=== PATIENT | female | born 1945 | race Caucasian/White ===

== ENCOUNTER 2016-11-30 20:14 | Inpatient (IN) | payer OTHER ==
--- NOTE | 2016-11-30 20:44 | CPEKG ---
Heart Rate: 68 RR Interval: 882 P-R Interval: 148 QRSD Interval: 94 QT Interval: 444 QTC Interval: 473 P Kelly[place]: 42 QRS Kelly[place]: 9 T Wave Kelly[place]: 41 EKG Severity - NORMAL ECG - EKG Impression: SINUS RHYTHM Electronically Signed By: Zaid Lopez 30-Nov-2016 21:44:06
[2016-11-30 21:08] LABS: % IMMATURE GRANULYOCYTES 0.4 % (0.0-1.1); ABSOLUTE IMMATURE GRANULOCYTES 0.04 10^3/uL (0.00-0.10); ADD DIFF? NO; ADD MORPH? NO; ADD SCAN? NO; ATYPICAL LYMPHOCYTE FLAG 0 (0-99); FRAGMENT RBC FLAG 0 (0-99); HEMATOCRIT 43.6 % (38.0-47.0); HEMOGLOBIN 15.3 g/dL (12.6-16.3); LEFT SHIFT FLG 0 (0-99); LIPEMIA HEMOLYSIS FLAG 90 (0-99); MEAN CELL HEMOGLOBIN 32.1 pg (27.9-34.1); MEAN CELL HEMOGLOBIN CONCENTR. 35.1 g/dL (32.4-36.7); MEAN CELL VOLUME 91.4 fL (81.5-99.8); MEAN PLATELET VOLUME 10.5 fL (8.7-11.7); PLATELET CLUMPS FLAG 0 (0-99); PLATELET COUNT 248 10^3/uL (150-400); RED BLOOD CELL COUNT 4.77 10^6/uL (4.18-5.33); RED CELL DISTRIBUTION WIDTH 11.7 % (11.5-15.2)
[2016-11-30 21:16] LABS: ANION GAP 12 mEq/L (8-16); CALCIUM 10.2 mg/dL (8.5-10.4); CARBON DIOXIDE 27 mEq/l (22-31); CHLORIDE 93 mEq/L (97-110); CREATININE 0.8 mg/dL (0.6-1.0); GLOMERULAR FILTRATION RATE > 60; GLUCOSE 195 mg/dL (70-100); POTASSIUM 3.8 mEq/L (3.5-5.2); SODIUM 132 mEq/L (134-144)
--- NOTE | 2016-11-30 21:19 | EDPHY ---
H & P Time Seen by Provider: 11/30/16 21:16 HPI/ROS: Chief complaint. Cough, vomiting HPI. Patient is 71-year-old female here with her . Recent [address] trip to [place] returning yesterday. The whole family was sick. Patient has been coughing to the point of throwing up and urinary incontinence. Continued vomiting today. This afternoon generalized weakness and sweaty. No fever. Sleepy this evening. No diarrhea. Patient says she has some mid abdominal pain from vomiting. ROS Constitutional. Weakness Eyes. no problems with vision ENT. no sore throat, no nasal drainage Cardiovascular. no chest pain Respiratory. Cough Abdominal. Vomiting . no problems urinating MS. no calf pain/swelling, no neck/back pain, no joint pain Skin. no rash Lymph. no swollen glands Neuro. Confusion Past Medical/Surgical History: Hypertension and dyslipidemia Social History: , nonsmoker, no alcohol Smoking Status: Never smoked Physical Exam: General Appearance: Alert well-developed female moderate distress vital signs significant for O2 saturation 90% Eyes: Pupils equal and round no pallor or injection. ENT, Mouth: Mucous membranes are moist. Respiratory: There are no retractions, lungs are clear to auscultation. Cardiovascular: Regular rate and rhythm. Gastrointestinal: Abdomen is soft and nontender, no masses, bowel sounds normal. Neurological: Awake and alert, sensory and motor exams grossly normal. Skin: Warm and dry, no rashes. Musculoskeletal: Neck is supple nontender. Extremities symmetrical, full range of motion. Psychiatric: Patient is oriented X 1, there is no agitation. Constitutional: Initial Vital Signs Temperature (C) 36.6 C 11/30/16 20:15 Heart Rate 73 11/30/16 20:15 Respiratory Rate 18 11/30/16 20:15 Blood Pressure 155/90 H 11/30/16 20:15 O2 Sat (%) 90 L 11/30/16 20:15 O2 Delivery Mode Room Air Allergies/Adverse Reactions: Penicillins Allergy (Verified 11/30/16 20:23) Medical Decision Making - Diagnostics Imaging: Chest x-ray interpreted by me is suggestive for pneumonia Procedures: IV normal saline. Sepsis workup ED Course/Re-evaluation: Re-evaluation patient is stable. The and I discussed treatment plan including recommendation for admission. He expresses understanding and agreement Patient is given IV Levaquin. I have consulted and discussed the case with Dr. Saunders, hospitalist, who agrees to the admission Differential Diagnosis: I have considered pneumonia, urinary tract infection, sepsis. The patient has altered mental status. I will order head CT as well - Data Points Laboratory Results: Laboratory Results 11/30/16 20:32 11/30/16 20:32 11/30/16 11/30/16 11/30/16 20:32 20:32 20:32 WBC RBC Hgb Hct MCV MCH MCHC RDW Plt Count MPV Neut % (Auto) Lymph % (Auto) [place] % (Auto) Eos % (Auto) Baso % (Auto) Nucleat RBC Rel Count Absolute Neuts (auto) Absolute Lymphs (auto) Absolute Monos (auto) Absolute Eos (auto) Absolute Basos (auto) Absolute Nucleated RBC Immature Gran % Immature Gran # PT 13.4 SEC SEC (12.0-15.0) INR 1.03 (0.83-1.16) APTT 26.8 SEC SEC (23.0-38.0) Sodium 132 mEq/L L mEq/L (134-144) Potassium 3.8 mEq/L mEq/L (3.5-5.2) Chloride 93 mEq/L L mEq/L (97-110) Carbon Dioxide 27 mEq/l mEq/l (22-31) Anion Gap 12 mEq/L mEq/L (8-16) BUN 22 mg/dL mg/dL (7-23) Creatinine 0.8 mg/dL mg/dL (0.6-1.0) Estimated GFR > 60 Glucose 195 mg/dL H mg/dL (70-100) Calcium 10.2 mg/dL mg/dL (8.5-10.4) Total Bilirubin 1.1 mg/dL mg/dL (0.1-1.4) 11/30/16 20:32 WBC 11.02 10^3/uL H 10^3/uL (3.80-9.50) RBC 4.77 10^6/uL 10^6/uL (4.18-5.33) Hgb 15.3 g/dL g/dL (12.6-16.3) Hct 43.6 % % (38.0-47.0) MCV 91.4 fL fL (81.5-99.8) MCH 32.1 pg pg (27.9-34.1) MCHC 35.1 g/dL g/dL (32.4-36.7) RDW 11.7 % % (11.5-15.2) Plt Count 248 10^3/uL 10^3/uL (150-400) MPV 10.5 fL fL (8.7-11.7) Neut % (Auto) 90.1 % H % (39.3-74.2) Lymph % (Auto) 4.4 % L % (15.0-45.0) [place] % (Auto) 4.7 % % (4.5-13.0) Eos % (Auto) 0.1 % L % (0.6-7.6) Baso % (Auto) 0.3 % % (0.3-1.7) Nucleat RBC Rel Count 0.0 % % (0.0-0.2) Absolute Neuts (auto) 9.94 10^3/uL H 10^3/uL (1.70-6.50) Absolute Lymphs (auto) 0.48 10^3/uL L 10^3/uL (1.00-3.00) Absolute Monos (auto) 0.52 10^3/uL 10^3/uL (0.30-0.80) Absolute Eos (auto) 0.01 10^3/uL L 10^3/uL (0.03-0.40) Absolute Basos (auto) 0.03 10^3/uL 10^3/uL (0.02-0.10) Absolute Nucleated RBC 0.00 10^3/uL 10^3/uL (0-0.01) Immature Gran % 0.4 % % (0.0-1.1) Immature Gran # 0.04 10^3/uL 10^3/uL (0.00-0.10) PT INR APTT Sodium Potassium Chloride Carbon Dioxide Anion Gap BUN Creatinine Estimated GFR Glucose Calcium Total Bilirubin Medications Given: Discontinued Medications Ondansetron HCl (Zofran) 4 mg IVP EDNOW ONE Stop: 11/30/16 21:47 Last Admin: 11/30/16 21:58 Dose: 4 mg Departure - Departure Disposition: [facility] Clinical Impression: Pneumonia Qualifiers: Pneumonia type: due to unspecified organism Laterality: right Lung location: middle lobe of lung Qualified Code(s): J18.1 - Lobar pneumonia, unspecified organism Altered mental status Qualifiers: Altered mental status type: disorientation Qualified Code(s): R41.0 - Disorientation, unspecified Condition: Fair Referrals: JENNIFER BECERRA [Primary Care Provider] - As per Instructions
[2016-11-30 21:32] LABS: INR 1.03 (0.83-1.16); PROTIME(PATIENT) 13.4 SEC (12.0-15.0)
[2016-11-30 21:33] LABS: APTT 26.8 SEC (23.0-38.0)
[2016-11-30 21:34] LABS: BILIRUBIN,TOTAL 1.1 mg/dL (0.1-1.4)
[2016-11-30] MEDS ORDERED: ONDANSETRON 4 MG/2 ML VIAL ONE (21:46)
[2016-11-30] MEDS ORDERED: ONDANSETRON 4 MG/2 ML VIAL IVP ONE (21:46)
[2016-11-30] MEDS ORDERED: IOPAMIDOL (ISOVUE 370) 100 ML BTL IV ONE (23:05)
--- NOTE | 2016-11-30 23:48 | SOAPPROG ---
Downtime Inpatient MD Late Entry SOAP Note: Audrey appears to have a ruptured left MCA aneurysm that will need to be secured surgically. Full CTA report is pending. We will discuss this with her in the morning and would suggest keppra sz prophylaxis and admission to sdu or icu. She does have a degree of hydrocephalus but we would prefer not to intervene until the time of her surgery for this provided she remains neurologically stable. We suggest keeping SBP <120 until aneursym is clipped. If indeed this proves to be a MCA aneurysm on the recons, then surgical clipping is advised over coiling. Dr Ge will assume care late tmrw afternoon. -Nadir Cortes MD
[2016-12-01] MEDS ORDERED: niCARdipine/NACL/200 ML BAG IV ONE (00:37)
[2016-12-01] MEDS: niCARdipine/NACL 200 ML IV SCH ×6 (00:50→18:43)
[2016-12-01] MEDS: NS W/ 20 KCl/L 1,000 ML IV SCH ×2 (00:50→13:14)
[2016-12-01] MEDS ORDERED: METOCLOPRAMIDE 10 MG/2 ML VIAL IVP PRN (01:27)
[2016-12-01] MEDS ORDERED: ACETAMINOPHEN 325 MG TAB PO PRN (01:27)
[2016-12-01] MEDS ORDERED: ONDANSETRON DISINTEGRATING 4 MG TAB PO PRN (01:27)
[2016-12-01] MEDS: ONDANSETRON 4 MG/2 ML VIAL IVP PRN ×2 (01:49→10:16)
--- NOTE | 2016-12-01 02:13 | GHP ---
[f rep st] HISTORY AND PHYSICAL DATE OF ADMISSION: 11/30/2016 HISTORY OF PRESENT ILLNESS: The patient is a pleasant 71-year-old female with a history of hyperten rafael, who has had a cough for a number of days. She was recently on a road trip, they drove to [place] and back with her family. She was coughing throughout the day. The cough became worse today. Her went out to run some errands and then came back, and he found his much sicker, wenora k and confused. He thought perhaps she had a bit of slurred speech. She was not complaining of hea dache at that time, she just felt confused. Like he asked where her clothes were, and she said in t he oven. Ultimately decided to take her in to the hospital. There was some discussion that the pat jayjay had pneumonia on the basis of a chest x-ray. Subsequent head CT showed a subarachnoid hemorrha ge, this is likely aneurysmal in nature. When I see the patient, she is able to follow some command s. She is complaining of headache which is a new complaint on the basis of this presentation. She is confused and saying some things that are less clear. She had no prior knowledge of aneurysm. PAST MEDICAL HISTORY: Hypercholesterolemia. REVIEW OF SYSTEMS: Complete 10-point review of systems was conducted and negative except as noted i n the HPI. ALLERGIES: Penicillins. HOME MEDICATIONS: She takes 3 antihypertensives although her is not certain what they are. She also takes a cholesterol medicine. SOCIAL HISTORY: No tobacco. One or two glasses of alcohol a day. She lives with her family. FAMILY HISTORY: Parents . PHYSICAL EXAM: VITAL SIGNS: Temp 36.6, blood pressure 155/90, pulse 73, breathing 18 times a minut e, 98% on room air. GENERAL: No acute distress. Wet cough. Alert. HEENT: Sclerae anicteric. O ropharynx clear. Mucous membranes are moist. NECK: Supple, without lymphadenopathy or JVD. LUNGS : Show rhonchorous breath sounds bilaterally. HEART: S1 and S2. Not tachycardic. ABDOMEN: Soft , nontender, nondistended. LOWER EXTREMITIES: Without edema. Calves are nontender. SKIN: Withou t rash. NEUROLOGIC: Shows the patient with moderate confusion, able to follow some commands but no t all. Her leather sorter strength is intact bilaterally. She is able to raise her arms. She is able to mov e her legs on command. Her cranial nerves 2-12 are intact. I do not appreciate a facial droop nor do I appreciate slurred speech. STUDIES: On labs white count 11, hematocrit 43, platelets are . Coags are normal. Veno us lactate is 1.1. Sodium 132, potassium 3.8, chloride 93, bicarb 27, BUN 22, creatinine 0.8, gluco se 195, bilirubin is 1.1. EKG interpreted by me shows sinus at 68 with normal axis and intervals. No ST or T-wave changes. Chest x-ray interpreted by me is questionable right infiltrate, poor lung volumes. Head CT shows extensive subarachnoid hemorrhage, is more prominent on the left side in the prepontin e cistern and the suprasellar region, blood in the third ventricle. Midline structures are normal p ositions. CTA of the head shows a focal aneurysm involving the left MCA artery at the junction of t he M1 and M2 segments. I discussed the case with Dr. Rob Montano. ASSESSMENT AND PLAN: A 71-year-old female with cough, possible community-acquired pneumonia, and stephens barachnoid hemorrhage. 1. Subarachnoid hemorrhage. Scans have been reviewed by Dr. Cortes who plans for surgery tomorrow. For the time being, will keep her blood pressure goal of less than 120 systolic. I have started a nicardipine drip. She is in the ICU, this can be titrated. 2. Question community-acquired pneumonia. The patient has a cough, mild leukocytosis and medical c omplexity. At this point, will go ahead and treat with levofloxacin for community-acquired pneumoni a. 3. Hypertension. Currently is on a nicardipine drip. 4. Hyponatremia, is mild. We will follow, it is either chronic or related to what is going on in h er head. 5. Prophylaxis. Pharmacologic prophylaxis is contraindicated, will place her on SCDs. 6. Disposition: ICU. 7. Status code full. /[id number]/MODL
[2016-12-01] MEDS: HYDROmorphONE/DILAUDID 1 MG/ML SYR IVP PRN ×2 (02:18→05:07)
[2016-12-01 05:15] LABS: % IMMATURE GRANULYOCYTES 0.3 % (0.0-1.1); ABSOLUTE IMMATURE GRANULOCYTES 0.03 10^3/uL (0.00-0.10); ADD DIFF? NO; ADD MORPH? NO; ADD SCAN? NO; ATYPICAL LYMPHOCYTE FLAG 0 (0-99); FRAGMENT RBC FLAG 0 (0-99); HEMATOCRIT 39.5 % (38.0-47.0); HEMOGLOBIN 13.9 g/dL (12.6-16.3); LEFT SHIFT FLG 0 (0-99); LIPEMIA HEMOLYSIS FLAG 90 (0-99); MEAN CELL HEMOGLOBIN 32.2 pg (27.9-34.1); MEAN CELL HEMOGLOBIN CONCENTR. 35.2 g/dL (32.4-36.7); MEAN CELL VOLUME 91.4 fL (81.5-99.8); MEAN PLATELET VOLUME 10.3 fL (8.7-11.7); PLATELET CLUMPS FLAG 0 (0-99); PLATELET COUNT 222 10^3/uL (150-400); RED BLOOD CELL COUNT 4.32 10^6/uL (4.18-5.33); RED CELL DISTRIBUTION WIDTH 11.7 % (11.5-15.2)
[2016-12-01 05:28] LABS: ANION GAP 13 mEq/L (8-16); CALCIUM 9.2 mg/dL (8.5-10.4); CARBON DIOXIDE 22 mEq/l (22-31); CHLORIDE 98 mEq/L (97-110); CREATININE 0.7 mg/dL (0.6-1.0); GLOMERULAR FILTRATION RATE > 60; GLUCOSE 145 mg/dL (70-100); POTASSIUM 3.8 mEq/L (3.5-5.2); SODIUM 133 mEq/L (134-144)
[2016-12-01 05:39] LABS: INR 1.06 (0.83-1.16); PROTIME(PATIENT) 13.7 SEC (12.0-15.0)
[2016-12-01 05:40] LABS: APTT 25.4 SEC (23.0-38.0)
[2016-12-01 05:40] LABS: COLOR YELLOW; LEUKOCYTE ESTERASE,URINE NEGATIVE (NEGATIVE); NITRITE,URINE NEGATIVE (NEGATIVE)
[2016-12-01 05:47] LABS: MUCUS TRACE /lpf (NONE-1+); RBC,URINE 15-25 /hpf (0-3)
--- NOTE | 2016-12-01 10:43 | HOSPPROG ---
Hospitalist Progress Note Assessment/Plan: error. Please see progress note from the same date. Objective: Vital Signs Temp Pulse Resp BP Pulse Ox 37.0 C 72 13 110/65 92 12/01/16 08:00 12/01/16 10:00 12/01/16 10:00 12/01/16 10:00 12/01/16 10:00 Laboratory Results 12/01/16 04:45 12/01/16 04:45 11/30/16 12/01/16 12/02/16 05:59 05:59 05:59 Intake Total 2035 Output Total 600 Balance 1435 PT 13.7 SEC (12.0-15.0) 12/01/16 04:45 INR 1.06 (0.83-1.16) 12/01/16 04:45 ICD10 Worksheet Patient Problems: Problems Problem Status Onset Pneumonia Acute Altered mental status Acute
--- NOTE | 2016-12-01 11:10 | HOSPPROG ---
Hospitalist Progress Note Assessment/Plan: # SAH d/t ruptured L MCA aneurysm - plan surgical clipping today by Dr Ge - SBP<120 on cardene gtt # possible pna - cont levaquin for now # HLD # hyponatremia ## 35 minutes critical care time with life threatening intracranial hemorrhage needing surgery Subjective: ongoing emesis Objective: Vital Signs Temp Pulse Resp BP Pulse Ox 37.0 C 72 13 110/65 92 12/01/16 08:00 12/01/16 10:00 12/01/16 10:00 12/01/16 10:00 12/01/16 10:00 Laboratory Results 12/01/16 04:45 12/01/16 04:45 11/30/16 12/01/16 12/02/16 05:59 05:59 05:59 Intake Total 2035 Output Total 600 Balance 1435 PT 13.7 SEC (12.0-15.0) 12/01/16 04:45 INR 1.06 (0.83-1.16) 12/01/16 04:45 - Physical Exam Constitutional: no apparent distress, appears nourished Cardiovascular: regular rate and rhythym, no murmur, rub, or gallop Respiratory: no respiratory distress, no rales or rhonchi, clear to auscultation Gastrointestinal: normoactive bowel sounds, soft, non-tender abdomen, no palpable masses Neurologic: other (oriented, conversant, moving all extr) ICD10 Worksheet Patient Problems: Problems Problem Status Onset Pneumonia Acute Altered mental status Acute
[2016-12-01] MEDS: levETIRAcetam 750 MG in NS 100 ML IV SCH ×2 (11:33→23:07)
[2016-12-01] MEDS: FAMOTIDINE 20 MG/NACL 50 ML IV SCH ×2 (11:49→23:07)
--- NOTE | 2016-12-01 12:18 | GCON ---
[f rep st] CONSULTATION HOSPITAL COURSE, HISTORY, AND MAJOR MEDICAL FINDINGS: The patient is a 71-year- old female who approximately 1 week ago was out visiting her family in [place] and developed a strong cough and bronchitis-type symptoms. She does have a history of these symptoms occurring frequently for her and her family was sick. She was coughing so much over the last several days that she was vomiting each time she was coughing. The patient returned home with her over the weekend and was continuing to have upper respiratory infection symptoms. They live with their son here locally, and last night she was not feeling well and asked her to cook helper meat. Her went to the store to get groceries and upon his return found that she was lying on the floor and stated that she did not want to get up. At that point, he brought her to [facility] emergency room for further evaluation. Upon examining the patient in the emergency room, she was found to have pneumonia. While in the emergency room, she was not complaining of a headache but she was having some continued confusion. Based on this, they ordered a head CT, which demonstrated a subarachnoid hemorrhage that appeared aneurysmal in nature. She was admitted to the ICU last night for further management. Her states that at no point did his detail a severe headache. However , she was having nausea and vomiting over the last week. He also does not report any fevers or chills. REVIEW OF SYSTEMS: Negative other than what is stated in the HPI. Please see for pertinent negatives and pertinent positives. PAST MEDICAL HISTORY: Significant for hypercholesteremia as well as hypertension.The patient does have a history of agitation and combativeness with being restrained or in claustrophobic environments per her as well. PAST SURGICAL HISTORY: Significant for left reverse shoulder replacement as well as a left hip replacement. ALLERGIES: Naproxen and penicillin. MEDICATIONS: atenolol, hydrochlorothiazide, and lisinopril, chlorthalidone and lipitor. SOCIAL HISTORY: The patient has never smoked. She drinks socially. She lives locally with her and her son here in [place]. FAMILY HISTORY: There is a family history of her father having an abdominal aortic aneurysm. Denies any family history of cerebral aneurysms. PHYSICAL EXAM: VITAL SIGNS: BP is 110/65. Heart rate is 72. She is 92% on room air. Temp is 37.9. GENERAL: The patient is in no acute distress. She is alert. She is not oriented to place or time. She does have clear speech, though her responses are not appropriate for the questions that are being asked. The patient does obey commands, and she is equal in her bilateral upper and bilateral lower extremities and full strength in her deltoids, triceps, biceps, wrist flexors and extensors, interossei, intrinsic roll forming supervisor, iliopsoas, hamstrings, quadriceps, plantar flexion, dorsiflexion, EHL. Cranial nerves 2- 12 are grossly intact. EOMI. PERRLA. IMAGING: Patient underwent a head CT which demonstrated a diffuse subarachnoid hemorrhage that is worrisome for a ruptured aneurysm. The patient further underwent a CTA of the head, which demonstrated a left middle cerebral artery aneurysm at the junction of M1 and M2. ASSESSMENT AND PLAN: The patient is a 71-year-old female who presented to [facility] emergency room yesterday with some confusion as well as upper respiratory symptoms and was found to have pneumonia as well as a ruptured left middle cerebral artery aneurysm. The patient this morning is clinically stable. At present, she is awake and following simple commands there is not an indication to have an EVD placed at this time . Discussed thoroughly with the that if she has a decline she may require EVD placement. The patient was seen by Dr. Cortes this morning and will be seen later today by Dr. Ge, our vascular cranial specialist. The plan is to take to the OR for a left-sided craniotomy for clipping of the left middle cerebral artery aneurysm , later today. The patient will be maintained n.p.o. at this time. Would recommend systolic blood pressure goal of less than 140. Continue Levaquin and other treatment for pneumonia per Critical Care and Internal Medicine. If the patient has any change in neurologic or motor exam, please notify Neurosurgery. /[id number]/MODL MTDD
--- NOTE | 2016-12-01 16:39 | GCON ---
[f rep st] CONSULTATION PULMONARY CRITICAL CARE CONSULTATION REASON FOR CONSULTATION: Intensive care unit evaluation and management of a subarachnoid hemorrhage . HISTORY: The patient is a 71-year-old who was found with abnormal mental status by her mohit cooper, confused, weak, with slurred speech. He brought her to the hospital. CT scan of the head sh owed a significant subarachnoid hemorrhage. CT angiogram showed an aneurysm of the left middle cere bral artery. She was seen by Neurosurgery. She is to be taken to the operating room for aneurysmal clipping later today. She is on seizure prophylaxis, and nicardipine to keep systolic blood pressu re less than 120. She does have a history of systemic hypertension. She was recently traveling by car to [place] and back. She had an upper respiratory infection during that trip, with significant coughing. The lat ter may have elevated her blood pressure further. She was admitted to the intensive care unit. She is somnolent, but arousable, responsive to simple questions at times. PAST MEDICAL HISTORY: Systemic hypertension, hyperlipidemia. MEDICATIONS: At home, lisinopril, hydrochlorothiazide, chlorthalidone, atenolol, and Lipitor. DRUG ALLERGIES: Penicillin, Naprosyn. SOCIAL HISTORY: The patient is , with a supportive family who is at her bedside. Tobacco wa s negative. Significant alcohol is negative. FAMILY HISTORY: Noncontributory/unobtainable at this time. REVIEW OF SYSTEMS: Unobtainable. There is no history of underlying heart or lung disease. PHYSICAL EXAMINATION: GENERAL: Reveals a woman, who is somewhat obtunded, but arouses, opens her e yes, responds to simple questions and commands. VITAL SIGNS: Blood pressure is 125/55, heart rate 70, with sinus rhythm on the monitor, respiratory rate is 18. On 2 L, saturations are 94%. HEENT A ND NECK: Unremarkable for lymphadenopathy or thyromegaly. There is no jugular venous distention. Pupils appear equal. CHEST: Reveal somewhat coarse breath sounds at the bases. No rales. No cons olidation. No jennifer rhonchi. HEART: Regular in rate and rhythm, without significant murmur or gal lop. ABDOMEN: Soft, mildly distended. Bowel sounds are present. EXTREMITIES: Unremarkable for e michelle, cords or tenderness. NEUROLOGIC: Remarkable for decreased mental status. She does move all e xtremities with good and equal strength. Cranial nerves appear intact. ASSESSMENT: 1. Subarachnoid hemorrhage, secondary to a ruptured left middle cerebral artery aneurysm. She will be taken to the OR for left-sided clipping later today. She will be kept on seizure prophylaxis wi collins. Blood pressure will be controlled, with the goal under a systolic of 120 for now. After clipping, blood pressure can be driven up to prevent vasospasm. 2. Recent bronchitis, with significant cough. X-ray is difficult to interpret, but there is no def inite evidence of pneumonia. However, with her nausea and vomiting, she could have aspirated. She is on Levaquin. I will leave her on this for now and follow her x-ray. If there is evidence of a d eveloping aspiration pneumonia, antibiotics can be changed. 3. Gastrointestinal prophylaxis: Famotidine. 4. Deep vein thrombosis prophylaxis: Sequential compression devices. Anticoagulants contraindicat ed. RECOMMENDATIONS: She will be kept in the intensive care unit, taken to the operating room. Further plans and recommendations will be made postoperatively. I would not be surprised if she comes back on the ventilator, and requires ventilatory support for several days postoperatively as she is stab ilized. Further plans and recommendations will be made based on her progress over the next 12-24 hours. /[id number]/MODL
[2016-12-01] MEDS ORDERED: CLINDAMYCIN 600 MG/DEXTROSE 50 ML IV ONE (18:24)
[2016-12-01] MEDS ORDERED: SUGAMMADEX SODIUM 200 MG/2 ML VIAL IVP ONE (18:57)
[2016-12-01] MEDS ORDERED: THROMBIN (BOVINE) 20,000 UNIT VIAL TP ONE (18:57)
[2016-12-01] MEDS ORDERED: ROCURONIUM 50 MG/5 ML VIAL ONE ×2 (18:57→21:54)
[2016-12-01] MEDS ORDERED: DEXAMETHASONE 4 MG/ML VIAL ONE (18:57)
[2016-12-01] MEDS ORDERED: ONDANSETRON 4 MG/2 ML VIAL ONE (18:57)
[2016-12-01] MEDS ORDERED: fentaNYL 250 MCG/5 ML INJ ONE (18:57)
[2016-12-01] MEDS ORDERED: PROPOFOL 200 MG/20 ML VIAL ONE (18:57)
[2016-12-01] MEDS ORDERED: LIDOCAINE 2% 100 MG/5 ML SYR ONE (18:57)
[2016-12-01] MEDS ORDERED: SURGIFLO MATRIX KIT WITH THROMBIN TP ONE (18:57)
[2016-12-01] MEDS ORDERED: BACITRACIN 50,000 UNITS/10 ML SYR IRR ONE (18:58)
[2016-12-01] MEDS ORDERED: BUPIVACAINE/EPI 0.25% 30 ML SDV ONE (18:59)
[2016-12-01] MEDS ORDERED: ESMOLOL HCL 100 MG/10 ML VIAL IV ONE ×2 (19:01→22:29)
[2016-12-01] MEDS ORDERED: PHENYLEPHRINE HCL 100 MCG/ML SYR ONE (19:01)
[2016-12-01] MEDS ORDERED: MIDAZOLAM 2 MG/2 ML VIAL ONE (19:02)
--- NOTE | 2016-12-01 19:30 | POSTOPPROG ---
Post Op Note Date of Operation: 12/02/16 Surgeon: Katelyn Fuentes Hand Knitter: YOKASTA Fuentes PAC Anesthesia: GET(General Endotracheal) Pre-op Diagnosis: left MCA aneursym Post-op Diagnosis: left MCA aneursym Indication: rupture left MCA aneursym Procedure: lefted sided craniotomy for left MCA clipping Inf/Abcess present in the surg proc area at time of surgery?: No EBL: 150 Drains: Channing REYES Addendum - Addendum .: S: Resting comfortably, difficulty with with O: PERRLA, Face symmetrical, MAEx4, following simple commands (squeezes hands) bilaterally A/P 71 y/o female s/p left sided craniotomy for MCA aneurysm clipping and ventricular fenestration -Post op Head CT tomorrow morning -SBP goal 120-160, nicardipine available. Hold on restarting home Lisinopril and HCTZ at this time -Nimodipine 60mg q4 x 21 days -Continue Keppra -PT/OT -Will need schedule for post op angiogram in approximately 1 week -Q1 hour neuro checks -Notify NS with any change in neuro/motor exam
[2016-12-01] MEDS ORDERED: MANNITOL 20% 100 GM/500 ML BAG IV ONE (19:39)
[2016-12-01] MEDS ORDERED: INDOCYANINE GREEN 25 MG VIAL ONE (19:49)
[2016-12-01] MEDS: niMODipine 30 MG CAP PO SCH (23:07)
[2016-12-02] MEDS: HYDROmorphONE/DILAUDID 1 MG/ML SYR IVP PRN (01:04)
[2016-12-02] MEDS: CLINDAMYCIN 600 MG/DEXTROSE 50 ML IV SCH ×3 (01:04→18:03)
[2016-12-02] MEDS: niMODipine 30 MG CAP PO SCH ×9 (04:00→22:35)
[2016-12-02 04:53] LABS: % IMMATURE GRANULYOCYTES 0.6 % (0.0-1.1); ABSOLUTE IMMATURE GRANULOCYTES 0.06 10^3/uL (0.00-0.10); ADD DIFF? NO; ADD MORPH? NO; ADD SCAN? NO; ATYPICAL LYMPHOCYTE FLAG 10 (0-99); FRAGMENT RBC FLAG 0 (0-99); HEMATOCRIT 31.3 % (38.0-47.0); LEFT SHIFT FLG 20 (0-99); LIPEMIA HEMOLYSIS FLAG 90 (0-99); MEAN CELL HEMOGLOBIN 31.5 pg (27.9-34.1); MEAN CELL HEMOGLOBIN CONCENTR. 35.1 g/dL (32.4-36.7); MEAN CELL VOLUME 89.7 fL (81.5-99.8); MEAN PLATELET VOLUME 9.9 fL (8.7-11.7); PLATELET CLUMPS FLAG 0 (0-99); PLATELET COUNT 202 10^3/uL (150-400); RED BLOOD CELL COUNT 3.49 10^6/uL (4.18-5.33); RED CELL DISTRIBUTION WIDTH 11.9 % (11.5-15.2)
[2016-12-02 05:23] LABS: ANION GAP 9 mEq/L (8-16); CALCIUM 8.5 mg/dL (8.5-10.4); CARBON DIOXIDE 22 mEq/l (22-31); CHLORIDE 104 mEq/L (97-110); CREATININE 0.9 mg/dL (0.6-1.0); GLOMERULAR FILTRATION RATE > 60; GLUCOSE 155 mg/dL (70-100); POTASSIUM 3.7 mEq/L (3.5-5.2); SODIUM 135 mEq/L (134-144)
--- NOTE | 2016-12-02 07:57 | GOP ---
[f rep st] OPERATIVE REPORT DATE OF OPERATION: 12/01/2016 SURGEON: Basilio Ge MD DIRECTOR OF ENTERPRISE ARCHITECTURE: Katelyn Fuentes, YESIKA. ANESTHESIA: General endotracheal. PREOPERATIVE DIAGNOSIS: Subarachnoid hemorrhage. POSTOPERATIVE DIAGNOSIS: Subarachnoid hemorrhage. PROCEDURE PERFORMED: 1. Left frontotemporal craniotomy. 2. Microsurgical clipping of left MCA aneurysm (ruptured, complex, with temporary clipping of the M 1). 3. Use of the operative microscope. 4. Microsurgical ventricular fenestration of the lamina terminalis. 5. Indocyanine green angiography with using the operative microscope. FINDINGS: A subarachnoid hemorrhage. SPECIMENS: There were none. ESTIMATED BLOOD LOSS: Approximately 150 cc. INDICATIONS: The patient is a 71-year-old woman who presented to the emergency department yesterday with altered mental status. She was found to have pneumonia and was originally worked up for this, but given her altered mental status, a CT of the head was performed, showing diffuse, Thomas, grade 3, subarachnoid hemorrhage. Her clinical grade was Nolasco and Burleson, grade 3. A CT angiogram reveale d a wide-necked, MCA bifurcation aneurysm which had ruptured. She was brought to the operating room , semi-electively today, a day after her bleed, for clipping. DESCRIPTION OF PROCEDURE: After informed consent was obtained from the patient, the patient was bro ught to the operating room, and was placed in a supine position on the operating table. A formal ti me-out was performed, identifying the patient by name, medical record number, and date of . Pr eoperative antibiotics were given, the endotracheal tube was placed, and general endotracheal anesth esia was smoothly induced. The patient was given preoperative mannitol and Decadron, and the head w as placed in the Farnsworth pins. The head was then turned slightly toward the right side with the ma lar eminence at the highest point. At this point, a curvilinear incision, standard for a pterional craniotomy was marked, and a small area of hair was clipped. 20 cc of 0.25% Marcaine with epinephri ne was infiltrated into the skin for hemostasis. The head was then prepped and draped in the normal sterile fashion. Skin incision was made using a 10 blade, and the subcutaneous tissues were dissec roel using monopolar electrocautery. Care was taken to preserve the superficial temporal artery in c ase it was necessary for a bypass during the procedure. The temporalis muscle and fascia were opene d in line with the incision, and a single myocutaneous flap was retracted anteriorly. Once the keyh ole was exposed, 3 bur holes were placed in standard pterional fashion, and a standard pterional aircraft engine cylinder mechanic niotomy was turned using the craniotome. The brain and dura were quite full, and the sphenoid wing was then drilled down and parallel with the skull base. All bleeding was again controlled with bipo lar electrocautery and Gelfoam. At this point, the dura was opened in a curvilinear fashion at the base of the sphenoid wing. The operative microscope was then brought on the field, and the remainde r of the procedure was performed under high-power magnification. The brain was quite full and the s ylvian fissure was very closed due to the fullness of the brain. Therefore, we took a subfrontal tr ajectory, identified the optical carotid cistern, which was opened. A lot of thick blood clot was s uctioned from the optical carotid cistern, and the left optic nerve was identified. This was then f ollowed back toward the optic chiasm. The contralateral optic nerve was identified, and blood was s uctioned from the chiasmatic cistern. As we were able to course back, the lamina terminalis was santino ntified, and an 11 blade was used to puncture the lamina terminalis. A good egress of CSF was obtai delia, and the brain then relaxed completely. At this point, we turned our attention toward the carot id artery. The carotid was dissected down towards the carotid bifurcation. We then went to the trenton vian fissure and the arachnoid over the sylvian fissure was opened distally. We went from deep to s uperficial on the sylvian fissure, dissecting the arachnoid all the way down toward the carotid bifu rcation. We then dove deeper into the sylvian fissure, identifying a larger branch, which was thoug ht to be the temporal M2. This was followed more proximally to where we could see a portion of the aneurysm dome. Next, the frontal M2 was identified deeper in the fissure, and this was again follow ed proximally to the MCA bifurcation. We then began to dissect more proximally to identify the M1 s egment. Once the M1 and both M2s were identified and no further branches were seen in that region, we began to dissect around the aneurysm neck. In order to get a clip across the neck, because of it s bulbous nature, it was necessary to dissect around the area where the apex of the aneurysm and the rupture point were located. As I dissected around this area, we did have a rupture of the aneurysm dome with brisk bleeding in the field. This was controlled with suction and a piece of cotton, and eventually a steamboat pilot clip was placed across the aneurysm neck, which slowed the bleeding. I then yolanda ricardo a temporary clip on the M1 segment and further dissected around the aneurysm dome which fully re leased the aneurysm from the surrounding tissues. We then chose a curved Mizuho-Sugita titanium ane urysm clip which was placed across the neck of the aneurysm. Care was taken not to compromise the o rigin of the temporal M2. Next, the temporary clip was removed after less than 5 minutes of tempora ry occlusion time on the MCA, and the area was inspected. Doppler ultrasound was used to confirm pa tency of both M2s and the M1, and an indocyanine angiogram was then performed using the operative mi croscope, which showed patency of both M2s and again the M1. I inspected the area further to be sade e there were no dog ears of the aneurysm left over, and I then coagulated the dome of the aneurysm, distal to the clip, with bipolar electrocautery. At this point, the wound was copiously irrigated u sing gentamicin irrigation. I went back to the lamina terminalis to drain a little bit more CSF, an d the membrane of Liliequist was also opened to drain CSF from the basilar cisterns. Next, a piece of Surgicel was placed over the inferior frontal lobe. Again, the wound was copiously irrigated usi ng irrigation. The dura was closed in a watertight fashion using a running 4-0 Nurolon. Gelfoam wa s placed over the dura, and the craniotomy flap was plated back in place using Synthes titanium plat es and screws. A submuscular drain was then placed, and the temporalis muscle and fascia were close d using interrupted 2-0 Vicryl. The wound was again copiously irrigated using bacitracin irrigation . The galea was closed using interrupted 2-0 Vicryl, and the skin was closed using marce. The dr ain was connected to a sterile drainage system. The patient was awakened in the operating room, whe re she was extubated and was transferred back to the ICU in stable condition. There were otherwise no complications to the case. FLUIDS: Per Anesthesia record. URINE OUTPUT: Per Anesthesia record. DRAINS: A subgaleal ANGELA. /[id number]/MODL
--- NOTE | 2016-12-02 08:11 | SOAPPROG ---
SOAP Progress Note Assessment/Plan: Assessment: POD #1 sp left craniotomy for clipping of ruptured aneurysm (MCA) Plan: PICC line today Start 3% NACL at 30ml/hr Change Nimotop from 60mg Q4 to 30mg Q2 Goal BP is 120-180 systolic Start Hi flow O2 via non rebreather x 24 hrs. 2 hr. on / 2 hr[address] off [address] Dr[address] Ge 12/02/16 08:07 12/02/16 08:13 Subjective: Eyes closed, opens to tactile stimulation and says "Yes." Objective: Vital Signs Temp Pulse Resp BP Pulse Ox 36.4 C 51 L 17 104/51 L 97 12/01/16 22:00 12/02/16 07:00 12/02/16 07:00 12/02/16 07:00 12/02/16 07:00 Laboratory Results 12/02/16 04:30 12/02/16 04:30 12/01/16 12/02/16 12/03/16 05:59 05:59 05:59 Intake Total 2035 2154 Output Total 600 1285 Balance 1435 869 PT 13.7 SEC (12.0-15.0) 12/01/16 04:45 INR 1.06 (0.83-1.16) 12/01/16 04:45 Neuro: Left pupil 4mm fixed right pupil 2mm sluggish Opens eyes to tactile stimulation and says "yes" and nods her head moves left side briskly and will squeeze my hand and wiggles her toes on left to command. moves right arm/leg minimally but does squeeze weakly with right hand ANGELA: 160ml CTH 12/02: Improved ventricles and SAH, no new infarct. Pneumocephalus ICD10 Worksheet Patient Problems: Problems Problem Status Onset Altered mental status Acute Pneumonia Acute
[2016-12-02] MEDS ORDERED: ALTEPLASE 2 MG VIAL IVP PRN (08:15)
[2016-12-02] MEDS: levETIRAcetam 750 MG in NS 100 ML IV SCH ×2 (08:40→20:39)
[2016-12-02] MEDS: FAMOTIDINE 20 MG/NACL 50 ML IV SCH ×2 (08:41→20:17)
[2016-12-02] MEDS ORDERED: ATENOLOL 100 MG TAB PO SCH (09:00)
[2016-12-02] MEDS: ATORVASTATIN CALCIUM 10 MG TAB PO SCH (09:56)
[2016-12-02] MEDS: NS W/ 20 KCl/L 1,000 ML IV SCH (12:14)
[2016-12-02] MEDS: SODIUM Cl 3% 500 ML IV SCH (14:38)
--- NOTE | 2016-12-02 14:52 | PDINTPN ---
Fire Control Technician G Progress Note Assessment/Plan: Assessment: Subarachnoid hemorrhage secondary to cerebral aneurysm. Status post clipping. Altered mental status: Secondary to the above. History of hypertension. Blood pressure is borderline low at this time. May need pressor sores if systolic remains less than 120. DVT prophylaxis: SCDs. GI prophylaxis: Pantoprazole. NPO for now regarding swallow. NG tube be placed. Recent bronchitis: On Levaquin. Plan: Continue care in the intensive care unit. Follow blood pressure closely. Follow laboratory, chest x-ray. Mental status checks q.2 hours. Continue Keppra for seizure prophylaxis. Continue nimodipine for vasospasm. To start 3% saline. Arnoldo-Synephrine if blood pressure remains low. Subjective: Mental status waxing and waning post aneurysm clipping last night. She appears to deny a headache. Says "okay" but will not follow commands. Objective: Vital Signs Temp Pulse Resp BP Pulse Ox 36.4 C 48 L 17 120/57 L 100 12/02/16 09:00 12/02/16 13:00 12/02/16 13:00 12/02/16 13:00 12/02/16 13:00 Laboratory Results 12/02/16 04:30 12/02/16 04:30 12/01/16 12/02/16 12/03/16 05:59 05:59 05:59 Intake Total 2035 2154 Output Total 600 1285 Balance 1435 869 PT 13.7 SEC (12.0-15.0) 12/01/16 04:45 INR 1.06 (0.83-1.16) 12/01/16 04:45 CXR: No significant infiltrates. No evidence of aspiration pneumonia Physical Exam - Physical Exam General Appearance: no apparent distress, No alert EENT: anisocoria, other (Nasal cannula 4 L, or a non-rebreather mask. NG tube placed.), No PERRL/EOMI Neck: normal inspection Respiratory: decreased breath sounds (Will not take deep breaths on command), rales (A few possibly at bases), No respiratory distress Cardiac/Chest: bradycardia (Normal rate at times.) Abdomen: non-tender, soft (Overweight), No normal bowel sounds (Present, decreased) Pelvic Exam: other (Silvestre catheter in place, good) Skin: normal color, warm/dry Extremities: pedal edema (Trace) Neuro/Psych: no motor/sensory deficits (Moves all extremities, question slightly weaker on the left than the right), cognition abnormalities ICD10 Worksheet Patient Problems: Problems Problem Status Onset Pneumonia Acute Altered mental status Acute
--- NOTE | 2016-12-02 16:32 | HOSPPROG ---
Hospitalist Progress Note Assessment/Plan: * Ruptured MCA aneurysm s/p craniotomy with clipping -3% saline -nimodipine -Goal SBP 120-180 -NRB q2 hours -empiric Keppra -post-op angio 1 week * HTN -holding home atenolol due to bradycardia -holding lisinopril and HCTZ -IV nicardipine * Encephalopathy - waxing and waning mental status * Dysphagia - NPO/Dobbhoff * Pneumonia - Levaquin Subjective: lethargic, nonverbal Objective: Vital Signs Temp Pulse Resp BP Pulse Ox 36.4 C 51 L 16 119/54 L 100 12/02/16 09:00 12/02/16 16:00 12/02/16 16:00 12/02/16 16:00 12/02/16 16:00 Laboratory Results 12/02/16 04:30 12/02/16 04:30 12/01/16 12/02/16 12/03/16 05:59 05:59 05:59 Intake Total 2035 2154 Output Total 600 1285 Balance 1435 869 PT 13.7 SEC (12.0-15.0) 12/01/16 04:45 INR 1.06 (0.83-1.16) 12/01/16 04:45 - Physical Exam Constitutional: no apparent distress, appears nourished, not in pain Cardiovascular: regular rate and rhythym, no murmur, rub, or gallop Respiratory: no respiratory distress, no rales or rhonchi, clear to auscultation Gastrointestinal: normoactive bowel sounds, soft, non-tender abdomen, no palpable masses Skin: no rashes or abrasions, no fluctuance, no induration Neurologic: weakness, No AAOx3 Psychiatric: encephalopathic, flat affect, No interacting appropriately, No agitated ICD10 Worksheet Patient Problems: Problems Problem Status Onset Altered mental status Acute Pneumonia Acute
[2016-12-02] MEDS ORDERED: NS W/ 20 KCl/L 1,000 ML IV SCH (18:00)
[2016-12-03] MEDS: niMODipine 30 MG CAP PO SCH ×7 (00:06→12:21)
[2016-12-03] MEDS: SODIUM Cl 3% 500 ML IV SCH ×2 (04:12→15:02)
[2016-12-03 05:47] LABS: % IMMATURE GRANULYOCYTES 0.5 % (0.0-1.1); ABSOLUTE IMMATURE GRANULOCYTES 0.06 10^3/uL (0.00-0.10); ADD DIFF? NO; ADD MORPH? NO; ADD SCAN? NO; ATYPICAL LYMPHOCYTE FLAG 10 (0-99); FRAGMENT RBC FLAG 0 (0-99); HEMATOCRIT 29.7 % (38.0-47.0); HEMOGLOBIN 10.2 g/dL (12.6-16.3); LEFT SHIFT FLG 10 (0-99); LIPEMIA HEMOLYSIS FLAG 90 (0-99); MEAN CELL HEMOGLOBIN 31.4 pg (27.9-34.1); MEAN CELL HEMOGLOBIN CONCENTR. 34.3 g/dL (32.4-36.7); MEAN CELL VOLUME 91.4 fL (81.5-99.8); PLATELET CLUMPS FLAG 0 (0-99); PLATELET COUNT 197 10^3/uL (150-400); RED BLOOD CELL COUNT 3.25 10^6/uL (4.18-5.33); RED CELL DISTRIBUTION WIDTH 12.1 % (11.5-15.2)
[2016-12-03 05:56] LABS: INR 1.22 (0.83-1.16); PROTIME(PATIENT) 15.4 SEC (12.0-15.0)
[2016-12-03 05:57] LABS: APTT 29.4 SEC (23.0-38.0)
[2016-12-03 06:07] LABS: ALANINE AMINOTRANSFERASE 29 IU/L (9-52); ALBUMIN 2.8 g/dL (3.5-5.0); ALKALINE PHOSPHATASE 50 IU/L (38-126); ANION GAP 7 mEq/L (8-16); ASPARTATE AMINOTRANSFERASE 17 IU/L (14-46); BILIRUBIN,TOTAL 0.4 mg/dL (0.1-1.4); CALCIUM 8.5 mg/dL (8.5-10.4); CARBON DIOXIDE 26 mEq/l (22-31); CHLORIDE 107 mEq/L (97-110); CREATININE 0.7 mg/dL (0.6-1.0); GLOMERULAR FILTRATION RATE > 60; GLUCOSE 131 mg/dL (70-100); POTASSIUM 3.6 mEq/L (3.5-5.2); SODIUM 140 mEq/L (134-144); TOTAL PROTEIN 5.4 g/dL (6.3-8.2)
--- NOTE | 2016-12-03 07:48 | NEUSURGPN ---
Assessment/Plan: A/P 71 y/o female s/p left sided craniotomy for MCA aneurysm clipping and ventricular fenestration POD2 -Head CT with slight increase in ventriculomegaly. Will continue to montior -Subgaleal ANGELA removed today -SBP goal 120-160, nicardipine available. Hold on restarting home Lisinopril and HCTZ at this time -Nimodipine 60mg q4 x 21 days -Continue Keppra -PT/OT -Will need schedule for post op angiogram in approximately 1 week -Q1 hour neuro checks -Notify NS with any change in neuro/motor exam Subjective: Unable to fully obtain do to dysphagia Objective: NAD Alert, open eyes to voice. Left pupil sluggishly reactive a 4mm, right briskly reactive 2mm. Disconjugate gaze. MAEx4 follows commands, slower to respond on the right and overall strength slightly diminished compared to brady left. Incision c/d/i Catheter Insertion Date: 12/01/16 - Physician Discussed Patient with Dr.: [facility] Physical Exam - Vitals, I&O, Labs I and O 12/02/16 12/03/16 12/04/16 05:59 05:59 05:59 Intake Total 2154 3302 Output Total 1285 2705 Balance 869 597 Intake: IV Intake (ml) 886 1296 IV Infused (ml) 1268 1558 NS W/ 20 KCl/L 1,000 ml @ 667 977 100 mls/hr IV CONT FAYE Rx#:[id number] SODIUM Cl 3% 500 ml @ 45 581 mls/hr IV CONT FAYE Rx#: [id number] niCARdipine/NACL 200 ml @ 601 Titrate IV CONT FAYE Rx#: [id number] Tube Feeding (ml) 298 Tube Flush (ml) 150 Output: Urine (ml) 1125 2695 Catheter 1125 2695 Wound Drainage (ml) 160 10 #1 Left Posterior Head 160 10 Channing Goodman Vital Signs Temp Pulse Resp BP Pulse Ox 36.5 C 68 20 130/65 H 96 12/02/16 20:00 12/03/16 06:00 12/03/16 06:00 12/03/16 06:00 12/03/16 06:00 Laboratory Results 12/03/16 05:35 12/03/16 05:35 ICD10 Worksheet Patient Problems: Problems Problem Status Onset Altered mental status Acute Pneumonia Acute
[2016-12-03] MEDS: FAMOTIDINE 20 MG/NACL 50 ML IV SCH (07:59)
[2016-12-03] MEDS: ATORVASTATIN CALCIUM 10 MG TAB PO SCH (07:59)
[2016-12-03] MEDS: levETIRAcetam 750 MG in NS 100 ML IV SCH ×2 (08:37→20:20)
[2016-12-03] MEDS ORDERED: ACETAMINOPHEN 650 MG/20.3 ML UDCUP TUBE PRN (11:02)
[2016-12-03] MEDS ORDERED: ONDANSETRON DISINTEGRATING 4 MG TAB TUBE PRN (11:06)
[2016-12-03] MEDS: niMODipine 30 MG CAP TUBE SCH ×3 (12:10→16:05)
--- NOTE | 2016-12-03 17:14 | HOSPPROG ---
Hospitalist Progress Note Assessment/Plan: * Ruptured MCA aneurysm s/p craniotomy with clipping -3% saline -nimodipine -Goal SBP 120-160 -empiric Keppra -post-op angio 1 week * HTN -holding home atenolol due to bradycardia -holding lisinopril and HCTZ * Encephalopathy - anticipate slow recovery * Dysphagia - NPO/Dobbhoff * Pneumonia - Levaquin Subjective: no change in mental status, says yes to everything Objective: Vital Signs Temp Pulse Resp BP Pulse Ox 36.7 C 78 20 147/88 H 95 12/03/16 16:00 12/03/16 16:00 12/03/16 16:00 12/03/16 16:00 12/03/16 16:00 Laboratory Results 12/03/16 05:35 12/03/16 13:15 12/02/16 12/03/16 12/04/16 05:59 05:59 05:59 Intake Total 2154 3302 Output Total 1285 2705 1500 Balance 869 597 -1500 PT 15.4 SEC (12.0-15.0) H 12/03/16 05:35 INR 1.22 (0.83-1.16) H 12/03/16 05:[address] - bleeding stable d/w DR. Willie Peterson - ICU rounds regarding plan of day - Physical Exam Constitutional: no apparent distress, appears nourished, not in pain Cardiovascular: regular rate and rhythym, no murmur, rub, or gallop Respiratory: no respiratory distress, no rales or rhonchi, clear to auscultation Gastrointestinal: normoactive bowel sounds, soft, non-tender abdomen, no palpable masses Skin: no rashes or abrasions, no fluctuance, no induration Neurologic: weakness, No AAOx3 Psychiatric: encephalopathic, flat affect, agitated, poor insight, poor judgement, poor memory, No interacting appropriately ICD10 Worksheet Patient Problems: Problems Problem Status Onset Altered mental status Acute Pneumonia Acute
[2016-12-03] MEDS: niMODipine 33.333 MG/ML UDL TUBE SCH ×4 (18:07→23:58)
--- NOTE | 2016-12-03 18:17 | PDINTPN ---
Shoe Repair Cobbler Progress Note Assessment/Plan: Assessment: Subarachnoid hemorrhage secondary to cerebral aneurysm. Status post clipping. No evidence of significant pain or headache. CT scan stable Altered mental status: Secondary to the above. Confused, not following commands, perseverating regarding her simple responses: Says okay to most questions or commands. History of hypertension. Blood pressure improved. Not requiring pressors. On 3% saline. DVT prophylaxis: SCDs. GI prophylaxis: Pantoprazole. Nutrition: His feeding tube in. Will be scheduled with a bridal. Tube feedings to start. Recent bronchitis: On Levaquin. Cough appears to be improved. Plan: Continue care in the intensive care unit. Follow blood pressure, allow this to run slightly I. Follow laboratory, chest x-ray. Neuro checks q.4 hours.. Continue Keppra for seizure prophylaxis. Continue nimodipine for vasospasm. Continue 3% saline. Arnoldo-Synephrine if blood pressure were to drop follow laboratory, chest x-ray intermittently. Follow-up CT scans of the head per neuro surgery. Subjective: Arousable, looks to voice, says okay to most questions. Not necessarily following commands. Objective: Vital Signs Temp Pulse Resp BP Pulse Ox 36.7 C 78 20 147/88 H 95 12/03/16 16:00 12/03/16 16:00 12/03/16 16:00 12/03/16 16:00 12/03/16 16:00 Laboratory Results 12/03/16 05:35 12/02/16 12/03/16 12/04/16 05:59 05:59 05:59 Intake Total 2154 3302 Output Total 1285 2705 1500 Balance 869 597 -1500 PT 15.4 SEC (12.0-15.0) H 12/03/16 05:35 INR 1.22 (0.83-1.16) H 12/03/16 05:35 Laboratory Tests 12/03/16 12/03/16 05:35 05:35 PT 15.4 H INR 1.22 H APTT 29.4 Calcium 8.5 Total Bilirubin 0.4 D AST 17 ALT 29 Albumin 2.8 L CXR: No significant infiltrates, hypoventilatory changes. Lines and tubes in good position. Feeding tube placed and is in the stomach. Physical Exam - Physical Exam General Appearance: no apparent distress, other (Postop changes/dressing/drain) , No alert EENT: other (5 facial droop), No PERRL/EOMI Neck: normal inspection Respiratory: lungs clear, decreased breath sounds, No rales, No rhonchi Cardiac/Chest: regular rate, rhythm Abdomen: normal bowel sounds, non-tender, soft Pelvic Exam: other (Silvestre catheter in place, good urine output) Skin: normal color, warm/dry Extremities: pedal edema (Trace) Neuro/Psych: cognition abnormalities (Confused, limited verbal responses, will follow commands reproducibly), No no motor/sensory deficits (Moves all extremities, right side possibly a little less than the left. Pulling at tubes. ) ICD10 Worksheet Patient Problems: Problems Problem Status Onset Pneumonia Acute Altered mental status Acute
[2016-12-03] MEDS ORDERED: NS W/ 20 KCl/L 1,000 ML IV SCH (20:00)
[2016-12-03] MEDS: FAMOTIDINE 20 MG TAB TUBE SCH (20:20)
[2016-12-04] MEDS: SODIUM Cl 3% 500 ML IV SCH ×4 (00:39→20:01)
[2016-12-04] MEDS: niMODipine 33.333 MG/ML UDL TUBE SCH ×11 (02:05→22:03)
[2016-12-04 04:45] LABS: ANION GAP 10 mEq/L (8-16); CALCIUM 8.5 mg/dL (8.5-10.4); CARBON DIOXIDE 31 mEq/l (22-31); CHLORIDE 106 mEq/L (97-110); CREATININE 0.7 mg/dL (0.6-1.0); GLOMERULAR FILTRATION RATE > 60; GLUCOSE 155 mg/dL (70-100); POTASSIUM 3.4 mEq/L (3.5-5.2); SODIUM 147 mEq/L (134-144)
[2016-12-04 04:50] LABS: % IMMATURE GRANULYOCYTES 0.5 % (0.0-1.1); ABSOLUTE IMMATURE GRANULOCYTES 0.05 10^3/uL (0.00-0.10); ADD DIFF? NO; ADD MORPH? NO; ADD SCAN? NO; ATYPICAL LYMPHOCYTE FLAG 30 (0-99); FRAGMENT RBC FLAG 0 (0-99); HEMATOCRIT 28.3 % (38.0-47.0); HEMOGLOBIN 9.6 g/dL (12.6-16.3); LEFT SHIFT FLG 10 (0-99); LIPEMIA HEMOLYSIS FLAG 90 (0-99); MEAN CELL HEMOGLOBIN 31.9 pg (27.9-34.1); MEAN CELL HEMOGLOBIN CONCENTR. 33.9 g/dL (32.4-36.7); MEAN PLATELET VOLUME 10.2 fL (8.7-11.7); PLATELET CLUMPS FLAG 0 (0-99); PLATELET COUNT 209 10^3/uL (150-400); RED BLOOD CELL COUNT 3.01 10^6/uL (4.18-5.33); RED CELL DISTRIBUTION WIDTH 12.2 % (11.5-15.2)
[2016-12-04] MEDS ORDERED: PROTOCOL MAGNESIUM 1 DOSE IV PRN (07:23)
[2016-12-04] MEDS ORDERED: PROTOCOL POTASSIUM 1 DOSE MISC PRN (07:23)
[2016-12-04] MEDS ORDERED: MAGNESIUM SULF 2 GM/WATER 50 ML IV ONE (07:50)
[2016-12-04] MEDS: POTASSIUM Cl (KCl) 50 ML IV SCH ×3 (08:31→09:45)
[2016-12-04] MEDS: FAMOTIDINE 20 MG TAB TUBE SCH ×2 (08:32→19:58)
[2016-12-04] MEDS: ATORVASTATIN CALCIUM 10 MG TAB TUBE SCH (08:32)
[2016-12-04] MEDS: levETIRAcetam 750 MG in NS 100 ML IV SCH ×2 (10:04→21:05)
--- NOTE | 2016-12-04 12:20 | NEUSURGPN ---
Assessment/Plan: A/P 71 y/o female s/p left sided craniotomy for MCA aneurysm clipping and ventricular fenestration POD3 -Post head CT with slight increase in ventriculomegaly. Will continue to monitor clinically -SBP goal 120-160, nicardipine available. Hold on restarting home Lisinopril and HCTZ at this time -Nimodipine 60mg q4 x 21 days -Continue Keppra -PT/OT -Will need schedule for post op angiogram in approximately 1 week -Q1 hour neuro checks -Notify NS with any change in neuro/motor exam Subjective: unable to obtain Objective: Awake, alert, opens eyes to voice. MAEx4, follows simple commands. disconjugate gaze on the left Catheter Insertion Date: 12/01/16 - Physician Discussed Patient with : [facility] Physical Exam - Vitals, I&O, Labs I and O 12/03/16 12/04/16 12/05/16 05:59 05:59 05:59 Intake Total 3302 3466 250 Output Total 2705 5000 1880 Balance 597 -1534 -1630 Intake: Oral (ml) 0 IV Intake (ml) 1296 1810 IV Infused (ml) 1558 585 NS W/ 20 KCl/L 1,000 ml @ 977 100 mls/hr IV CONT FAYE Rx#:[id number] SODIUM Cl 3% 500 ml @ 45 581 585 mls/hr IV CONT FAYE Rx#: [id number] Tube Feeding (ml) 298 871 Tube Flush (ml) 150 200 250 Output: Urine (ml) 2695 5000 1880 Catheter 2695 5000 1880 Wound Drainage (ml) 10 #1 Left Posterior Head 10 Channing Goodman Other: Number of Stools Catheter 0 Vital Signs Temp Pulse Resp BP Pulse Ox 37.3 C 106 H 22 H 144/79 H 100 12/04/16 12:00 12/04/16 12:00 12/04/16 12:00 12/04/16 12:00 12/04/16 12:00 Laboratory Results 12/04/16 04:00 12/04/16 04:00 ICD10 Worksheet Patient Problems: Problems Problem Status Onset Altered mental status Acute Pneumonia Acute
[2016-12-04 12:47] LABS: POTASSIUM 3.7 mEq/L (3.5-5.2); SODIUM 146 mEq/L (134-144)
[2016-12-04] MEDS ORDERED: POTASSIUM Cl (KCl) 50 ML IV ONE ×2 (13:17→19:01)
[2016-12-04] MEDS ORDERED: LIDOCAINE 2% JELLY 5 ML TUBE ONE (14:32)
--- NOTE | 2016-12-04 15:28 | HOSPPROG ---
Hospitalist Progress Note Assessment/Plan: * Ruptured MCA aneurysm s/p craniotomy with clipping -3% saline -nimodipine -Goal SBP 120-160 -empiric Keppra -post-op angio 1 week * HTN -holding home atenolol due to bradycardia -holding lisinopril and HCTZ * Encephalopathy - anticipate slow recovery * Dysphagia - NPO/Dobbhoff * Pneumonia - Levaquin Subjective: no events Objective: Vital Signs Temp Pulse Resp BP Pulse Ox 37.3 C 91 22 H 160/82 H 100 12/04/16 12:00 12/04/16 15:00 12/04/16 15:00 12/04/16 15:00 12/04/16 15:00 Laboratory Results 12/04/16 04:00 12/04/16 12:12 12/03/16 12/04/16 12/05/16 05:59 05:59 05:59 Intake Total 3302 3466 250 Output Total 2705 5000 2430 Balance 597 -1534 -2180 PT 15.4 SEC (12.0-15.0) H 12/03/16 05:35 INR 1.22 (0.83-1.16) H 12/03/16 05:35 AXR: feeding tube in gastric fundus d/w DR. Willie Peterson ICU rounds - slow progress - Physical Exam Constitutional: no apparent distress, appears nourished, not in pain Cardiovascular: regular rate and rhythym, no murmur, rub, or gallop Respiratory: no respiratory distress, no rales or rhonchi, clear to auscultation Gastrointestinal: normoactive bowel sounds, soft, non-tender abdomen, no palpable masses Neurologic: weakness, No AAOx3 Psychiatric: encephalopathic, poor insight, poor judgement, poor memory, other ( answers only yes to everything) ICD10 Worksheet Patient Problems: Problems Problem Status Onset Altered mental status Acute Pneumonia Acute
--- NOTE | 2016-12-04 16:52 | PDINTPN ---
Asphalt Tile Floor Layer Progress Note Assessment/Plan: Assessment: Subarachnoid hemorrhage secondary to cerebral aneurysm. Status post clipping. No evidence of significant pain or headache. CT scan stable. Clinically stable over the last 48 hours. Altered mental status: Secondary to the above. Confused, not following commands, says okay to most questions or commands. History of hypertension. Blood pressure improved. Not requiring pressors. On 3% saline. DVT prophylaxis: SCDs. GI prophylaxis: Pantoprazole. Nutrition: His feeding tube in. Tolerating tube feedings. I placed a bridal myself today using 2% viscous lidocaine in both nostrils. Recent bronchitis: On Levaquin. Cough appears to be improved. Plan: Continue care in the intensive care unit. Follow blood pressure, allow this to run slightly high. Follow laboratory, chest x-ray. Continue to follow neuro status closely. Continue Keppra for seizure prophylaxis. Continue nimodipine for vasospasm. Continue 3% saline. Arnoldo-Synephrine if blood pressure were to drop. Follow laboratory, chest x-ray intermittently. Follow- up CT scans of the head per neuro surgery. Subjective: About the same. Mental status waxes and wanes. Will not follow commands. Says "okay" to questions and commands. Unable to state her 1st name. Objective: Vital Signs Temp Pulse Resp BP Pulse Ox 37.4 C 97 24 H 152/79 H 95 12/04/16 16:00 12/04/16 16:00 12/04/16 16:00 12/04/16 16:00 12/04/16 16:00 Laboratory Results 12/04/16 04:00 12/04/16 12:12 12/03/16 12/04/16 12/05/16 05:59 05:59 05:59 Intake Total 3302 3466 315 Output Total 2705 5000 2580 Balance 597 -1534 -2265 PT 15.4 SEC (12.0-15.0) H 12/03/16 05:35 INR 1.22 (0.83-1.16) H 12/03/16 05:35 Laboratory Tests 12/04/16 04:00 Magnesium 1.4 L Laboratory Tests 12/04/16 04:00 Chloride 106 Carbon Dioxide 31 Anion Gap 10 BUN 12 Creatinine 0.7 Glucose 155 H Calcium 8.5 Physical Exam - Physical Exam General Appearance: obtunded, obese, No alert, No no apparent distress EENT: anisocoria (Gaze is somewhat dysconjugate), No PERRL/EOMI Neck: normal inspection (No JVD) Respiratory: lungs clear, decreased breath sounds (At the bases.), No rales, No rhonchi Cardiac/Chest: regular rate, rhythm Abdomen: non-tender, soft (Obese), other, No normal bowel sounds (Present, decreased) Pelvic Exam: other (Silvestre catheter in place, output) Skin: normal color, warm/dry Extremities: pedal edema Neuro/Psych: no motor/sensory deficits (Moves all extremities, perhaps slightly less so on the right side), cognition abnormalities (Persists, unchanged), No oriented x 3 ICD10 Worksheet Patient Problems: Problems Problem Status Onset Pneumonia Acute Altered mental status Acute
[2016-12-04 18:56] LABS: POTASSIUM 3.7 mEq/L (3.5-5.2); SODIUM 143 mEq/L (134-144)
[2016-12-05] MEDS: niMODipine 33.333 MG/ML UDL TUBE SCH ×12 (00:01→22:09)
[2016-12-05 00:59] LABS: SODIUM 150 mEq/L (134-144)
[2016-12-05 04:49] LABS: % IMMATURE GRANULYOCYTES 0.7 % (0.0-1.1); ABSOLUTE IMMATURE GRANULOCYTES 0.09 10^3/uL (0.00-0.10); ADD DIFF? NO; ADD MORPH? NO; ADD SCAN? NO; ATYPICAL LYMPHOCYTE FLAG 30 (0-99); FRAGMENT RBC FLAG 0 (0-99); HEMATOCRIT 32.4 % (38.0-47.0); HEMOGLOBIN 10.8 g/dL (12.6-16.3); LEFT SHIFT FLG 10 (0-99); LIPEMIA HEMOLYSIS FLAG 80 (0-99); MEAN CELL HEMOGLOBIN 30.7 pg (27.9-34.1); MEAN CELL HEMOGLOBIN CONCENTR. 33.3 g/dL (32.4-36.7); MEAN PLATELET VOLUME 9.8 fL (8.7-11.7); PLATELET CLUMPS FLAG 20 (0-99); PLATELET COUNT 271 10^3/uL (150-400); RED BLOOD CELL COUNT 3.52 10^6/uL (4.18-5.33); RED CELL DISTRIBUTION WIDTH 12.3 % (11.5-15.2)
[2016-12-05] MEDS: SODIUM Cl 3% 500 ML IV SCH ×2 (04:56→15:51)
[2016-12-05 05:16] LABS: ANION GAP 12 mEq/L (8-16); CALCIUM 9.3 mg/dL (8.5-10.4); CARBON DIOXIDE 28 mEq/l (22-31); CHLORIDE 111 mEq/L (97-110); CREATININE 0.7 mg/dL (0.6-1.0); GLOMERULAR FILTRATION RATE > 60; GLUCOSE 142 mg/dL (70-100); MAGNESIUM 1.7 mg/dL (1.6-2.3); POTASSIUM 4.1 mEq/L (3.5-5.2); SODIUM 151 mEq/L (134-144)
[2016-12-05] MEDS ORDERED: NS 500 ML IV ONE (06:51)
--- NOTE | 2016-12-05 06:59 | NEUSURGPN ---
Assessment/Plan: A/P 71 y/o female s/p left sided craniotomy for MCA aneurysm clipping and ventricular fenestration POD4 -CT head done at 2:45 AM is overall stable, d/w radiologist -Change in MS - more somnolent since about 2 AM. D/w Dr Higginbotham and Dr. Ge this am, will get CTA to r/o vasospasm. If negative can then check EEG to r/o seizure activity. -500 NS fluid bolus ordered. -SBP goal 120-160, nicardipine available. Hold on restarting home Lisinopril and HCTZ at this time -Nimodipine 60mg q4 x 21 days -Continue Keppra -Continue to monitor Na level, goal for 145-150. -PT/OT -Will need schedule for post op angiogram in approximately 1 week -Q1 hour neuro checks -Notify NS with any change in neuro/motor exam Subjective: Unable to obtain. D/w and RN she is more somnolent after an episode of coughing overnight. Objective: NAD VSS Sleeping in bed Wiggling left foot on her own Withdraws from pain in all extremities Pupils equal, round, reactive. Not tracking Urinary Catheter in Place: Yes Urinary Catheter Indication: Surgical Requirement Catheter Insertion Date: 12/01/16 - Physician Discussed Patient with : [facility] Physical Exam - Vitals, I&O, Labs I and O 12/04/16 12/05/16 12/06/16 05:59 05:59 05:59 Intake Total 3466 4211 Output Total 5000 5630 Balance -1534 -1419 Intake: Oral (ml) 0 0 IV Intake (ml) 1810 IV Infused (ml) 585 2686 NS W/ 20 KCl/L 1,000 ml @ 1320 35 mls/hr IV CONT FAYE Rx #:[id number] SODIUM Cl 3% 500 ml @ 45 585 mls/hr IV CONT FAYE Rx#: [id number] SODIUM Cl 3% 500 ml @ 55 1366 mls/hr IV CONT FAYE Rx#: [id number] Tube Feeding (ml) 871 845 Tube Flush (ml) 200 680 Output: Urine (ml) 5000 5630 Catheter 5000 3430 Incontinence 2200 Other: Number of Stools Catheter 0 Incontinence 1 Vital Signs Temp Pulse Resp BP Pulse Ox 37.2 C 100 30 H 154/85 H 97 12/05/16 06:00 12/05/16 06:00 12/05/16 06:00 12/05/16 06:00 12/05/16 06:00 Laboratory Results 12/05/16 04:30 12/05/16 04:30 ICD10 Worksheet Patient Problems: Problems Problem Status Onset Altered mental status Acute Pneumonia Acute
[2016-12-05 07:05] LABS: CALCULATED OXYGEN SATURATION 94 % (92-95)
[2016-12-05] MEDS ORDERED: MAGNESIUM SULF 1 GM/DEXTROSE 100 ML IV ONE (08:34)
[2016-12-05] MEDS ORDERED: IOPAMIDOL (ISOVUE 370) 100 ML BTL IV ONE (08:41)
[2016-12-05] MEDS: ATORVASTATIN CALCIUM 10 MG TAB TUBE SCH (09:43)
[2016-12-05] MEDS: FAMOTIDINE 20 MG TAB TUBE SCH ×2 (09:43→22:09)
[2016-12-05] MEDS: levETIRAcetam 750 MG in NS 100 ML IV SCH ×2 (09:48→22:10)
[2016-12-05] MEDS: PHENYLEPHRINE HCL 50 MG in D5W 250 ML IV SCH ×2 (10:52→22:09)
--- NOTE | 2016-12-05 10:54 | PDINTPN ---
Clock Repairer Progress Note Assessment/Plan: Assessment: Subarachnoid hemorrhage secondary to cerebral aneurysm. Status post clipping 12/01. CT scan stable. Decreased mental status today with evidence of vaso spasm. Altered mental status: Secondary to the above. Worse today secondary to vaso spasm. History of hypertension. Blood pressure improved, but with vaso spasm and declining mental status pressors will be started today, aiming for a systolic blood pressure of 180 or greater. On 3% saline: Sodium 151. DVT prophylaxis: SCDs. GI prophylaxis: Famotidine. Nutrition: NG tube in place with bridal. Tolerating tube feedings. Recent bronchitis: On Levaquin. No evidence of pneumonia. Respiratory status stable. Remains on 2 L. Does have some upper airway sonorous respiration consistent with mild obstruction secondary to decreased mental status, and some mucus in this area. For suctioning p.r.n.. Plan: Continue care in the intensive care unit. Will drive blood pressure is up today with loni synephrine, aiming for a systolic of 180. Continue Keppra for seizure prophylaxis. Continue nimodipine for vasospasm. Continue 3% saline , follow sodiums. Follow respiratory status slowly. Currently unable to protect her airway. No indications for intubation and mechanical ventilation at this time but may need this if she worsens. Follow laboratory, chest x-ray, neuro status. Subjective: Less responsive today. Nonverbal. Objective: Vital Signs Temp Pulse Resp BP Pulse Ox 37.5 C 89 28 H 157/83 H 98 12/05/16 10:00 12/05/16 10:00 12/05/16 10:00 12/05/16 10:00 12/05/16 10:00 Laboratory Results 12/05/16 04:30 12/05/16 04:30 12/04/16 12/05/16 12/06/16 05:59 05:59 05:59 Intake Total 3466 4211 Output Total 9091 0428 1500 Balance -1534 -1419 -1500 PT 15.4 SEC (12.0-15.0) H 12/03/16 05:35 INR 1.22 (0.83-1.16) H 12/03/16 05:35 Laboratory Tests 12/05/16 12/05/16 04:30 06:52 pCO2 42 H pO2 67 ABG pH 7.47 H Calcium 9.3 Magnesium 1.7 CXR: Clear CT of the head: No change to slightly improved. CTA of the brain: Spasm is seen related to left middle cerebral artery segment. Physical Exam - Physical Exam General Appearance: obtunded, obese EENT: anisocoria, other (Nasal cannula at 2 L, NG tube in place with bridal), No PERRL/EOMI Neck: normal inspection (Short neck), other (Some sonorous respiratory noises over the trachea with some secretions there as well) Respiratory: lungs clear, decreased breath sounds, No rales, No rhonchi, No wheezing Cardiac/Chest: regular rate, rhythm (To tachycardic in the low 100s.) Abdomen: non-tender, soft (Obese), other (Tolerating tube feeding), No normal bowel sounds (Decreased, present) Pelvic Exam: other (Silvestre catheter in place, relatively large urine output. Output greater than input last 3 days) Skin: normal color, warm/dry Extremities: pedal edema (Trace) Neuro/Psych: no motor/sensory deficits (Moves all extremities to stimulation but hard to assess), cognition abnormalities (Decreased mental status today, nonverbal, nonresponsive to questions/commands) ICD10 Worksheet Patient Problems: Problems Problem Status Onset Pneumonia Acute Altered mental status Acute
[2016-12-05 13:20] LABS: POTASSIUM 3.5 mEq/L (3.5-5.2); SODIUM 151 mEq/L (134-144)
[2016-12-05] MEDS: POTASSIUM Cl (KCl) 50 ML IV SCH ×3 (14:00→15:51)
--- NOTE | 2016-12-05 15:29 | HOSPPROG ---
Hospitalist Progress Note Assessment/Plan: * Ruptured MCA aneurysm s/p craniotomy with clipping -vasospasm - keep SBP > 160 - 180 -IV Neosynephrine -3% saline -nimodipine -empiric Keppra -EEG rule out seizure -post-op angio 1 week * HTN -hold meds * Encephalopathy - anticipate slow recovery * Dysphagia - NPO/Dobbhoff * Pneumonia vs bronchitis - Levaquin -secretion management Subjective: worse mental status last night Objective: Vital Signs Temp Pulse Resp BP Pulse Ox 37.2 C 97 24 H 154/72 H 98 12/05/16 12:00 12/05/16 15:00 12/05/16 15:00 12/05/16 15:00 12/05/16 15:00 Laboratory Results 12/05/16 04:30 12/05/16 12:50 12/04/16 12/05/16 12/06/16 05:59 05:59 05:59 Intake Total 3466 4211 Output Total 5399 5699 2165 Balance -1534 -5959 -7245 PT 15.4 SEC (12.0-15.0) H 12/03/16 05:35 INR 1.22 (0.83-1.16) H 12/03/16 05:35 d/w Dr. Peterson ICU rounds - spasm last night CTA head - + vasospasm - Physical Exam Constitutional: no apparent distress, appears nourished, not in pain Cardiovascular: regular rate and rhythym, no murmur, rub, or gallop Respiratory: no respiratory distress, rhonchi, No expiratory wheeze, No inspiratory crackles Gastrointestinal: normoactive bowel sounds, soft, non-tender abdomen, no palpable masses Skin: no rashes or abrasions, no fluctuance, no induration Neurologic: No AAOx3 Psychiatric: encephalopathic, flat affect, poor insight, poor judgement, poor memory, No interacting appropriately, No agitated ICD10 Worksheet Patient Problems: Problems Problem Status Onset Altered mental status Acute Pneumonia Acute
[2016-12-05 18:48] LABS: POTASSIUM 4.3 mEq/L (3.5-5.2); SODIUM 151 mEq/L (134-144)
[2016-12-06] MEDS: niMODipine 33.333 MG/ML UDL TUBE SCH ×12 (00:18→21:59)
[2016-12-06 00:44] LABS: POTASSIUM 4.1 mEq/L (3.5-5.2); SODIUM 158 mEq/L (134-144)
[2016-12-06 04:08] LABS: % IMMATURE GRANULYOCYTES 0.9 % (0.0-1.1); ABSOLUTE IMMATURE GRANULOCYTES 0.14 10^3/uL (0.00-0.10); ADD DIFF? NO; ADD MORPH? NO; ADD SCAN? NO; ATYPICAL LYMPHOCYTE FLAG 20 (0-99); FRAGMENT RBC FLAG 0 (0-99); HEMATOCRIT 33.6 % (38.0-47.0); HEMOGLOBIN 11.2 g/dL (12.6-16.3); LEFT SHIFT FLG 10 (0-99); LIPEMIA HEMOLYSIS FLAG 80 (0-99); MEAN CELL HEMOGLOBIN 31.2 pg (27.9-34.1); MEAN CELL HEMOGLOBIN CONCENTR. 33.3 g/dL (32.4-36.7); MEAN CELL VOLUME 93.6 fL (81.5-99.8); MEAN PLATELET VOLUME 9.4 fL (8.7-11.7); PLATELET CLUMPS FLAG 0 (0-99); PLATELET COUNT 327 10^3/uL (150-400); RED BLOOD CELL COUNT 3.59 10^6/uL (4.18-5.33); RED CELL DISTRIBUTION WIDTH 12.5 % (11.5-15.2)
[2016-12-06 04:38] LABS: ANION GAP 13 mEq/L (8-16); CALCIUM 9.7 mg/dL (8.5-10.4); CARBON DIOXIDE 29 mEq/l (22-31); CHLORIDE 114 mEq/L (97-110); CREATININE 0.8 mg/dL (0.6-1.0); GLOMERULAR FILTRATION RATE > 60; GLUCOSE 184 mg/dL (70-100); MAGNESIUM 1.9 mg/dL (1.6-2.3); POTASSIUM 3.8 mEq/L (3.5-5.2); SODIUM 156 mEq/L (134-144)
--- NOTE | 2016-12-06 08:10 | NEUSURGPN ---
Assessment/Plan: A/P 71 y/o female s/p left sided craniotomy for MCA aneurysm clipping and ventricular fenestration POD5 -Mental status improved today. Pt answering yes/no for me and followed all commands. -CT head done yesterday overall stable, d/w radiologist -CTA done yesterday, reviewed by Dr Ge and looks ok. -SBP goal 160-180, leveophed available. Hold on restarting home Lisinopril and HCTZ at this time -Nimodipine 60mg q4 x 21 days -Continue Keppra -Continue to monitor Na level, goal for 145-150. On 3% lowered to 35cc/hr -PT/OT -Will need schedule for post op angiogram approximately 1 week after aneurysm clipping -Q2 hour neuro checks -Notify NS with any change in neuro/motor exam -D/w Dr Ge and Dr Higginbotham - updated and expressed understanding Subjective: Pt resting in bed, when asked says "yes" to having a headache. Objective: Sleeping but awakens easily Answering yes/no PERRL Making eye contact MAEx4 Wiggles toes and squeezes hands to command Following all commands Urinary Catheter in Place: Yes Urinary Catheter Indication: Surgical Requirement Catheter Insertion Date: 12/01/16 - Physician Discussed Patient with : [facility] Physical Exam - Vitals, I&O, Labs I and O 12/05/16 12/06/16 12/07/16 05:59 05:59 05:59 Intake Total 4211 5006 Output Total 5630 5275 Balance -1419 -269 Intake: Oral (ml) 0 0 IV Intake (ml) 1200 IV Infused (ml) 2686 2492 NS W/ 20 KCl/L 1,000 ml @ 1320 1237 35 mls/hr IV CONT FAYE Rx #:[id number] Ns 500 ml @ 1500 mls/hr 500 IV ONCE ONE Rx#: [id number] Phenylephrine HCl 50 mg 128 In D5w 250 ml @ Titrate IV CONT FAYE Rx#: [id number] SODIUM Cl 3% 500 ml @ 40 1366 627 mls/hr IV CONT FAYE Rx#: [id number] Tube Feeding (ml) 845 989 Tube Flush (ml) 680 325 Output: Urine (ml) 5630 5275 Catheter 3430 5275 Incontinence 2200 Other: Number of Stools Incontinence 1 1 Vital Signs Temp Pulse Resp BP Pulse Ox 37.2 C 73 22 H 171/73 H 97 12/06/16 01:00 12/06/16 06:00 12/06/16 06:00 12/06/16 06:00 12/06/16 06:00 Laboratory Results 12/06/16 04:00 12/06/16 04:00 ICD10 Worksheet Patient Problems: Problems Problem Status Onset Altered mental status Acute Pneumonia Acute
[2016-12-06] MEDS: PHENYLEPHRINE HCL 50 MG in D5W 250 ML IV SCH ×2 (08:46→17:13)
[2016-12-06] MEDS ORDERED: POTASSIUM Cl (KCl) 50 ML IV ONE (08:54)
[2016-12-06] MEDS: FAMOTIDINE 20 MG TAB TUBE SCH ×2 (09:22→21:58)
[2016-12-06] MEDS: ATORVASTATIN CALCIUM 10 MG TAB TUBE SCH (09:22)
[2016-12-06] MEDS: levETIRAcetam 750 MG in NS 100 ML IV SCH ×2 (10:06→21:58)
--- NOTE | 2016-12-06 11:22 | PDINTPN ---
Printing Sales Representative Progress Note Assessment/Plan: Assessment: Subarachnoid hemorrhage secondary to cerebral aneurysm. Status post clipping 12/01. CT scan stable. Markedly improved mental status today with aggressive treatment for vaso spasm.. Altered mental status: Secondary to the above. Improved, see comments above. History of hypertension. On vasopressin for vaso spasm, aiming for a systolic blood pressure of 160 or greater. On 3% saline: Sodium 156. DVT prophylaxis: SCDs. GI prophylaxis: Famotidine. Nutrition: NG tube in place with bridal. Tolerating tube feedings. Recent bronchitis: On Levaquin, will stop after tomorrow's dose: 7 days total.. No evidence of pneumonia. Respiratory status stable. Remains on O2 at 2 - 3 L. Chest x-ray clear. Plan: Continue care in the intensive care unit. Continue loni synephrine, aiming for a systolic of 160 - 180. Continue Keppra for seizure prophylaxis. Continue nimodipine for vasospasm. Continue 3% saline but decrease it as sodium climbing above 150, follow sodiums. Follow respiratory status. Continue tube feedings. Follow laboratory, chest x-ray intermittently, neuro status. 35 minutes of critical care time spent directly with the patient. Discussed with the patient's , nursing, respiratory, the ICU multi disciplinary team. Subjective: Doing much better today. Mental status back to where it was or better. Tries to talk, may be able to answer simple questions. Follows commands. Objective: Vital Signs Temp Pulse Resp BP Pulse Ox 37.4 C 92 25 H 160/67 H 95 12/06/16 09:00 12/06/16 09:00 12/06/16 09:00 12/06/16 09:00 12/06/16 09:00 Laboratory Results 12/06/16 04:00 12/06/16 04:00 12/05/16 12/06/16 12/07/16 05:59 05:59 05:59 Intake Total 4210 5009 Output Total 5686 5273 Balance -1419 -269 PT 15.4 SEC (12.0-15.0) H 12/03/16 05:35 INR 1.22 (0.83-1.16) H 12/03/16 05:35 CXR: Clear, with hypoventilatory changes Physical Exam - Physical Exam General Appearance: no apparent distress, obese, other (Restraint mits in place. Working with PT. Sitting on the side of the bed.) EENT: No PERRL/EOMI, No anisocoria Neck: normal inspection (Short neck, no obvious JVD) Respiratory: lungs clear, decreased breath sounds, No rhonchi Cardiac/Chest: regular rate, rhythm Abdomen: normal bowel sounds, non-tender, soft (Overweight), other (Tolerating tube feeds) Skin: normal color, warm/dry Extremities: pedal edema (Trace +) Neuro/Psych: no motor/sensory deficits (Moves all extremities), cognition abnormalities (Improving) ICD10 Worksheet Patient Problems: Problems Problem Status Onset Pneumonia Acute Altered mental status Acute
[2016-12-06 12:19] LABS: POTASSIUM 3.5 mEq/L (3.5-5.2)
[2016-12-06] MEDS: POTASSIUM Cl (KCl) 50 ML IV SCH ×3 (13:18→15:03)
--- NOTE | 2016-12-06 15:12 | HOSPPROG ---
Hospitalist Progress Note Assessment/Plan: * Ruptured MCA aneurysm s/p craniotomy with clipping -vasospasm - keep SBP > 160 - 180 -IV Neosynephrine -3% saline -nimodipine -empiric Keppra -post-op angio 1 week * HTN -hold meds * Encephalopathy - anticipate slow recovery * Dysphagia - NPO/Dobbhoff * Pneumonia vs bronchitis - Levaquin -secretion management Subjective: Waking up a little Objective: Vital Signs Temp Pulse Resp BP Pulse Ox 37.3 C 92 27 H 148/90 H 98 12/06/16 12:00 12/06/16 13:00 12/06/16 13:00 12/06/16 13:00 12/06/16 13:00 Laboratory Results 12/06/16 04:00 12/06/16 11:59 12/05/16 12/06/16 12/07/16 05:59 05:59 05:59 Intake Total 4211 5006 Output Total 5630 5275 1250 Balance -1419 -269 -1250 PT 15.4 SEC (12.0-15.0) H 12/03/16 05:35 INR 1.22 (0.83-1.16) H 12/03/16 05:35 d/w Dr. Willie Peterson ICU rounds - Na a little high, but overall better CXR - improving atelectasis - Physical Exam Constitutional: no apparent distress, appears nourished, not in pain Cardiovascular: regular rate and rhythym, no murmur, rub, or gallop Respiratory: no respiratory distress, no rales or rhonchi, clear to auscultation Gastrointestinal: normoactive bowel sounds, soft, non-tender abdomen, no palpable masses Neurologic: weakness, No AAOx3 Psychiatric: encephalopathic, poor insight, poor judgement, poor memory, No interacting appropriately, No thought process linear, No agitated ICD10 Worksheet Patient Problems: Problems Problem Status Onset Altered mental status Acute Pneumonia Acute
[2016-12-06] MEDS: SODIUM Cl 3% 500 ML IV SCH (17:13)
[2016-12-06 18:56] LABS: POTASSIUM 4.4 mEq/L (3.5-5.2); SODIUM 155 mEq/L (134-144)
[2016-12-06] MEDS: NS 1,000 ML IV SCH (21:10)
[2016-12-07 00:02] LABS: POTASSIUM 4.1 mEq/L (3.5-5.2); SODIUM 151 mEq/L (134-144)
[2016-12-07] MEDS: niMODipine 33.333 MG/ML UDL TUBE SCH ×12 (00:30→22:18)
[2016-12-07] MEDS: PHENYLEPHRINE HCL 50 MG in D5W 250 ML IV SCH ×2 (04:25→21:08)
[2016-12-07 05:42] LABS: % IMMATURE GRANULYOCYTES 0.8 % (0.0-1.1); ABSOLUTE IMMATURE GRANULOCYTES 0.13 10^3/uL (0.00-0.10); ADD DIFF? NO; ADD MORPH? NO; ADD SCAN? NO; ATYPICAL LYMPHOCYTE FLAG 20 (0-99); FRAGMENT RBC FLAG 0 (0-99); HEMOGLOBIN 11.1 g/dL (12.6-16.3); LEFT SHIFT FLG 10 (0-99); LIPEMIA HEMOLYSIS FLAG 80 (0-99); MEAN CELL HEMOGLOBIN 30.7 pg (27.9-34.1); MEAN CELL HEMOGLOBIN CONCENTR. 32.6 g/dL (32.4-36.7); MEAN CELL VOLUME 94.2 fL (81.5-99.8); MEAN PLATELET VOLUME 9.3 fL (8.7-11.7); PLATELET CLUMPS FLAG 10 (0-99); PLATELET COUNT 321 10^3/uL (150-400); RED BLOOD CELL COUNT 3.61 10^6/uL (4.18-5.33); RED CELL DISTRIBUTION WIDTH 12.6 % (11.5-15.2)
[2016-12-07 06:01] LABS: ANION GAP 10 mEq/L (8-16); CALCIUM 9.7 mg/dL (8.5-10.4); CARBON DIOXIDE 32 mEq/l (22-31); CHLORIDE 107 mEq/L (97-110); CREATININE 0.8 mg/dL (0.6-1.0); GLOMERULAR FILTRATION RATE > 60; GLUCOSE 192 mg/dL (70-100); MAGNESIUM 1.8 mg/dL (1.6-2.3); POTASSIUM 3.8 mEq/L (3.5-5.2); SODIUM 149 mEq/L (134-144)
--- NOTE | 2016-12-07 06:57 | NEUSURGPN ---
Date of Surgery: 12/01/16 Post Op Day: 6 Assessment/Plan: Assessment: 71 y/o female s/p left sided craniotomy for MCA aneurysm clipping and ventricular fenestration POD6 Plan: -Mental status improved yesterday with Pt answering yes/no and followed all commands-sleepy today but opens eyes to verbal and will follow commands with lifting arms and wiggles toes -CT head done over weekend overall stable, d/w radiologist at time -CTA done over weekend, reviewed by Dr Ge and looks ok. -SBP goal 160-180, leveophed available. Hold on restarting home Lisinopril and HCTZ at this time -Nimodipine 60mg q2 at thist time and will need a 21 day course -Continue Keppra -Continue to monitor Na level, goal for 145-150. 149 this am -PT/OT-cpm -Will need schedule for post op angiogram tomorrow with Dr Ge -Q2 hour neuro checks -Notify NS with any change in neuro/motor exam -D/w Dr Ge - updated and expressed understanding -call with any questions or concerns Subjective: Awake to verbal. Follows commands. No new events overnight per RN. at bedside. Objective: Sleeping but awakens easily PERRLA-OS 1 mm bigger than OD but reactive bilaterally Making eye contact MAEx4 Wiggles toes and squeezes hands to command/lifts arms Following all commands Neuro Check Frequency: per routine Urinary Catheter in Place: No Catheter Insertion Date: 12/01/16 - Physician Discussed Patient with Dr.: Ge Neurosurgery Physical Exam - Vitals, I&O, Labs I and O 12/06/16 12/07/16 12/08/16 05:59 05:59 05:59 Intake Total 5006 5921 Output Total 5275 3250 Balance -269 0061 Intake: Oral (ml) 0 IV Intake (ml) 1200 IV Infused (ml) 2492 4678 NS W/ 20 KCl/L 1,000 ml @ 1237 1167 35 mls/hr IV CONT FAYE Rx #:[id number] Ns 500 ml @ 1500 mls/hr 500 IV ONCE ONE Rx#: [id number] Phenylephrine HCl 50 mg 128 3043 In D5w 250 ml @ Titrate IV CONT FAYE Rx#: [id number] SODIUM Cl 3% 500 ml @ 40 627 468 mls/hr IV CONT FAYE Rx#: [id number] Tube Feeding (ml) 989 968 Tube Flush (ml) 325 275 Output: Urine (ml) 5275 3250 Catheter 5275 3250 Other: Number of Stools Incontinence 1 Vital Signs Temp Pulse Resp BP Pulse Ox 36.8 C 89 26 H 162/86 H 96 12/07/16 01:32 12/07/16 05:54 12/07/16 05:54 12/07/16 05:54 12/07/16 05:54 Laboratory Results 12/07/16 05:30 12/07/16 05:30 ICD10 Worksheet Patient Problems: Problems Problem Status Onset Altered mental status Acute Pneumonia Acute
--- NOTE | 2016-12-07 08:22 | HOSPPROG ---
Hospitalist Progress Note Assessment/Plan: #Subarachnoid hemorrhage due to aneurysm clipping #Vasospasms: # # Subjective: no acute events Objective: Vital Signs Temp Pulse Resp BP Pulse Ox 36.8 C 89 26 H 162/86 H 96 12/07/16 01:32 12/07/16 05:54 12/07/16 05:54 12/07/16 05:54 12/07/16 05:54 Laboratory Results 12/07/16 05:30 12/07/16 05:30 12/06/16 12/07/16 12/08/16 05:59 05:59 05:59 Intake Total 5006 5921 Output Total 5275 3250 Balance -269 2671 PT 15.4 SEC (12.0-15.0) H 12/03/16 05:35 INR 1.22 (0.83-1.16) H 12/03/16 05:35 - Physical Exam Constitutional: no apparent distress Eyes: other (left pupil larger than right, both reactive) Ears, Nose, Mouth, Throat: moist mucous membranes Cardiovascular: regular rate and rhythym Respiratory: no respiratory distress Gastrointestinal: normoactive bowel sounds Genitourinary: no bladder fullness Skin: warm Neurologic: other (opens eyes to voice but quickly closes them) Psychiatric: other (not answering my questions) ICD10 Worksheet Patient Problems: Problems Problem Status Onset Altered mental status Acute Pneumonia Acute
--- NOTE | 2016-12-07 08:40 | PDINTPN ---
Vice Chancellor Progress Note Assessment/Plan: Assessment/Plan: * Subarachnoid hemorrhage secondary to cerebral aneurysm. Status post clipping 12/01. CT scan stable. -Markedly improved mental status today with aggressive treatment for vaso spasm.. * Altered mental status: Secondary to the above. Continues to improve * History of hypertension. On vasopressin for vaso spasm, aiming for a systolic blood pressure of 160 or greater. * Na-On 3% saline: Sodium 149 * DVT prophylaxis: SCDs. * GI prophylaxis: Famotidine. * Nutrition: NG tube in place with bridal. Tolerating tube feedings. * Recent bronchitis: On Levaquin, will stop after tomorrow's dose: 7 days total.. No evidence of pneumonia. Respiratory status stable. Remains on O2 at 2 - 3 L. Chest x-ray clear. Overall impoved. Subjective: Resting comfortably. Objective: Vital Signs Temp Pulse Resp BP Pulse Ox 36.8 C 89 26 H 162/86 H 96 12/07/16 01:32 12/07/16 05:54 12/07/16 05:54 12/07/16 05:54 12/07/16 05:54 Laboratory Results 12/07/16 05:30 12/07/16 05:30 12/06/16 12/07/16 12/08/16 05:59 05:59 05:59 Intake Total 5006 5921 Output Total 5275 3250 Balance -269 2671 PT 15.4 SEC (12.0-15.0) H 12/03/16 05:35 INR 1.22 (0.83-1.16) H 12/03/16 05:35 Physical Exam - Physical Exam General Appearance: WD/WN, alert, other EENT: PERRL/EOMI Neck: non-tender, full range of motion, supple, normal inspection Respiratory: chest non-tender, lungs clear, normal breath sounds Cardiac/Chest: normal peripheral pulses, regular rate, rhythm Peripheral Pulses: 2+: carotid (R), carotid (L), femoral (R), femoral (L), dorsalis-pedis (R), dorsalis-pedis (L) Abdomen: normal bowel sounds, non-tender, soft Pelvic Exam: deferred Rectal: deferred Skin: normal color, warm/dry Lymphatic: no adenopathy ICD10 Worksheet Patient Problems: Problems Problem Status Onset Altered mental status Acute Pneumonia Acute
[2016-12-07] MEDS: ATORVASTATIN CALCIUM 10 MG TAB TUBE SCH (09:53)
[2016-12-07] MEDS: FAMOTIDINE 20 MG TAB TUBE SCH ×2 (09:53→23:14)
[2016-12-07] MEDS: levETIRAcetam 750 MG in NS 100 ML IV SCH (09:56)
[2016-12-07] MEDS ORDERED: POTASSIUM Cl (KCl) 50 ML IV ONE (15:39)
[2016-12-07] MEDS ORDERED: MAGNESIUM SULF 1 GM/DEXTROSE 100 ML IV ONE (15:40)
[2016-12-07] MEDS: SODIUM Cl 3% 500 ML IV SCH (22:19)
[2016-12-07] MEDS ORDERED: SODIUM Cl 3% 500 ML IV SCH (22:30)
[2016-12-07] MEDS: levETIRAcetam 500 MG/5 ML UDCUP TUBE SCH (23:14)
[2016-12-08] MEDS: niMODipine 33.333 MG/ML UDL TUBE SCH ×12 (00:55→22:19)
[2016-12-08] MEDS: PHENYLEPHRINE HCL 50 MG in D5W 250 ML IV SCH (02:05)
[2016-12-08] MEDS: NS 1,000 ML IV SCH (02:08)
[2016-12-08 04:15] LABS: HEMATOCRIT 33.6 % (38.0-47.0); HEMOGLOBIN 10.8 g/dL (12.6-16.3); MEAN CELL HEMOGLOBIN 30.7 pg (27.9-34.1); MEAN CELL HEMOGLOBIN CONCENTR. 32.1 g/dL (32.4-36.7); MEAN CELL VOLUME 95.5 fL (81.5-99.8); RED BLOOD CELL COUNT 3.52 10^6/uL (4.18-5.33); RED CELL DISTRIBUTION WIDTH 12.1 % (11.5-15.2)
[2016-12-08 04:33] LABS: ANION GAP 11 mEq/L (8-16); CALCIUM 9.4 mg/dL (8.5-10.4); CARBON DIOXIDE 29 mEq/l (22-31); CHLORIDE 102 mEq/L (97-110); CREATININE 0.7 mg/dL (0.6-1.0); GLOMERULAR FILTRATION RATE > 60; GLUCOSE 160 mg/dL (70-100); MAGNESIUM 1.8 mg/dL (1.6-2.3); SODIUM 142 mEq/L (134-144)
--- NOTE | 2016-12-08 07:36 | NEUSURGPN ---
Assessment/Plan: Assessment: 71 y/o female s/p left sided craniotomy for MCA aneurysm clipping and ventricular fenestration POD7 Angiogram later today with Dr. Ge Plan: -Mental status stable -CT head done over weekend overall stable, -CTA done over weekend, reviewed by Dr Ge and looks ok. -SBP goal 160-180, leveophed available. Hold on restarting home Lisinopril and HCTZ at this time -Nimodipine 60mg q2 at this time and will need a 21 day course -Continue Keppra -Continue to monitor Na level, goal for 145-150. 3% restarted yesterday -PT/OT-cpm -Q2 hour neuro checks -Rising WBC, afebrile this morning. Off abx for PNA treatment. Defer to medicine for further work up. -Notify NS with any change in neuro/motor exam Subjective: Patient resting comfortably. Unable to obtain full ROS, due to aphasia Objective: Sleeping but awakens easily PERRLA-OS 1 mm bigger than OD but reactive bilaterally MAEx4 Squeezes hands to command Incision c/d/i Catheter Insertion Date: 12/01/16 - Physician Patient Seen by : [facility] Physical Exam - Vitals, I&O, Labs I and O 12/07/16 12/08/16 12/09/16 05:59 05:59 05:59 Intake Total 5921 2729 Output Total 3250 1850 Balance 2671 879 Intake: IV Intake (ml) 992 IV Infused (ml) 4678 795 NS W/ 20 KCl/L 1,000 ml @ 1167 35 mls/hr IV CONT FAYE Rx #:[id number] Ns 1,000 ml @ 35 mls/hr 328 IV CONT FAYE Rx#: [id number] Phenylephrine HCl 50 mg 3043 300 In D5w 250 ml @ Titrate IV CONT FAYE Rx#: [id number] SODIUM Cl 3% 500 ml @ 40 468 167 mls/hr IV CONT FAYE Rx#: [id number] Tube Feeding (ml) 968 712 Tube Flush (ml) 275 230 Output: Urine (ml) 3250 1850 Catheter 3250 1850 Other: Output Comment Catheter FLATUS Vital Signs Temp Pulse Resp BP Pulse Ox 37.7 C 78 26 H 174/81 H 96 12/08/16 03:57 12/08/16 06:00 12/07/16 22:00 12/08/16 06:00 12/08/16 06:00 Laboratory Results 12/08/16 03:50 12/08/16 03:50 ICD10 Worksheet Patient Problems: Problems Problem Status Onset Altered mental status Acute Pneumonia Acute
--- NOTE | 2016-12-08 09:24 | PDINTPN ---
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 Status post clipping 12/01. CT scan stable. -Markedly improved mental status today with aggressive treatment for vaso spasm.. * Altered mental status: Secondary to the above. Continues to improve * History of hypertension. On vasopressin for vaso spasm, aiming for a systolic blood pressure of 160 or greater. * Sodium-142. Back on 3% saline * Elevated WBC/low-grade fever-unclear source -continue current antibiotic coverage -will hsu culture * DVT prophylaxis: SCDs. * GI prophylaxis: Famotidine. * Nutrition: NG tube in place with bridal. Tolerating tube feedings. * Recent bronchitis: On Levaquin, will stop after tomorrow's dose: 7 days total.. No evidence of pneumonia. Respiratory status stable. Remains on O2 at 2 - 3 L. Chest x-ray clear. Overall unchanged from yesterday Subjective: Somnolent. Objective: Vital Signs Temp Pulse Resp BP Pulse Ox 37.7 C 78 26 H 174/81 H 96 12/08/16 03:57 12/08/16 06:00 12/07/16 22:00 12/08/16 06:00 12/08/16 06:00 Laboratory Results 12/08/16 03:50 12/08/16 03:50 12/07/16 12/08/16 12/09/16 05:59 05:59 05:59 Intake Total 5921 2729 Output Total 3250 1850 Balance 2671 879 PT 15.4 SEC (12.0-15.0) H 12/03/16 05:35 INR 1.22 (0.83-1.16) H 12/03/16 05:35 Physical Exam - Physical Exam General Appearance: other (Somnolent), No alert EENT: PERRL/EOMI, normal ENT inspection Neck: non-tender, full range of motion, supple, normal inspection Cardiac/Chest: normal peripheral pulses, regular rate, rhythm Peripheral Pulses: 2+: carotid (R), carotid (L), femoral (R), femoral (L), dorsalis-pedis (R), dorsalis-pedis (L) Abdomen: normal bowel sounds, non-tender, soft Pelvic Exam: deferred Rectal: deferred Skin: normal color, warm/dry Extremities: normal range of motion, non-tender, normal inspection, normal capillary refill Neuro/Psych: No alert ICD10 Worksheet Patient Problems: Problems Problem Status Onset Altered mental status Acute Pneumonia Acute
[2016-12-08] MEDS: levETIRAcetam 500 MG/5 ML UDCUP TUBE SCH ×2 (09:47→21:20)
[2016-12-08] MEDS: ATORVASTATIN CALCIUM 10 MG TAB TUBE SCH (09:47)
[2016-12-08] MEDS: FAMOTIDINE 20 MG TAB TUBE SCH ×2 (09:47→21:22)
[2016-12-08] MEDS ORDERED: MAGNESIUM SULF 1 GM/DEXTROSE 100 ML IV ONE (09:59)
--- NOTE | 2016-12-08 11:09 | HOSPPROG ---
Hospitalist Progress Note Assessment/Plan: #Subarachnoid hemorrhage 2/ cerebral aneursym s/p clipping 12/01 t -goal SBP 140-160. Arnoldo as needed -Nimodipine -restarted 3% saline since Na 142 #HTN: h/o vasospasm. On vasopression #Leukocytosis: elevated to 18. Low-grade fever. CXR negative. Repeat UA -1 anaerobic bottle 12/03 positive for Actinomyces. Will repeat blood cx; if positive then will treat as true pathogen #Acute encephalopathy: due to #1 #Deconditioning: PT/OT #Recurrent bronchitis: complete 7-day course LQ tomorrow #Dysphagia: speech eval once more alert #Nutrition: family requesting [employer] formulated Subjective: mild fever overnight Objective: Vital Signs Temp Pulse Resp BP Pulse Ox 37.7 C 78 26 H 174/81 H 96 12/08/16 03:57 12/08/16 06:00 12/07/16 22:00 12/08/16 06:00 12/08/16 06:00 Laboratory Results 12/08/16 03:50 12/08/16 03:50 12/07/16 12/08/16 12/09/16 05:59 05:59 05:59 Intake Total 5921 2729 Output Total 3250 1850 Balance 2671 879 PT 15.4 SEC (12.0-15.0) H 12/03/16 05:35 INR 1.22 (0.83-1.16) H 12/03/16 05:35 - Physical Exam Constitutional: no apparent distress Eyes: PERRL Ears, Nose, Mouth, Throat: other Cardiovascular: regular rate and rhythym Respiratory: no respiratory distress Gastrointestinal: normoactive bowel sounds Genitourinary: no bladder fullness Skin: warm Neurologic: other (withdrawals to pain. Not tracking or following my commands) ICD10 Worksheet Patient Problems: Problems Problem Status Onset Altered mental status Acute Pneumonia Acute
[2016-12-08 13:56] LABS: POTASSIUM 3.7 mEq/L (3.5-5.2); SODIUM 142 mEq/L (134-144)
[2016-12-08] MEDS ORDERED: fentaNYL 100 MCG/2 ML INJ ONE (14:14)
[2016-12-08] MEDS ORDERED: MIDAZOLAM 2 MG/2 ML VIAL ONE (14:42)
[2016-12-08] MEDS ORDERED: IOPAMIDOL (ISOVUE-300) 100 ML BTL IV ONE ×2 (14:49→15:11)
--- NOTE | 2016-12-08 15:29 | POSTOPPROG ---
Post Op Note Date of Operation: 12/08/16 Surgeon: Basilio eG Client Program Manager: none Anesthesiologist: none Anesthesia: IV Sedation Pre-op Diagnosis: s/p SAH with aneurysm clipping Post-op Diagnosis: same Indication: s/p SAH Procedure: diagnostic cerebral angiogram Findings: complete clipping of aneurysm, mild left MCA vasospasm Inf/Abcess present in the surg proc area at time of surgery?: No EBL: Minimal Complications: none Specimen(s): none
[2016-12-08] MEDS: HYDROmorphONE/DILAUDID 1 MG/ML SYR IVP PRN (15:51)
[2016-12-08] MEDS ORDERED: POTASSIUM Cl (KCl) 50 ML IV ONE (16:22)
[2016-12-08 20:54] LABS: POTASSIUM 4.4 mEq/L (3.5-5.2)
[2016-12-09] MEDS: niMODipine 33.333 MG/ML UDL TUBE SCH ×12 (00:10→22:11)
[2016-12-09] MEDS: PHENYLEPHRINE HCL 50 MG in D5W 250 ML IV SCH ×3 (01:13→20:22)
[2016-12-09 02:35] LABS: HEMOGLOBIN 10.1 g/dL (12.6-16.3); MEAN CELL HEMOGLOBIN 30.9 pg (27.9-34.1); MEAN CELL HEMOGLOBIN CONCENTR. 32.6 g/dL (32.4-36.7); MEAN CELL VOLUME 94.8 fL (81.5-99.8); RED BLOOD CELL COUNT 3.27 10^6/uL (4.18-5.33); RED CELL DISTRIBUTION WIDTH 11.9 % (11.5-15.2)
[2016-12-09 02:38] LABS: ANION GAP 9 mEq/L (8-16); CALCIUM 8.7 mg/dL (8.5-10.4); CARBON DIOXIDE 27 mEq/l (22-31); CHLORIDE 104 mEq/L (97-110); CREATININE 0.7 mg/dL (0.6-1.0); GLOMERULAR FILTRATION RATE > 60; GLUCOSE 123 mg/dL (70-100); POTASSIUM 4.3 mEq/L (3.5-5.2); SODIUM 140 mEq/L (134-144)
[2016-12-09] MEDS: NS W/ 20 KCl/L 1,000 ML IV SCH ×2 (03:09→13:31)
[2016-12-09] MEDS: SODIUM Cl 3% 500 ML IV SCH ×2 (07:29→20:22)
[2016-12-09] MEDS: FAMOTIDINE 20 MG TAB TUBE SCH ×2 (08:37→20:22)
[2016-12-09] MEDS: ATORVASTATIN CALCIUM 10 MG TAB TUBE SCH (08:37)
[2016-12-09] MEDS: levETIRAcetam 500 MG/5 ML UDCUP TUBE SCH ×2 (08:37→20:21)
--- NOTE | 2016-12-09 08:49 | HOSPPROG ---
Hospitalist Progress Note Assessment/Plan: #Subarachnoid hemorrhage 2/ cerebral aneursym s/p clipping 12/01 -goal SBP 140-160. Arnoldo as needed -Nimodipine -3% saline increased. q6hr Na checks #HTN: h/o vasospasm. None seen on angiogram 12/08 #Leukocytosis: down to 15 today. CXR and UA negative -1 anaerobic bottle 12/03 positive for Actinomyces. Repeat culture pending #Acute encephalopathy: due to #1 #Deconditioning: PT/OT #Recurrent bronchitis: complete 7-day course LQ today #Dysphagia: speech eval once more alert #Nutrition: family requesting [employer] formulation for feeds #DVT ppx: SCDs #Disp: warrants inpt admission given SAH, requiring IVFs, frequent neuro checks Subjective: not following commands Objective: Vital Signs Temp Pulse Resp BP Pulse Ox 37.7 C 90 27 H 154/75 H 94 12/08/16 19:00 12/09/16 06:00 12/09/16 06:00 12/09/16 06:00 12/09/16 06:00 Microbiology 12/08/16 09:25 - Final Sputum, Induced/Suctioned Laboratory Results 12/09/16 02:11 12/08/16 12/09/16 12/10/16 05:59 05:59 05:59 Intake Total 2729 4907 Output Total 1850 3975 Balance 879 932 PT 15.4 SEC (12.0-15.0) H 12/03/16 05:35 INR 1.22 (0.83-1.16) H 12/03/16 05:35 ICD10 Worksheet Patient Problems: Problems Problem Status Onset Altered mental status Acute Pneumonia Acute
--- NOTE | 2016-12-09 09:13 | SOAPPROG ---
SOAP Progress Note Assessment/Plan: Assessment: 71 yo F sp clipping of left MCA aneurysm on 12/01/16 for SAH from rupture aneurysm Plan: neuro: patient with encephalopathy and confusion. Head ct from 12/08 shows stable SAH with mild ventriculomegaly. encephalopathy may be multifactorial with respiratoy failure/secretions contributing. If confusion does not improve with medical managment of pneumonia and work up of bacteremia, then we can consider EEG/neurology consult and LP versus ventriculostomy placement, will follow for now urine output has been high this morning but will follow for now, pt is likely normalizing IVF volume from previous 48 hours on keppra/nimodipine Na at 142, on 3% for now, goal > 145 SBP goal between 160-180 mmhg Leukocytosis: improving, down to 15k today, levaquin course ending soon PT/OT/ST please call with neuro changes pt seen by Dr Ge 12/09/16 09:08 Subjective: chart reviewed, discussed with and MERA Rodgers in room. Objective: Vital Signs Temp Pulse Resp BP Pulse Ox 37.7 C 90 27 H 154/75 H 94 12/08/16 19:00 12/09/16 06:00 12/09/16 06:00 12/09/16 06:00 12/09/16 06:00 Microbiology 12/08/16 09:25 - Final Sputum, Induced/Suctioned Laboratory Results 12/09/16 02:11 12/09/16 08:00 12/08/16 12/09/16 12/10/16 05:59 05:59 05:59 Intake Total 2729 4907 Output Total 1850 3975 Balance 879 932 PT 15.4 SEC (12.0-15.0) H 12/03/16 05:35 INR 1.22 (0.83-1.16) H 12/03/16 05:35 somnolent opens eyes to voice EDUARDO x 4 but does not follow commands C/D/I ICD10 Worksheet Patient Problems: Problems Problem Status Onset Altered mental status Acute Pneumonia Acute
--- NOTE | 2016-12-09 09:16 | PDINTPN ---
Marine Erector Progress Note Assessment/Plan: Assessment/Plan: * Subarachnoid hemorrhage secondary to cerebral aneurysm. Status post clipping 12/01. CT scan stable. -Markedly improved mental status today with aggressive treatment for vaso spasm.. * Altered mental status: Secondary to the above. Continues to improve slowly * Respiratory-continues to have problems with mucus clearance requiring NT suctioning. -will start more aggressive pulmonary toilet in particular will change the bed setting to vibrate and will add Mucomyst nebs. * History of hypertension. On vasopressin for vaso spasm, aiming for a systolic blood pressure of 140 or greater. * Sodium-142. Back on 3% saline * Elevated WBC/low-grade fever-unclear source -continue current antibiotic coverage -will hsu culture * DVT prophylaxis: SCDs. * GI prophylaxis: Famotidine. * Nutrition: NG tube in place with bridal. Tolerating tube feedings. * Recent bronchitis: On Levaquin, will stop after tomorrow's dose: 7 days total.. No evidence of pneumonia. Respiratory status stable. Overall unchanged from yesterday Subjective: Patient remains markedly somnolent and poorly responsive. She is having difficulty clearing secretions. Objective: Vital Signs Temp Pulse Resp BP Pulse Ox 37.7 C 90 27 H 154/75 H 94 12/08/16 19:00 12/09/16 06:00 12/09/16 06:00 12/09/16 06:00 12/09/16 06:00 Microbiology 12/08/16 09:25 - Final Sputum, Induced/Suctioned Laboratory Results 12/09/16 02:11 12/09/16 08:00 12/08/16 12/09/16 12/10/16 05:59 05:59 05:59 Intake Total 2729 4907 Output Total 1850 3975 Balance 879 932 PT 15.4 SEC (12.0-15.0) H 12/03/16 05:35 INR 1.22 (0.83-1.16) H 12/03/16 05:35 Physical Exam - Physical Exam General Appearance: other (Somnolent), No alert EENT: PERRL/EOMI, normal ENT inspection Neck: non-tender, full range of motion, supple, normal inspection Respiratory: rhonchi (Few mostly upper airway), No respiratory distress, No wheezing Cardiac/Chest: normal peripheral pulses, regular rate, rhythm Peripheral Pulses: 2+: carotid (R), carotid (L), femoral (R), femoral (L), dorsalis-pedis (R), dorsalis-pedis (L) Abdomen: normal bowel sounds, non-tender, soft Pelvic Exam: deferred Rectal: deferred Skin: normal color, warm/dry Extremities: normal range of motion, non-tender, normal inspection, normal capillary refill Neuro/Psych: no motor/sensory deficits, alert, normal mood/affect, oriented x 3 ICD10 Worksheet Patient Problems: Problems Problem Status Onset Altered mental status Acute Pneumonia Acute
[2016-12-09] MEDS ORDERED: ALBUMIN 5% 250 ML BOTTLE IV ONE (13:09)
[2016-12-09 13:16] LABS: POTASSIUM 4.1 mEq/L (3.5-5.2)
[2016-12-09] MEDS ORDERED: ALBUMIN 5% 500 ML BOTTLE IV ONE ×2 (13:23→14:01)
[2016-12-09] MEDS ORDERED: ALBUMIN 5% 250 ML IV ONE (13:30)
[2016-12-09] MEDS ORDERED: NS 500 ML IV ONE (13:30)
[2016-12-09] MEDS: ACETYLCYSTEINE 10% 30 ML VIAL IH SCH ×3 (13:58→22:39)
[2016-12-09] MEDS ORDERED: ALBUMIN 5% 500 ML IV ONE (14:30)
[2016-12-09] MEDS: ALBUTEROL 3 ML DEYVIAL IH PRN ×2 (16:07→22:39)
[2016-12-09 18:23] LABS: POTASSIUM 3.7 mEq/L (3.5-5.2)
[2016-12-09] MEDS ORDERED: POTASSIUM Cl (KCl) 50 ML IV ONE (19:03)
[2016-12-10] MEDS: niMODipine 33.333 MG/ML UDL TUBE SCH ×9 (00:02→15:52)
[2016-12-10 03:13] LABS: HEMATOCRIT 26.3 % (38.0-47.0); HEMOGLOBIN 8.7 g/dL (12.6-16.3); MEAN CELL HEMOGLOBIN 31.4 pg (27.9-34.1); MEAN CELL HEMOGLOBIN CONCENTR. 33.1 g/dL (32.4-36.7); MEAN CELL VOLUME 94.9 fL (81.5-99.8); RED BLOOD CELL COUNT 2.77 10^6/uL (4.18-5.33); RED CELL DISTRIBUTION WIDTH 11.9 % (11.5-15.2)
[2016-12-10 03:44] LABS: ANION GAP 6 mEq/L (8-16); CALCIUM 8.8 mg/dL (8.5-10.4); CARBON DIOXIDE 27 mEq/l (22-31); CHLORIDE 107 mEq/L (97-110); CREATININE 0.8 mg/dL (0.6-1.0); GLOMERULAR FILTRATION RATE > 60; GLUCOSE 134 mg/dL (70-100); MAGNESIUM 1.9 mg/dL (1.6-2.3); POTASSIUM 4.2 mEq/L (3.5-5.2); SODIUM 140 mEq/L (134-144)
[2016-12-10] MEDS: ACETYLCYSTEINE 10% 30 ML VIAL IH SCH ×2 (05:30→12:07)
[2016-12-10] MEDS: ALBUTEROL 3 ML DEYVIAL IH PRN ×2 (05:30→12:07)
[2016-12-10] MEDS: SODIUM Cl 3% 500 ML IV SCH (08:10)
[2016-12-10] MEDS: ATORVASTATIN CALCIUM 10 MG TAB TUBE SCH (09:03)
[2016-12-10] MEDS: levETIRAcetam 500 MG/5 ML UDCUP TUBE SCH (09:03)
[2016-12-10] MEDS: FAMOTIDINE 20 MG TAB TUBE SCH (09:03)
--- NOTE | 2016-12-10 09:29 | PDINTPN ---
Orthodontist Small Business Owner Progress Note Assessment/Plan: Assessment/Plan: * Subarachnoid hemorrhage secondary to cerebral aneurysm. Status post clipping 12/01. CT scan stable. -Markedly improved mental status today with aggressive treatment for vaso spasm.. * Altered mental status: Secondary to the above. Continues to improve slowly * Seizures-recommendation made by neurology to have patient transferred to [place] for continuous EEG monitoring * Respiratory-continues to have problems with mucus clearance requiring NT suctioning. -will start more aggressive pulmonary toilet in particular will change the bed setting to vibrate and will add Mucomyst nebs. * History of hypertension. On vasopressin for vaso spasm, aiming for a systolic blood pressure of 140 or greater. * Sodium-142. Back on 3% saline * Elevated WBC/low-grade fever-unclear source -continue current antibiotic coverage -will hsu culture * DVT prophylaxis: SCDs. * GI prophylaxis: Famotidine. * Nutrition: NG tube in place with bridal. Tolerating tube feedings. * Recent bronchitis: Resolved Subjective: Poorly responsive Objective: Vital Signs Temp Pulse Resp BP Pulse Ox 37.4 C 83 22 H 155/90 H 100 12/10/16 07:00 12/10/16 08:00 12/10/16 08:00 12/10/16 08:00 12/10/16 08:00 Microbiology 12/08/16 09:25 - Final Sputum, Induced/Suctioned Laboratory Results 12/10/16 03:00 12/10/16 08:00 12/09/16 12/10/16 12/11/16 05:59 05:59 05:59 Intake Total 4907 5386 Output Total 3975 4125 450 Balance 932 1261 -450 PT 15.4 SEC (12.0-15.0) H 12/03/16 05:35 INR 1.22 (0.83-1.16) H 12/03/16 05:35 Physical Exam - Physical Exam General Appearance: no apparent distress, No alert EENT: PERRL/EOMI, normal ENT inspection Neck: non-tender, full range of motion, supple, normal inspection Respiratory: chest non-tender, normal breath sounds, rhonchi (Few) Cardiac/Chest: normal peripheral pulses, regular rate, rhythm Peripheral Pulses: 2+: carotid (R), carotid (L), femoral (R), femoral (L), dorsalis-pedis (R), dorsalis-pedis (L) Abdomen: normal bowel sounds, non-tender, soft Pelvic Exam: deferred Rectal: deferred Skin: normal color, warm/dry Extremities: normal range of motion, non-tender, normal inspection, normal capillary refill Neuro/Psych: No alert, No oriented x 3 ICD10 Worksheet Patient Problems: Problems Problem Status Onset Altered mental status Acute Pneumonia Acute
[2016-12-10] MEDS ORDERED: levETIRAcetam 250 MG in NS 100 ML IV ONE (09:50)
--- NOTE | 2016-12-10 09:53 | PDCONSULT ---
Supervisor [employer] Note: HOSPITAL NEUROLOGY CONSULT REQUESTING: Deangelo Be PA-C - neurosurgery REASON: AMS HPI: This is a 71-year-old woman with a history of hypertension hyperlipidemia whom I am asked to see in consultation for altered mental status with the possibility of seizures. A consultation was requested by phone yesterday afternoon. Patient was admitted to our facility on November 30 with altered mental status and increasing cough (prior suspected bronchitis). CT of the head without contrast revealed subarachnoid blood products that were diffusely present in the hemispheres, though, more so in the left hemisphere with intraventricular blood products in the 3rd ventricle and occipital trigones of the lateral ventricles. The ventricles were mildly dilated, but stable in repeat exams. CT angiography revealed a left MCA aneurysm at the M1/M2 junction. She subsequently had craniotomy with aneurysm clipping. Her hospitalization has been complicated by pulmonary edema which has resolved, fluctuating leukocytosis , intermittent fevers and reduced level of consciousness. Extensive infectious workup has been negative to date including repeat blood cultures at multiple sites. She has had depressed level of consciousness has been fluctuating and this has been complicated by the presence of intermittent generalized convulsions over the past 2 days. The patient's and son are at the bedside and her son shows me a video of the patient having rhythmic twitching movements of the face. They also describe generalized convulsive movements of the extremities. During my visit I was able to witness a 30 second generalized convulsion with rightward head/eye deviation. She has been on seizure prophylaxis with levetiracetam 750 mg twice daily. For her depressed level of consciousness, there was concern for possible vasospasm in the patient underwent a conventional four-vessel digital subtraction angiogram on December 08 which just shows some trace vaso spasm around the surgical bed, but nothing hemodynamically significant. She has been maintained on nimodipine therapy for her duration of stay. Patient is mute and unable to provide any history. ROS: Unobtainable from patient ALLERGIES AND MEDS: As recorded in the EMR - reviewed and reconciled PFSH: As per the intake H&P by Dr. Saunders from 11/30/16 EXAM: VS reviewed in EMR. TM 24h 38.3 GCS E4, V1, M4L/1R MS: she has her eyes opened. She does not respond to any verbal questioning or stimulation. With tactile stimulation she does turn her head towards the examiner. She is mute. She does not nod yes or no to any questions. I am otherwise unable to assess her higher cortical function. CN: The right pupil is 2.5 mm, left pupil is 3 mm. Both pupils are reactive. The left eye is depressed and abducted with limited elevation and abduction motility. She blinks to threat with both eyes. She will grimace to noxious stimulation of the face. Her face appears symmetric. MOTOR: She has lower tone in all the extremities. She will spontaneously move the left side extremities, but does not move the right side. SENSORY: She withdraws briskly to noxious stimulation in the left-sided extremities but does not respond to noxious stimulation on the right side extremities REFLEX: the plantars are extensor. Her deep tendon reflexes are 2/4. COORD/GAIT: unable to assess DATA REVIEW: Labs, imaging and physiologic data reviewed in EMR CT head wo was personally reviewed as per the HPI - stable repeat exams IMPRESSION AND RECOMMENDATIONS: // ANEURYSMAL SAH s/p RMCA ANEURYSM CLIPPING - WHITE 4, HH 4 // SEIZURES // ENCEPHALOPATHY // LEFT THIRD NERVE PALSY // RIGHT HEMIPARESIS AND HEMISENSORY LOSS // MUTISM // LEUKOCYTOSIS // INTERMITTENT FEVERS // PULMONARY EDEMA - RESOLVED Patient with poor grade aneurysmal subarachnoid hemorrhage now with encephalopathy and generalized convulsions. I suspect her convulsions are the effect of cortical irritation from her subarachnoid blood products. Same with right-sided deficits, but can't rule out DCI - no evidence of large infarct on most recent CT, which is somewhat reassuring. I think her encephalopathy is multifactorial at this point. Her 3rd nerve palsy is likely another irritative deficit from blood products in the subarachnoid space. Stable/mild ventricular dilatation on serial CTs. Given the poor grade subarachnoid with her seizures, I think it would be goetz for her to be transferred to a neurocritical care unit/high-volume subarachnoid center for continuous video EEG monitoring and aggressive medical management of her seizures. She is still within the vasospasm window and given her poor grade SAH, I do think daily TCD monitoring would be warranted for vasospasm surveillance. We will have her transferred here to [facility] or [facility] for neurocritical care support. In the meantime, I have increased her levetiracetam to a 1000 mg twice daily. Lorazepam can be administered for any seizures lasting more than 5 minutes in duration. Continue with blood pressure optimization with a systolic blood pressure less than 160, mean arterial pressure between 70 and 110. Continue nimodipine. Continue with hypertonic saline with permissive hypernatremia at a goal of 145- 155. Maintain strict euvolemia. Strict normothermia - treat fevers aggressively. Avoid hypoglycemia. HOB elevated with airway/swallow precautions. Likely needs MRI brain wo to evaluate for any acute/subacute ischemia with depressed LOC - at risk for DCI with and without vasospasm. Likely needs TTE and cardiac enzyme screening given CXR with evidence of pulmonary edema (resolved) - but at risk for stress-induced cardiomyopathy/ ischemia. May need noninvasive ICP screen (ie optic nerve sheath U/S) vs. invasive monitoring - defer to neurocritical care experts Cont coag monitoring. Cont with PEG tube feeds. Metabolic/infectious surveillance and optimization per primary teams. Delirium precautions. Avoidance of ICP spikes by treating pain with short acting analgesics, cough suppression, stool softeners PRN for constipation/straining, etc... SCDs, PPI - currently not on DVT chemoprophylaxis. Pressure ulcer surveillance and prevention measures. Patient is critically ill with aneurysmal SAH, encephalopathy, seizures - high risk for clinical deterioration. 90 mins spent in direct patient care activities on the floor.
--- NOTE | 2016-12-10 11:18 | NEUSURGPN ---
Assessment/Plan: Assessment: 71 yo F sp clipping of left MCA aneurysm on 12/01/16 for SAH from rupture aneurysm Plan: neuro: Patient with some increase in possible seizure activity. Neurology consulted this am. By report patient had episodes of shaking arms and legs, as well as eye twitching. This got somewhat better during the day yesterday but had episodes last night and 3 this morning. Neurology proposing transfer to [place] for continuous EEG monitoring. In general patient seems more alert today and still nonverbal but following commands, nods head yes/no and noted to sit up on her own yesterday for a period of time. Dr. Ge in process of calling [facility] to find accepting doctor. Head ct from 12/08 shows stable SAH with mild ventriculomegaly. encephalopathy may be multifactorial with respiratoy failure/secretions contributing. urine output has been high still but will follow for now, pt is likely normalizing IVF volume from previous 48 hours on keppra/nimodipine Na at 144, on 3% at 50/hr for now, goal > 145 SBP goal between 160-180 mmhg Leukocytosis: improving, down to 12.7k today, levaquin course ending soon PT/OT/ST please call with neuro changes pt seen by Dr Ge as well this morning and had discussion with neurology and family Subjective: Patient shakes head yes/no. FOllowing commands. Per report of sat up on edge of bed yesterday for awhile. Has had 3 seizure like episodes this morning.Chart reviewed. Spoke with MERA Rodgers and . Objective: somnolent opens eyes to voice- left pupil larger than right, both reactive- will track somewhat ARRIETA x 4 - gripping left hand to command C/D/I Catheter Insertion Date: 12/01/16 - Physician Discussed Patient with Dr.: Ge Patient Seen by Dr.: eG Neurosurgery Physical Exam - Vitals, I&O, Labs I and O 12/09/16 12/10/16 12/11/16 05:59 05:59 05:59 Intake Total 4907 5386 Output Total 3975 4125 450 Balance 932 1261 -450 Weight 68.7 kg Intake: IV Intake (ml) 2554 IV Infused (ml) 1878 4441 Albumin 5% 250 ml @ As 250 Directed IV ONCE ONE Rx#: [id number] NS W/ 20 KCl/L 1,000 ml @ 1184 1771 As Directed IV CONT FAYE Rx#:[id number] Ns 500 ml @ As Directed 1000 IV ONCE ONE Rx#: [id number] Phenylephrine HCl 50 mg 300 497 In D5w 250 ml @ Titrate IV CONT FAYE Rx#: [id number] SODIUM Cl 3% 500 ml @ 50 394 923 mls/hr IV CONT FAYE Rx#: [id number] Tube Feeding (ml) 75 650 Tube Flush (ml) 400 295 Output: Urine (ml) 3975 4125 450 Catheter 3975 4125 450 Other: Number of Stools Catheter 1 Microbiology 12/08/16 12:30 Urine Culture - Final Urine,Catheterized 12/08/16 09:25 - Final Sputum, Induced/Suctioned Vital Signs Temp Pulse Resp BP Pulse Ox 37.4 C 83 22 H 155/90 H 100 12/10/16 07:00 12/10/16 08:00 12/10/16 08:00 12/10/16 08:00 12/10/16 08:00 Laboratory Results 12/10/16 03:00 12/10/16 08:00 ICD10 Worksheet Patient Problems: Problems Problem Status Onset Altered mental status Acute Pneumonia Acute
--- NOTE | 2016-12-10 11:43 | HOSPPROG ---
Hospitalist Progress Note Assessment/Plan: #Subarachnoid hemorrhage 2/ cerebral aneursym s/p clipping 12/01 -stable SAH on repeat CT 12/08 -goal SBP 140-160. Arnoldo as needed -Nimodipine -3% saline increased. q6hr Na checks #Concern for seizure activity: Neurology consulted and will be transferred to [facility] for cont EEG monitoring #HTN: h/o vasospasm. None seen on angiogram 12/08 #Leukocytosis: trending down to 12 CXR and UA negative -1 anaerobic bottle 12/03 positive for Actinomyces. Repeat culture negative #Acute encephalopathy: due to #1 #Deconditioning: PT/OT #Recurrent bronchitis: complete 7-day course LQ today #Dysphagia: speech eval once more alert #Nutrition: family requesting [employer] formulation for feeds #DVT ppx: SCDs #Disp: transfer to [facility] today Subjective: "shaking episodes" of arms and legs last night Objective: Vital Signs Temp Pulse Resp BP Pulse Ox 37.4 C 83 22 H 155/90 H 100 12/10/16 07:00 12/10/16 08:00 12/10/16 08:00 12/10/16 08:00 12/10/16 08:00 Microbiology 12/08/16 12:30 Urine Culture - Final Urine,Catheterized 12/08/16 09:25 - Final Sputum, Induced/Suctioned Laboratory Results 12/10/16 03:00 12/10/16 08:00 12/09/16 12/10/16 12/11/16 05:59 05:59 05:59 Intake Total 4907 5386 Output Total 3975 4125 450 Balance 932 1261 -450 PT 15.4 SEC (12.0-15.0) H 12/03/16 05:35 INR 1.22 (0.83-1.16) H 12/03/16 05:35 - Physical Exam Constitutional: no apparent distress Eyes: PERRL Ears, Nose, Mouth, Throat: other (head incision, stapled, C/D/I) Cardiovascular: regular rate and rhythym Respiratory: no respiratory distress Gastrointestinal: normoactive bowel sounds Skin: warm Neurologic: other Psychiatric: other (opens eyes to voice ) ICD10 Worksheet Patient Problems: Problems Problem Status Onset Altered mental status Acute Pneumonia Acute
[2016-12-10 14:20] VITALS: BP 131/74; PULSE 93; RESP 25; O2SAT 95
[2016-12-10 14:44] VITALS: TEMP 100.1
[2016-12-10] MEDS ORDERED: levETIRAcetam 1,000 MG in NS 100 ML IV SCH (21:00)
== END 2016-12-10 16:12 | disposition short-term general hospital (02) | DRG 20 ==
LOC: F2N 23:58
PROVIDERS: ADMIT Internal Medicine; ATTEND Neurological Surgery
PROC: 03VG0CZ Restriction of Intracranial Artery with Extraluminal Device, Open Approach (ICD-10-PCS; principal; 2016-12-01 16:45)
PROC: 00960ZZ Drainage of Cerebral Ventricle, Open Approach (ICD-10-PCS; principal; 2016-12-01 16:45)
PROC: B31R1ZZ Fluoroscopy of Intracranial Arteries using Low Osmolar Contrast (ICD-10-PCS; principal; 2016-12-01 16:45)
PROC: 02HV33Z Insertion of Infusion Device into Superior Vena Cava, Percutaneous Approach (ICD-10-PCS; 2016-12-02)
PROC: 3E0G76Z Introduction of Nutritional Substance into Upper GI, Via Natural or Artificial Opening (ICD-10-PCS; 2016-12-02)
PROC: 3E043XZ Introduction of Vasopressor into Central Vein, Percutaneous Approach (ICD-10-PCS; 2016-12-05)
PROC: B31R1ZZ Fluoroscopy of Intracranial Arteries using Low Osmolar Contrast (ICD-10-PCS; 2016-12-08)
DX: I60.12 Nontraumatic subarachnoid hemorrhage from left middle cerebral artery (principal); G91.4 Hydrocephalus in diseases classified elsewhere; I67.848 Other cerebrovascular vasospasm and vasoconstriction; G93.49 Other encephalopathy; R56.9 Unspecified convulsions; G81.91 Hemiplegia, unspecified affecting right dominant side; R47.01 Aphasia; H49.02 Third [oculomotor] nerve palsy, left eye; J81.0 Acute pulmonary edema; J20.9 Acute bronchitis, unspecified; E87.1 Hypo-osmolality and hyponatremia; I10 Essential (primary) hypertension; E78.00 Pure hypercholesterolemia, unspecified
CPT/HCPCS: 92507-GN; 92523-GN; 92610-GN; 96374; 97112-GO; 97116-GP; 97163-GP; 97167-GO; 97530-GO; 97530-GP; C1713; C1751; C1769; C1894; G8978-GP-CK; G8979-GP-CI; G8987-GO-CN; G8988-GO-CL; G8989-GO-CM; G8996-GN-CJ; G8997-GN-CH; G8997-GN-CJ; G8998-GN-CJ; G9162-GN-CM; G9163-GN-CJ; J1100; J1170; J1644; J1953; J1956; J2001; J2250; J2370; J2405; J2704; J2765; J2997; J3010; J3475; P9041; Q9967

== ENCOUNTER 2017-01-12 15:14 | Inpatient (IN) | payer OTHER ==
[2017-01-12] MEDS ORDERED: LOPERAMIDE HCL 2 MG CAP PO PRN (16:36)
[2017-01-12] MEDS ORDERED: TOBRAMYCIN 0.3% 5 ML OPHT.BTL LEFTEYE PRN (16:36)
--- NOTE | 2017-01-12 17:33 | GHP ---
[f rep st] HISTORY AND PHYSICAL POST ADMISSION PHYSICIAN EVALUATION AND REHABILITATION TREATMENT PLAN. DATE OF ADMISSION: 01/12/2017 DATE OF EVALUATION: 01/12/2017. TIME OF EVALUATION: 15:45. REFERRING FACILITY: [facility]. REFERRING PHYSICIAN: Dr. Lamar IMPAIRMENT GROUP: 2.1. DATE OF ONSET: 11/30/2016. CONSULTING PHYSICIANS: There were none. 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 DATE OF SURGERY: 12/01/2016. HISTORY OF PRESENT ILLNESS: The patient came to the emergency department at [facility] on 11/30/2016 with slurred speech and confusion. Evaluation included a head CT which showed a subarachnoid hemorrhage. The source was an aneurysmal bleed of the left middle cerebral artery. She underwent clipping of the artery on 12/01/2016. CT of the head showed subarachnoid blood products diffusely present in hemispheres and more so on the left, and intraventricular blood products in the 3rd ventricle and occipital trigones of the lateral ventricles. She had craniotomy with aneurysm clipping. Hospital course was culminated by pulmonary edema, fluctuating leukocytosis, intermittent fevers and reduced level of consciousness. Infectious disease workup was negative. She was noted to have intermittent generalized convulsions on 12/09 and 12/10/2016. She had been treated with seizure prophylaxis with levetiracetam 750 mg twice a day. Her levetiracetam was increased to 1000 mg twice a day and she was transferred to [facility] where she could have continuous video EEG monitoring and aggressive medical management of seizures. I do not have records of her stay at the [facility]; however she was eventually discharged approximately 2 weeks ago to [facility] for rehabilitation. At that time, she was not able to tolerate therapy well enough for admission to inpatient rehabilitation. However over the past 2 weeks, she has improved functionally to the point where she is ready for 3 hours a day of therapy. Her relates that she had weakness yesterday after a more active day the day before, including being home for Mother's Day. There was concern for urinary tract infection and for dehydration. Studies and labs during her recent rehabilitation stay, I do not have a comprehensive list. PRECAUTIONS: She is a fall risk. She has aspiration precautions and seizure precautions. ACTIVE COMORBIDITIES: She has no active tier 1, tier 2, or tier 3 comorbidities. PAST MEDICAL HISTORY: 1. Hypertension. 2. Dyslipidemia. PAST SURGICAL HISTORY: She has had a left reverse shoulder replacement and left hip replacement. PRE-HOSPITAL MEDICATIONS: 1. Atenolol. 2. Hydrochlorothiazide. 3. Lisinopril. 4. Chlorthalidone is listed as well but was probably not simultaneous with hydrochlorothiazide. 5. Atorvastatin. ADMISSION MEDICATIONS: 1. Atenolol 100 mg p.o. daily. 2. Atorvastatin 10 mg p.o. daily. 3. Ferrous sulfate 325 mg p.o. daily. 4. Lisinopril 40 mg p.o. daily. 5. Magnesium hydroxide 30 mL p.o. daily. 6. Senna/docusate 1 tablet p.o. daily. 7. Cholecalciferol 17178 units p.o. q.week, last dose on January 06. 8. Amantadine 100 mg p.o. twice daily. 9. Lacosamide 100 mg p.o. twice daily. 10. Levetiracetam 1000 mg p.o. twice daily. 11. Nitrofurantoin 100 mg p.o. twice daily. 12. Acetaminophen 325 mg 2 tablets q.4 hours p.r.n. 13. Bisacodyl 5 mg p.o. p.r.n. 14. Labetalol 200 mg p.o. p.r.n. hypertension. 15. Loperamide 2 mg p.r.n. diarrhea. 16. Ondansetron 4 mg p.o. q.6 hours p.r.n. ALLERGIES: She has allergies to naproxen and to penicillins. FAMILY HISTORY: There is a history of an abdominal aortic aneurysm. PSYCHOSOCIAL HISTORY: She is . She lives with her . She has 2 adult sons and [id number], who I believe are local. 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 She is a nonsmoker. She uses occasional alcohol. REVIEW OF SYSTEMS: Largely from her . He reports episode of fatigue and weakness yesterday after being more active previously. She has had constipation for 3-4 days. She finds it easier to grasp more distant objects then nearer objects. She has had some nausea without vomiting for several days. She has a cough which is nonproductive. She denies dyspnea. She is not in pain. She has no dysuria or urinary frequency. She snores occasionally but has not had daytime sleepiness or morning headaches prior to the aneurysmal bleed. Otherwise, a 10-point review of systems is negative. PHYSICAL EXAM: VITAL SIGNS: Blood pressure is 144/80, heart rate is 69, respiratory rate is 16, oxygen saturation is 93% on room air. Temperature is 36.9 degrees centigrade. Her weight is 65.3 kg for a body mass index of 28.1. GENERAL: This is an obese female, sitting up in bed. Cooperative and in no acute distress. HEENT: There is left ptosis and there is a lateral deviation to the left eye. Extraocular movements are normal on the right. On the left, there is a lack of accommodation, and possibly a reduction in up gaze. Pupil is larger on the left than on the right. Both pupils are reactive. Mucous membranes are moist. Dentition is in good condition. She has a crowded airway Mallampati class 3. NECK: Supple. HEART: There is a regular rate and rhythm with no murmurs, rubs, or gallops. LUNGS: Clear to auscultation bilaterally. ABDOMEN: Soft, nontender, nondistended with normoactive bowel sounds and no hepatosplenomegaly. EXTREMITIES: There is no cyanosis, clubbing, or edema. NEUROLOGIC: She is alert and oriented to the general situation. She is disoriented to the month, the date and the year. She can register reorientation to the correct date but she does not maintain orientation after several minutes. Other than the left eye lateral deviation and ptosis, cranial nerves 2-12 are grossly intact. She has weakness of the right hand histology technologist, the right hip flexor and the right hamstring, approximately 4/5. Otherwise motor strength is 5/5 overall. Sensation is intact to light touch. Deep tendon reflexes are 2+ bilaterally at the biceps, patellar, and Achilles tendons. [id number] is slow but smooth without past pointing bilaterally. She appears to have a left visual field cut. CURRENT LEVEL OF FUNCTION: Per the preadmission screen. Regarding diet, feeding, and swallowing, she was on regular texture diet with thin liquids. She required supervision and setup. For grooming, she needed assistance. For bathing, she needed assistance. For dressing, she needed assistance. For toileting, she needed assistance. Regarding bed mobility, she needed contact guard to standby assist. For transfers, she required contact guard assistance using a walker. Her balance was poor. Her endurance was poor. She was able to ambulate 200-300 feet with a walker and standby assist. For stairs, she needed minimal assist to contact guard assist. Cognition was noted to be poor, needing cuing and extra time and having decreased insight and safety awareness. IMPRESSION: The patient is a 71-year-old female who suffered a subarachnoid hemorrhage from the left middle cerebral artery on November 30, 2016. She had craniotomy and clipping of the aneurysm on December 01, 2016. There was vasospasm which was treated with nimodipine and hypertonic saline. There was delirium. She had bronchitis which was recurrent and had treatment with levofloxacin. There was leukocytosis with infectious workup that was negative. There was dysphagia and eventually there was seizure activity, for which she was transferred to the [facility] for continuous EEG monitoring. There, a 2nd anticonvulsant was added and she was monitored and eventually released to detention facility as she was unable to tolerate 3 hours a day of therapy that would be required for inpatient rehabilitation. She improved in the detention facility and is now ready for more intensive therapy. Her goal is to complete rehabilitation and then return home with her family. For a safe discharge, her goals are to achieve supervision to standby assist level of function with all mobility, ADLs and cognition. She should be able to feed herself with the least restrictive diet. She will need to have improvement in her vision. She will have to have her pain managed, and there will be medication management and education for the family. It is anticipated that she will need supervision to contact guard assist for community activities and car transfers. She will have therapy with physical therapy, occupational therapy, and speech and language pathology for 60 minutes per discipline each day on 5-7 days per week. Her expected duration of stay is 10-12 days. It is anticipated that upon discharge, she will continue to benefit from home health services including speech and language pathology, occupational therapy, physical therapy and a stroke support group. ASSESSMENT AND PLAN: 1. Debility status post subarachnoid hemorrhage, aneurysmal clipping and seizures. Physical and occupational therapy to optimize her mobility and activities of daily living. 2. Cognitive impairment to be assessed and treated per Speech and Language Pathology. She may still have a component of resolving delirium as well. Continue amantadine, but would consider discontinuation as she appears to have sufficient alertness. 3. 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 Continue levetiracetam and lacosamide. Followup with Neurology or Neurosurgery needs to be determined to establish duration of treatment. 4. Hypertension. Continue atenolol and lisinopril. Given her nonproductive cough, consideration will be given to replacing lisinopril with an angiotensin receptor elissa. Blood pressure will be monitored and medications adjusted as needed. Regarding hypertension, we will check renal function. 5. Vitamin D deficiency on high dose weekly vitamin D supplementation. We will check a vitamin D level and consider changing to daily medication, as there is some evidence that this is a more physiologic and effective means of supplementation. 6. Anemia with iron supplement. Check her blood counts as well as an iron profile to determine whether she continues to need iron supplementation. 7. Constipation. Continue her bowel protocol and add bisacodyl suppository on an as-needed basis as well as an enema. She will be monitored for effectiveness of the bowel regimen. 8. Possible urinary tract infection without specific urinary tract infection symptoms however, she has had functional fluctuation. It is reasonable to check a urinalysis, but will not treat unless a specific pathogen is grown on culture and she does not symptomatically improve regarding her functional status. 9. Deep venous thrombosis prophylaxis. She is at elevated risk however she has been ambulating more than 200 feet. We will consider indications for enoxaparin or subcutaneous heparin. She likely is safe regarding the risk of a subsequent intracerebral hemorrhage; however if she does not need pharmacologic prophylaxis, it will not be ordered. She was not on prophylaxis during her stay at the retirement. She had an ultrasound study for deep venous thrombosis of the right upper extremity as she had swelling and it was negative. There had been a PICC line in the right upper extremity previously. 10. Dyslipidemia. Continue atorvastatin. 11. Nausea. She has received ondansetron for the past 3 days. It could be related to constipation. Ondansetron will remain available, and constipation will be treated. 12. Pain management. She does not appear to be in pain. She has not received acetaminophen at the retirement in recent days. Acetaminophen will remain available. /[id number]/MODL MTDD
[2017-01-12] MEDS: AMANTADINE HCL 100 MG CAP PO SCH (19:23)
[2017-01-12] MEDS: BISACODYL 10 MG SUPP PR PRN (19:23)
[2017-01-12] MEDS: NITROFURANTOIN MACROBID 100 MG CAP PO SCH (21:08)
[2017-01-12] MEDS: levETIRAcetam 500 MG TAB PO SCH (21:08)
[2017-01-12] MEDS: LACOSAMIDE 50 MG TAB PO SCH (21:16)
[2017-01-13 08:13] LABS: % IMMATURE GRANULYOCYTES 0.2 % (0.0-1.1); ABSOLUTE IMMATURE GRANULOCYTES 0.01 10^3/uL (0.00-0.10); ADD DIFF? NO; ADD MORPH? NO; ADD SCAN? NO; ATYPICAL LYMPHOCYTE FLAG 20 (0-99); FRAGMENT RBC FLAG 0 (0-99); HEMATOCRIT 35.5 % (38.0-47.0); LEFT SHIFT FLG 20 (0-99); LIPEMIA HEMOLYSIS FLAG 90 (0-99); MEAN CELL HEMOGLOBIN 32.1 pg (27.9-34.1); MEAN CELL HEMOGLOBIN CONCENTR. 33.8 g/dL (32.4-36.7); MEAN CELL VOLUME 94.9 fL (81.5-99.8); MEAN PLATELET VOLUME 9.8 fL (8.7-11.7); PLATELET CLUMPS FLAG 0 (0-99); PLATELET COUNT 189 10^3/uL (150-400); RED BLOOD CELL COUNT 3.74 10^6/uL (4.18-5.33); RED CELL DISTRIBUTION WIDTH 13.9 % (11.5-15.2)
[2017-01-13 08:25] LABS: COLOR YELLOW; LEUKOCYTE ESTERASE,URINE NEGATIVE (NEGATIVE); NITRITE,URINE NEGATIVE (NEGATIVE)
[2017-01-13 08:46] LABS: ANION GAP 9 mEq/L (8-16); CALCIUM 10.2 mg/dL (8.5-10.4); CARBON DIOXIDE 26 mEq/l (22-31); CHLORIDE 102 mEq/L (97-110); CREATININE 0.9 mg/dL (0.6-1.0); GLOMERULAR FILTRATION RATE > 60; GLUCOSE 96 mg/dL (70-100); POTASSIUM 4.6 mEq/L (3.5-5.2); SODIUM 137 mEq/L (134-144)
[2017-01-13 08:55] LABS: % SATURATION 16 % (20-55); TOTAL IRON BINDING CAPACITY 231 ug/dL (260-490)
[2017-01-13] MEDS: ATENOLOL 50 MG TAB PO SCH (08:59)
[2017-01-13] MEDS: ATORVASTATIN CALCIUM 10 MG TAB PO SCH (08:59)
[2017-01-13] MEDS: CHOLECALCIFEROL VIT D3 2,000 UNITS TAB/CAP PO SCH (08:59)
[2017-01-13] MEDS: AMANTADINE HCL 100 MG CAP PO SCH ×2 (08:59→20:13)
[2017-01-13] MEDS: FERROUS SULFATE 325 MG TAB PO SCH (09:00)
[2017-01-13] MEDS ORDERED: LISINOPRIL 40 MG TAB PO SCH (09:00)
[2017-01-13] MEDS: MAGNESIUM HYDROXIDE 30 ML UDCUP PO PRN (09:00)
[2017-01-13] MEDS: levETIRAcetam 500 MG TAB PO SCH ×2 (09:00→20:13)
[2017-01-13] MEDS: NITROFURANTOIN MACROBID 100 MG CAP PO SCH ×2 (09:00→20:12)
[2017-01-13] MEDS: SENNOSIDES/DOCUSATE SODIUM TAB PO SCH (09:00)
[2017-01-13] MEDS: LACOSAMIDE 50 MG TAB PO SCH ×2 (09:15→20:12)
--- NOTE | 2017-01-13 09:27 | SOAPPROG ---
SOAP Progress Note Assessment/Plan: Assessment: * Debility status post subarachnoid hemorrhage, aneurysmal clipping and seizures. Physical and occupational therapy to optimize her mobility and activities of daily living. * Cognitive impairment to be assessed and treated per Speech and Language Pathology. She may still have a component of resolving delirium as well. Continue amantadine, but would consider discontinuation as she appears to have sufficient alertness. 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 Continue levetiracetam and lacosamide for at least 3 mo (mid-February 2017?). Followup Neurosurgery after discharge. 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 NO eye irritation noted. * Hypertension. Continue atenolol. Given her nonproductive cough, replace lisinopril with losartan. Blood pressure will be monitored and medications adjusted as needed. Renal fn wnl 01/13/17. * Vitamin D deficiency on high dose weekly vitamin D supplementation. Vit D level wnl 01/13/17. Changed to daily cholecalciferol 01/13/17. * Anemia with iron supplement. Improving on labs 01/13/17 but remains iron- deficient. Continue iron supplement 1 month. * Constipation. Continue her bowel protocol and add bisacodyl suppository on an as-needed basis as well as an enema PRN. * Possible urinary tract infection? UA wnl 01/13/17. * Deep venous thrombosis prophylaxis. She is at elevated risk however she has been ambulating more than 200 feet. We will consider indications for enoxaparin or subcutaneous heparin. She likely is safe regarding the risk of a subsequent intracerebral hemorrhage; however if she does not need pharmacologic prophylaxis, it will not be ordered. She was not on prophylaxis during her stay at the [facility]. She had an ultrasound study for deep venous thrombosis of the right upper extremity as she had swelling and it was negative. There had been a PICC line in the right upper extremity previously. * Dyslipidemia. Continue atorvastatin. * Nausea. She received ondansetron for the past 3 days at the SNF. Improved with treatment of constipation? Follow-up Dr. Ge, Neurosurgery, after discharge. 01/13/17 12:07 Subjective: No complaints. Slept well. Not in pain, No f/c, cough/dyspnea. Objective: Vital Signs Temp Pulse Resp BP Pulse Ox 36.7 C 68 16 128/68 H 92 01/13/17 07:12 01/13/17 08:59 01/13/17 07:12 01/13/17 09:00 01/13/17 07:12 Laboratory Results 01/13/17 07:15 01/13/17 07:15 01/12/17 01/13/17 01/14/17 05:59 05:59 05:59 Intake Total 200 400 Output Total 1150 Balance -950 400 Physical Exam - Physical Exam General Appearance: WD/WN, alert, no apparent distress, obese EENT: other (L eye lateral deviation, ptosis +/- proptosis) Respiratory: normal breath sounds, No crackles, No rhonchi, No wheezing Cardiac/Chest: regular rate, rhythm, edema (trace - 1+ B LE) Skin: normal color, warm/dry Neuro/Psych: alert, normal mood/affect ICD10 Worksheet Patient Problems: Problems Problem Status Onset Altered mental status Acute Pneumonia Acute 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
--- NOTE | 2017-01-13 11:47 | PDOREHIP ---
Admission [facility] - Admission - 3 Day Assessment Period Admission Date/Day 1: 01/12/17 Day 2: 01/13/17 Day 3: 01/14/17 - Active Diagnoses Comorbidities and Co-existing Conditions at Admission: . None of the Above - Skin Conditions Unhealed Pressure Ulcer (1 or more/Stage 1 or >)-Admission: 0. No
[2017-01-13] MEDS: BISACODYL 10 MG SUPP PR PRN (20:38)
[2017-01-14] MEDS: NITROFURANTOIN MACROBID 100 MG CAP PO SCH ×2 (08:32→20:29)
[2017-01-14] MEDS: ATORVASTATIN CALCIUM 10 MG TAB PO SCH (08:32)
[2017-01-14] MEDS: LOSARTAN POTASSIUM 50 MG TAB PO SCH (08:33)
[2017-01-14] MEDS: ATENOLOL 50 MG TAB PO SCH (08:33)
[2017-01-14] MEDS: levETIRAcetam 500 MG TAB PO SCH ×2 (08:33→20:28)
[2017-01-14] MEDS: LACOSAMIDE 50 MG TAB PO SCH ×2 (08:33→20:29)
[2017-01-14] MEDS: FERROUS SULFATE 325 MG TAB PO SCH (08:34)
[2017-01-14] MEDS: AMANTADINE HCL 100 MG CAP PO SCH ×2 (08:34→20:30)
[2017-01-14] MEDS: CHOLECALCIFEROL VIT D3 2,000 UNITS TAB/CAP PO SCH (08:34)
[2017-01-14] MEDS: SENNOSIDES/DOCUSATE SODIUM TAB PO SCH ×2 (08:34→20:29)
--- NOTE | 2017-01-14 10:44 | SOAPPROG ---
SOAP Progress Note Assessment/Plan: Assessment: * Debility status post subarachnoid hemorrhage 12/20/16, with craniotomy and aneurysmal clipping 12/01/16, and seizures. Physical and occupational therapy to optimize her mobility and activities of daily living. * Cognitive impairment to be assessed and treated per Speech and Language Pathology. She may still have a component of resolving delirium as well. Continue amantadine, but would consider discontinuation as she appears to have sufficient alertness. 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 Continue levetiracetam and lacosamide for at least 3 mo (mid-February 2017?). Followup Neurosurgery after discharge. 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 No eye irritation noted. * Hypertension. Continue atenolol. Given her nonproductive cough, replaced lisinopril with losartan starting 01/14/17. Blood pressure will be monitored and medications adjusted as needed. Renal fn wnl 01/13/17. * Vitamin D deficiency on high dose weekly vitamin D supplementation. Vit D level wnl 01/13/17. Changed to daily cholecalciferol 01/13/17. * Anemia with iron supplement. Improving on labs 01/13/17 but remains iron- deficient. Continue iron supplement 1 month. * Constipation. Continue her bowel protocol and add bisacodyl suppository on an as-needed basis as well as an enema PRN. * Possible urinary tract infection? UA wnl 01/13/17. * Deep venous thrombosis prophylaxis. She is at elevated risk however she has been ambulating more than 200 feet. We will consider indications for enoxaparin or subcutaneous heparin. She likely is safe regarding the risk of a subsequent intracerebral hemorrhage; however if she does not need pharmacologic prophylaxis, it will not be ordered. She was not on prophylaxis during her stay at the [facility]. She had an ultrasound study for deep venous thrombosis of the right upper extremity as she had swelling and it was negative. There had been a PICC line in the right upper extremity previously. * Dyslipidemia. Continue atorvastatin. * Nausea. She received ondansetron on her last 3 days at the SNF. Follow-up Dr. Ge, Neurosurgery, after discharge. 01/14/17 10:36 Subjective: Continues with constipation now X 5 days. O/W no complaints, no f/c, no pain. thinks her cough is improved. Objective: Vital Signs Temp Pulse Resp BP Pulse Ox 36.4 C 73 18 121/78 H 91 L 01/14/17 09:24 01/14/17 09:24 01/14/17 09:24 01/14/17 09:24 01/14/17 09:24 Laboratory Results 01/13/17 07:15 01/13/17 07:15 01/13/17 01/14/17 01/15/17 05:59 05:59 05:59 Intake Total 200 2672 600 Output Total 1150 1130 Balance -950 1542 600 Physical Exam - Physical Exam General Appearance: WD/WN, alert, no apparent distress, obese Respiratory: normal breath sounds, No crackles, No rhonchi, No wheezing Cardiac/Chest: regular rate, rhythm, No edema Abdomen: normal bowel sounds, non-tender, soft, No distended Skin: normal color, warm/dry Neuro/Psych: alert, normal mood/affect ICD10 Worksheet Patient Problems: Problems Problem Status Onset Altered mental status Acute Pneumonia Acute 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
[2017-01-14] MEDS ORDERED: MAGNESIUM CITRATE 300 ML BOTTLE PO ONE (17:05)
[2017-01-14] MEDS: ONDANSETRON DISINTEGRATING 4 MG TAB PO PRN (17:57)
[2017-01-15 07:53] LABS: ALANINE AMINOTRANSFERASE 47 IU/L (9-52); ALBUMIN 3.5 g/dL (3.5-5.0); ALKALINE PHOSPHATASE 85 IU/L (38-126); ANION GAP 8 mEq/L (8-16); ASPARTATE AMINOTRANSFERASE 30 IU/L (14-46); BILIRUBIN,TOTAL 0.7 mg/dL (0.1-1.4); CALCIUM 9.8 mg/dL (8.5-10.4); CARBON DIOXIDE 27 mEq/l (22-31); CHLORIDE 102 mEq/L (97-110); CREATININE 0.9 mg/dL (0.6-1.0); GLOMERULAR FILTRATION RATE > 60; GLUCOSE 88 mg/dL (70-100); POTASSIUM 4.7 mEq/L (3.5-5.2); SODIUM 137 mEq/L (134-144); TOTAL PROTEIN 5.9 g/dL (6.3-8.2)
[2017-01-15] MEDS: ATORVASTATIN CALCIUM 10 MG TAB PO SCH (08:51)
[2017-01-15] MEDS: ATENOLOL 50 MG TAB PO SCH (08:51)
[2017-01-15] MEDS: AMANTADINE HCL 100 MG CAP PO SCH (08:51)
[2017-01-15] MEDS: FERROUS SULFATE 325 MG TAB PO SCH (08:52)
[2017-01-15] MEDS: levETIRAcetam 500 MG TAB PO SCH ×2 (08:52→20:57)
[2017-01-15] MEDS: LOSARTAN POTASSIUM 50 MG TAB PO SCH (08:52)
[2017-01-15] MEDS: LACOSAMIDE 50 MG TAB PO SCH ×2 (08:52→20:57)
[2017-01-15] MEDS: CHOLECALCIFEROL VIT D3 2,000 UNITS TAB/CAP PO SCH (08:52)
[2017-01-15] MEDS: NITROFURANTOIN MACROBID 100 MG CAP PO SCH ×2 (08:53→20:56)
[2017-01-15] MEDS: SENNOSIDES/DOCUSATE SODIUM TAB PO SCH ×3 (08:53→20:57)
[2017-01-15] MEDS: ACETAMINOPHEN 325 MG TAB PO PRN (08:53)
[2017-01-15 11:33] LABS: % IMMATURE GRANULYOCYTES 0.3 % (0.0-1.1); ABSOLUTE IMMATURE GRANULOCYTES 0.02 10^3/uL (0.00-0.10); ADD DIFF? NO; ADD MORPH? NO; ADD SCAN? NO; ATYPICAL LYMPHOCYTE FLAG 20 (0-99); FRAGMENT RBC FLAG 0 (0-99); HEMATOCRIT 35.5 % (38.0-47.0); HEMOGLOBIN 11.9 g/dL (12.6-16.3); LEFT SHIFT FLG 0 (0-99); LIPEMIA HEMOLYSIS FLAG 80 (0-99); MEAN CELL HEMOGLOBIN 32.1 pg (27.9-34.1); MEAN CELL HEMOGLOBIN CONCENTR. 33.5 g/dL (32.4-36.7); MEAN CELL VOLUME 95.7 fL (81.5-99.8); MEAN PLATELET VOLUME 10.3 fL (8.7-11.7); PLATELET CLUMPS FLAG 0 (0-99); PLATELET COUNT 237 10^3/uL (150-400); RED BLOOD CELL COUNT 3.71 10^6/uL (4.18-5.33); RED CELL DISTRIBUTION WIDTH 13.9 % (11.5-15.2)
--- NOTE | 2017-01-15 13:01 | SOAPPROG ---
SOAP Progress Note Assessment/Plan: Assessment: * Debility status post subarachnoid hemorrhage 11/29/16, with craniotomy and aneurysmal clipping 12/01/16, and seizures. Initial FIM 46 on 01/15/17. Poor initiation and needing much cueing for mobility and ADLs. Tactile and verbal cues to initiate and persist with eating. Veers right with ambulation, up to 120' needing occ CGA for LOB, with FWW. Transfers with CGA but needs more tactile cueing to position to sit from standing. Physical and occupational therapy to optimize her mobility and activities of daily living. * Cognitive impairment. Inattentive and can lose track of swallowing when eating. Moderate to severe deficits to speed of processing, attn, memory, orientation. 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 Continue levetiracetam and lacosamide for at least 3 mo (mid-February 2017?). Followup Neurosurgery after discharge. 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 No eye irritation noted. Taping over safety glasses to treat diplopia. * Hypertension. Continue atenolol. Given her nonproductive cough, replaced lisinopril with losartan starting 01/14/17. Blood pressure will be monitored and medications adjusted as needed. Renal fn wnl 01/13/17. * Vitamin D deficiency on high dose weekly vitamin D supplementation. Vit D level wnl 01/13/17. Changed to daily cholecalciferol 01/13/17. * Anemia with iron supplement. Improving on labs 01/13/17 but remains iron- deficient. Continue iron supplement 1 month. Stable on labs 01/15/17. * Constipation. Responding to bowel protocol and add bisacodyl suppository on an as-needed basis as well as an enema PRN. * Possible urinary tract infection? UA wnl 01/13/17. * Deep venous thrombosis prophylaxis. She is at elevated risk however she has been ambulating more. Greater than 6 weeks since SDH occurred. She was not on prophylaxis [facility]. She had an ultrasound study for deep venous thrombosis of the right upper extremity as she had swelling and it was negative. There had been a PICC line in the right upper extremity previously. Pharmacologic prophylaxis is not indicated. * Dyslipidemia. Continue atorvastatin. * Nausea. She received ondansetron on her last 3 days at the SNF. Attended staffing, 15 min. D/W case mgmt, PT, OT HOIST CYLINDER LOADER, nursing, caster helper. is available at home, and sons and [id number] live next door. Concern re cargiver burn-out of ; he's been encouraged to rest and not be at facility 24 hours/day. Plan for 4 weeks LOS with tentative discharge Follow-up Dr. Ge, Neurosurgery, after discharge. 01/15/17 12:50 Subjective: No complaints. Bowels are moving and no longer nauseous. Slept well, not in pain. Objective: Vital Signs Temp Pulse Resp BP Pulse Ox 36.4 C 89 16 122/78 H 99 01/15/17 07:14 01/15/17 08:51 01/15/17 07:14 01/15/17 08:52 01/15/17 07:14 Laboratory Results 01/15/17 10:32 01/15/17 06:00 01/14/17 01/15/17 01/16/17 05:59 05:59 05:59 Intake Total 2672 1210 700 Output Total 1130 750 700 Balance 1542 460 0 - Time Spent With Patient Time Spent With Patient: Greater than 35 minutes floortime today, including more than 50% of time in coordination of care during staffing meeting, and counseling patient. Physical Exam - Physical Exam General Appearance: WD/WN, alert, no apparent distress, obese Respiratory: normal breath sounds, crackles (few RLL), No rhonchi, No wheezing Cardiac/Chest: regular rate, rhythm, No edema Skin: normal color, warm/dry Neuro/Psych: alert, normal mood/affect, oriented x 3, abnormal typist II-XII (L eye lateral deviation and proptosis), cognition abnormalities (slow responses) ICD10 Worksheet Patient Problems: Problems Problem Status Onset Altered mental status Acute Pneumonia Acute 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
[2017-01-16] MEDS ORDERED: AMANTADINE HCL 100 MG CAP PO SCH (08:14)
[2017-01-16] MEDS: AMANTADINE HCL 100 MG CAP PO SCH ×2 (08:52→12:41)
[2017-01-16] MEDS: ATORVASTATIN CALCIUM 10 MG TAB PO SCH (08:52)
[2017-01-16] MEDS: LOSARTAN POTASSIUM 50 MG TAB PO SCH (08:53)
[2017-01-16] MEDS: ATENOLOL 50 MG TAB PO SCH (08:54)
[2017-01-16] MEDS: LACOSAMIDE 50 MG TAB PO SCH ×2 (08:54→20:46)
[2017-01-16] MEDS: levETIRAcetam 500 MG TAB PO SCH ×2 (08:54→20:46)
[2017-01-16] MEDS: NITROFURANTOIN MACROBID 100 MG CAP PO SCH ×2 (08:55→20:46)
[2017-01-16] MEDS: SENNOSIDES/DOCUSATE SODIUM TAB PO SCH ×2 (08:55→20:46)
[2017-01-16] MEDS: FERROUS SULFATE 325 MG TAB PO SCH (08:55)
[2017-01-16] MEDS: CHOLECALCIFEROL VIT D3 2,000 UNITS TAB/CAP PO SCH (09:03)
--- NOTE | 2017-01-16 11:39 | SOAPPROG ---
SOAP Progress Note Assessment/Plan: Assessment: 71-year-old female with an aneurysmal bleed, status post craniotomy and clipping, seizure, transferred to [facility] for continuous EEG monitoring, then to [facility] for recovery. ultimately transferred to inpatient rehabilitation with increased tolerance. 01/16/2017- restarting home antihypertensive in the setting of increased blood pressures. No signs or symptoms of complications from hypertension. Otherwise plan is unchanged. The patient in all her medical issues are new to me today. * Debility status post subarachnoid hemorrhage 11/29/16, with craniotomy and aneurysmal clipping 12/01/16, and seizures. Initial FIM 46 on 01/15/17. Poor initiation and needing much cueing for mobility and ADLs. Tactile and verbal cues to initiate and persist with eating. Veers right with ambulation, up to 120' needing occ CGA for LOB, with FWW. Transfers with CGA but needs more tactile cueing to position to sit from standing. Physical and occupational therapy to optimize her mobility and activities of daily living. * Cognitive impairment. Inattentive and can lose track of swallowing when eating. Moderate to severe deficits to speed of processing, attn, memory, orientation. 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 Continue levetiracetam and lacosamide for at least 3 mo (mid-February 2017?). Followup Neurosurgery after discharge. 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 No eye irritation noted. Taping over safety glasses to treat diplopia. * Hypertension. Continue atenolol. Given her nonproductive cough, replaced lisinopril with losartan starting 01/14/17. Blood pressure will be monitored and medications adjusted as needed. Renal fn wnl 01/13/17. Restarted home Chlorthalidone at 12.5 mg daily * Vitamin D deficiency on high dose weekly vitamin D supplementation. Vit D level wnl 01/13/17. Changed to daily cholecalciferol 01/13/17. * Anemia with iron supplement. Improving on labs 01/13/17 but remains iron- deficient. Continue iron supplement 1 month. Stable on labs 01/15/17. * Constipation. Responding to bowel protocol and add bisacodyl suppository on an as-needed basis as well as an enema PRN. * Possible urinary tract infection? UA wnl 01/13/17. * Deep venous thrombosis prophylaxis. She is at elevated risk however she has been ambulating more. Greater than 6 weeks since SDH occurred. She was not on prophylaxis during her stay at the assisted. She had an ultrasound study for deep venous thrombosis of the right upper extremity as she had swelling and it was negative. There had been a PICC line in the right upper extremity previously. Pharmacologic prophylaxis is not indicated. * Dyslipidemia. Continue atorvastatin. * Nausea. She received ondansetron on her last 3 days at the SNF. is available at home, and sons and [id number] live next door. Concern re cargiver burn-out of ; he's been encouraged to rest and not be at facility 24 hours/day. Plan for 4 weeks LOS with tentative discharge Follow-up Dr. Ge, Neurosurgery, after discharge 01/16/17 11:35 01/16/17 11:39 Subjective: CC: HTN No acute events overnight. Patient is part is bidding well and therapies, sleeping well, denies any chest pain, shortness of breath, new vision changes, or headache. She has some increased blood pressure, and on review of the chart saw that she was previously on diuretics. Additionally reviewed her labs and her potassium is normal, her renal function is normal. Objective: Vital Signs Temp Pulse Resp BP Pulse Ox 36.8 C 68 16 164/91 H 98 01/16/17 06:03 01/16/17 06:03 01/16/17 06:03 01/16/17 06:03 01/16/17 06:03 Laboratory Results 01/15/17 10:32 01/15/17 06:00 01/15/17 01/16/17 01/17/17 05:59 05:59 05:59 Intake Total 1210 1277 Output Total 750 1350 Balance 460 -73 Physical Exam - Physical Exam General Appearance: alert, no apparent distress EENT: No scleral icterus (R), No scleral icterus (L) Respiratory: lungs clear, normal breath sounds, No respiratory distress, No accessory muscle use Cardiac/Chest: normal peripheral pulses, regular rate, rhythm, No edema Skin: normal color, warm/dry, No cyanosis Extremities: non-tender, No pedal edema, No swelling Neuro/Psych: alert, normal mood/affect ICD10 Worksheet Patient Problems: Problems Problem Status Onset Altered mental status Acute Pneumonia Acute 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
[2017-01-16] MEDS: CHLORTHALIDONE 25 MG TAB PO SCH (12:41)
[2017-01-17] MEDS ORDERED: CHLORTHALIDONE 25 MG TAB PO SCH (09:09)
[2017-01-17] MEDS: SENNOSIDES/DOCUSATE SODIUM TAB PO SCH ×2 (09:14→20:22)
[2017-01-17] MEDS: ATORVASTATIN CALCIUM 10 MG TAB PO SCH (09:14)
[2017-01-17] MEDS: FERROUS SULFATE 325 MG TAB PO SCH (09:14)
[2017-01-17] MEDS: LACOSAMIDE 50 MG TAB PO SCH ×2 (09:14→20:21)
[2017-01-17] MEDS: LOSARTAN POTASSIUM 50 MG TAB PO SCH (09:15)
[2017-01-17] MEDS: NITROFURANTOIN MACROBID 100 MG CAP PO SCH ×2 (09:15→20:22)
[2017-01-17] MEDS: levETIRAcetam 500 MG TAB PO SCH ×2 (09:15→20:22)
[2017-01-17] MEDS: ATENOLOL 50 MG TAB PO SCH (09:15)
[2017-01-17] MEDS: CHOLECALCIFEROL VIT D3 2,000 UNITS TAB/CAP PO SCH (09:15)
[2017-01-17] MEDS: AMANTADINE HCL 100 MG CAP PO SCH ×2 (09:16→13:16)
[2017-01-17] MEDS: CHLORTHALIDONE 25 MG TAB PO SCH (09:17)
[2017-01-17] MEDS ORDERED: CHLORTHALIDONE 25 MG TAB PO ONE (09:54)
--- NOTE | 2017-01-17 12:10 | SOAPPROG ---
SOAP Progress Note Assessment/Plan: Assessment: 71-year-old female with an aneurysmal bleed, status post craniotomy and clipping, seizure, transferred to [facility] for continuous EEG monitoring, then to [facility] for recovery. ultimately transferred to inpatient rehabilitation with increased tolerance. 01/16/2017- Increasing cortisol and own because of persistent hypertension, also checking right lower extremity Doppler for persistent right lower extremity swelling reported by the patient and family for the last week or so. given immobility, it is likely due to venous stasis and immobility of the limb however she is at high risk for DVT as well. Otherwise participate in well, continue the rehabilitation plan below. Checking BMP in AM for K, was previously normal. * Debility status post subarachnoid hemorrhage 11/29/16, with craniotomy and aneurysmal clipping 12/01/16, and seizures. Initial FIM 46 on 01/15/17. Poor initiation and needing much cueing for mobility and ADLs. Tactile and verbal cues to initiate and persist with eating. Veers right with ambulation, up to 120' needing occ CGA for LOB, with FWW. Transfers with CGA but needs more tactile cueing to position to sit from standing. Physical and occupational therapy to optimize her mobility and activities of daily living. * Cognitive impairment. Inattentive and can lose track of swallowing when eating. Moderate to severe deficits to speed of processing, attn, memory, orientation. 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 Continue levetiracetam and lacosamide for at least 3 mo (mid-February 2017?). Followup Neurosurgery after discharge. 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 No eye irritation noted. Taping over safety glasses to treat diplopia. * Hypertension. Continue atenolol. Given her nonproductive cough, replaced lisinopril with losartan starting 01/14/17. Blood pressure will be monitored and medications adjusted as needed. Renal fn wnl 01/13/17. Restarted home Chlorthalidone at 12.5 mg daily on 01/16, increased chlorthalidone to 25 mg po qday on 01/17, gave additional 12.5 today in addition to 12.5 this morning. * Vitamin D deficiency on high dose weekly vitamin D supplementation. Vit D level wnl 01/13/17. Changed to daily cholecalciferol 01/13/17. * Anemia with iron supplement. Improving on labs 01/13/17 but remains iron- deficient. Continue iron supplement 1 month. Stable on labs 01/15/17. * Constipation. Responding to bowel protocol and add bisacodyl suppository on an as-needed basis as well as an enema PRN. * Possible urinary tract infection? UA wnl 01/13/17. * Deep venous thrombosis prophylaxis. She is at elevated risk however she has been ambulating more. Greater than 6 weeks since SDH occurred. She was not on prophylaxis during her stay at the residential. She had an ultrasound study for deep venous thrombosis of the right upper extremity as she had swelling and it was negative. There had been a PICC line in the right upper extremity previously. Pharmacologic prophylaxis is not indicated. * Dyslipidemia. Continue atorvastatin. * Nausea. She received ondansetron on her last 3 days at the SNF. is available at home, and sons and [id number] live next door. Concern re cargiver burn-out of ; he's been encouraged to rest and not be at facility 24 hours/day. Plan for 4 weeks LOS with tentative discharge Follow-up Dr. Ge, Neurosurgery, after discharge 01/16/17 11:35 01/16/17 11:39 01/17/17 12:07 Subjective: CC: HTN, Swelling No acute events overnight. Patients was noted by family to have swelling of the right arm for the past three weeks or so, reportedly had a previously negative Doppler study. Additionally, family notes that she has had swelling in her right lower leg for the past week or two. Her right side is generally weaker and she is using it less. No redness, pain, tenderness. Patient otherwise also denies any chest pain, shortness of breath, headache, new vision changes. 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 Also discussed at length with family that evaluation by a neural artist's model in the future would be appropriate, however there is no urgency to this because she is in a phase of monitoring right now. Objective: Vital Signs Temp Pulse Resp BP Pulse Ox 36.5 C 76 16 160/96 H 92 01/17/17 08:00 01/17/17 08:00 01/17/17 08:00 01/17/17 08:00 01/17/17 08:00 Laboratory Results 01/15/17 10:32 01/15/17 06:00 01/16/17 01/17/17 01/18/17 05:59 05:59 05:59 Intake Total 1277 Output Total 1350 200 Balance -73 -200 Physical Exam - Physical Exam General Appearance: WD/WN, alert, no apparent distress EENT: other (disconjugate gaze), No scleral icterus (R), No scleral icterus (L) Respiratory: normal breath sounds, No respiratory distress, No accessory muscle use Cardiac/Chest: normal peripheral pulses, regular rate, rhythm, edema (right arm and leg) Skin: normal color, warm/dry, other (no erythema or tenderness), No cyanosis Extremities: swelling (right arm and leg) Neuro/Psych: alert, normal mood/affect, abnormal 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
[2017-01-17] MEDS: ENOXAPARIN 60 MG/0.6 ML SYR SC SCH (17:37)
[2017-01-18] MEDS: ENOXAPARIN 60 MG/0.6 ML SYR SC SCH ×2 (06:18→17:35)
[2017-01-18] MEDS: LACOSAMIDE 50 MG TAB PO SCH ×2 (08:57→20:07)
[2017-01-18] MEDS: LOSARTAN POTASSIUM 50 MG TAB PO SCH (08:58)
[2017-01-18] MEDS: NITROFURANTOIN MACROBID 100 MG CAP PO SCH ×2 (08:59→20:06)
[2017-01-18] MEDS: AMANTADINE HCL 100 MG CAP PO SCH ×2 (08:59→15:02)
[2017-01-18 09:00] LABS: ANION GAP 10 mEq/L (8-16); CALCIUM 9.9 mg/dL (8.5-10.4); CARBON DIOXIDE 28 mEq/l (22-31); CHLORIDE 99 mEq/L (97-110); GLOMERULAR FILTRATION RATE 55; GLUCOSE 99 mg/dL (70-100); POTASSIUM 4.2 mEq/L (3.5-5.2); SODIUM 137 mEq/L (134-144)
[2017-01-18] MEDS: CHOLECALCIFEROL VIT D3 2,000 UNITS TAB/CAP PO SCH (09:00)
[2017-01-18] MEDS: levETIRAcetam 500 MG TAB PO SCH ×2 (09:01→20:07)
[2017-01-18] MEDS: ATORVASTATIN CALCIUM 10 MG TAB PO SCH (09:02)
[2017-01-18] MEDS: SENNOSIDES/DOCUSATE SODIUM TAB PO SCH ×2 (09:03→20:06)
[2017-01-18] MEDS: ATENOLOL 50 MG TAB PO SCH (09:03)
[2017-01-18] MEDS: FERROUS SULFATE 325 MG TAB PO SCH (09:05)
[2017-01-18] MEDS ORDERED: CHLORTHALIDONE 25 MG TAB PO ONE (09:10)
[2017-01-18] MEDS ORDERED: CHLORTHALIDONE 25 MG TAB PO SCH (14:32)
--- NOTE | 2017-01-18 14:39 | SOAPPROG ---
SOAP Progress Note Assessment/Plan: Assessment: * Debility status post subarachnoid hemorrhage 11/29/16, with craniotomy and aneurysmal clipping 12/01/16, and seizures. Initial FIM 46 on 01/15/17. Poor initiation and needing much cueing for mobility and ADLs. Tactile and verbal cues to initiate and persist with eating. Veers right with ambulation, up to 120' needing occ CGA for LOB, with FWW. Transfers with CGA but needs more tactile cueing to position to sit from standing. Physical and occupational therapy to optimize her mobility and activities of daily living. * Cognitive impairment. Inattentive and can lose track of swallowing when eating. Moderate to severe deficits to speed of processing, attn, memory, orientation. 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 Continue levetiracetam and lacosamide for at least 3 mo (mid-February 2017?). Followup Neurosurgery after discharge. 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 No eye irritation noted. Taping over safety glasses to treat diplopia. * Hypertension. Continue atenolol. Given her nonproductive cough, replaced lisinopril with losartan starting 01/14/17. Chlorthalidone added will reduce the dose to 12.5 mg starting 01/19/17 and monitor BP. 01/17/17; will reduce dose form 25 mg to 12.5 mg QD starting 5.Renal fn wnl 01/13/17 and 01/16/17. * DVT RLE. Enoxaprin begun. No S/Sx PE. will call insurer to determine in DOAC can be started rather than warfarin. * Vitamin D deficiency on high dose weekly vitamin D supplementation. Vit D level wnl 01/13/17. Changed to daily cholecalciferol 01/13/17. * Anemia with iron supplement. Improving on labs 01/13/17 but remains iron- deficient. Continue iron supplement 1 month. Stable on labs 01/15/17. * Constipation. Responding to bowel protocol and add bisacodyl suppository on an as-needed basis as well as an enema PRN. * Possible urinary tract infection? UA wnl 01/13/17. * Deep venous thrombosis prophylaxis. She is at elevated risk however she has been ambulating more. Greater than 6 weeks since SDH occurred. She was not on prophylaxis during her stay at the [facility]. She had an ultrasound study for deep venous thrombosis of the right upper extremity as she had swelling and it was negative. There had been a PICC line in the right upper extremity previously. Now on enoxaparin for RLE DVT. * Dyslipidemia. Continue atorvastatin. * Nausea. She received ondansetron on her last 3 days at the SNF. Resolved. is available at home, and sons and [id number] live next door. Concern re cargiver burn-out of ; he's been encouraged to rest and not be at facility 24 hours/day. Plan for 4 weeks LOS with tentative discharge Follow-up Dr. Ge, Neurosurgery, after discharge. 01/18/17 14:35 Subjective: No complaints. Slept well. Thinks she took a sleeping pill. Cough is improved , and night cough resolved.. No dyspnea Objective: Vital Signs Temp Pulse Resp BP Pulse Ox 36.8 C 80 16 115/75 92 01/18/17 07:56 01/18/17 07:56 01/18/17 07:56 01/18/17 07:56 01/18/17 07:56 Laboratory Results 01/15/17 10:32 01/18/17 06:20 01/17/17 01/18/17 01/19/17 05:59 05:59 05:59 Intake Total 450 200 Output Total 200 350 200 Balance -200 100 0 Physical Exam - Physical Exam General Appearance: WD/WN, alert, no apparent distress, obese Respiratory: normal breath sounds, No crackles, No rhonchi, No wheezing Cardiac/Chest: regular rate, rhythm, edema (trace RLE) Skin: normal color, warm/dry Neuro/Psych: alert, normal mood/affect ICD10 Worksheet Patient Problems: Problems Problem Status Onset Altered mental status Acute Pneumonia Acute 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
[2017-01-18] MEDS: MAGNESIUM HYDROXIDE 30 ML UDCUP PO PRN (15:43)
[2017-01-19] MEDS: ENOXAPARIN 60 MG/0.6 ML SYR SC SCH ×2 (06:09→18:12)
[2017-01-19] MEDS ORDERED: CHLORTHALIDONE 25 MG TAB PO ONE (08:30)
[2017-01-19] MEDS: AMANTADINE HCL 100 MG CAP PO SCH ×2 (09:30→13:37)
[2017-01-19] MEDS: CHLORTHALIDONE 25 MG TAB PO SCH ×2 (09:34→10:16)
[2017-01-19] MEDS: ATORVASTATIN CALCIUM 10 MG TAB PO SCH (09:35)
[2017-01-19] MEDS: LACOSAMIDE 50 MG TAB PO SCH ×2 (09:36→21:38)
[2017-01-19] MEDS: ATENOLOL 50 MG TAB PO SCH (10:14)
[2017-01-19] MEDS: CHOLECALCIFEROL VIT D3 2,000 UNITS TAB/CAP PO SCH (10:15)
[2017-01-19] MEDS: FERROUS SULFATE 325 MG TAB PO SCH (10:15)
[2017-01-19] MEDS: levETIRAcetam 500 MG TAB PO SCH ×2 (10:15→21:37)
[2017-01-19] MEDS: NITROFURANTOIN MACROBID 100 MG CAP PO SCH ×2 (10:16→21:37)
[2017-01-19] MEDS: LOSARTAN POTASSIUM 50 MG TAB PO SCH (10:16)
[2017-01-19] MEDS: ACETAMINOPHEN 325 MG TAB PO PRN (10:17)
[2017-01-19] MEDS: SENNOSIDES/DOCUSATE SODIUM TAB PO SCH ×2 (11:29→21:37)
--- NOTE | 2017-01-19 11:54 | SOAPPROG ---
SOAP Progress Note Assessment/Plan: Assessment: 71-year-old female with an aneurysmal bleed, status post craniotomy and clipping, seizure, transferred to [facility] for continuous EEG monitoring, then to [facility] for recovery. ultimately transferred to inpatient rehabilitation with increased tolerance. 01/19/2017- No acute events overnight. Patient continues to be mildly hypertensive, initially had planned to increase cortisol down, but on discussion with Dr. Nazario I kept the dose at 12.5 mg daily. She did receive an extra 12.5 mg today. Plan to recheck potassium tomorrow, continue to monitor blood pressure. Additionally, the patient's is checking with insurance on coverage of various anticoagulants, offered help from social work in this regard. No bleeding today on enoxaparin. Remainder of plan is unchanged. Chair Caner consult ordered, lungs with some rales at bases. Recommended ongoing use of the incentives barometer, no x-ray yet. Sounds consistent with the bronchitis which is been her standing diagnosis. * Debility status post subarachnoid hemorrhage 11/29/16, with craniotomy and aneurysmal clipping 12/01/16, and seizures. Initial FIM 46 on 01/15/17. Poor initiation and needing much cueing for mobility and ADLs. Tactile and verbal cues to initiate and persist with eating. Veers right with ambulation, up to 120' needing occ CGA for LOB, with FWW. Transfers with CGA but needs more tactile cueing to position to sit from standing. Physical and occupational therapy to optimize her mobility and activities of daily living. * Cognitive impairment. Inattentive and can lose track of swallowing when eating. Moderate to severe deficits to speed of processing, attn, memory, orientation. 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 Continue levetiracetam and lacosamide for at least 3 mo (mid-February 2017?). Followup Neurosurgery after discharge. 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 No eye irritation noted. Taping over safety glasses to treat diplopia. * Hypertension. Continue atenolol. Given her nonproductive cough, replaced lisinopril with losartan starting 01/14/17. Chlorthalidone added will reduce the dose to 12.5 mg starting 01/19/17 and monitor BP. 01/17/17; reduced dose form 25 mg to 12.5 mg QD starting .Renal fn wnl 01/13/17 and 01/16/17. * DVT RLE. Enoxaprin begun. No S/Sx PE. will call insurer to determine in DOAC can be started rather than warfarin. * Vitamin D deficiency on high dose weekly vitamin D supplementation. Vit D level wnl 01/13/17. Changed to daily cholecalciferol 01/13/17. * Anemia with iron supplement. Improving on labs 01/13/17 but remains iron- deficient. Continue iron supplement 1 month. Stable on labs 01/15/17. * Constipation. Responding to bowel protocol and add bisacodyl suppository on an as-needed basis as well as an enema PRN. * Possible urinary tract infection? UA wnl 01/13/17. * Deep venous thrombosis prophylaxis. She is at elevated risk however she has been ambulating more. Greater than 6 weeks since SDH occurred. She was not on prophylaxis during her stay at the [facility]. She had an ultrasound study for deep venous thrombosis of the right upper extremity as she had swelling and it was negative. There had been a PICC line in the right upper extremity previously. Now on enoxaparin for RLE DVT, Will make a decision about long- term anticoagulant in coming days. * Dyslipidemia. Continue atorvastatin. * Nausea. She received ondansetron on her last 3 days at the SNF. Resolved. * Cough: has had much more severe cough in the past, especially leading up to her aneurysm rupture. Currently she has a mild cough, no associated nausea, lungs with some rails at the basis. Continue incentives barometer and monitor. No need for follow-up x-ray yet. is available at home, and sons and [id number] live next door. Concern re cargiver burn-out of ; he's been encouraged to rest and not be at facility 24 hours/day. Plan for 4 weeks LOS with tentative discharge Follow-up Dr. Ge, Neurosurgery, after discharge. 01/16/17 11:35 01/16/17 11:39 01/17/17 12:07 01/19/17 11:50 01/19/17 11:56 Subjective: CC: DVT, HTN No acute events overnight. Patient denies any signs or symptoms of bleeding. She does endorse an ongoing mild cough, which was much more severe in the past. Compared to prior to the stroke, the cough is much improved. They been using incentive spirometry but infrequently. Additionally, she is had some hypertension, denies any new headache, numbness, tingling, weakness, or new vision changes. Chlorthalidone recently decrease by Dr. Nazario yesterday. Additionally, the patient and family are concerned that she is not eating as much and has not been consult by a dietitian yet. checking with insurance on coverage for anticoagulation. Objective: Vital Signs Temp Pulse Resp BP Pulse Ox 36.4 C 70 16 122/80 H 92 01/19/17 06:42 01/19/17 10:14 01/19/17 06:42 01/19/17 10:16 01/19/17 06:42 Laboratory Results 01/15/17 10:32 01/18/17 06:20 01/18/17 01/19/17 01/20/17 05:59 05:59 05:59 Intake Total 450 450 550 Output Total 350 200 Balance 100 250 550 Physical Exam - Physical Exam General Appearance: WD/WN, alert, no apparent distress EENT: No scleral icterus (R), No scleral icterus (L) Respiratory: normal breath sounds, rales (bilaterally), No respiratory distress , No accessory muscle use, No decreased breath sounds, No rhonchi, No wheezing, No prolonged expiration, No pleural rub Cardiac/Chest: normal peripheral pulses, regular rate, rhythm, No edema Skin: normal color, warm/dry, No cyanosis Extremities: non-tender, swelling (right leg, mild in right arm), No pedal edema Neuro/Psych: alert, normal mood/affect, other (disconjugate gaze) ICD10 Worksheet Patient Problems: Problems Problem Status Onset Altered mental status Acute Pneumonia Acute 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
[2017-01-19] MEDS: ONDANSETRON DISINTEGRATING 4 MG TAB PO PRN ×2 (14:48→19:38)
[2017-01-19] MEDS: MAGNESIUM HYDROXIDE 30 ML UDCUP PO PRN (14:50)
[2017-01-20] MEDS: ENOXAPARIN 60 MG/0.6 ML SYR SC SCH (06:11)
[2017-01-20 08:16] LABS: ANION GAP 10 mEq/L (8-16); CALCIUM 9.7 mg/dL (8.5-10.4); CARBON DIOXIDE 30 mEq/l (22-31); CHLORIDE 95 mEq/L (97-110); CREATININE 1.3 mg/dL (0.6-1.0); GLOMERULAR FILTRATION RATE 40; GLUCOSE 89 mg/dL (70-100); POTASSIUM 3.8 mEq/L (3.5-5.2); SODIUM 135 mEq/L (134-144)
[2017-01-20] MEDS: AMANTADINE HCL 100 MG CAP PO SCH ×2 (09:06→17:51)
[2017-01-20] MEDS: ATENOLOL 50 MG TAB PO SCH (09:06)
[2017-01-20] MEDS: ATORVASTATIN CALCIUM 10 MG TAB PO SCH (09:10)
[2017-01-20] MEDS: CHLORTHALIDONE 25 MG TAB PO SCH (09:11)
[2017-01-20] MEDS: CHOLECALCIFEROL VIT D3 2,000 UNITS TAB/CAP PO SCH (09:12)
[2017-01-20] MEDS: FERROUS SULFATE 325 MG TAB PO SCH (09:12)
[2017-01-20] MEDS: LACOSAMIDE 50 MG TAB PO SCH ×2 (09:13→21:19)
[2017-01-20] MEDS: levETIRAcetam 500 MG TAB PO SCH ×2 (09:14→21:18)
[2017-01-20] MEDS: LOSARTAN POTASSIUM 50 MG TAB PO SCH (09:15)
[2017-01-20] MEDS: NITROFURANTOIN MACROBID 100 MG CAP PO SCH ×2 (09:16→21:18)
[2017-01-20] MEDS: SENNOSIDES/DOCUSATE SODIUM TAB PO SCH ×2 (09:17→21:18)
--- NOTE | 2017-01-20 10:00 | SOAPPROG ---
SOAP Progress Note Assessment/Plan: Assessment: * Debility status post subarachnoid hemorrhage 11/29/16, with craniotomy and aneurysmal clipping 12/01/16, and seizures. Initial FIM 45 on 01/15/17, increase to 49 on 01/20/17.. Poor initiation and needing much cueing for mobility and ADLs. Tactile and verbal cues to initiate and persist with eating; needs 1:1 supervision. Veers right with ambulation, up to 120' needing occ CGA for LOB, with FWW. Transfers with CGA but needs more tactile cueing to position to sit from standing. Physical and occupational therapy to optimize her mobility and activities of daily living. * Cognitive impairment. Inattentive and can lose track of swallowing when eating. Moderate to severe deficits to speed of processing, attn, memory, orientation. 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 * Dysphagia. Poor airway protection, frequent cough after eating or drinking, no jennifer aspiration on VFSS. 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 Continue levetiracetam and lacosamide for at least 3 mo (mid-February 2017?). Followup Neurosurgery after discharge. 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 No eye irritation noted. Taping over safety glasses to treat diplopia. * Hypertension. Continue atenolol. Given her nonproductive cough, replaced lisinopril with losartan starting 01/14/17. Chlorthalidone at 12.5 mg starting and monitor BP. 01/17/17; will reduce dose form 25 mg to 12.5 mg QD starting 5.Renal fn wnl 01/13/17 and 01/16/17. * ARF with creatinine increase to 1.3 after initiation of chlorthalidone. Low PO fluid intake noted. Encourage PO fluids. Check orthostatics. IV fluids today 01/20/17; repeat BMP in AM 01/21/17. * DVT RLE. Enoxaprin begun. No S/Sx PE. will call insurer to determine in DOAC can be started rather than warfarin. * Vitamin D deficiency on high dose weekly vitamin D supplementation. Vit D level wnl 01/13/17. Changed to daily cholecalciferol 01/13/17. * Anemia with iron supplement. Improving on labs 01/13/17 but remains iron- deficient. Continue iron supplement 1 month. Stable on labs 01/15/17. * Constipation. Responding to bowel protocol and add bisacodyl suppository on an as-needed basis as well as an enema PRN. * Possible urinary tract infection? UA wnl 01/13/17. * Deep venous thrombosis prophylaxis. Now on enoxaparin for RLE DVT; transition to rivaroxaban . * Dyslipidemia. Continue atorvastatin. * Nausea. Due to iron supplement? Will d/c. Attended staffing , 15 min. D/W case mgmt, nursing, PT, OT, BLENDING PLANT OPERATOR, traveler changer. is available at home, and sons and [id number] live next door. Will likely continue to need considerable assistance with mobility, ADLs and cognitive issues, Tentative discharge date of 02/09/17 but needs to make more progress; family conference 01/27/17. Follow-up Dr. Ge, Neurosurgery, today 01/20/17. 01/20/17 11:29 Subjective: Emesis again yesterday. She thinks her vision is improving. reports she's still coughing. especially when she lays down, and coughing can trigger gag and emesis. He thinks iron supplement may cause nausea. Objective: Vital Signs Temp Pulse Resp BP Pulse Ox 36.5 C 73 16 112/76 95 01/20/17 06:13 01/20/17 09:06 01/19/17 19:10 01/20/17 09:15 01/20/17 06:13 Laboratory Results 01/15/17 10:32 01/20/17 06:20 01/19/17 01/20/17 01/21/17 05:59 05:59 05:59 Intake Total 450 1425 Output Total 200 600 Balance 250 825 - Time Spent With Patient Time Spent With Patient: Greater than 35 minutes floor time today, including more than 50% of time in coordination of care during staffing meeting, and counseling patient and . 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
[2017-01-20] MEDS ORDERED: NS 1,000 ML IV SCH (11:30)
[2017-01-20] MEDS: RIVAROXABAN 15 MG TAB PO SCH (17:53)
[2017-01-20] MEDS: ONDANSETRON DISINTEGRATING 4 MG TAB PO PRN (20:13)
--- NOTE | 2017-01-20 22:05 | SOAPPROG ---
SOAP Progress Note Assessment/Plan: Assessment: D/W Dr. Ge. Head CT shows hydrocephalus. He can do a shunt procedure on 01/26/17. He suggested a possible lumbar puncture sooner but thinks she 'll need a definitive procedure. Seems inappropriate re using rehabilitation days to wait until 01/26/17. Will d/ w Dr. Ge tomorrow 01/21/17 re LP sooner, and could it be done by Interventional Radiology. Will hold rivaroxaban tonight and tomorrow morning until decision can be made re appropriate plan. Bridging is not appropriate as the same time period would need to pass between last dose of rivaroxaban and last dose of enoxaparin. Heparin infusion cannot be done on Inpatient Rehabilitation. She has IVC filter to protect against subsequent pulmonary embolus. Risk of spinal hemorrhage with LP while anticoagulated is approximately 2%, but consequence is > 50% paraparesis per UpToDate. Will d/w Neurosurgery and patient's in AM 01/21/17. * Debility status post subarachnoid hemorrhage 11/29/16, with craniotomy and aneurysmal clipping 12/01/16, and seizures. Initial FIM 45 on 01/15/17, increase to 49 on 01/20/17.. Poor initiation and needing much cueing for mobility and ADLs. Tactile and verbal cues to initiate and persist with eating; needs 1:1 supervision. Veers right with ambulation, up to 120' needing occ CGA for LOB, with FWW. Transfers with CGA but needs more tactile cueing to position to sit from standing. Physical and occupational therapy to optimize her mobility and activities of daily living. * Cognitive impairment. Inattentive and can lose track of swallowing when eating. Moderate to severe deficits to speed of processing, attn, memory, orientation. 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 * Dysphagia. Poor airway protection, frequent cough after eating or drinking, no jennifer aspiration on VFSS. 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 Continue levetiracetam and lacosamide for at least 3 mo (mid-February 2017?). Followup Neurosurgery after discharge. 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 No eye irritation noted. Taping over safety glasses to treat diplopia. * Hypertension. Continue atenolol. Given her nonproductive cough, replaced lisinopril with losartan starting 01/14/17. Chlorthalidone at 12.5 mg starting and monitor BP. 01/17/17; will reduce dose form 25 mg to 12.5 mg QD starting 5.Renal fn wnl 01/13/17 and 01/16/17. * ARF with creatinine increase to 1.3 after initiation of chlorthalidone. Low PO fluid intake noted. Encourage PO fluids. Check orthostatics. IV fluids today 01/20/17; repeat BMP in AM 01/21/17. * DVT RLE. Enoxaprin begun. No S/Sx PE. will call insurer to determine in DOAC can be started rather than warfarin. * Vitamin D deficiency on high dose weekly vitamin D supplementation. Vit D level wnl 01/13/17. Changed to daily cholecalciferol 01/13/17. * Anemia with iron supplement. Improving on labs 01/13/17 but remains iron- deficient. Continue iron supplement 1 month. Stable on labs 01/15/17. * Constipation. Responding to bowel protocol and add bisacodyl suppository on an as-needed basis as well as an enema PRN. * Possible urinary tract infection? UA wnl 01/13/17. * Deep venous thrombosis prophylaxis. Now on enoxaparin for RLE DVT; transition to rivaroxaban . * Dyslipidemia. Continue atorvastatin. * Nausea. Due to iron supplement? Will d/c. Attended staffing , 15 min. D/W case mgmt, nursing, PT, OT, UPHOLSTERY AUTO TRIMMER, soldering inspector. is available at home, and sons and [id number] live next door. Will likely continue to need considerable assistance with mobility, ADLs and cognitive issues, Tentative discharge date of 02/09/17 but needs to make more progress; family conference 01/27/17. Follow-up Dr. Ge, Neurosurgery, today 01/20/17. 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
[2017-01-21 09:38] LABS: ANION GAP 13 mEq/L (8-16); CALCIUM 10.1 mg/dL (8.5-10.4); CARBON DIOXIDE 28 mEq/l (22-31); CHLORIDE 92 mEq/L (97-110); CREATININE 1.3 mg/dL (0.6-1.0); GLOMERULAR FILTRATION RATE 40; GLUCOSE 83 mg/dL (70-100); POTASSIUM 4.1 mEq/L (3.5-5.2); SODIUM 133 mEq/L (134-144)
[2017-01-21] MEDS: levETIRAcetam 500 MG TAB PO SCH ×2 (10:54→21:10)
[2017-01-21] MEDS: ATENOLOL 50 MG TAB PO SCH (10:55)
[2017-01-21] MEDS: LACOSAMIDE 50 MG TAB PO SCH ×2 (10:55→21:12)
[2017-01-21] MEDS: CHLORTHALIDONE 25 MG TAB PO SCH (10:56)
[2017-01-21] MEDS: SENNOSIDES/DOCUSATE SODIUM TAB PO SCH ×2 (10:56→21:10)
[2017-01-21] MEDS: ATORVASTATIN CALCIUM 10 MG TAB PO SCH (10:56)
[2017-01-21] MEDS: LOSARTAN POTASSIUM 50 MG TAB PO SCH (10:56)
[2017-01-21] MEDS: CHOLECALCIFEROL VIT D3 2,000 UNITS TAB/CAP PO SCH (10:57)
[2017-01-21] MEDS: NITROFURANTOIN MACROBID 100 MG CAP PO SCH ×2 (10:57→21:09)
[2017-01-21] MEDS: AMANTADINE HCL 100 MG CAP PO SCH ×2 (11:01→15:30)
[2017-01-21] MEDS: ONDANSETRON DISINTEGRATING 4 MG TAB PO PRN ×2 (11:09→19:42)
--- NOTE | 2017-01-21 11:51 | SOAPPROG ---
SOAP Progress Note Assessment/Plan: Assessment: * Debility status post subarachnoid hemorrhage 11/29/16, with craniotomy and aneurysmal clipping 12/01/16, and seizures. Initial FIM 45 on 01/15/17, increase to 49 on 01/20/17.. Poor initiation and needing much cueing for mobility and ADLs. Tactile and verbal cues to initiate and persist with eating; needs 1:1 supervision. Veers right with ambulation, up to 120' needing occ CGA for LOB, with FWW. Transfers with CGA but needs more tactile cueing to position to sit from standing. Physical and occupational therapy to optimize her mobility and activities of daily living. * Cognitive impairment. Inattentive and can lose track of swallowing when eating. Moderate to severe deficits to speed of processing, attn, memory, orientation. 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 * Hydrocephalus. Plan for LP tomorrow 01/22/17 per Interventional Radiology. D/ W radiologist: OK for enoxaparin today; hold tomorrow. Risk of spinal hemorrhage with LP while anticoagulated is approximately 2%, but consequence is > 50% paraparesis per UpToDate. Risks and benefits d/w patient's . Expect symptomatic relief for several days after LP. Plan for shunt procedure 01/26/[address] Ge. * Dysphagia. Poor airway protection, frequent cough after eating or drinking, no jennifer aspiration on VFSS. 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 Continue levetiracetam and lacosamide for at least 3 mo (mid-February 2017?). Followup Neurosurgery after discharge. 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 No eye irritation noted. Taping over safety glasses to treat diplopia. * Hypertension. Continue atenolol. Given her nonproductive cough, replaced lisinopril with losartan starting 01/14/17. Chlorthalidone at 12.5 mg starting and monitor BP. 01/17/17; will reduce dose form 25 mg to 12.5 mg QD starting 5.Renal fn wnl 01/13/17 and 01/16/17. * ARF with creatinine increase to 1.3 after initiation of chlorthalidone. Low PO fluid intake noted. Encourage PO fluids. Check orthostatics. IV fluids today 01/20/17; repeat BMP in AM 01/21/17. * DVT RLE. Enoxaprin begun. No S/Sx PE. will call insurer to determine in DOAC can be started rather than warfarin. * Vitamin D deficiency on high dose weekly vitamin D supplementation. Vit D level wnl 01/13/17. Changed to daily cholecalciferol 01/13/17. * Anemia with iron supplement. Improving on labs 01/13/17 but remains iron- deficient. Continue iron supplement 1 month. Stable on labs 01/15/17. * Constipation. Responding to bowel protocol and add bisacodyl suppository on an as-needed basis as well as an enema PRN. * Possible urinary tract infection? UA wnl 01/13/17. * Deep venous thrombosis prophylaxis. Now on enoxaparin for RLE DVT; transition to rivaroxaban . * Dyslipidemia. Continue atorvastatin. * Nausea. Due to iron supplement? Will d/c. is available at home, and sons and [id number] live next door. Will likely continue to need considerable assistance with mobility, ADLs and cognitive issues, Tentative discharge date of 02/09/17 but needs to make more progress; family conference 01/27/17. Follow-up Dr. Ge, Neurosurgery, today 01/20/17. 01/21/17 11:52 Subjective: No complaints. Feeling better now that she can eat; was NPO in preparation for possible LP today for hydrocephalus; procedure now planned for tomorrow. Slept well, not in pain, no dyspnea, f/c. 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
[2017-01-21] MEDS: ENOXAPARIN 60 MG/0.6 ML SYR SC SCH ×2 (12:14→22:37)
[2017-01-21 14:49] LABS: % IMMATURE GRANULYOCYTES 0.4 % (0.0-1.1); ABSOLUTE IMMATURE GRANULOCYTES 0.03 10^3/uL (0.00-0.10); ADD DIFF? NO; ADD MORPH? NO; ADD SCAN? NO; ATYPICAL LYMPHOCYTE FLAG 0 (0-99); FRAGMENT RBC FLAG 0 (0-99); HEMATOCRIT 35.9 % (38.0-47.0); HEMOGLOBIN 12.2 g/dL (12.6-16.3); LEFT SHIFT FLG 10 (0-99); LIPEMIA HEMOLYSIS FLAG 90 (0-99); MEAN CELL HEMOGLOBIN 31.9 pg (27.9-34.1); MEAN CELL VOLUME 93.7 fL (81.5-99.8); MEAN PLATELET VOLUME 10.6 fL (8.7-11.7); PLATELET CLUMPS FLAG 0 (0-99); PLATELET COUNT 321 10^3/uL (150-400); RED BLOOD CELL COUNT 3.83 10^6/uL (4.18-5.33); RED CELL DISTRIBUTION WIDTH 13.1 % (11.5-15.2)
[2017-01-21 15:01] LABS: INR 1.13 (0.83-1.16); PROTIME(PATIENT) 14.4 SEC (12.0-15.0)
[2017-01-21] MEDS: RIVAROXABAN 15 MG TAB PO SCH (18:47)
[2017-01-22] MEDS: RIVAROXABAN 15 MG TAB PO SCH ×3 (09:06→18:47)
[2017-01-22] MEDS ORDERED: LIDOCAINE 1% 300 MG/30 ML SDV ONE (09:44)
[2017-01-22] MEDS: ONDANSETRON DISINTEGRATING 4 MG TAB PO PRN (12:49)
[2017-01-22] MEDS: SENNOSIDES/DOCUSATE SODIUM TAB PO SCH ×2 (13:02→20:24)
[2017-01-22] MEDS: levETIRAcetam 500 MG TAB PO SCH ×2 (13:02→20:26)
[2017-01-22] MEDS: ATENOLOL 50 MG TAB PO SCH (13:03)
[2017-01-22] MEDS: LOSARTAN POTASSIUM 50 MG TAB PO SCH (13:03)
[2017-01-22] MEDS: LACOSAMIDE 50 MG TAB PO SCH ×2 (13:03→20:24)
[2017-01-22] MEDS: CHOLECALCIFEROL VIT D3 2,000 UNITS TAB/CAP PO SCH (13:04)
[2017-01-22] MEDS: CHLORTHALIDONE 25 MG TAB PO SCH (13:04)
[2017-01-22] MEDS: AMANTADINE HCL 100 MG CAP PO SCH ×2 (13:04→13:13)
[2017-01-22] MEDS: ATORVASTATIN CALCIUM 10 MG TAB PO SCH (13:04)
[2017-01-22] MEDS: NITROFURANTOIN MACROBID 100 MG CAP PO SCH ×2 (13:05→20:24)
--- NOTE | 2017-01-22 15:54 | SOAPPROG ---
SOAP Progress Note Assessment/Plan: Assessment: * Debility status post subarachnoid hemorrhage 11/29/16, with craniotomy and aneurysmal clipping 12/01/16, and seizures. Initial FIM 45 on 01/15/17, increase to 49 on 01/20/17.. Poor initiation and needing much cueing for mobility and ADLs. Tactile and verbal cues to initiate and persist with eating; needs 1:1 supervision. Veers right with ambulation, up to 120' needing occ CGA for LOB, with FWW. Transfers with CGA but needs more tactile cueing to position to sit from standing. Physical and occupational therapy to optimize her mobility and activities of daily living. * Cognitive impairment. Inattentive and can lose track of swallowing when eating. Moderate to severe deficits to speed of processing, attn, memory, orientation. Continue RADARMAN. 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 * Hydrocephalus. S/P LP today 01/22/17 with dramatic improvement in proptosis and lateral deviation L eye; no MATHEW, no nausea. FRUIT PITTER reports improved gait improved when transferred to bathroom. Plan for shunt procedure 01/26/[address] Ge. * Dysphagia. Poor airway protection, frequent cough after eating or drinking, no jennifer aspiration on VFSS. 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 Continue levetiracetam and lacosamide for at least 3 mo (mid-February 2017?). Followup Neurosurgery after discharge. 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 Taping over safety glasses to treat diplopia. * Hypertension. Continue atenolol. Given her nonproductive cough, replaced lisinopril with losartan starting 01/14/17. Chlorthalidone at 12.5 mg starting and monitor BP. 01/17/17; will reduce dose form 25 mg to 12.5 mg QD starting 5.Renal fn wnl 01/13/17 and 01/16/17. * ARF with creatinine increase to 1.3 after initiation of chlorthalidone. Low PO fluid intake noted. Encourage PO fluids. Check orthostatics. IV fluids today 01/20/17; repeat BMP in AM 01/21/17. * DVT RLE. Resume enoxaparin. Plan to hold AM of 01/25/17 for shunt procedure . * Vitamin D deficiency on high dose weekly vitamin D supplementation. Vit D level wnl 01/13/17. Changed to daily cholecalciferol 01/13/17. * Anemia with iron supplement. Improving on labs 01/13/17 but remains iron- deficient. Continue iron supplement 1 month. Stable on labs 01/15/17. * Constipation. Responding to bowel protocol and add bisacodyl suppository on an as-needed basis as well as an enema PRN. * Possible urinary tract infection? UA wnl 01/13/17. * Deep venous thrombosis prophylaxis. Now on enoxaparin for RLE DVT; transition to rivaroxaban . * Dyslipidemia. Continue atorvastatin. * Nausea. Due to iron supplement? Will d/c. is available at home, and sons and [id number] live next door. Will likely continue to need considerable assistance with mobility, ADLs and cognitive issues, Tentative discharge date of 02/09/17 but needs to make more progress; family conference 01/27/17. 01/22/17 15:54 Subjective: Feels better after lumbar puncture. 40 cc CSF removed.. No nausea or MATHEW. Vision improved. Objective: Vital Signs Temp Pulse Resp BP Pulse Ox 36.6 C 67 15 116/80 90 L 01/22/17 09:16 01/22/17 09:16 01/22/17 09:16 01/22/17 09:16 01/22/17 09:16 Laboratory Results 01/21/17 02:52 01/21/17 06:00 01/21/17 01/22/17 01/23/17 05:59 05:59 05:59 Intake Total 708 1090 240 Balance 708 1090 240 PT 14.4 SEC (12.0-15.0) 01/21/17 02:52 INR 1.13 (0.83-1.16) 01/21/17 02:52 Physical Exam - Physical Exam General Appearance: WD/WN, alert, no apparent distress, obese EENT: other (No proptosis. 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
[2017-01-22] MEDS: ENOXAPARIN 60 MG/0.6 ML SYR SC SCH (20:24)
--- NOTE | 2017-01-23 07:31 | SOAPPROG ---
SOAP Progress Note Assessment/Plan: Assessment: * Debility status post subarachnoid hemorrhage 11/29/16, with craniotomy and aneurysmal clipping 12/01/16, and seizures. Initial FIM 45 on 01/15/17, increase to 49 on 01/20/17.. Poor initiation and needing much cueing for mobility and ADLs. Tactile and verbal cues to initiate and persist with eating; needs 1:1 supervision. Veers right with ambulation, up to 120' needing occ CGA for LOB, with FWW. Transfers with CGA but needs more tactile cueing to position to sit from standing. Physical and occupational therapy to optimize her mobility and activities of daily living. * Cognitive impairment. Inattentive and can lose track of swallowing when eating. Moderate to severe deficits to speed of processing, attn, memory, orientation. 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 * Hydrocephalus. S/P LP today 01/22/17 with dramatic improvement in cognition, proptosis and lateral deviation L eye; no MATHEW, no nausea. MANAGER MERCHANDISE reports improved gait improved when transferred to bathroom. Surgery plan d/w AMY Styles for Dr. Ge, Neurosurgery. Hold enoxaparin after Wednesday AM dose, for surgery on Wednesday01/26/17. * Dysphagia. Poor airway protection, frequent cough after eating or drinking, no jennifer aspiration on VFSS. 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 Continue levetiracetam and lacosamide for at least 3 mo (mid-February 2017?). Followup Neurosurgery after discharge. 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 Taping over safety glasses to treat diplopia. * Hypertension. Continue atenolol. Given her nonproductive cough, replaced lisinopril with losartan starting 01/14/17. Chlorthalidone at 12.5 mg starting and monitor BP. 01/17/17; will reduce dose form 25 mg to 12.5 mg QD starting 5.Renal fn wnl 01/13/17 and 01/16/17. * ARF with creatinine increase to 1.3 after initiation of chlorthalidone. Low PO fluid intake noted. Encourage PO fluids. Check orthostatics. IV fluids today 01/20/17; repeat BMP in AM 01/21/17. * DVT RLE. Resume enoxaparin. Plan to hold AM of 01/25/17 for shunt procedure . * Vitamin D deficiency on high dose weekly vitamin D supplementation. Vit D level wnl 01/13/17. Changed to daily cholecalciferol 01/13/17. * Anemia with iron supplement. Improving on labs 01/13/17 but remains iron- deficient. Continue iron supplement 1 month. Stable on labs 01/15/17. * Constipation. Responding to bowel protocol and add bisacodyl suppository on an as-needed basis as well as an enema PRN. * Possible urinary tract infection? UA wnl 01/13/17. * Deep venous thrombosis prophylaxis. Now on enoxaparin for RLE DVT; transition to rivaroxaban . * Dyslipidemia. Continue atorvastatin. * Nausea. Due to iron supplement? Will d/c. is available at home, and sons and [id number] live next door. Will likely continue to need considerable assistance with mobility, ADLs and cognitive issues, Tentative discharge date of 02/09/17 but needs to make more progress; family conference 01/27/17. Subjective: No events. notes dramatic improvement s/p therapeutic LP yesterday with gradual return of neuro symtoms, very eager for shunt placement. No pain. Objective: Vital Signs Temp Pulse Resp BP Pulse Ox 36.7 C 73 15 122/86 H 92 01/23/17 06:46 01/23/17 06:46 01/23/17 06:46 01/23/17 06:46 01/23/17 06:46 Laboratory Results 01/21/17 02:52 01/21/17 06:00 01/22/17 01/23/17 01/24/17 05:59 05:59 05:59 Intake Total 1090 240 50 Balance 1090 240 50 PT 14.4 SEC (12.0-15.0) 01/21/17 02:52 INR 1.13 (0.83-1.16) 01/21/17 02:52 - Pending Discharge Pending Discharge Within 24 Hours: No Pending Discharge Within 48 Hours: No Physical Exam - Physical Exam General Appearance: alert, no apparent distress Neck: supple Respiratory: lungs clear, normal breath sounds Cardiac/Chest: regular rate, rhythm Abdomen: non-tender, soft Skin: warm/dry Extremities: No pedal edema Neuro/Psych: alert, normal mood/affect, cognition abnormalities ICD10 Worksheet Patient Problems: Problems Problem Status Onset Altered mental status Acute Pneumonia Acute 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
[2017-01-23] MEDS: ENOXAPARIN 60 MG/0.6 ML SYR SC SCH ×2 (09:04→20:39)
[2017-01-23] MEDS: LOSARTAN POTASSIUM 50 MG TAB PO SCH (09:05)
[2017-01-23] MEDS: LACOSAMIDE 50 MG TAB PO SCH ×2 (09:05→20:39)
[2017-01-23] MEDS: CHLORTHALIDONE 25 MG TAB PO SCH (09:06)
[2017-01-23] MEDS: levETIRAcetam 500 MG TAB PO SCH ×2 (09:06→20:39)
[2017-01-23] MEDS: AMANTADINE HCL 100 MG CAP PO SCH ×2 (09:06→14:08)
[2017-01-23] MEDS: CHOLECALCIFEROL VIT D3 2,000 UNITS TAB/CAP PO SCH (09:06)
[2017-01-23] MEDS: ATENOLOL 50 MG TAB PO SCH (09:06)
[2017-01-23] MEDS: ATORVASTATIN CALCIUM 10 MG TAB PO SCH (09:06)
[2017-01-23] MEDS: NITROFURANTOIN MACROBID 100 MG CAP PO SCH ×2 (09:07→20:38)
[2017-01-23] MEDS: SENNOSIDES/DOCUSATE SODIUM TAB PO SCH ×2 (09:07→20:39)
--- NOTE | 2017-01-24 07:51 | SOAPPROG ---
SOAP Progress Note Assessment/Plan: Assessment: * Debility status post subarachnoid hemorrhage 11/29/16, with craniotomy and aneurysmal clipping 12/01/16, and seizures. Initial FIM 45 on 01/15/17, increase to 49 on 01/20/17.. Poor initiation and needing much cueing for mobility and ADLs. Tactile and verbal cues to initiate and persist with eating; needs 1:1 supervision. Veers right with ambulation, up to 120' needing occ CGA for LOB, with FWW. Transfers with CGA but needs more tactile cueing to position to sit from standing. Physical and occupational therapy to optimize her mobility and activities of daily living. * Cognitive impairment. Inattentive and can lose track of swallowing when eating. Moderate to severe deficits to speed of processing, attn, memory, orientation. 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 * Hydrocephalus. S/P LP today 01/22/17 with dramatic improvement in cognition, proptosis and lateral deviation L eye; no MATHEW, no nausea. ACID PATROLLER reports improved gait improved when transferred to bathroom. Surgery plan d/w AMY Styles for Dr. Ge, Neurosurgery. Hold enoxaparin after Wednesday AM dose, for surgery on Wednesday01/26/17. * Dysphagia. Poor airway protection, frequent cough after eating or drinking, no jennifer aspiration on VFSS. 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 Continue levetiracetam and lacosamide for at least 3 mo (mid-February 2017?). Followup Neurosurgery after discharge. 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 Taping over safety glasses to treat diplopia. * Hypertension. Continue atenolol. Given her nonproductive cough, replaced lisinopril with losartan starting 01/14/17. Chlorthalidone at 12.5 mg starting and monitor BP. 01/17/17; will reduce dose form 25 mg to 12.5 mg QD starting 5.Renal fn wnl 01/13/17 and 01/16/17. * ARF with creatinine increase to 1.3 after initiation of chlorthalidone. Low PO fluid intake noted. Encourage PO fluids. Check orthostatics. IV fluids today 01/20/17; repeat BMP in AM 01/21/17. * DVT RLE. Resume enoxaparin. Plan to hold AM of 01/25/17 for shunt procedure . * Vitamin D deficiency on high dose weekly vitamin D supplementation. Vit D level wnl 01/13/17. Changed to daily cholecalciferol 01/13/17. * Anemia with iron supplement. Improving on labs 01/13/17 but remains iron- deficient. Continue iron supplement 1 month. Stable on labs 01/15/17. * Constipation. Responding to bowel protocol and add bisacodyl suppository on an as-needed basis as well as an enema PRN. * Possible urinary tract infection? UA wnl 01/13/17. * Deep venous thrombosis prophylaxis. Now on enoxaparin for RLE DVT; transition to rivaroxaban . * Dyslipidemia. Continue atorvastatin. * Nausea. Due to iron supplement? Will d/c. is available at home, and sons and [id number] live next door. Will likely continue to need considerable assistance with mobility, ADLs and cognitive issues, Tentative discharge date of 02/09/17 but needs to make more progress; family conference 01/27/17. Subjective: notes significant decline, henry. in cognition since recovery with LP. D/ w NIGEL Bright and Dr. Ge and unable to get into OR before planned wednesday time. Discussed with family. No complaints this a.m., denies MATHEW, diplopia, n/v. Objective: Vital Signs Temp Pulse Resp BP Pulse Ox 36.4 C 68 16 150/99 H 96 01/24/17 07:38 01/24/17 07:38 01/24/17 07:38 01/24/17 07:38 01/24/17 07:38 Laboratory Results 01/21/17 02:52 01/21/17 06:00 01/23/17 01/24/17 01/25/17 05:59 05:59 05:59 Intake Total 240 1216 Balance 240 1216 PT 14.4 SEC (12.0-15.0) 01/21/17 02:52 INR 1.13 (0.83-1.16) 01/21/17 02:52 - Pending Discharge Pending Discharge Within 24 Hours: No Pending Discharge Within 48 Hours: No Physical Exam - Physical Exam General Appearance: alert, no apparent distress EENT: other (Left CN3 palsy/ptosis) Neck: supple Respiratory: lungs clear, normal breath sounds Cardiac/Chest: regular rate, rhythm Abdomen: normal bowel sounds, non-tender Skin: warm/dry Extremities: No pedal edema Neuro/Psych: alert, normal mood/affect, cognition abnormalities, No speech abnormalities ICD10 Worksheet Patient Problems: Problems Problem Status Onset Altered mental status Acute Pneumonia Acute 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
[2017-01-24] MEDS: LOSARTAN POTASSIUM 50 MG TAB PO SCH (08:40)
[2017-01-24] MEDS: SENNOSIDES/DOCUSATE SODIUM TAB PO SCH ×2 (08:40→20:52)
[2017-01-24] MEDS: CHLORTHALIDONE 25 MG TAB PO SCH (08:41)
[2017-01-24] MEDS: ATENOLOL 50 MG TAB PO SCH (08:41)
[2017-01-24] MEDS: levETIRAcetam 500 MG TAB PO SCH ×2 (08:41→20:51)
[2017-01-24] MEDS: LACOSAMIDE 50 MG TAB PO SCH ×2 (08:41→20:51)
[2017-01-24] MEDS: CHOLECALCIFEROL VIT D3 2,000 UNITS TAB/CAP PO SCH (08:41)
[2017-01-24] MEDS: ATORVASTATIN CALCIUM 10 MG TAB PO SCH (08:42)
[2017-01-24] MEDS: NITROFURANTOIN MACROBID 100 MG CAP PO SCH ×2 (08:42→20:51)
[2017-01-24] MEDS: AMANTADINE HCL 100 MG CAP PO SCH ×2 (08:43→15:08)
[2017-01-24] MEDS: ENOXAPARIN 60 MG/0.6 ML SYR SC SCH ×2 (08:44→20:52)
[2017-01-24] MEDS: ONDANSETRON DISINTEGRATING 4 MG TAB PO PRN (17:20)
[2017-01-25] MEDS: LOSARTAN POTASSIUM 50 MG TAB PO SCH (08:39)
[2017-01-25] MEDS: LACOSAMIDE 50 MG TAB PO SCH ×2 (08:40→20:48)
[2017-01-25] MEDS: levETIRAcetam 500 MG TAB PO SCH ×2 (08:41→20:48)
[2017-01-25] MEDS: ATORVASTATIN CALCIUM 10 MG TAB PO SCH (08:45)
[2017-01-25] MEDS: ATENOLOL 50 MG TAB PO SCH (08:45)
[2017-01-25] MEDS: AMANTADINE HCL 100 MG CAP PO SCH ×2 (08:45→15:05)
[2017-01-25] MEDS: SENNOSIDES/DOCUSATE SODIUM TAB PO SCH ×2 (08:46→20:49)
[2017-01-25] MEDS: CHOLECALCIFEROL VIT D3 2,000 UNITS TAB/CAP PO SCH (08:46)
[2017-01-25] MEDS: CHLORTHALIDONE 25 MG TAB PO SCH (08:47)
[2017-01-25] MEDS: NITROFURANTOIN MACROBID 100 MG CAP PO SCH ×2 (08:49→20:48)
[2017-01-25] MEDS: ENOXAPARIN 60 MG/0.6 ML SYR SC SCH (08:50)
--- NOTE | 2017-01-25 15:52 | SOAPPROG ---
SOAP Progress Note Assessment/Plan: Assessment: * Debility status post subarachnoid hemorrhage 11/29/16, with craniotomy and aneurysmal clipping 12/01/16, and seizures. Initial FIM 45 on 01/15/17, increase to 49 on 01/20/17.. Poor initiation and needing much cueing for mobility and ADLs. Tactile and verbal cues to initiate and persist with eating; needs 1:1 supervision. Veers right with ambulation, up to 120' needing occ CGA for LOB, with FWW. Transfers with CGA but needs more tactile cueing to position to sit from standing. Physical and occupational therapy to optimize her mobility and activities of daily living. * Cognitive impairment. Inattentive and can lose track of swallowing when eating. Moderate to severe deficits to speed of processing, attn, memory, orientation. 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 * Hydrocephalus. S/P LP today 01/22/17 with dramatic improvement in cognition, proptosis and lateral deviation L eye; no MATHEW, no nausea. HAND POLISHER reports improved gait improved when transferred to bathroom. Surgery plan d/w AMY Styles for Dr. Ge, Neurosurgery. Holding enoxaparin, NPO after midnight for surgery tomorrow * Dysphagia. Poor airway protection, frequent cough after eating or drinking, no jennifer aspiration on VFSS. 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 Continue levetiracetam and lacosamide for at least 3 mo (mid-February 2017?). Followup Neurosurgery after discharge. 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 Taping over safety glasses to treat diplopia. * Hypertension. Continue atenolol. Given her nonproductive cough, replaced lisinopril with losartan starting 01/14/17. Chlorthalidone at 12.5 mg starting and monitor BP. 01/17/17; will reduce dose form 25 mg to 12.5 mg QD starting 5.Renal fn wnl 01/13/17 and 01/16/17. Increase past 48hrs, possibly related to increase ICP, will give small dose of amlodipine to keep CPP moderate , will need to monitor post shunt * ARF with creatinine increase to 1.3 after initiation of chlorthalidone. Low PO fluid intake noted. Encourage PO fluids. Check orthostatics. IV fluids today 01/20/17; repeat BMP in AM 01/21/17. * DVT RLE. Resume enoxaparin. Plan to hold AM of 01/25/17 for shunt procedure . * Vitamin D deficiency on high dose weekly vitamin D supplementation. Vit D level wnl 01/13/17. Changed to daily cholecalciferol 01/13/17. * Anemia with iron supplement. Improving on labs 01/13/17 but remains iron- deficient. Continue iron supplement 1 month. Stable on labs 01/15/17. * Constipation. Responding to bowel protocol and add bisacodyl suppository on an as-needed basis as well as an enema PRN. * Possible urinary tract infection? UA wnl 01/13/17. * Deep venous thrombosis prophylaxis. Now on enoxaparin for RLE DVT; transition to rivaroxaban . * Dyslipidemia. Continue atorvastatin. * Nausea. Due to iron supplement? Will d/c. is available at home, and sons and [id number] live next door. Will likely continue to need considerable assistance with mobility, ADLs and cognitive issues, Tentative discharge date of 02/09/17 but needs to make more progress; family conference 01/27/17. Subjective: Ongoing cognitive and functional difficulties since LP, now relatively stable but highly fatiguable. No incontince and consistantly responsive. Denies pain/ MATHEW. Objective: Vital Signs Temp Pulse Resp BP Pulse Ox 36.4 C 72 16 140/94 H 94 01/24/17 20:00 01/24/17 20:00 01/24/17 20:00 01/24/17 20:00 01/24/17 20:00 Laboratory Results 01/21/17 02:52 01/21/17 06:00 01/24/17 01/25/17 01/26/17 05:59 05:59 05:59 Intake Total 1216 972 480 Output Total 650 Balance 1216 322 480 PT 14.4 SEC (12.0-15.0) 01/21/17 02:52 INR 1.13 (0.83-1.16) 01/21/17 02:52 - Pending Discharge Pending Discharge Within 24 Hours: No Pending Discharge Within 48 Hours: No Physical Exam - Physical Exam General Appearance: alert, no apparent distress Neck: supple Respiratory: lungs clear, normal breath sounds Cardiac/Chest: regular rate, rhythm Abdomen: non-tender, soft Skin: warm/dry Extremities: No pedal edema Neuro/Psych: alert, normal mood/affect, EOM palsy (left CN 3 palsy, stable from prior), cognition abnormalities, No speech abnormalities ICD10 Worksheet Patient Problems: Problems Problem Status Onset Altered mental status Acute Pneumonia Acute 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
[2017-01-26 06:42] VITALS: RESP 16
--- NOTE | 2017-01-26 10:10 | SOAPPROG ---
SOAP Progress Note Assessment/Plan: Assessment: * Debility status post subarachnoid hemorrhage 11/29/16, with craniotomy and aneurysmal clipping 12/01/16, and seizures. Initial FIM 45 on 01/15/17, increase to 49 on 01/20/17.. Poor initiation and needing much cueing for mobility and ADLs. Tactile and verbal cues to initiate and persist with eating; needs 1:1 supervision. Veers right with ambulation, up to 120' needing occ CGA for LOB, with FWW. Transfers with CGA but needs more tactile cueing to position to sit from standing. Physical and occupational therapy to optimize her mobility and activities of daily living. * Cognitive impairment. Inattentive and can lose track of swallowing when eating. Moderate to severe deficits to speed of processing, attn, memory, orientation. Continue ANNEALER. 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 * Hydrocephalus. S/P LP 01/22/17 with dramatic improvement in proptosis and lateral deviation L eye; no MATHEW, no nausea. COMPUTER NETWORKER reports improved gait improved when transferred to bathroom. Function has declined and she has confusion over several days since LP. Plan for shunt procedure today 01/26/[address] Ge. * Dysphagia. Poor airway protection, frequent cough after eating or drinking, no jennifer aspiration on VFSS. 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 Continue levetiracetam and lacosamide for at least 3 mo (mid-February 2017?). Followup Neurosurgery after discharge. 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 Taping over safety glasses to treat diplopia. * Hypertension. Continue atenolol. Given her nonproductive cough, replaced lisinopril with losartan starting 01/14/17. Chlorthalidone at 12.5 mg starting and monitor BP. 01/17/17; will reduce dose form 25 mg to 12.5 mg QD starting 01/18/15. .Renal fn wnl 01/13/17 and 01/16/17. * ARF with creatinine increase to 1.3 after initiation of chlorthalidone. Low PO fluid intake noted. Encourage PO fluids. Check orthostatics. IV fluids today 01/20/17; repeat BMP in AM 01/21/17 wirh Cr still 1.3 and Na 133. Re eat labs 01/28/17. * DVT RLE. Resume enoxaparin. Plan to hold AM of 01/25/17 for shunt procedure . * Vitamin D deficiency on high dose weekly vitamin D supplementation. Vit D level wnl 01/13/17. Changed to daily cholecalciferol 01/13/17. * Anemia with iron supplement. Improving on labs 01/13/17 but remains iron- deficient. Stable on labs 01/15/17. FeSO4 discontinued due to nausea. * Constipation. Responding to bowel protocol and add bisacodyl suppository on an as-needed basis as well as an enema PRN. * Possible urinary tract infection? UA wnl 01/13/17. * Deep venous thrombosis prophylaxis. Now on enoxaparin for RLE DVT; transition to rivaroxaban 01/20/17; held for LP and shunt procedure; resume after surgery. * Dyslipidemia. Continue atorvastatin. is available at home, and sons and [id number] live next door. Will likely continue to need considerable assistance with mobility, ADLs and cognitive issues, Tentative discharge date of 02/09/17 but needs to make more progress; family conference 01/27/17. 01/26/17 10:02 Subjective: Waiting for surgery today for shunt placement. No complaints. reports she still has a cough. Objective: Vital Signs Temp Pulse Resp BP Pulse Ox 36.8 C 72 16 138/90 H 95 01/26/17 06:40 01/26/17 06:40 01/26/17 06:40 01/26/17 06:40 01/26/17 06:40 Laboratory Results 01/21/17 02:52 01/21/17 06:00 01/25/17 01/26/17 01/27/17 05:59 05:59 05:59 Intake Total 972 780 Output Total 650 400 Balance 322 380 PT 14.4 SEC (12.0-15.0) 01/21/17 02:52 INR 1.13 (0.83-1.16) 01/21/17 02:52 Physical Exam - Physical Exam General Appearance: WD/WN, alert, no apparent distress, obese Respiratory: normal breath sounds, crackles (few inspiratory RLL), No rhonchi, No wheezing Cardiac/Chest: regular rate, rhythm, No diastolic murmur, No systolic murmur Skin: normal color, warm/dry Neuro/Psych: alert, normal mood/affect, cognition abnormalities (confused, thinks she's going home.) ICD10 Worksheet Patient Problems: Problems Problem Status Onset Altered mental status Acute Pneumonia Acute 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
[2017-01-26] MEDS: ATENOLOL 50 MG TAB PO SCH (10:20)
[2017-01-26] MEDS: AMANTADINE HCL 100 MG CAP PO SCH (10:20)
[2017-01-26 10:21] VITALS: BP 139/92; PULSE 70; TEMP 97.7; O2SAT 93
[2017-01-26] MEDS: LACOSAMIDE 50 MG TAB PO SCH (10:21)
[2017-01-26] MEDS: levETIRAcetam 500 MG TAB PO SCH (10:21)
[2017-01-26] MEDS: LOSARTAN POTASSIUM 50 MG TAB PO SCH (10:22)
[2017-01-26] MEDS: ATORVASTATIN CALCIUM 10 MG TAB PO SCH (11:20)
[2017-01-26] MEDS: NITROFURANTOIN MACROBID 100 MG CAP PO SCH (11:21)
[2017-01-26] MEDS: CHLORTHALIDONE 25 MG TAB PO SCH (11:21)
[2017-01-26] MEDS: CHOLECALCIFEROL VIT D3 2,000 UNITS TAB/CAP PO SCH (11:21)
[2017-01-26] MEDS: SENNOSIDES/DOCUSATE SODIUM TAB PO SCH (11:21)
--- NOTE | 2017-01-26 16:02 | GDS ---
[f rep st] DISCHARGE SUMMARY DISCHARGE DIAGNOSES: Debility, status post intracranial aneurysm and craniotomy for clipping. DISCHARGE DIAGNOSES: Debility, status post intracranial aneurysm and craniotomy for clipping Other discharge diagnoses: Hydrocephalus. CONSULTATIONS: She was seen during her stay by neurosurgeon, Dr. Ge. PROCEDURES: She had a lumbar puncture done by Interventional Radiology. COMPLICATIONS: Declining function due to hydrocephalus HISTORY AND HOSPITAL COURSE: The patient was admitted from [facility] where she had spent approximately 2 weeks after a complicated hospital course. She had suffered an cerebral aneurysmal bleed on 11/30/2016. She was hospitalized at [facility]. She had emergent craniotomy and clipping of the artery on 12/01/2016. She had some improvement in her condition. Her hospital stay was complicated by pulmonary edema, fluctuating leukocytosis, intermittent fevers and finally reduced level of consciousness. An Infectious Disease workup was negative for etiology. She was noted to have convulsions. Her prophylactic levetiracetam at 750 mg twice daily was increased in dose to 1000 mg twice daily, but ultimately she was transferred to the [facility] for continuous video EEG monitoring and aggressive medical management of seizures. She was begun on lacosamide 100 mg p.o. twice a day. Her level of function was not sufficient for 3 hours per day of therapy at inpatient rehabilitation facility, so she was transferred to the [facility] nursing facility where over the course of 2 weeks she had improvement sufficient to come to inpatient rehabilitation. She had very little progress in inpatient rehabilitation. Her initial functional independence measure was 45 on 01/15/2017, and it increased to 49 at on 01/20/2017. This is consistent with needing assistance with all activities of daily living. She had poor initiation and needed cuing for mobility as well as ADLs. She needed tactile and verbal cues to initiate and persist with eating and needed one-to-one supervision. Finally, she was noted to have a wide -based magnetic gait, and this was brought to the attention of Neurosurgery on 01/20/2017, the day that she was to follow up with Dr. Ge. Dr. Ge assessed her and ordered a head CT which confirmed hydrocephalus. On 01/22/2017 , she had a large volume lumbar puncture per Interventional Radiology, and she had dramatic improvement in her gait and cognition. Additionally, left eye proptosis improved. She had resolution of nausea. At this point, it became clear that while [facility], she then had progressive impairment in function due to the development of hydrocephalus. Plans are made for a definitive shunting procedure, and she was discharged to [facility] on 01/26/2017 to undergo shunting. PHYSICAL EXAM: GENERAL: On the day of discharge, this is a well-nourished, well-developed, obese woman sitting in a chair in her room cooperative and in no acute distress. She expresses confusion about plans for the day, thinking that she was going home and reporting that they had their own shunt at home. HEART: There is a regular rate and rhythm with no murmurs, rubs, or gallops. LUNGS: Clear to auscultation bilaterally but for a few crackles on the right lower lobe. ABDOMEN: Soft, nontender, nondistended with normoactive bowel sounds. EXTREMITIES: There is no cyanosis, clubbing, or edema. LABORATORY STUDIES: During her stay, she had improvement in her anemia with a hemoglobin of 12.2 and hematocrit of 35.9 on 01/21/2017. Serum chemistry showed hyponatremia on 01/21/2017 with a slightly low sodium at 133. Her creatinine had increased to 1.3. Her estimated GFR was 40. Urinalysis was done on 01/13/2017 and was completely normal. MEDICATIONS ON DISCHARGE: 1. Atorvastatin 10 mg p.o. daily. 2. Senna 1 p.o. daily. 3. Atenolol 100 mg p.o. daily. 4. Amantadine 100 mg p.o. twice daily. 5. Levetiracetam 1000 mg p.o. twice daily. 6. Nitrofurantoin 100 mg p.o. twice daily. 7. Lacosamide 100 mg p.o. twice daily. 8. Loperamide 2 mg p.o. p.r.n. 9. Acetaminophen. 10. Ondansetron 4 mg p.o. q.6 hours p.r.n. 11. Milk of magnesia 30 mg p.o. daily p.r.n. 12. Lisinopril 40 mg p.o. daily. 13. Hydrochlorothiazide 25 mg p.o. daily. 14. Cholecalciferol 2000 units p.o. daily. ISSUES TO BE ADDRESSED AT THE FOLLOWUP: Hydrocephalus pending definitive shunt procedure. It is expected that she will return to the inpatient rehabilitation unit after her procedure for continued rehabilitation toward a discharge home. /[id number]/MODL MTDD
--- NOTE | 2017-01-29 09:05 | PDOREHIP ---
Admission [facility] - Admission - 3 Day Assessment Period Admission Date/Day 1: 01/12/17 Day 2: 01/13/17 Day 3: 01/14/17 Discharge [facility] - Discharge - 3 Day Assessment Period 2 Days Prior to Anticipated Discharge Date: 02/07/17 1 Day Prior to Anticipated Discharge Date: 02/08/17 Anticipated Discharge Date: 02/09/17 - Discharge Skin Conditions Unhealed Pressure Ulcer (1 or more/Stage 1 or >)-Discharge: 0. No
[2017-02-11] MEDS ORDERED: RIVAROXABAN 20 MG TAB PO SCH (18:00)
[2017-02-18] MEDS ORDERED: RIVAROXABAN 20 MG TAB PO SCH (18:00)
== END 2017-01-26 11:30 | disposition still patient (30) | DRG 29 ==
LOC: BREH 15:21
PROVIDERS: ADMIT Internal Medicine; ATTEND Internal Medicine
PROC: F08Z2FZ Grooming/Personal Hygiene Treatment using Assistive, Adaptive, Supportive or Protective Equipment (ICD-10-PCS; principal; 2017-01-12)
PROC: F07Z9FZ Gait Training/Functional Ambulation Treatment using Assistive, Adaptive, Supportive or Protective Equipment (ICD-10-PCS; principal; 2017-01-12)
PROC: F07Z5FZ Bed Mobility Treatment using Assistive, Adaptive, Supportive or Protective Equipment (ICD-10-PCS; principal; 2017-01-12)
PROC: F0636ZZ Communicative/Cognitive Integration Skills Treatment of Neurological System - Whole Body (ICD-10-PCS; principal; 2017-01-12)
PROC: F07Z8FZ Transfer Training Treatment using Assistive, Adaptive, Supportive or Protective Equipment (ICD-10-PCS; principal; 2017-01-12)
PROC: F08Z1FZ Dressing Techniques Treatment using Assistive, Adaptive, Supportive or Protective Equipment (ICD-10-PCS; principal; 2017-01-12)
PROC: F08Z0FZ Bathing/Showering Techniques Treatment using Assistive, Adaptive, Supportive or Protective Equipment (ICD-10-PCS; principal; 2017-01-12)
PROC: 009Y3ZZ Drainage of Lumbar Spinal Cord, Percutaneous Approach (ICD-10-PCS; 2017-01-22)
DX: I69.015 Cognitive social or emotional deficit following nontraumatic subarachnoid hemorrhage (principal); I69.028 Other speech and language deficits following nontraumatic subarachnoid hemorrhage; I69.098 Other sequelae following nontraumatic subarachnoid hemorrhage; R56.9 Unspecified convulsions; I10 Essential (primary) hypertension; E55.9 Vitamin D deficiency, unspecified; D50.9 Iron deficiency anemia, unspecified; K59.00 Constipation, unspecified; E78.5 Hyperlipidemia, unspecified; N39.0 Urinary tract infection, site not specified; R11.0 Nausea; Z96.642 Presence of left artificial hip joint; Z96.612 Presence of left artificial shoulder joint; G91.0 Communicating hydrocephalus; H49.02 Third [oculomotor] nerve palsy, left eye; I82.431 Acute embolism and thrombosis of right popliteal vein
CPT/HCPCS: 92507-GN; 92522-GN; 92526-GN; 92610-GN; 92611-GN; 97110-GO; 97110-GP; 97112-GO; 97112-GP; 97116-GP; 97162-GP; 97166-GO; 97530-GO; 97530-GP; 97532-GO; 97535-GO; C1894; J1650

== ENCOUNTER 2017-01-26 09:32 | Inpatient (IN) | payer OTHER ==
[2017-01-26] MEDS ORDERED: VANCOMYCIN HCL/NORMAL SALINE 250 ML IV ONE (14:00)
[2017-01-26 14:30] LABS: INR 1.11 (0.83-1.16); PROTIME(PATIENT) 14.2 SEC (12.0-15.0)
[2017-01-26] MEDS ORDERED: BUPIVACAINE/EPI 0.25% 30 ML SDV ONE ×2 (15:54→19:13)
[2017-01-26] MEDS ORDERED: THROMBIN (BOVINE) 5,000 UNIT VIAL TP ONE ×2 (15:54→19:13)
[2017-01-26] MEDS ORDERED: BACITRACIN 50,000 UNITS/10 ML SYR IRR ONE ×2 (15:54→19:14)
--- NOTE | 2017-01-26 17:18 | GHP ---
[f rep st] PREOP HISTORY AND PHYSICAL DATE OF ADMISSION: 01/26/2017 HISTORY OF PRESENT ILLNESS: The patient a 71-year-old female, who presented to the [facility] ED on November 30, 2016 with altered mental status and was found to have a Thomas grade 3 subarachnoid hemorrhage. Her clinical grade was Nolasco Burleson grade 3. CT angiogram revealed wide necked MCA bifurcation aneurysm. She was then taken to the operating room a day later for a left frontal temporal craniotomy for clipping of the left MCA aneurysm on 2016. The patient has since been discharged and was discharged and progressing well at [facility], but over the last week there were concerns over declining progress in terms of the patient's balance. Per the patient's , she was making great progress and walking well with a walker but in the last few days. She started to decline and her balance was getting worse as well as she became more fatigued. There was concern for hydrocephalus. She was sent for a CT scan last week which did show hydrocephalus. She then underwent a high-volume lumbar puncture last Wednesday which the patient did remarkably well from almost immediately. It was then decided that due to her CT findings as well as her improvement after the lumbar puncture that a placement of a ventriculoperitoneal shunt was the right decision. She presents today electively as a direct admit to undergo placement of a ventriculoperitoneal shunt. All risks, benefits, and alternatives were discussed with her who is the NDPOA, as well as the patient, and she agreed to proceed with the surgery. PAST MEDICAL HISTORY: History of MCA aneurysm and history of clipping of the aneurysm in November 2016. SOCIAL HISTORY: Patient is . Her at the bedside. She denies any tobacco use. PAST SURGICAL HISTORY: History of surgical clipping of the MCA aneurysm on 12/2016. ALLERGIES: Allergic to bee venom, protein, naproxen and penicillins. HOME MEDICATIONS: Include acetaminophen, labetalol, bisacodyl, lisinopril, hydrochlorothiazide, ferrous sulfate, atorvastatin, atenolol, amantadine, vitamin B2, Imodium, lacosamide, magnesium hydroxide, Keppra, senna, Zofran and nitrofurantoin. PHYSICAL EXAMINATION: VITAL SIGNS: Blood pressure 154/82, heart rate 66, respiratory rate 16, O2 saturation 95% on room air. Temperature is 36.8 degrees Celsius. GENERAL: Patient is a well-developed, well-nourished female in no acute distress. HEENT: Head is normocephalic, atraumatic except for a left frontal temporal craniotomy incision that is healing well without any signs of redness, erythema or swelling. Left eye does not track appropriately with the right eye at all times. Otherwise, extraocular muscles are intact. Pupils equal and react to light and accommodation. NEUROLOGIC: Cranial nerves 2-12 are grossly intact. She is moving all extremities x4 to command. Bilateral upper extremities and lower extremities are grossly weak, however, they are all equal and there is no focal weakness. This includes deltoids, biceps, triceps, wrist extensors and flexors, interossei and rehab/pre vocational counselor, and dorsiflexion, plantar flexion, EHL, quadriceps hamstrings are all around 4/5. Gait is assisted with a walker and for longer walks patient uses a wheelchair. EXTREMITIES: No cyanosis or edema noted. LABORATORY DATA: PT 14.2, INR 1.11. DIAGNOSTIC IMAGIN. A head CT was performed without contrast with stealth protocol today for surgical planning and shows moderate hydrocephalus that was worse since November 2016 and there was trace residual blood versus calcification deep in the left temporal craniotomy. 2. There is complete resolution of intraventricular and subarachnoid hemorrhage. ASSESSMENT AND PLAN: This is a 71-year-old female, who is approximately almost 2 months status post clipping of a left MCA aneurysm on 12/02/2016. She was found over the last week to have a declining gait and mental status problems. Therefore, a head CT was performed that did show hydrocephalus. A high-volume LP showed a drastic improvement in these symptoms and she is here today electively to undergo placement of a ventriculoperitoneal shunt for treatment of the hydrocephalus. She will be taken to the OR, approximately around 6:00 p.m. this evening. She is currently n.p.o. All the necessary labs have been ordered. Consents will be signed at the bedside. She has been seen by Dr. Ge as well. Any questions or concerns please do not hesitate to contact the Neurosurgical team. Due to the placement of ventriculoperitoneal shunt, she will be held overnight with hopeful discharge tomorrow if her symptoms are improved and she can go back to her rehab facility at [facility]. /[id number]/MODL JASON
[2017-01-26] MEDS ORDERED: VANCOMYCIN 1 GM/NS 250 ML BAG IV ONE (17:48)
[2017-01-26] MEDS ORDERED: HYDROCODONE/APAP 10/325 TAB PO PRN (18:43)
[2017-01-26] MEDS ORDERED: MAGNESIUM HYDROXIDE 30 ML UDCUP PO PRN (18:43)
[2017-01-26] MEDS ORDERED: POLYETHYLENE GLYCOL 3350 17 GM PKT PO PRN (18:43)
[2017-01-26] MEDS ORDERED: BISACODYL 10 MG SUPP PR PRN (18:43)
[2017-01-26] MEDS ORDERED: LACTULOSE 20 GM/30 ML UDCUP PO PRN (18:43)
[2017-01-26] MEDS ORDERED: ONDANSETRON DISINTEGRATING 4 MG TAB PO PRN (18:43)
[2017-01-26] MEDS ORDERED: NS W/ 20 KCl/L 1,000 ML IV SCH (18:45)
[2017-01-26] MEDS ORDERED: LOPERAMIDE HCL 2 MG CAP PO PRN (18:50)
[2017-01-26] MEDS ORDERED: LABETALOL HCL 200 MG TAB PO PRN (18:50)
[2017-01-26] MEDS ORDERED: VANCOMYCIN 1.5 GM in D5W 250 ML IV SCH (19:00)
--- NOTE | 2017-01-26 19:01 | POSTOPPROG ---
Post Op Note Date of Operation: 01/26/17 Surgeon: Basilio Ge Director Of Medical Staff Services: Stephani Melton PA-C Anesthesia: GET(General Endotracheal) Pre-op Diagnosis: Hydrocephalus Post-op Diagnosis: same Procedure: Right sided INSURANCE VERIFY REP Shunt placement for hydrocephalus Inf/Abcess present in the surg proc area at time of surgery?: No Depth: Organ Space SOAP Progress Note Assessment/Plan: Assessment: Plan: S: patient in PACU. Stable O: VSS, NAD Following commands No droop CN II-XII grossly intact Left eye does not track perfectly with right as in pre-op ARRIETA X4 Incisions X 3- c/d/i A: Right sided INSURANCE VERIFY REP Shunt placement for hydrocephalus P: -Admit to med/surg -Advance diet as tolerated -Shunt series Xray and CT scan in am -PT/OT/SENIOR RADIATION THERAPIST -Patient came from [place], hopefully will go back -DVT: Patient came in on Eliquis due to DVT in leg- ok for Lovenox POD #2, back on Eliquis POD #5 -Patient seen by Dr. Ge in PACU 01/26/17 18:58 Objective: Vital Signs Temp Pulse Resp BP Pulse Ox 36.8 C 66 16 154/82 H 95 01/26/17 15:51 01/26/17 15:51 01/26/17 15:51 01/26/17 15:51 01/26/17 15:51 PT 14.2 SEC (12.0-15.0) 01/26/17 14:08 INR 1.11 (0.83-1.16) 01/26/17 14:08
[2017-01-26] MEDS ORDERED: ROCURONIUM 50 MG/5 ML VIAL ONE (19:13)
[2017-01-26] MEDS ORDERED: PROPOFOL 200 MG/20 ML VIAL ONE (19:13)
[2017-01-26] MEDS ORDERED: fentaNYL 100 MCG/2 ML INJ ONE (19:13)
[2017-01-26] MEDS ORDERED: LIDOCAINE 2% 5 ML SDV ONE (19:13)
[2017-01-26] MEDS ORDERED: DEXAMETHASONE 4 MG/ML VIAL ONE (19:46)
[2017-01-26] MEDS ORDERED: ONDANSETRON 4 MG/2 ML VIAL ONE ×3 (19:46→21:29)
[2017-01-26] MEDS ORDERED: VANCOMYCIN 750 MG in D5W 150 ML IV SCH (20:00)
[2017-01-26] MEDS ORDERED: SUGAMMADEX SODIUM 200 MG/2 ML VIAL IVP ONE (20:33)
[2017-01-26] MEDS: ONDANSETRON 4 MG/2 ML VIAL IVP PRN (22:41)
[2017-01-27] MEDS: levETIRAcetam 500 MG TAB PO SCH ×3 (01:09→21:15)
[2017-01-27] MEDS: LACOSAMIDE 50 MG TAB PO SCH ×3 (01:10→21:15)
[2017-01-27] MEDS: AMANTADINE HCL 100 MG CAP PO SCH ×3 (01:11→21:15)
[2017-01-27] MEDS: NITROFURANTOIN MACROBID 100 MG CAP PO SCH ×3 (01:11→21:15)
[2017-01-27] MEDS: SENNOSIDES/DOCUSATE SODIUM TAB PO SCH ×3 (01:13→21:15)
[2017-01-27] MEDS: ACETAMINOPHEN 325 MG TAB PO PRN ×2 (04:06→13:36)
[2017-01-27 06:00] LABS: BASE EXCESS -3.4 mEq/L (-2.5-2.5); BICARBONATE 20 mEq/L (22-26); MEASURED OXYGEN SATURATION 97 % (92-95); PCO2 34 mmHg (34-38); PO2 88 mmHg (65-75); TCO2 22 mEq/L (23-27)
[2017-01-27 06:04] LABS: O2 CONCENTRATION LITERS 2.5 LITERS
[2017-01-27 06:20] LABS: ANION GAP 10 mEq/L (8-16); CALCIUM 9.6 mg/dL (8.5-10.4); CARBON DIOXIDE 22 mEq/l (22-31); CHLORIDE 101 mEq/L (97-110); CREATININE 1.2 mg/dL (0.6-1.0); GLOMERULAR FILTRATION RATE 44; GLUCOSE 106 mg/dL (70-100); POTASSIUM 4.3 mEq/L (3.5-5.2); SODIUM 133 mEq/L (134-144)
[2017-01-27] MEDS ORDERED: VANCOMYCIN 750 MG in D5W 150 ML IV SCH (06:30)
--- NOTE | 2017-01-27 06:34 | GOP ---
[f rep st] OPERATIVE REPORT DATE OF OPERATION: 01/26/2017 SURGEON: Basilio Ge MD ANESTHESIA: General endotracheal. PREOPERATIVE DIAGNOSIS: Post hemorrhagic hydrocephalus. POSTOPERATIVE DIAGNOSIS: Post hemorrhagic hydrocephalus. PROCEDURE PERFORMED: 1. Placement of right frontal ventriculoperitoneal shunt system (Codman Certas valve with siphon guard, performance setting 4). 2. Use of Stealth stereotactic neuro navigation for catheter placement. FINDINGS: Successful shunt placement. SPECIMENS: None. ESTIMATED BLOOD LOSS: Less than 50 cc. INDICATIONS: The patient is a 71-year-old woman who was admitted about 2 months ago with a ruptured left MCA aneurysm which was treated with surgical clipping by myself. She recovered reasonably well at the time of surgery and was transferred down to [place] for the latter part of her care because of possible seizures. At the time of surgery, we had opened the lamina terminalis , and she never required ventriculostomy. She has now been transferred to a rehab center up here closer to home, and her rehab had slowed due to her inability to participate and walk; therefore, a CT was obtained, which showed large ventricles. She was on Eliquis for anticoagulation, so we waited 5 days. In the interim, she had a large volume LP after which time she had a rapid improvement in her condition. She presents today for elective shunting. DESCRIPTION OF PROCEDURE: After informed consent was obtained from the patient' s family, the patient was brought to the operating room, was placed in a supine position on the operating table. A formal time-out was performed, identifying the patient by name, medical record number, and date of . Preoperative antibiotics were given. The endotracheal tube was placed, and general endotracheal anesthesia was smoothly induced. The head was placed in the Farnsworth pins and turned slightly toward the left side, and a Stealth stereotactic unit was registered to the scalp and checked for accuracy using known surface landmarks. This was then used to plan the incision in the region of the Allan's point in the right frontal region. At this point, the incision was marked a small patch of hair posterior to the right ear was also clipped to allow for an intervening incision, and a small longitudinal incision was marked over the abdomen. The head and abdomen were then prepped and draped in the normal sterile fashion. 5 cc of 0.25% Marcaine with epinephrine was infiltrated in the skin at both incisions for hemostasis. The skin incision on the abdomen was then made using a 10 blade, and the subcutaneous tissues were dissected using monopolar electrocautery. The anterior rectus sheath was opened sharply, and the rectus muscle was split in line with its fibers. The posterior rectus sheath and peritoneum were then opened, and we were able to visualize the omentum and the bowel. At this point, the scalp incision was made using a 10 blade, and the galea was opened sharply. The periosteum was left intact, and a self-retaining retractor was placed. A pocket was created for the valve in the subgaleal space, and uterine forceps were used to pass from the cranial incision to the intervening incision in the postauricular area. A stab incision was then made there, and a silk tie was passed from 1 incision to the other. Using the high speed drill, a bur hole was created over the entry point, and dura was coagulated using bipolar electrocautery. It was then opened sharply. At this point, the Codman Certas valve with a performance setting of 4 and a siphon guard device attached was then passed using the shunt Passer from the cranial incision via the intervening incision down to the abdominal incision in the subcutaneous space. The valve was then seated into its pocket. The Stealth unit with the PCI needle was then used to place the ventricular catheter via the pre-planned trajectory into the right frontal horn of the lateral ventricle. Brisk CSF flow was obtained. The catheter was then connected to the valve. The flow from the distal catheter was rather sluggish, so I did disconnect the catheter again from the valve and re-prime the valve system. The catheter again had brisk CSF flow and was reconnected this time with excellent flow from the distal catheter. The proximal catheter was then connected to the valve using a silk tie, and the valve was again seated into its pocket. A piece of Gelfoam was placed in the bur hole. At this point, the distal catheter was placed into the peritoneum, and a single 3-0 Vicryl stitch was placed around the catheter into the peritoneum to hold in place. The anterior rectus sheath was closed using interrupted 3-0 Vicryl, and the deep dermis closed using interrupted 3-0 Vicryl. The skin over the abdomen was closed using Dermabond. On the head, the wound was copiously irrigated using bacitracin irrigation. The galea was closed using interrupted 3-0 Vicryl. The skin was closed using running 4-0 Monocryl. The intervening incision was also closed with a Monocryl. The drapes were then removed. The patient was awakened in the operating room. She was extubated and transferred to the PACU in stable condition. There were no intraoperative complications. I was scrubbed and present for the entire procedure. FLUIDS AND URINE OUTPUT: Per the anesthesia record. DRAINS: None. /[id number]/MODL MTDD
--- NOTE | 2017-01-27 07:30 | NEUSURGPN ---
Date of Surgery: 01/26/17 Post Op Day: 1 Assessment/Plan: Assessment: 71 yo female that is s/p placement of right sided COMMERCIAL HOUSEKEEPER Shunt placement for hydrocephalus Plan: -Admit to med/surg -Pt and updated -Advance diet as tolerated after ST eval as pt has hx of "pooling" on prior swallowing studies -shunt series Xray and CT scan pending this am -PT/OT/VESSEL SCRAPPER -Patient came from [place], hopefully will go back if passes evals from therapies/imaging looks good -DVT: Patient came in on Eliquis due to DVT in leg- ok for Lovenox POD #2, back on Eliquis POD #5 -d/w Dr Ge -warning signs given -call with any questions or concerns Subjective: Awake and alert. NAD. Pt with some incisional pain but feels good otherwise. No cp/sob/gu complaints. Objective: VSS, NAD Following commands No droop CN II-XII grossly intact Left eye does not track perfectly with right as noted on prior exams ARRIETA X4 Incisions X 3- c/d/i Neuro Check Frequency: per routine Urinary Catheter in Place: No - Physician Discussed Patient with : Luma Neurosurgery Physical Exam - Vitals, I&O, Labs I and O 01/26/17 01/27/17 01/28/17 05:59 05:59 05:59 Intake Total 1900 Output Total 360 Balance 1540 Weight 60.7 kg Intake: Oral (ml) 0 IV Intake (ml) 1000 IV Infused (ml) 900 NS W/ 20 KCl/L 1,000 ml @ 750 100 mls/hr IV CONT FAYE Rx#:[id number] Vancomycin 750 mg In D5w 150 150 ml @ 150 mls/hr IV Q12H FAYE Rx#:[id number] Output: Urine (ml) 350 Bedside Commode 350 Estimated Blood Loss (ml) 10 Other: Number of Voids Bedside Commode 1 Number of Stools Bedside Commode 1 Vital Signs Temp Pulse Resp BP Pulse Ox 36.5 C 64 16 147/82 H 97 01/27/17 04:28 01/27/17 04:28 01/27/17 04:28 01/27/17 04:28 01/27/17 04:28 Laboratory Results 01/27/17 05:38 ICD10 Worksheet Patient Problems: Problems Problem Status Onset Altered mental status Acute Pneumonia Acute 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
[2017-01-27] MEDS: FERROUS SULFATE 325 MG TAB PO SCH (08:54)
[2017-01-27] MEDS: ATENOLOL 100 MG TAB PO SCH (08:55)
[2017-01-27] MEDS: HYDROCHLOROTHIAZIDE 25 MG TAB PO SCH (08:55)
[2017-01-27] MEDS: LISINOPRIL 40 MG TAB PO SCH (08:55)
[2017-01-27] MEDS: ATORVASTATIN CALCIUM 10 MG TAB PO SCH (08:55)
[2017-01-27] MEDS: ONDANSETRON 4 MG/2 ML VIAL IVP PRN (17:55)
[2017-01-28 00:23] VITALS: TEMP 98.1
[2017-01-28] MEDS: ACETAMINOPHEN 325 MG TAB PO PRN ×2 (04:27→12:04)
[2017-01-28 07:26] VITALS: BP 134/70; PULSE 65; RESP 16; O2SAT 98
--- NOTE | 2017-01-28 08:50 | NEUSURGPN ---
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 Ge as well -warning signs given -call with any questions or concerns Subjective: Patietn is doing well. Denies headaches. Has some pain from abdomen incision and neck soreness. Objective: VSS, NAD Following commands No droop CN II-XII grossly intact Left eye does not track perfectly with right as noted on prior exams ARRIETA X4 Incisions X 3- c/d/i 01/26/17 18:58 - Physician Discussed Patient with Dr.: Ge Patient Seen by Dr.: Ge Neurosurgery Physical Exam - Vitals, I&O, Labs I and O 01/27/17 01/28/17 01/29/17 05:59 05:59 05:59 Intake Total 1900 1250 Output Total 360 Balance 1540 1250 Weight 60.7 kg Intake: Oral (ml) 0 850 IV Intake (ml) 1000 IV Infused (ml) 900 400 NS W/ 20 KCl/L 1,000 ml @ 750 400 100 mls/hr IV CONT FAYE Rx#:[id number] Vancomycin 750 mg In D5w 150 150 ml @ 150 mls/hr IV Q12H FAYE Rx#:[id number] Output: Urine (ml) 350 Bedside Commode 350 Estimated Blood Loss (ml) 10 Other: Intake Quantity Yes Sufficient Number of Voids Bedside Commode 1 Toilet 1 Number of Stools Bedside Commode 1 Vital Signs Temp Pulse Resp BP Pulse Ox 36.7 C 65 16 134/70 H 98 01/28/17 07:24 01/28/17 07:24 01/28/17 07:24 01/28/17 07:24 01/28/17 07:24 Laboratory Results 01/27/17 05:38 ICD10 Worksheet Patient Problems: Problems Problem Status Onset Altered mental status Acute Pneumonia Acute 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
--- NOTE | 2017-01-28 08:59 | PDIAF ---
- Diagnosis Code Status: Full Code - Medication Management Discharge Medications: Medications to Continue on Transfer Acetaminophen [Tylenol 325mg (*)] 650 mg PO Q4 PRN 01/12/17 [Last Taken 01/01/17 ] Amantadine HCl [Amantadine] 100 mg PO BID 01/12/17 [Last Taken 01/12/17 08:00] Atenolol [Tenormin 100 mg (*)] 100 mg PO DAILY 01/12/17 [Last Taken 01/12/17 08: 00] Atorvastatin Calcium [Lipitor 10 mg (*)] 10 mg PO DAILY 01/12/17 [Last Taken 08:00] Lacosamide [Vimpat] 100 mg PO BID 01/12/17 [Last Taken 01/12/17 08:00] Loperamide HCl [Imodium 2 mg (*)] 2 mg PO PRN PRN 01/12/17 [Last Taken Unknown] Magnesium Hydroxide [Milk of Magnesia] 30 ml PO DAILY PRN 01/12/17 [Last Taken 01/12/17 08:02] Nitrofurantoin Macrobid [Macrobid] 100 mg PO BID 01/12/17 [Last Taken 01/12/17 08:00] Ondansetron Odt [Zofran Odt 4 mg (*)] 4 mg PO Q6H PRN 01/12/17 [Last Taken 01/12 08:53] Sennosides/Docusate Sodium [Senna-S Tablet] 1 each PO DAILY 01/12/17 [Last Taken 01/12/17 08:00] levETIRAcetam [Keppra 500 mg (*)] 1,000 mg PO BID 01/12/17 [Last Taken 01/12/17 08:00] Bisacodyl [Bisacodyl (*)] 5 mg PO PRN PRN 01/26/17 [Last Taken Unknown] Ergocalciferol [Vitamin D2 (*)] 50,000 unit PO WE 01/26/17 [Last Taken Unknown] Ferrous Sulfate [Ferrous Sulf 325 MG (*)] 325 mg PO DAILY 01/26/17 [Last Taken Unknown] Hydrochlorothiazide [HCTZ (*)] 50 mg PO DAILY 01/26/17 [Last Taken Unknown] Labetalol HCl [Trandate 200 mg (*)] 200 mg PO DAILY PRN 01/26/17 [Last Taken Unknown] Lisinopril [Zestril 40 mg (*)] 40 mg PO DAILY 01/26/17 [Last Taken Unknown] Enoxaparin [Lovenox 40 MG (*)] 40 mg SC DAILY #0 syr 01/28/17 [Last Taken Unknown] Discharge Medications: Refer to the Discharge Home Medication list for PRN reason. - Orders Services needed: Registered Nurse, Physical Therapy, Occupational Therapy, Speech Language Pathologist Diet Recommendation: no restrictions on diet Diet Texture: Dysphagia 3 - Advanced - Moist, Bite-Size, Thin Liquids, Meds Whole w/Liquids Wound Care Instructions: Sutures are dissolvable on two head incisions. Dermabond on abdominal incision. May shower as of 01/28 Activity/Weight Bearing Restrictions: No activitiy restrictions, as tolerated - Follow Up Care Current Providers and Referrals: JENNIFER BECERRA [Primary Care Provider] - Basilio Ge MD [Medical Doctor] - follow up in 2 weeks (Please call for appointment with Dr. Ge in 2 weeks)
[2017-01-28] MEDS: HYDROCHLOROTHIAZIDE 25 MG TAB PO SCH (09:09)
[2017-01-28] MEDS: FERROUS SULFATE 325 MG TAB PO SCH (09:09)
[2017-01-28] MEDS: levETIRAcetam 500 MG TAB PO SCH (09:09)
[2017-01-28] MEDS: NITROFURANTOIN MACROBID 100 MG CAP PO SCH (09:09)
[2017-01-28] MEDS: ENOXAPARIN 40 MG/0.4 ML SYR SC SCH ×2 (09:10→11:37)
[2017-01-28] MEDS: AMANTADINE HCL 100 MG CAP PO SCH (09:10)
[2017-01-28] MEDS: LISINOPRIL 40 MG TAB PO SCH (09:10)
[2017-01-28] MEDS: LACOSAMIDE 50 MG TAB PO SCH (09:10)
[2017-01-28] MEDS: ATENOLOL 100 MG TAB PO SCH (09:10)
[2017-01-28] MEDS: ATORVASTATIN CALCIUM 10 MG TAB PO SCH (09:10)
[2017-01-28] MEDS: SENNOSIDES/DOCUSATE SODIUM TAB PO SCH (11:37)
== END 2017-01-28 12:10 | DRG 33 ==
LOC: F3N 11:50 → PREOBSVTOIN 11:53
PROVIDERS: ADMIT Neurological Surgery; ATTEND Neurological Surgery
PROC: 00163J6 Bypass Cerebral Ventricle to Peritoneal Cavity with Synthetic Substitute, Percutaneous Approach (ICD-10-PCS; principal; 2017-01-26)
DX: G91.8 Other hydrocephalus (principal); E78.5 Hyperlipidemia, unspecified; I10 Essential (primary) hypertension
CPT/HCPCS: 92507-GN; 92523-GN; 92526-GN; 92610-GN; 97162-GP; 97166-GO; 97535-GO; G8978-GP-CJ; G8979-GP-CI; G8987-GO-CL; G8988-GO-CJ; G8988-GO-CL; G8989-GO-CL; G8996-GN-CJ; G8997-GN-CJ; G8998-GN-CJ; G9168-GN-CK; G9169-GN-CJ; J1100; J1650; J2405; J2704; J3010; J3370

== ENCOUNTER 2017-01-28 12:56 | Inpatient (IN) | payer OTHER ==
[2017-01-28] MEDS: ACETAMINOPHEN 325 MG TAB PO PRN ×2 (14:38→20:57)
--- NOTE | 2017-01-28 15:44 | GHP ---
[f rep st] HISTORY AND PHYSICAL POST ADMISSION PHYSICIAN EVALUATION AND REHABILITATION TREATMENT PLAN DATE OF ADMISSION: 01/28/2017 DATE OF EVALUATION: 01/28/2017 TIME OF EVALUATION: 1420. REFERRING FACILITY: [facility]. IMPAIRMENT GROUP: 2.1. DATE OF ONSET: 11/30/2016. REFERRING PHYSICIAN: Dr. Ge. CONSULTING PHYSICIANS: None. REHABILITATION DIAGNOSES: 1. Debility status post subarachnoid hemorrhage due to aneurysm of left middle cerebral artery with a history of craniotomy and clipping. 2. Hydrocephalus, status post shunting. ETIOLOGIC DIAGNOSIS: Nontraumatic brain dysfunction. DATE OF SURGERY: Craniotomy and aneurysmal clipping on 12/01/2016. Shunt placement on 01/27/2017. HISTORY OF PRESENT ILLNESS: Briefly, the patient had an aneurysmal bleed, had craniotomy for clipping, subsequently had seizures, was transferred to the [facility] for continuous EEG monitoring and medical management of seizures. She was then discharged to a shelter for several weeks and then to inpatient rehabilitation. She had little progress in inpatient rehabilitation and was diagnosed with hydrocephalus. She underwent shunt placement yesterday at [facility] per Dr. Ge and returns to continue rehabilitation. STUDIES AND LABS IN THE HOSPITAL: She had a head CT on 01/27/17 which showed placement of the shunt from the right frontal approach. No hemorrhage, mass or infarction. Moderate microvascular ischemic disease and moderate atrophy. A head CT on 01/26/2017 showed moderate hydrocephalus which was noted to be worse since November 2016. PRECAUTIONS: She is a fall risk. She has seizure precautions. ACTIVE COMORBIDITIES: She has the tier 3 comorbidity of morbid obesity, otherwise, she has no tier 1, tier 2, or tier 3 comorbidities. PAST MEDICAL HISTORY: 1. Hypertension. 2. Dyslipidemia. PAST SURGICAL HISTORY: She has had a left reverse shoulder replacement and a left hip replacement. ALLERGIES: Listed to naproxen, penicillin, and bee venom protein. PRE-HOSPITAL MEDICATIONS: Atenolol, hydrochlorothiazide, lisinopril, chlorthalidone also listed and atorvastatin. ADMISSION MEDICATIONS: 1. Acetaminophen 650 mg p.o. q.4 hours p.r.n. 2. Amantadine 100 mg p.o. b.i.d. 3. Atenolol 100 mg p.o. daily. 4. Atorvastatin 10 mg p.o. daily. 5. Cholecalciferol 50,000 units p.o. weekly. 6. Enoxaparin 40 mg subcutaneous daily. 7. Hydrochlorothiazide 50 mg p.o. daily. 8. Lacosamide 100 mg p.o. b.i.d. 9. Levetiracetam 1000 mg p.o. b.i.d. 10. Lisinopril 40 mg p.o. daily. 11. Magnesium hydroxide 30 mL p.o. daily. 12. Nitrofurantoin 100 mg p.o. b.i.d. 13. Ondansetron 4 mg p.o. q.6 hours p.r.n. 14. Senna/docusate 1 tab p.o. daily. FAMILY HISTORY: There is a history of an abdominal aortic aneurysm. PSYCHOSOCIAL HISTORY: She is . She lives with her . She has 2 adult sons and [id number] who are local. 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 She is a nonsmoker and uses occasional alcohol. REVIEW OF SYSTEMS: She has a mild headache. She has not had a bowel movement today but bowel movement is recorded in the chart from yesterday. She denies dyspnea and she is not coughing at present but she has had a cough. She denies fevers or chills. She denies nausea or vomiting or abdominal pain. She reports that she has been walking better and would like to get up and walk this afternoon, and other than that, a 10-point review of systems is negative. PHYSICAL EXAM: VITAL SIGNS: Blood pressure this morning at [facility] was 134/70, heart rate was 65, respiratory rate was 16, oxygen saturation was 98 % on 2 L. Temperature was 36.7 degrees centigrade. GENERAL: This is an obese woman, sitting up in bed. present in the room. Cooperative and in no acute distress. HEENT. Extraocular movements are intact but for a lateral deviation of the left eye. Mucous membranes are moist. Dentition is in good condition. NECK: Supple. HEART: There is a regular rate and rhythm with no murmurs, rubs, or gallops. LUNGS: Clear to auscultation bilaterally with few crackles bilaterally at the bases. ABDOMEN: Soft, mildly tender at her incision site from the shunt procedure. Nondistended with normoactive bowel sounds. Extremities there is no cyanosis, clubbing, or edema. NEUROLOGIC: She is alert and oriented x3. Cranial nerves 2-12 are grossly intact. There is no focal weakness and sensation is intact to light touch. ASSESSMENT AND PLAN: 1. Hydrocephalus status post shunting. She appears more alert and better oriented than before the procedure and it is anticipated that she will have gait improvement. 2. Debility, status post aneurysmal rupture, craniotomy and clipping with impaired mobility, activities of daily living and cognition. She will be treated per PT, OT and CLERK MANAGER. 3. Seizure disorder, stable on lacosamide and levetiracetam. 4. Hypertension. She had been switched to losartan on her prior inpatient rehabilitation stay due to cough. Cough, however, did not resolve with change to losartan so she will be resumed on lisinopril 40 mg daily. Additionally, atenolol 100 mg daily will be continued and chlorthalidone 12.5 mg daily. She will have serial monitoring and medication adjustment as indicated. 5. Hyponatremia, mild, with a sodium of 133. Will repeat a BMP in the morning. 6. Alertness appears to be much improved. Consider discontinuation of amantadine. Await further assessments by therapy staff. 7. Dyslipidemia. Continue atorvastatin. 8. Vitamin D deficiency. Continue vitamin D replacement. 9. Recurrent urinary tract infections. Continue nitrofurantoin 100 mg b.i.d. as a preventive. 10. Dysphagia. She is on a dysphagia 3 diet with thin liquids. Dysphagia might contribute to her cough. She will have assessment and treatment per Speech and Language Pathology. 11. Left cranial nerve 3 palsy. Proptosis has resolved. She still describes some left diplopia. Will await further assessment per Occupational Therapy regarding whether she would benefit from safety glasses with taping. 12. Acute renal failure with creatinine increased from 1 to 1.3 during her prior stay following initiation of chlorthalidone. Repeat BMP in the morning. 13. Right lower extremity deep venous thrombosis. Continue enoxaparin as she is immediately post surgery. She can resume rivaroxaban on postoperative day 5 , which will be January 31, 2017. 14. Anemia. Iron sulfate was discontinued during her prior inpatient rehabilitation stay due to nausea. Now that she no longer has hydrocephalus, iron sulfate will be reintroduced. If she tolerates it, it will be continued for 2 weeks. 15. Constipation. Continue bowel protocol. /[id number]/MODL MTDD
[2017-01-28] MEDS: levETIRAcetam 500 MG TAB PO SCH (20:57)
[2017-01-28] MEDS: AMANTADINE HCL 100 MG CAP PO SCH (20:57)
[2017-01-28] MEDS: LACOSAMIDE 50 MG TAB PO SCH (20:57)
[2017-01-28] MEDS: NITROFURANTOIN MACROBID 100 MG CAP PO SCH (20:57)
[2017-01-28] MEDS ORDERED: NON-FORMULARY NEW DRUG (Amantadine Hcl [Amantadine] 100 MG) PO SCH (21:00)
[2017-01-28] MEDS ORDERED: NON-FORMULARY NEW DRUG (Lacosamide [Vimpat] 100 MG) PO SCH (21:00)
[2017-01-29] MEDS: AMANTADINE HCL 100 MG CAP PO SCH ×2 (08:51→20:21)
[2017-01-29] MEDS: ATENOLOL 50 MG TAB PO SCH (08:52)
[2017-01-29] MEDS: ATORVASTATIN CALCIUM 10 MG TAB PO SCH (08:53)
[2017-01-29] MEDS: CHLORTHALIDONE 25 MG TAB PO SCH (08:54)
[2017-01-29] MEDS: ENOXAPARIN 40 MG/0.4 ML SYR SC SCH (08:55)
[2017-01-29] MEDS: CHOLECALCIFEROL VIT D3 2,000 UNITS TAB/CAP PO SCH (08:55)
[2017-01-29] MEDS: HYDROCHLOROTHIAZIDE 25 MG TAB PO SCH (08:56)
[2017-01-29] MEDS: LISINOPRIL 40 MG TAB PO SCH (08:56)
[2017-01-29] MEDS: levETIRAcetam 500 MG TAB PO SCH ×2 (08:57→20:21)
[2017-01-29] MEDS: NITROFURANTOIN MACROBID 100 MG CAP PO SCH ×2 (08:57→20:21)
[2017-01-29] MEDS: SENNOSIDES/DOCUSATE SODIUM TAB PO SCH (08:58)
[2017-01-29] MEDS ORDERED: ATENOLOL 100 MG TAB PO SCH (09:00)
[2017-01-29] MEDS ORDERED: HYDROCHLOROTHIAZIDE 50 MG TAB PO SCH (09:00)
[2017-01-29] MEDS: LACOSAMIDE 50 MG TAB PO SCH ×2 (09:02→20:21)
--- NOTE | 2017-01-29 09:04 | PDOREHIP ---
Admission [facility] - Admission - 3 Day Assessment Period Admission Date/Day 1: 01/28/17 Day 2: 01/29/17 Day 3: 01/30/17 - Active Diagnoses Comorbidities and Co-existing Conditions at Admission: [id number]. None of the Above - Skin Conditions Unhealed Pressure Ulcer (1 or more/Stage 1 or >)-Admission: 0. No
--- NOTE | 2017-01-29 09:10 | SOAPPROG ---
SOAP Progress Note Assessment/Plan: Assessment: 71 yo F with aneurysmal SDH on 11/30/16, R frontal craniotomy and clipping on , seizures and transfer to [facility] for EEG monitoring and anticonvulsant treatment, SNF stay, Dx of hydrocephalus while at Inpatient Rehabilitation, and shunting procedure 01/27/17: * Debility, status post aneurysmal rupture, craniotomy and clipping, hydrocephalus and shunt placement, with impaired mobility, activities of daily living and cognition.FIM gain 49 to 62 as of 01/29/17. T'fers CGA - min A with cues. Walks 80 - 90' FWW,veers to R and needs assistance to not collide with objects. Dressing UB min A, LB needs assist to initiate using accounting intern; hiked pants SBA. Diplopia affects G&H, worse close than distant. Continue PT, and OT. * Dysphagia. She was on dysphagia 3 diet with thin liquids at [place]. Dysphagia might contribute to her cough. Await current diet orders per ARCHIVES TECHNICIAN. * Left cranial nerve 3 palsy. Proptosis has resolved. She still describes some left diplopia. Will await further assessment per Occupational Therapy regarding whether she would benefit from safety glasses with taping. * Hypertension. She had been switched to losartan on her prior inpatient rehabilitation stay due to cough. Cough, however, did not resolve with change to losartan so she will be resumed on lisinopril 40 mg daily. Additionally, atenolol 100 mg daily will be continued and chlorthalidone 12.5 mg daily. She will have serial monitoring and medication adjustment as indicated. * Acute renal failure with creatinine increased from 1 to 1.3 during her prior stay following initiation of chlorthalidone. Resolved 01/29/17. * Hyponatremia, mild, with a sodium of 133. Will repeat a BMP in the morning. Resolved 01/29/17. * Right lower extremity deep venous thrombosis. Continue enoxaparin as she is immediately post surgery. She can resume rivaroxaban on postoperative day 5, which will be January 31, 2017. * Alertness appears to be much improved. Consider discontinuation of amantadine. Await further assessments by therapy staff. * Anemia. Iron sulfate was discontinued during her prior inpatient rehabilitation stay due to nausea. Now that she no longer has hydrocephalus, iron sulfate will be reintroduced. If she tolerates it, it will be continued for 2 weeks. * Constipation. Continue bowel protocol. Chronic/stable conditions: * Seizure disorder, stable on lacosamide and levetiracetam. * Dyslipidemia. Continue atorvastatin. * Vitamin D deficiency. Continue vitamin D replacement. * Recurrent urinary tract infections. Continue nitrofurantoin 100 mg b.i.d. as a preventive. Attended staffing, 15 min. D/W case mgmt, nursing, stock grader, pharmacist, PT, OT, ARCHIVES TECHNICIAN. Plans to return home with . Continue goal discharge date of . 01/29/17 15:10 Subjective: No complaints. Not in pain. Slept well. No cough this morning, no f/c. Objective: Vital Signs Temp Pulse Resp BP Pulse Ox 37.0 C 74 16 133/91 H 91 L 01/29/17 07:09 01/29/17 08:52 01/29/17 07:09 01/29/17 08:56 01/29/17 07:09 01/28/17 01/29/17 01/30/17 05:59 05:59 05:59 Intake Total 490 Balance 490 - Time Spent With Patient Time Spent With Patient: Greater than 35 minutes floor time today, including more than 50% of time in coordination of care during staffng meeting, and counseling patient and . Physical Exam - Physical Exam General Appearance: WD/WN, alert, no apparent distress, obese Respiratory: normal breath sounds, No crackles, No rhonchi, No wheezing Cardiac/Chest: regular rate, rhythm, No edema Skin: normal color, warm/dry Neuro/Psych: no motor/sensory deficits, alert, normal mood/affect, other ( Observed with OT. Arises with CGA from wheelchair and able to hike pants with minimal assist.) ICD10 Worksheet Patient Problems: Problems Problem Status Onset Altered mental status Acute Pneumonia Acute 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
[2017-01-29 09:47] LABS: ANION GAP 8 mEq/L (8-16); CALCIUM 10.4 mg/dL (8.5-10.4); CARBON DIOXIDE 28 mEq/l (22-31); CHLORIDE 98 mEq/L (97-110); CREATININE 0.9 mg/dL (0.6-1.0); GLOMERULAR FILTRATION RATE > 60; GLUCOSE 96 mg/dL (70-100); POTASSIUM 4.8 mEq/L (3.5-5.2); SODIUM 134 mEq/L (134-144)
[2017-01-29] MEDS: ACETAMINOPHEN 325 MG TAB PO PRN (20:21)
[2017-01-30] MEDS: levETIRAcetam 500 MG TAB PO SCH ×2 (09:08→20:12)
[2017-01-30] MEDS: AMANTADINE HCL 100 MG CAP PO SCH ×2 (09:08→20:12)
[2017-01-30] MEDS: NITROFURANTOIN MACROBID 100 MG CAP PO SCH ×2 (09:08→20:11)
[2017-01-30] MEDS: CHOLECALCIFEROL VIT D3 2,000 UNITS TAB/CAP PO SCH (09:08)
[2017-01-30] MEDS: LACOSAMIDE 50 MG TAB PO SCH ×2 (09:09→20:12)
[2017-01-30] MEDS: SENNOSIDES/DOCUSATE SODIUM TAB PO SCH (09:09)
[2017-01-30] MEDS: ATORVASTATIN CALCIUM 10 MG TAB PO SCH (09:09)
[2017-01-30] MEDS: ENOXAPARIN 40 MG/0.4 ML SYR SC SCH (09:10)
[2017-01-30] MEDS: MAGNESIUM HYDROXIDE 30 ML UDCUP PO PRN (09:11)
[2017-01-30] MEDS: CHLORTHALIDONE 25 MG TAB PO SCH (09:26)
[2017-01-30] MEDS: HYDROCHLOROTHIAZIDE 25 MG TAB PO SCH (09:26)
[2017-01-30] MEDS: LISINOPRIL 40 MG TAB PO SCH (09:27)
[2017-01-30] MEDS: ATENOLOL 50 MG TAB PO SCH (09:33)
--- NOTE | 2017-01-30 09:55 | SOAPPROG ---
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 T'fers CGA - min A with cues. Walks 80 - 90' FWW,veers to R and needs assistance to not collide with objects. Dressing UB min A, LB needs assist to initiate using installations inspector; hiked pants SBA. Diplopia affects G&H, worse close than distant. Continue PT, and OT. * Dysphagia. She was on dysphagia 3 diet with thin liquids at [place]. Dysphagia might contribute to her cough. Await current diet orders per SALES & SERVICE ASSOCIATE. * Left cranial nerve 3 palsy. Proptosis has resolved. She still describes some left diplopia. Will await further assessment per Occupational Therapy regarding whether she would benefit from safety glasses with taping. CONSIDER NEUROOPHTH CONSULT * Hypertension. BP THIS AM 113/76 SO WILL HOLD ATENOLOL. She had been switched to losartan on her prior inpatient rehabilitation stay due to cough. Cough, however, did not resolve with change to losartan so she will be resumed on lisinopril 40 mg daily. Additionally, atenolol 100 mg daily will be continued and chlorthalidone 12.5 mg daily. She will have serial monitoring and medication adjustment as indicated. * Acute renal failure with creatinine increased from 1 to 1.3 during her prior stay following initiation of chlorthalidone. Resolved 01/29/17. * Hyponatremia, mild, with a sodium of 133. Will repeat a BMP in the morning. Resolved 01/29/17. * Right lower extremity deep venous thrombosis. Continue enoxaparin as she is immediately post surgery. She can resume rivaroxaban on postoperative day 5, which will be January 31, 2017. RIGHT CALF NON ERYTEMATOUS,NON TENDER * Alertness appears to be much improved. Consider discontinuation of amantadine. Await further assessments by therapy staff. * Anemia. Iron sulfate was discontinued during her prior inpatient rehabilitation stay due to nausea. Now that she no longer has hydrocephalus, iron sulfate will be reintroduced. If she tolerates it, it will be continued for 2 weeks. * Constipation. Continue bowel protocol. Chronic/stable conditions: * Seizure disorder, stable on lacosamide and levetiracetam. * Dyslipidemia. Continue atorvastatin. * Vitamin D deficiency. Continue vitamin D replacement. * Recurrent urinary tract infections. Continue nitrofurantoin 100 mg b.i.d. as a preventive. Plan: 01/30/17 09:56 Subjective: NO C/O per patient or patient's Objective: Vital Signs Temp Pulse Resp BP Pulse Ox 36.7 C 76 17 113/76 97 01/30/17 07:04 01/30/17 09:33 01/30/17 07:04 01/30/17 09:33 01/30/17 07:04 Laboratory Results 01/29/17 07:55 01/29/17 01/30/17 01/31/17 05:59 05:59 05:59 Intake Total 490 568 200 Balance 490 568 200 Physical Exam - Physical Exam General Appearance: WD/WN, alert Neck: supple Respiratory: lungs clear, normal breath sounds Cardiac/Chest: edema (trace pre-tibial edema), No JVD Abdomen: normal bowel sounds, non-tender Skin: warm/dry Extremities: No calf tenderness, No Maurice's sign Neuro/Psych: alert, cognition abnormalities (mild short term memory recall impairment) ICD10 Worksheet Patient Problems: Problems Problem Status Onset Altered mental status Acute Pneumonia Acute 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
[2017-01-30] MEDS: ACETAMINOPHEN 325 MG TAB PO PRN (20:11)
[2017-01-31] MEDS: LISINOPRIL 40 MG TAB PO SCH (09:05)
[2017-01-31] MEDS: LACOSAMIDE 50 MG TAB PO SCH ×2 (09:05→20:06)
[2017-01-31] MEDS: CHLORTHALIDONE 25 MG TAB PO SCH (09:06)
[2017-01-31] MEDS: ATENOLOL 50 MG TAB PO SCH (09:06)
[2017-01-31] MEDS: SENNOSIDES/DOCUSATE SODIUM TAB PO SCH (09:06)
[2017-01-31] MEDS: NITROFURANTOIN MACROBID 100 MG CAP PO SCH ×2 (09:06→20:05)
[2017-01-31] MEDS: ENOXAPARIN 40 MG/0.4 ML SYR SC SCH (09:06)
[2017-01-31] MEDS: AMANTADINE HCL 100 MG CAP PO SCH ×2 (09:06→20:06)
[2017-01-31] MEDS: HYDROCHLOROTHIAZIDE 25 MG TAB PO SCH (09:06)
[2017-01-31] MEDS: ATORVASTATIN CALCIUM 10 MG TAB PO SCH (09:06)
[2017-01-31] MEDS: CHOLECALCIFEROL VIT D3 2,000 UNITS TAB/CAP PO SCH (09:06)
[2017-01-31] MEDS: levETIRAcetam 500 MG TAB PO SCH ×2 (09:06→20:06)
--- NOTE | 2017-01-31 10:11 | SOAPPROG ---
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 T'fers CGA - min A with cues. Walks 80 - 90' FWW,veers to R and needs assistance to not collide with objects. Dressing UB min A, LB needs assist to initiate using upholsterer assembly line; hiked pants SBA. Diplopia affects G&H, worse close than distant. Continue PT, and OT. * Left cranial nerve 3 palsy. Proptosis has resolved. She still describes some left diplopia. Will await further assessment per Occupational Therapy regarding whether she would benefit from safety glasses with taping. CONSIDER NEUROOPHTH CONSULT * Dysphagia. ST REPORTS PATIENT IS ON REGULAR DIET * Hypertension. BP THIS AM 144/85. PER NURSING, SHE RECEIVED ALL BP MEDS THIS AM. RECHECK BP AND IF STILL ELEVATED THEN MAY GIVE ADDITIONAL 50 MG ATENOLOL.. She had been switched to losartan on her prior inpatient rehabilitation stay due to cough. Cough, however, did not resolve with change to losartan so she will be resumed on lisinopril 40 mg daily. Additionally, atenolol 100 mg daily will be continued and chlorthalidone 12.5 mg daily. She will have serial monitoring and medication adjustment as indicated. * Acute renal failure with creatinine increased from 1 to 1.3 during her prior stay following initiation of chlorthalidone. Resolved 01/29/17. * Hyponatremia, mild, with a sodium of 133. Will repeat a BMP in the morning. Resolved 01/29/17. * Right lower extremity deep venous thrombosis. Continue enoxaparin as she is immediately post surgery. She can resume rivaroxaban on postoperative day 5, which will be January 31, 2017. RIGHT CALF NON ERYTEMATOUS,NON TENDER * Alertness appears to be much improved. Consider discontinuation of amantadine. Await further assessments by therapy staff. * Anemia. Iron sulfate was discontinued during her prior inpatient rehabilitation stay due to nausea. Now that she no longer has hydrocephalus, iron sulfate will be reintroduced. If she tolerates it, it will be continued for 2 weeks. * Constipation. Continue bowel protocol. Chronic/stable conditions: * Seizure disorder, stable on lacosamide and levetiracetam. * Dyslipidemia. Continue atorvastatin. * Vitamin D deficiency. Continue vitamin D replacement. * Recurrent urinary tract infections. Continue nitrofurantoin 100 mg b.i.d. as a preventive. Plan: 01/30/17 09:56 01/31/17 09:56 Subjective: NO C/O OTHER THAN DIPLOPIA AT CLOSE RANGE Objective: Vital Signs Temp Pulse Resp BP Pulse Ox 37.0 C 72 12 144/85 H 94 01/30/17 18:31 01/30/17 18:31 01/30/17 18:31 01/30/17 18:31 01/30/17 18:31 Laboratory Results 01/29/17 07:55 01/30/17 01/31/17 02/01/17 05:59 05:59 05:59 Intake Total 568 1126 Balance 568 1126 Physical Exam - Physical Exam General Appearance: WD/WN, alert, no apparent distress EENT: other (LEFT PTOSIS) Respiratory: decreased breath sounds Cardiac/Chest: No edema, No JVD Abdomen: non-tender, soft Skin: warm/dry, No cyanosis Neuro/Psych: oriented x 3, depressed affect ICD10 Worksheet Patient Problems: Problems Problem Status Onset Altered mental status Acute Pneumonia Acute 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
[2017-01-31] MEDS: RIVAROXABAN 15 MG TAB PO SCH (17:14)
--- NOTE | 2017-02-01 12:55 | SOAPPROG ---
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 T'fers CGA - min A with cues. Walks 80 - 90' FWW,veers to R and needs assistance to not collide with objects. Dressing UB min A, LB needs assist to initiate using services coordinator; hiked pants SBA. Diplopia affects G&H, worse close than distant. Continue PT, and OT. * Dysphagia. Advanced to regular diet. Still has B buccal pocketing and eats slowly. Continue DAY PORTER. * Cough. CXR today with lingular atelectasis vs infiltrate vs scarring. O/W not c/w pneumonia clinically; VFSS implicates reflux. * GI. Has constipation, which may contributes to reflux. Will add polyethylene glycol. Denies GERD symptoms. No indication for antacid. Reduce pill burden: will d/c amantadine. * Cognition. Continue DAY PORTER. Watch for decline in alertness with d/c of amantadine. * Left cranial nerve 3 palsy. Proptosis has resolved. She still describes some left diplopia. Will await further assessment per Occupational Therapy regarding whether she would benefit from safety glasses with taping. * Hypertension. She had been switched to losartan on her prior inpatient rehabilitation stay due to cough. Cough, however, did not resolve with change to losartan so she will be resumed on lisinopril 40 mg daily. Additionally, atenolol 100 mg daily will be continued and chlorthalidone 12.5 mg daily. She will have serial monitoring and medication adjustment as indicated. * Acute renal failure with creatinine increased from 1 to 1.3 during her prior stay following initiation of chlorthalidone. Resolved 01/29/17. * Hyponatremia, mild, with a sodium of 133. Will repeat a BMP in the morning. Resolved 01/29/17. * Right lower extremity deep venous thrombosis. Continue enoxaparin as she is immediately post surgery. She can resume rivaroxaban on postoperative day 5, which will be January 31, 2017. * Alertness appears to be much improved. Consider discontinuation of amantadine. Await further assessments by therapy staff. * Anemia. Iron sulfate was discontinued during her prior inpatient rehabilitation stay due to nausea. Now that she no longer has hydrocephalus, iron sulfate will be reintroduced. If she tolerates it, it will be continued for 2 weeks. Chronic/stable conditions: * Seizure disorder, stable on lacosamide and levetiracetam. * Dyslipidemia. Continue atorvastatin. * Vitamin D deficiency. Continue vitamin D replacement. * Recurrent urinary tract infections. Continue nitrofurantoin 100 mg b.i.d. as a preventive. Plans to return home with . Continue goal discharge date of 02/09/17. 02/01/17 13:12 Subjective: Had episode of coughing followed by emesis this AM. DAY PORTER reports esophageal reflux seen on VFSS. She denies GERD symptoms. 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
[2017-02-01] MEDS: ACETAMINOPHEN 325 MG TAB PO PRN ×2 (13:02→18:16)
[2017-02-01] MEDS: ATORVASTATIN CALCIUM 10 MG TAB PO SCH (14:07)
[2017-02-01] MEDS: ATENOLOL 50 MG TAB PO SCH (14:07)
[2017-02-01] MEDS: CHOLECALCIFEROL VIT D3 2,000 UNITS TAB/CAP PO SCH (14:08)
[2017-02-01] MEDS: LACOSAMIDE 50 MG TAB PO SCH ×2 (14:08→21:15)
[2017-02-01] MEDS: CHLORTHALIDONE 25 MG TAB PO SCH (14:08)
[2017-02-01] MEDS: RIVAROXABAN 15 MG TAB PO SCH ×2 (14:09→18:12)
[2017-02-01] MEDS: NITROFURANTOIN MACROBID 100 MG CAP PO SCH ×2 (14:09→21:15)
[2017-02-01] MEDS: levETIRAcetam 500 MG TAB PO SCH ×2 (14:09→21:15)
[2017-02-01] MEDS: LISINOPRIL 40 MG TAB PO SCH (14:09)
[2017-02-01] MEDS: HYDROCHLOROTHIAZIDE 25 MG TAB PO SCH (14:10)
[2017-02-01] MEDS: AMANTADINE HCL 100 MG CAP PO SCH (14:10)
[2017-02-01] MEDS: SENNOSIDES/DOCUSATE SODIUM TAB PO SCH (14:10)
[2017-02-01] MEDS: ONDANSETRON DISINTEGRATING 4 MG TAB PO PRN (21:54)
[2017-02-02] MEDS: SENNOSIDES/DOCUSATE SODIUM TAB PO SCH (06:01)
[2017-02-02] MEDS: MAGNESIUM HYDROXIDE 30 ML UDCUP PO PRN (06:01)
[2017-02-02] MEDS ORDERED: BISACODYL 10 MG SUPP PR PRN (09:04)
[2017-02-02] MEDS: levETIRAcetam 500 MG TAB PO SCH ×2 (09:08→20:29)
[2017-02-02] MEDS: RIVAROXABAN 15 MG TAB PO SCH ×2 (09:09→18:01)
[2017-02-02] MEDS: ATORVASTATIN CALCIUM 10 MG TAB PO SCH (09:09)
[2017-02-02] MEDS: NITROFURANTOIN MACROBID 100 MG CAP PO SCH ×2 (09:09→20:30)
[2017-02-02] MEDS: LISINOPRIL 40 MG TAB PO SCH (09:10)
[2017-02-02] MEDS: ATENOLOL 50 MG TAB PO SCH (09:12)
[2017-02-02] MEDS: LACOSAMIDE 50 MG TAB PO SCH ×2 (09:13→20:29)
[2017-02-02] MEDS: CHLORTHALIDONE 25 MG TAB PO SCH (09:13)
[2017-02-02] MEDS: CHOLECALCIFEROL VIT D3 2,000 UNITS TAB/CAP PO SCH (09:13)
[2017-02-02] MEDS: ACETAMINOPHEN 325 MG TAB PO PRN ×2 (09:17→18:01)
--- NOTE | 2017-02-02 10:47 | SOAPPROG ---
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 T'fers CGA - min A with cues. Walks 80 - 90' FWW, veers to R and needs assistance to not collide with objects. Dressing UB min A, LB needs assist to initiate using configuration management manager; hiked pants SBA. Diplopia affects G&H, worse close than distant. Continue PT, and OT. * Dysphagia. Advanced to regular diet. Still has B buccal pocketing and eats slowly. Continue PSYCHOLOGICAL STRESS EVALUATOR. * Cough. CXR today with lingular atelectasis vs infiltrate vs scarring. O/W not c/w pneumonia clinically; VFSS implicates reflux. * GI. Has constipation, which may contributes to reflux. Will add polyethylene glycol. Denies GERD symptoms. No indication for antacid. Reduce pill burden: will d/c amantadine. Add bisacodyl suppository 02/02/17. * Cognition. Continue PSYCHOLOGICAL STRESS EVALUATOR. Watch for decline in alertness with d/c of amantadine. * Left cranial nerve 3 palsy. Proptosis has resolved. She still describes some left diplopia, improving. * Hypertension. She had been switched to losartan on her prior inpatient rehabilitation stay due to cough. Cough, however, did not resolve with change to losartan so she will be resumed on lisinopril 40 mg daily. Additionally, atenolol 100 mg daily will be continued and chlorthalidone 12.5 mg daily. She will have serial monitoring and medication adjustment as indicated. * Right lower extremity deep venous thrombosis. Continue enoxaparin as she is immediately post surgery. She can resume rivaroxaban on postoperative day 5, which will be January 31, 2017. * Alertness appears to be much improved. No decline with discontinuation of amantadine. * Anemia. Iron sulfate was discontinued during her prior inpatient rehabilitation stay due to nausea. Now that she no longer has hydrocephalus, iron sulfate will be reintroduced. If she tolerates it, it will be continued for 2 weeks. Chronic/stable conditions: * Acute renal failure with creatinine increased from 1 to 1.3 during her prior stay following initiation of chlorthalidone. Resolved 01/29/17. * Hyponatremia, mild, with a sodium of 133. Will repeat a BMP in the morning. Resolved 01/29/17. * Seizure disorder, stable on lacosamide and levetiracetam. * Dyslipidemia. Continue atorvastatin. * Vitamin D deficiency. Continue vitamin D replacement. * Recurrent urinary tract infections. Continue nitrofurantoin 100 mg b.i.d. as a preventive. Plans to return home with . Continue goal discharge date of 02/09/17. 02/01/17 13:12 02/02/17 10:42 Subjective: No complaints. Slept well. No pain, No cough today. Has constipation X 3 days. Double vision is improving. Objective: Vital Signs Temp Pulse Resp BP Pulse Ox 36.3 C 65 16 110/76 91 L 02/02/17 06:06 02/02/17 09:12 02/02/17 06:06 02/02/17 09:13 02/02/17 06:06 Laboratory Results 01/29/17 07:55 02/01/17 02/02/17 02/03/17 05:59 05:59 05:59 Intake Total 1100 970 420 Balance 1100 970 420 Physical Exam - Physical Exam General Appearance: WD/WN, alert, no apparent distress, obese Respiratory: normal breath sounds, crackles (RLL), No rhonchi, No wheezing Cardiac/Chest: regular rate, rhythm, No diastolic murmur, No systolic murmur Skin: normal color, warm/dry Neuro/Psych: no motor/sensory deficits, alert, normal mood/affect, other ( Disoriented to date, off by 1 day) ICD10 Worksheet Patient Problems: Problems Problem Status Onset Altered mental status Acute Pneumonia Acute 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
[2017-02-03] MEDS: ACETAMINOPHEN 325 MG TAB PO PRN ×3 (01:04→20:04)
[2017-02-03] MEDS: RIVAROXABAN 15 MG TAB PO SCH ×2 (08:26→18:20)
[2017-02-03] MEDS: ATENOLOL 50 MG TAB PO SCH (08:27)
[2017-02-03] MEDS: CHLORTHALIDONE 25 MG TAB PO SCH (08:27)
[2017-02-03] MEDS: ATORVASTATIN CALCIUM 10 MG TAB PO SCH (08:27)
[2017-02-03] MEDS: CHOLECALCIFEROL VIT D3 2,000 UNITS TAB/CAP PO SCH (08:29)
[2017-02-03] MEDS: LACOSAMIDE 50 MG TAB PO SCH ×2 (08:29→20:04)
[2017-02-03] MEDS: levETIRAcetam 500 MG TAB PO SCH ×2 (08:30→20:04)
[2017-02-03] MEDS: LISINOPRIL 40 MG TAB PO SCH (08:31)
[2017-02-03] MEDS: NITROFURANTOIN MACROBID 100 MG CAP PO SCH ×2 (08:32→20:04)
[2017-02-03] MEDS: SENNOSIDES/DOCUSATE SODIUM TAB PO SCH (08:33)
--- NOTE | 2017-02-03 15:37 | SOAPPROG ---
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 T'fers CGA - min A with cues. Walks 150' FWW, veers to R and needs assistance to not collide with objects. Dressing UB min A, LB needs assist to initiate using chief medical officer; hiked pants SBA. Diplopia affects G&H, worse close than distant. Continue PT, and OT. * Dysphagia. Advanced to regular diet. Still has B buccal pocketing and eats slowly. Continue SUPERVISOR CIGAR MAKING HAND. * Cough. CXR 01/31/17 with lingular atelectasis vs infiltrate vs scarring. O/W not c/w pneumonia clinically; VFSS implicates reflux. * Abd/flank pain. Check UA, CBC. * GI. Has constipation, which may contributes to reflux. Add polyethylene glycol 02/04/17. Denies GERD symptoms. No indication for antacid. Reduce pill burden: will d/c amantadine. Add bisacodyl suppository 02/02/17. * Cognition. Continue SUPERVISOR CIGAR MAKING HAND. Watch for decline in alertness with d/c of amantadine. * Left cranial nerve 3 palsy. Proptosis has resolved. She still describes some left diplopia, improving. * Hypertension. She had been switched to losartan on her prior inpatient rehabilitation stay due to cough. Cough, however, did not resolve with change to losartan so she will be resumed on lisinopril 40 mg daily. Elevated AM blood pressures so will change from atenolol 100 mg daily to metoprolol 50 mgBID. Continue chlorthalidone 12.5 mg daily. She will have serial monitoring and medication adjustment as indicated. * Right lower extremity deep venous thrombosis. Continue rivaroxaban 3 - 6 mo. Change dose to 20 mg QD on 02/21/17. * Alertness appears to be much improved. No decline with discontinuation of amantadine. * Anemia. Iron sulfate was discontinued during her prior inpatient rehabilitation stay due to nausea. Now that she no longer has hydrocephalus, iron sulfate will be reintroduced. If she tolerates it, it will be continued for 2 weeks. Chronic/stable conditions: * Acute renal failure with creatinine increased from 1 to 1.3 during her prior stay following initiation of chlorthalidone. Resolved 01/29/17. * Hyponatremia, mild, with a sodium of 133. Will repeat a BMP in the morning. Resolved 01/29/17. * Seizure disorder, stable on lacosamide and levetiracetam. * Dyslipidemia. Continue atorvastatin. * Vitamin D deficiency. Continue vitamin D replacement. * Recurrent urinary tract infections. Continue nitrofurantoin 100 mg b.i.d. as a preventive. Attended staffing, 15 min. D/W case mgmt, truck driver salesperson, pharmacist, nurse, PT, OT , SUPERVISOR CIGAR MAKING HAND. Plans to return home with . Discharge date of 02/05/17. Attended family meeting, 45 minutes. Patient, and son present. 02/03/17 15:38 Subjective: Nurse reports L flank pain. Patient reports LLQ pain, mostly when supine. No dysuria/frequency, no N/V/C/D, no F/C. Objective: Vital Signs Temp Pulse Resp BP Pulse Ox 36.8 C 66 15 112/81 H 93 02/03/17 06:25 02/03/17 08:27 02/03/17 06:25 02/03/17 08:31 02/03/17 06:25 Laboratory Results 01/29/17 07:55 02/02/17 02/03/17 02/04/17 05:59 05:59 05:59 Intake Total 970 1360 554 Balance 970 1360 554 - Time Spent With Patient Time Spent With Patient: Greater than 35 minutes floor time today, including more than 50% of time in coordination of care during staffing meeting, and counseling during family meeting. Physical Exam - Physical Exam General Appearance: WD/WN, alert, no apparent distress Respiratory: normal breath sounds, No crackles, No rhonchi, No wheezing Cardiac/Chest: regular rate, rhythm, edema (trace B LE) Abdomen: normal bowel sounds, non-tender, soft, No distended Skin: normal color, warm/dry Neuro/Psych: alert, normal mood/affect ICD10 Worksheet Patient Problems: Problems Problem Status Onset Altered mental status Acute Pneumonia Acute 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
[2017-02-03] MEDS: METOPROLOL TARTRATE 50 MG TAB PO SCH (20:04)
[2017-02-04] MEDS: ONDANSETRON DISINTEGRATING 4 MG TAB PO PRN ×4 (00:49→20:17)
[2017-02-04 02:47] LABS: COLOR YELLOW; LEUKOCYTE ESTERASE,URINE 2+ (NEGATIVE); NITRITE,URINE NEGATIVE (NEGATIVE)
[2017-02-04 02:51] LABS: BACTERIA TRACE /hpf (NONE SEEN); MUCUS TRACE /lpf (NONE-1+); WBC,URINE 15-25 /hpf (0-3)
[2017-02-04 07:47] LABS: % IMMATURE GRANULYOCYTES 0.5 % (0.0-1.1); ABSOLUTE IMMATURE GRANULOCYTES 0.04 10^3/uL (0.00-0.10); ADD DIFF? NO; ADD MORPH? NO; ADD SCAN? NO; ATYPICAL LYMPHOCYTE FLAG 0 (0-99); FRAGMENT RBC FLAG 0 (0-99); HEMOGLOBIN 11.8 g/dL (12.6-16.3); LEFT SHIFT FLG 0 (0-99); LIPEMIA HEMOLYSIS FLAG 90 (0-99); MEAN CELL HEMOGLOBIN 31.6 pg (27.9-34.1); MEAN CELL HEMOGLOBIN CONCENTR. 34.7 g/dL (32.4-36.7); MEAN CELL VOLUME 90.9 fL (81.5-99.8); MEAN PLATELET VOLUME 9.8 fL (8.7-11.7); PLATELET CLUMPS FLAG 0 (0-99); PLATELET COUNT 355 10^3/uL (150-400); RED BLOOD CELL COUNT 3.74 10^6/uL (4.18-5.33); RED CELL DISTRIBUTION WIDTH 12.5 % (11.5-15.2)
[2017-02-04 08:03] LABS: ANION GAP 13 mEq/L (8-16); CALCIUM 10.2 mg/dL (8.5-10.4); CARBON DIOXIDE 22 mEq/l (22-31); CHLORIDE 97 mEq/L (97-110); CREATININE 1.1 mg/dL (0.6-1.0); GLOMERULAR FILTRATION RATE 49; GLUCOSE 102 mg/dL (70-100); POTASSIUM 4.3 mEq/L (3.5-5.2); SODIUM 132 mEq/L (134-144)
[2017-02-04 08:20] VITALS: RESP 16
[2017-02-04] MEDS: POLYETHYLENE GLYCOL 3350 17 GM PKT PO SCH (08:33)
[2017-02-04] MEDS: ATORVASTATIN CALCIUM 10 MG TAB PO SCH (08:36)
[2017-02-04] MEDS: RIVAROXABAN 15 MG TAB PO SCH ×2 (08:36→18:20)
[2017-02-04] MEDS: CHOLECALCIFEROL VIT D3 2,000 UNITS TAB/CAP PO SCH (08:37)
[2017-02-04] MEDS: CHLORTHALIDONE 25 MG TAB PO SCH (08:37)
[2017-02-04] MEDS: levETIRAcetam 500 MG TAB PO SCH ×2 (08:38→20:17)
[2017-02-04] MEDS: LACOSAMIDE 50 MG TAB PO SCH ×2 (08:38→20:17)
[2017-02-04] MEDS: LISINOPRIL 40 MG TAB PO SCH (08:39)
[2017-02-04] MEDS: METOPROLOL TARTRATE 50 MG TAB PO SCH ×2 (08:39→20:17)
[2017-02-04] MEDS: SENNOSIDES/DOCUSATE SODIUM TAB PO SCH (08:40)
[2017-02-04] MEDS: NITROFURANTOIN MACROBID 100 MG CAP PO SCH (08:40)
--- NOTE | 2017-02-04 11:13 | SOAPPROG ---
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 She is chronically on suppressive therapy with nitrofurantoin, changing to Cipro 500 mg PO BID for three days. She had a normal QT and QTC on . Stopping chlorthalidone because of low blood pressure and mild hyponatremia. Nausea is intermittent, not currently associated with iron, likely related to urinary tract infection at this point. This is the first time evaluating this patient in all medical issues are new to me. * Debility, status post aneurysmal rupture, craniotomy and clipping, hydrocephalus and shunt placement, with impaired mobility, activities of daily living and cognition.FIM gain 49 to 62 as of 01/29/17, to 6 as of 02/03/17. T'fers CGA - min A with cues. Walks 150' FWW, veers to R and needs assistance to not collide with objects. Dressing UB min A, LB needs assist to initiate using map plotter; hiked pants SBA. Diplopia affects G&H, worse close than distant. Continue PT, and OT. * Dysphagia. Advanced to regular diet. Still has B buccal pocketing and eats slowly. Continue RIPENING ROOM HAND. * Cough. CXR 01/31/17 with lingular atelectasis vs infiltrate vs scarring. O/W not c/w pneumonia clinically; VFSS implicates reflux. * Abd/flank pain. Check UA, CBC. * GI. Has constipation, which may contributes to reflux. Add polyethylene glycol 02/04/17. Denies GERD symptoms. No indication for antacid. Reduce pill burden: will d/c amantadine. Add bisacodyl suppository 02/02/17. * Cognition. Continue RIPENING ROOM HAND. Watch for decline in alertness with d/c of amantadine. * Left cranial nerve 3 palsy. Proptosis has resolved. She still describes some left diplopia, improving. * Hypertension. She had been switched to losartan on her prior inpatient rehabilitation stay due to cough. Cough, however, did not resolve with change to losartan so she will be resumed on lisinopril 40 mg daily. Elevated AM blood pressures so will change from atenolol 100 mg daily to metoprolol 50 mgBID. Stop chlorthalidone. * Right lower extremity deep venous thrombosis. Continue rivaroxaban 3 - 6 mo. Change dose to 20 mg QD on 02/21/17. * Alertness appears to be much improved. No decline with discontinuation of amantadine. * Anemia. Currently not giving iron sulfate because of nausea. * Acute urinary tract infection. Has signs and symptoms consistent with UTI including urinary frequency, noting some nausea. Treating with ciprofloxacin 500 mg PO BID for three days, to resume her suppressive nitrofurantoin after the course is completed. Cultures pending. Chronic/stable conditions: * Acute renal failure with creatinine increased from 1 to 1.3 during her prior stay following initiation of chlorthalidone. Resolved 01/29/17. * Hyponatremia, mild, with a sodium of 133. Will repeat a BMP in the morning. Resolved 01/29/17. * Seizure disorder, stable on lacosamide and levetiracetam. * Dyslipidemia. Continue atorvastatin. * Vitamin D deficiency. Continue vitamin D replacement. * Recurrent urinary tract infections. Holding nitrofurantoin 100 mg b.i.d. in setting of acute UTI. Plans to return home with . Discharge date of 02/05/17. Attended family meeting, 45 minutes. Patient, and son present. 02/04/17 11:09 02/04/17 11:14 Subjective: CC: Nausea and urinary tract infection no acute events overnight. Patient continues to have intermittent nausea, relieved by ondansetron. She also has a positive UA, on chronic suppressive antibiotics. Allergic to penicillin. Culture pending. She notes that she may have slightly decreased energy after the amantadine was stopped, otherwise doing well, but is bidding well and therapies, sleeping well. No new numbness, tingling, or weakness. Notes ongoing left-sided occasional pain, no other new symptoms. Objective: Vital Signs Temp Pulse Resp BP Pulse Ox 36.7 C 65 16 97/62 L 92 02/04/17 08:00 02/04/17 08:39 02/04/17 08:00 02/04/17 08:39 02/04/17 08:00 Laboratory Results 02/04/17 06:45 02/04/17 06:45 02/03/17 02/04/17 02/05/17 05:59 05:59 05:59 Intake Total 1360 754 300 Output Total 850 Balance 1360 -96 300 Physical Exam - Physical Exam General Appearance: WD/WN, alert, no apparent distress Respiratory: lungs clear, normal breath sounds, No respiratory distress, No accessory muscle use Cardiac/Chest: normal peripheral pulses, regular rate, rhythm, No edema Abdomen: normal bowel sounds, non-tender, soft, No pulsatile mass, No distended , No guarding, No rebound, No mass Back: Normal inspection, No CVA tenderness Skin: normal color, warm/dry, No cyanosis Extremities: non-tender, No pedal edema, No swelling Neuro/Psych: alert, normal mood/affect ICD10 Worksheet Patient Problems: Problems Problem Status Onset Altered mental status Acute Pneumonia Acute 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
[2017-02-04] MEDS: CIPROFLOXACIN 500 MG TAB PO SCH ×2 (11:53→20:17)
[2017-02-05] MEDS: RIVAROXABAN 15 MG TAB PO SCH ×2 (09:04→18:36)
[2017-02-05] MEDS: POLYETHYLENE GLYCOL 3350 17 GM PKT PO SCH (09:04)
[2017-02-05] MEDS: METOPROLOL TARTRATE 50 MG TAB PO SCH ×2 (09:05→20:49)
[2017-02-05] MEDS: ATORVASTATIN CALCIUM 10 MG TAB PO SCH (09:05)
[2017-02-05] MEDS: LACOSAMIDE 50 MG TAB PO SCH ×2 (09:05→20:48)
[2017-02-05] MEDS: CHOLECALCIFEROL VIT D3 2,000 UNITS TAB/CAP PO SCH (09:06)
[2017-02-05] MEDS: LISINOPRIL 40 MG TAB PO SCH (09:06)
[2017-02-05] MEDS: levETIRAcetam 500 MG TAB PO SCH ×2 (09:08→20:49)
[2017-02-05] MEDS: CIPROFLOXACIN 500 MG TAB PO SCH ×2 (09:08→20:49)
[2017-02-05] MEDS: SENNOSIDES/DOCUSATE SODIUM TAB PO SCH (09:09)
--- NOTE | 2017-02-05 13:31 | SOAPPROG ---
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 FIM gain 49 to 62 as of 01/29/17, to 66 as of 02/03/17. T' fers CGA - min A with cues. Walks 150' FWW, veers to R and needs assistance to not collide with objects. Dressing UB min A, LB needs assist to initiate using graduate studies dean; hiked pants SBA. Diplopia affects G&H, worse close than distant. Continue PT, and OT. * Dysphagia. Advanced to regular diet. Still has B buccal pocketing and eats slowly. Continue SOCK KNITTER. * Cough. CXR 01/31/17 with lingular atelectasis vs infiltrate vs scarring. O/W not c/w pneumonia clinically; VFSS implicates reflux. * Abd/flank pain. UA c/w UTI. No leukocytosis on CBC. GNR 2 types low counts on Cx. Will continue Abx 3 days total as she's doing better with treatment.. * GI. Has constipation, which may contributes to reflux. Add polyethylene glycol 02/04/17. Denies GERD symptoms. No indication for antacid. Reduce pill burden: will d/c amantadine. Add bisacodyl suppository 02/02/17. * Anemia, stable. Follow-up with PCP 1 - 2 weeks. * Cognition. Continue SOCK KNITTER. Watch for decline in alertness with d/c of amantadine. * Left cranial nerve 3 palsy. Proptosis has resolved. She still describes some left diplopia, improving. * Hypertension. She had been switched to losartan on her prior inpatient rehabilitation stay due to cough. Cough, however, did not resolve with change to losartan so she will be resumed on lisinopril 40 mg daily. Elevated AM blood pressures so will change from atenolol 100 mg daily to metoprolol 50 mg BID. Chlorthalidone D/C'd due to hyponatremia. Adequate control. * Right lower extremity deep venous thrombosis. Continue rivaroxaban 3 - 6 mo. Change dose to 20 mg QD on 02/21/17. * Alertness appears to be much improved. No decline with discontinuation of amantadine. * Anemia. Iron sulfate was discontinued during her prior inpatient rehabilitation stay due to nausea. Chronic/stable conditions: * Acute renal failure with creatinine increased from 1 to 1.3 during her prior stay following initiation of chlorthalidone. Resolved 01/29/17. * Hyponatremia, mild, with a sodium of 133. * Seizure disorder, stable on lacosamide and levetiracetam. * Dyslipidemia. Continue atorvastatin. * Vitamin D deficiency. Continue vitamin D replacement. * Recurrent urinary tract infections. Continue nitrofurantoin 100 mg b.i.d. as a preventive. Plans to return home with . Discharge date of 02/06/17. Attended family meeting, 45 minutes. Patient, and son present. 02/05/17 13:24 Subjective: Feeling better today. No nausea/abd pain. Slept well. No f/c, no dysuira. Objective: Vital Signs Temp Pulse Resp BP Pulse Ox 37 C 72 16 103/68 91 L 02/05/17 06:25 02/05/17 09:05 02/05/17 06:25 02/05/17 09:06 02/05/17 06:25 Laboratory Results 02/04/17 06:45 02/04/17 06:45 02/04/17 02/05/17 02/06/17 05:59 05:59 05:59 Intake Total 754 420 330 Output Total 850 250 Balance -96 420 80 Physical Exam - Physical Exam General Appearance: WD/WN, alert, no apparent distress, obese Respiratory: normal breath sounds, crackles (few bibasilar expiratory) Cardiac/Chest: regular rate, rhythm, edema (trace B LE) Skin: normal color, warm/dry Neuro/Psych: alert, normal mood/affect ICD10 Worksheet Patient Problems: Problems Problem Status Onset Altered mental status Acute Pneumonia Acute 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
[2017-02-05] MEDS: ONDANSETRON DISINTEGRATING 4 MG TAB PO PRN (15:52)
[2017-02-05 20:45] VITALS: O2SAT 92
[2017-02-06] MEDS: ATORVASTATIN CALCIUM 10 MG TAB PO SCH (08:20)
[2017-02-06] MEDS: CHOLECALCIFEROL VIT D3 2,000 UNITS TAB/CAP PO SCH (08:20)
[2017-02-06] MEDS: levETIRAcetam 500 MG TAB PO SCH (08:21)
[2017-02-06] MEDS: LISINOPRIL 40 MG TAB PO SCH (08:21)
[2017-02-06] MEDS: LACOSAMIDE 50 MG TAB PO SCH (08:21)
[2017-02-06] MEDS: METOPROLOL TARTRATE 50 MG TAB PO SCH (08:24)
[2017-02-06] MEDS: POLYETHYLENE GLYCOL 3350 17 GM PKT PO SCH (08:26)
[2017-02-06] MEDS: RIVAROXABAN 15 MG TAB PO SCH (08:26)
[2017-02-06] MEDS: SENNOSIDES/DOCUSATE SODIUM TAB PO SCH (08:27)
[2017-02-06 08:29] VITALS: BP 114/76; PULSE 88
[2017-02-06] MEDS: CIPROFLOXACIN 500 MG TAB PO SCH (10:05)
[2017-02-06 10:10] VITALS: TEMP 97.7
--- NOTE | 2017-02-06 11:58 | SOAPPROG ---
SOAP Progress Note Assessment/Plan: Assessment: 71 yo F s/p SDH on 11/30/16, R frontal craniotomy and clipping on 12/01/16, complicated by seizures, hydrocephalus (s/p shunting 01/27/17): * Debility, status post aneurysmal rupture, craniotomy and clipping, hydrocephalus and shunt placement, with impaired mobility, activities of daily living and cognition. FIM gain 49 to 62 as of 01/29/17, to 66 as of 02/03/17. T' fers CGA - min A with cues. Walks 150' FWW, veers to R and needs assistance to not collide with objects. Dressing UB min A, LB needs assist to initiate using immunochemist; hiked pants SBA. Continue PT, and OT with home care. * Diplopia affects G&H, worse close than distant. * Dysphagia. Advanced to regular diet. Still has B buccal pocketing and eats slowly. Continue FOAMING MACHINE OPERATOR. * Cough. CXR 01/31/17 with lingular atelectasis vs infiltrate vs scarring. O/W not c/w pneumonia clinically; VFSS implicates reflux. * UA c/w UTI. No leukocytosis on CBC. GNR 2 types low counts on Cx. Continue Abx 3 days total as she's doing better with treatment.. * GI. constipation, cont polyethylene glycol 02/04/17. Denies GERD symptoms. No indication for antacid. * Anemia, stable. Follow-up with PCP next week. stool for occult blood pending. * Cognition. Continue FOAMING MACHINE OPERATOR. Watch for decline in alertness with d/c of amantadine. * Left cranial nerve 3 palsy. Proptosis has resolved. She still describes some left diplopia, improving. * Hypertension. She had been switched to losartan on her prior inpatient rehabilitation stay due to cough. Cough, however, did not resolve with change to losartan so she will be resumed on lisinopril 40 mg daily. Elevated AM blood pressures so will change from atenolol 100 mg daily to metoprolol 50 mg BID. Chlorthalidone D/C'd due to hyponatremia. Adequate control with BP this am 114/69. No lightheadedness. * Right lower extremity deep venous thrombosis. Continue rivaroxaban 3 - 6 mo. Change dose to 20 mg QD on 02/21/17. * Anemia. Iron sulfate was discontinued during her prior inpatient rehabilitation stay due to nausea, dark stools. Chronic/stable conditions: * Acute renal failure with creatinine increased from 1 to 1.3 during her prior stay following initiation of chlorthalidone. Resolved 01/29/17. * Hyponatremia, mild, with a sodium of 133. * Seizure disorder, stable on lacosamide and levetiracetam. * Dyslipidemia. Continue atorvastatin. * Vitamin D deficiency. Continue vitamin D replacement. * Recurrent urinary tract infections. Continue nitrofurantoin 100 mg b.i.d. as a preventive. Plans to return home with . Discharge today 02/06/17. 02/06/17 11:49 Subjective: No new problems or c/o's No F/C/CP/SOB/N/V/D/C No dysuria/F/U reviewed sx/sx to monitor at home will f/u with PCP on 02/09 Objective: Vital Signs Temp Pulse Resp BP Pulse Ox 36.5 C 88 16 114/76 92 02/06/17 08:00 02/06/17 08:24 02/06/17 08:00 02/06/17 08:24 02/05/17 20:00 Laboratory Results 02/04/17 06:45 02/04/17 06:45 02/05/17 02/06/17 02/07/17 05:59 05:59 05:59 Intake Total 420 880 240 Output Total 450 Balance 420 430 240 Physical Exam - Physical Exam General Appearance: alert, no apparent distress Neck: supple Respiratory: lungs clear Cardiac/Chest: regular rate, rhythm Skin: normal color, warm/dry Extremities: No pedal edema Neuro/Psych: alert, normal mood/affect, abnormal gait, motor weakness, cognition abnormalities, other (No acute changes) ICD10 Worksheet Patient Problems: Problems Problem Status Onset Altered mental status Acute Pneumonia Acute 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
--- NOTE | 2017-02-10 16:10 | GDS ---
[f rep st] DISCHARGE SUMMARY ADMITTING DIAGNOSES: Debility following subarachnoid aneurysmal bleed, subsequent seizures, subsequ ent hydrocephalus and shunt placement. DISCHARGE DIAGNOSES: Hypertension, anemia. CONSULTATIONS: There were none. PROCEDURES: There were none. COMPLICATIONS: There were none. HISTORY AND HOSPITAL COURSE: The patient returned to inpatient rehabilitation after a hospitalizati on for hydrocephalus which was a likely consequence of a subarachnoid hemorrhage due to aneurysmal b leed and a craniotomy. Those happened on 11/30/2016. She was transferred from [facility] for her management of seizures with continuous EEG monitoring, tim niy discharged to a [facility] facility for several weeks and then to [facility] as she had sufficient recovery of function while at the [facility] to tolerate 3 hours of therapy a day (please see H and P notes and discharge summary from her prior inpatient rehabilitation stay for further details). In short, she had poor progress, and her gait was noted to be consistent with hydrocephalus. A head CT was ordered per her neurosurgeon and showed hydrocephalus. She had hospitalization and shunt placement on 01/27/2017, and then she retur delia to inpatient rehabilitation on 01/28/2017. She had improvement in her condition during her stay. Her functional independence measure was initi ally 49, consistent with a low level of long term care. She had a gain to 62 as of 01/29/2017 an d 66 as of 02/03/2017. She was able to transfer with a contact guard assist to minimal assist with cues. She walked 150 feet with a front-wheeled walker. She was noted to have a veer to the right a nd needed some assistance to not collide with objects. For dressing, she needed assistance to initi ate, otherwise was done with standby assist. She continued to have diplopia which affected her groo vishal and hygiene. It was worse with close focus then with distant focus. There is a history of dysphagia. She was advanced to a regular diet. She continues to have bilater al buccal pocketing and to eat slowly. She had a cough. Chest x-ray on 02/10/2017 showed lingular atelectasis versus infiltrate versus scarring. Her presen tation was not otherwise consistent with pneumonia. A video fluoroscopic swallow study had been don e which implicated reflux as a possible etiology of the cough. She had abdominal and flank pain on the right side. Urinalysis was consistent with urinary tract in fection. She was treated with 3 days of ciprofloxacin. Urine culture grew low colony counts of 2 t ypes of gram-negative rods. Her abdominal and flank pain did not recur. She had stable anemia. She had previously been treated with iron sulfate, but she had nausea, and i t was not continued, and she was referred to her primary care provider for further follow up on the anemia. There was cognitive impairment. She had been treated previously with amantadine. The amantadine wa s discontinued, and there was no decline in her alertness noted. She had hypertension. She had been treated with chlorthalidone which caused hyponatremia, so it was discontinued. Blood pressure ultimately was adequately controlled with lisinopril 40 mg daily and metoprolol 50 mg twice daily. There is a history of right lower extremity deep venous thrombosis for which she was treated with ri varoxaban, and this was continued through her stay. There was no evidence of any seizure activity. She was continued on lacosamide and levetiracetam. Her functional status was sufficiently improved for she and her to be willing for her to ret urn home with her which is what they desire. So, she was discharged on 02/06/2017. LABS AND STUDIES: During her stay, she had anemia on 02/04/2017, hemoglobin was 11.8 and hematocrit was 34. Serum chemistry on 02/04/2017, showed mild hyponatremia at 132. This was before the disco ntinuation of chlorthalidone. She also had mild dehydration with a BUN of 25 and a creatinine of 1. 1. Stool occult blood was ordered, but it was not processed. CONDITION UPON DISCHARGE: Good. ACTIVITY: Ad shawnee but supervision for mobility and activities of daily living. DIET: Regular. DATE OF NEXT APPOINTMENT: She is to follow up with Dr. Luis Eduardo Jones, her primary care provider, on 02/09/2017, with neurosurgeon, Dr. Basilio Ge on 03/04/2017, and with Dr. Ulices Arnold, I belie ve with Neuro-Ophthalmology, on 03/04/2017. MEDICATIONS AT DISCHARGE: 1. Cholecalciferol 2000 units p.o. daily. 2. Metoprolol 50 mg p.o. twice daily. 3. Polyethylene glycol 17 g p.o. daily. 4. Rivaroxaban 15 mg p.o. twice daily for 14 more days, followed by rivaroxaban 20 mg daily. 5. Senna/docusate 1 p.o. daily. 6. Acetaminophen 650 mg p.o. q.4 hours p.r.n. 7. Magnesium hydroxide 30 mL p.o. daily p.r.n. 8. Atorvastatin 10 mg p.o. daily. 9. Lacosamide 100 mg p.o. twice daily. 10. Levetiracetam 1000 mg p.o. twice daily. 11. Lisinopril 40 mg p.o. daily. 12. Nitrofurantoin 100 mg p.o. twice daily for urinary tract infection prophylaxis. ISSUES TO BE ADDRESSED AT FOLLOWUP: 1. Functional status. She is to continue physical and occupational and speech therapy and can foll ow up with her primary care provider regarding her progress. 2. Status post neurosurgical interventions x2 with craniotomy and evacuation of blood and clipping of aneurysmal bleed and subsequently ventriculoperitoneal shunt placement. She will follow up with neurosurgeon, Dr. Ge. 3. Anemia. She can follow up with her primary care provider. 4. Pulmonary embolus. She should continue rivaroxaban for 3-6 months and can discuss with her [facility] care provider, timing of discontinuation. 5. Seizure disorder. It is likely she will need to continue anticonvulsants for 1-2 years. She ca n follow up with primary care or Neurology regarding further seizure management. 6. Blood pressure. She should follow up with her primary care provider. /[id number]/MODL
[2017-02-20] MEDS ORDERED: RIVAROXABAN 20 MG TAB PO SCH (18:00)
== END 2017-02-06 12:06 | disposition home health service (06) | DRG 949 ==
LOC: BREH 12:56
PROVIDERS: ADMIT Internal Medicine; ATTEND Internal Medicine
DX: Z48.811 Encounter for surgical aftercare following surgery on the nervous system (principal); I82.4Z1 Acute embolism and thrombosis of unspecified deep veins of right distal lower extremity; N39.0 Urinary tract infection, site not specified; E87.1 Hypo-osmolality and hyponatremia; N17.9 Acute kidney failure, unspecified; R56.9 Unspecified convulsions; I10 Essential (primary) hypertension; E55.9 Vitamin D deficiency, unspecified; D50.9 Iron deficiency anemia, unspecified; K59.00 Constipation, unspecified; E78.5 Hyperlipidemia, unspecified; R13.10 Dysphagia, unspecified; H53.2 Diplopia
CPT/HCPCS: 92507-GN; 92522-GN; 92526-GN; 92610-GN; 97110-GO; 97110-GP; 97112-GO; 97112-GP; 97116-GP; 97164-GP; 97168-GO; 97530-GO; 97530-GP; 97532-GO; 97535-GO; 99366-GO; J1650

== ENCOUNTER 2017-02-07 00:42 | Inpatient (IN) | payer OTHER ==
--- NOTE | 2017-02-07 01:05 | CPEKG ---
Heart Rate: 99 RR Interval: 606 P-R Interval: 156 QRSD Interval: 88 QT Interval: 328 QTC Interval: 421 P [place]: 27 QRS [place]: 18 T Wave [place]: 217 EKG Severity - ABNORMAL ECG - EKG Impression: SINUS RHYTHM EKG Impression: ABNORMAL T, CONSIDER ISCHEMIA, DIFFUSE LEADS Electronically Signed By: Kai Pearson 07-Feb-2017 05:57:08
--- NOTE | 2017-02-07 01:08 | EDPHY ---
H & P Time Seen by Provider: 02/07/17 00:52 HPI/ROS: Chief Complaint: Altered mental status HPI: 71-year-old woman with a recent history of an left MCA aneurysm status post bleed on December 01 of this year. Course complicated by the development of hydrocephalus and a DVT. Patient had STEWARD/STEWARDESS TOURIST CLASS shunt placed 12 days ago. She has been in rehab facility since and was discharged home yesterday. This morning patient's woke up to find her acting confused. She was awake but would not answer questions. He called 911. She is currently being treated for urinary tract infection with Macrobid however so for urine cultures have not grown out any significant colonies. She has been taking her Xarelto had her other medications daily. No nausea or vomiting. No focal weakness. states she did is seemed to be acting similar to prior to her STEWARD/STEWARDESS TOURIST CLASS shunt placement however she is significantly worse at this time. Patient arrived emergency department as a stroke alert. ROS: 10 point Review of Systems is negative except as noted in the HPI. PMH: Left MCA aneurysm with bleed status post clipping Social History: No smoking, no alcohol, no recreational drug use Family History: non-contributory Physical Exam: Gen: Awake, Alert, answering yes and no and stating her name but not answering other questions HEENT: Nose: no rhinorrhea Eyes: PERRLA, EOMI Mouth: Moist mucosa Neck: Supple, no JVD Chest: nontender, lungs clear to auscultation Heart: S1, S2 normal, no murmur Abd: Soft, non-tender, no guarding Back: no CVA tenderness, no midline tenderness Ext: no edema, non-tender Skin: no rash Neuro: See NIH scale - Medical/Surgical History Hx Asthma: No Hx Chronic Respiratory Disease: No Hx Diabetes: No Hx Cardiac Disease: No Hx Renal Disease: No Hx Cirrhosis: No Hx Alcoholism: No Hx HIV/AIDS: No Hx Splenectomy or Spleen Trauma: No Other PMH: L SHOULDER, R HIP SURGERY, 12/31/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, 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, HTN, ARTHRITIS - Social History Smoking Status: Never smoked Constitutional: Initial Vital Signs Temperature (C) 38.1 C 02/07/17 01:00 Heart Rate 99 02/07/17 01:00 Respiratory Rate 18 02/07/17 01:00 Blood Pressure 136/91 H 02/07/17 01:00 O2 Sat (%) 94 02/07/17 01:00 O2 Delivery Mode Nasal Cannula O2 (L/minute) 4 Allergies/Adverse Reactions: bee venom protein (honey bee) Allergy (Verified 02/07/17 00:57) naproxen [From Aleve] Allergy (Verified 02/07/17 00:57) Hives Penicillins Allergy (Verified 02/07/17 00:57) swelling Home Medications: Medication Instructions Recorded Acetaminophen [Tylenol 325mg (*)] 650 mg PO Q4 PRN 01/12/17 Magnesium Hydroxide [Milk of 30 ml PO DAILY PRN 01/12/17 Magnesia] Sennosides/Docusate Sodium 1 each PO DAILY 01/12/17 [Senna-S Tablet] Atorvastatin Calcium [Lipitor 10 10 mg PO DAILY #30 tab 02/05/17 mg (*)] Cholecalciferol Vit D3 [Vitamin D3 2,000 units PO DAILY #0 each 02/05/17 2000 units tab (OTC)] Lacosamide [Vimpat] 100 mg PO BID #60 tablet 02/05/17 Lisinopril [Zestril 40 mg (*)] 40 mg PO DAILY #30 tab 02/05/17 Metoprolol Tartrate [Lopressor 50 50 mg PO BID #60 tab 02/05/17 mg (*)] Nitrofurantoin Macrobid [Macrobid] 100 mg PO BID #60 cap 02/05/17 Polyethylene Glycol 3350 [Miralax 17 gm PO DAILY #0 pkt 02/05/17 17 gm (*)] Rivaroxaban [Xarelto 15mg (*)] 15 mg PO BIDMEAL #29 tab 02/05/17 Rivaroxaban [Xarelto] 20 mg PO DAILY AT 6PM #30 tab 02/05/17 levETIRAcetam [Keppra 500 mg (*)] 1,000 mg PO BID #120 tab 02/05/17 Medical Decision Making - Diagnostics Imaging Results: CT brain: Left MCA clip is noted. There is no acute bleed. There is a shunt in the 3rd ventricle with appropriate looking placement. The ventricles are prominent but there are no larger than prior to the showed placement scan. There is no bleed. There is no shift. Interpreted by Dr. Grant Imaging: Discussed imaging studies w/ calliope player Radiologist ED Course/Re-evaluation: 71-year-old presenting with acute onset of confusion and difficulty speaking. Patient was initially activated as a stroke alert. I have discussed with Dr. Fabricio Young, [facility]. He agrees that given the patient's recent complex neurosurgical process, recent shunt placement 12 days ago and Xarelto she would not be an appropriate candidate for thrombolytics at this time. Will stand down a stroke alert at this time. CT scan is noted. Patient is also noted to be febrile. I have reviewed the patient's urine cultures in these have been contaminated with no significant colonies going out. Chest x-ray shows no acute focal infiltrate. Will discuss with Neurosurgery. Case discussed with Dr. Higginbotham, neurosurgery. She she suggest symptoms could unlikely be from seizure or from an infected shunt. Cannot do a LP at this time given the patient's on INR. I have discussed with Dr. Boyle, hospitalist. She will admit to her service for further care - Data Points Laboratory Results: Laboratory Results 02/07/17 00:45 02/07/17 00:45 02/07/17 02/07/17 02/07/17 02:10 00:45 00:45 WBC RBC Hgb POC Hgb Hct POC Hct MCV MCH MCHC RDW Plt Count MPV Neut % (Auto) Lymph % (Auto) Maury % (Auto) Eos % (Auto) Baso % (Auto) Nucleat RBC Rel Count Absolute Neuts (auto) Absolute Lymphs (auto) Absolute Monos (auto) Absolute Eos (auto) Absolute Basos (auto) Absolute Nucleated RBC Immature Gran % Seg Neutrophils % Band Neutrophils % Lymphocytes % Monocytes % Eosinophils % Immature Gran # Absolute Seg Neuts Absolute Band Neuts Absolute Lymphocytes Absolute Monocytes Absolute Eosinophils Toxic Granulation Toxic Vacuolation Platelet Estimate PT 42.4 SEC H SEC (12.0-15.0) INR 4.34 H (0.83-1.16) POC Sodium Sodium 132 mEq/L L mEq/L (134-144) POC Potassium Potassium 4.4 mEq/L mEq/L (3.5-5.2) POC Chloride Chloride 97 mEq/L mEq/L (97-110) Carbon Dioxide 24 mEq/l mEq/l (22-31) Anion Gap 11 mEq/L mEq/L (8-16) POC BUN BUN 34 mg/dL H mg/dL (7-23) Creatinine 1.8 mg/dL H D mg/dL (0.6-1.0) POC Creatinine Estimated GFR 28 Glucose 102 mg/dL H mg/dL (70-100) POC Glucose Calcium 10.3 mg/dL mg/dL (8.5-10.4) Urine Color YELLOW Urine Appearance HAZY Urine pH 5.0 (5.0-7.5) Ur Specific [place] 1.012 (1.002-1.030) Urine Protein NEGATIVE (NEGATIVE) Urine Ketones NEGATIVE (NEGATIVE) Urine Blood 1+ H (NEGATIVE) Urine Nitrate NEGATIVE (NEGATIVE) Urine Bilirubin NEGATIVE (NEGATIVE) Urine Urobilinogen NEGATIVE EU EU (0.2-1.0) Ur Leukocyte Esterase NEGATIVE (NEGATIVE) Urine RBC 1-3 /hpf /hpf (0-3) Urine WBC 1-3 /hpf /hpf (0-3) Ur Epithelial Cells TRACE /lpf /lpf (NONE-1+) Hyaline Casts 1-5 /lpf /lpf (0-1) Urine Mucus TRACE /lpf /lpf (NONE-1+) Urine Glucose NEGATIVE (NEGATIVE) 02/07/17 02/07/17 00:45 00:41 WBC 4.82 10^3/uL 10^3/uL (3.80-9.50) RBC 3.84 10^6/uL L 10^6/uL (4.18-5.33) Hgb 11.9 g/dL L g/dL (12.6-16.3) POC Hgb 12.2 gm/dL L gm/dL (12.6-16.3) Hct 35.3 % L % (38.0-47.0) POC Hct 36 % L % (38-47) MCV 91.9 fL fL (81.5-99.8) MCH 31.0 pg pg (27.9-34.1) MCHC 33.7 g/dL g/dL (32.4-36.7) RDW 12.8 % % (11.5-15.2) Plt Count 269 10^3/uL D 10^3/uL (150-400) MPV 9.6 fL fL (8.7-11.7) Neut % (Auto) Not Reported Lymph % (Auto) Not Reported Maury % (Auto) Not Reported Eos % (Auto) Not Reported Baso % (Auto) Not Reported Nucleat RBC Rel Count 0.0 % % (0.0-0.2) Absolute Neuts (auto) Not Reported Absolute Lymphs (auto) Not Reported Absolute Monos (auto) Not Reported Absolute Eos (auto) Not Reported Absolute Basos (auto) Not Reported Absolute Nucleated RBC 0.00 10^3/uL 10^3/uL (0-0.01) Immature Gran % Not Reported Seg Neutrophils % 45 % % Band Neutrophils % 40 % % Lymphocytes % 13 % % Monocytes % 1 % % Eosinophils % 1 % % Immature Gran # Not Reported Absolute Seg Neuts 2.17 10^/uL 10^/uL (1.70-6.50) Absolute Band Neuts 1.93 10^3/uL H 10^3/uL (0.00-0.70) Absolute Lymphocytes 0.63 10^3/uL L 10^3/uL (1.00-3.00) Absolute Monocytes 0.05 10^3/uL L 10^3/uL (0.30-0.80) Absolute Eosinophils 0.05 10^3/uL 10^3/uL (0.03-0.40) Toxic Granulation PRESENT H Toxic Vacuolation PRESENT H Platelet Estimate ADEQUATE (ADEQ) PT INR POC Sodium 134 mEq/L mEq/L (134-144) Sodium POC Potassium 4.1 mEq/L mEq/L (3.3-5.0) Potassium POC Chloride 95 mEq/L L mEq/L (97-110) Chloride Carbon Dioxide Anion Gap POC BUN 33 mg/dL H mg/dL (7-23) BUN Creatinine POC Creatinine 1.8 mg/dL H mg/dL (0.6-1.0) Estimated GFR Glucose POC Glucose 107 mg/dL H mg/dL (70-100) Calcium Urine Color Urine Appearance Urine pH Ur Specific [place] Urine Protein Urine Ketones Urine Blood Urine Nitrate Urine Bilirubin Urine Urobilinogen Ur Leukocyte Esterase Urine RBC Urine WBC Ur Epithelial Cells Hyaline Casts Urine Mucus Urine Glucose Point of Care Test Results: 02/07/17 00:41 POC Sodium 134 POC Potassium 4.1 POC Chloride 95 L POC BUN 33 H POC Creatinine 1.8 H POC Glucose 107 H Departure - Departure Disposition: [facility] Inpatient Acute Clinical Impression: Altered mental status Condition: Fair Referrals: Patient,NotPresent [Unknown] - As per Instructions NIH Stroke Scale Date of Exam: 02/07/17 Time of Exam: 00:50 Level of Consciousness: Alert LOC Questions: Answers One LOC Commands: Performs Both Correctly Best Gaze: Normal Visual: No Visual Loss Facial Palsy: Normal Motor Arm-Left: No Drift Motor Arm-Right: No Drift Motor Leg-Left: No Drift Motor Leg-Right: No Drift Limb Ataxis: Absent Sensory: Normal Best Language: Severe Aphasia Dysarthria: Normal Extinction and Inattention (Neglect): No Abnormality NIH Scale Score: 3
[2017-02-07 01:10] LABS: ADD MORPH? NO; ADD SCAN? YES; ATYPICAL LYMPHOCYTE FLAG 0 (0-99); FRAGMENT RBC FLAG 0 (0-99); HEMATOCRIT 35.3 % (38.0-47.0); HEMOGLOBIN 11.9 g/dL (12.6-16.3); LIPEMIA HEMOLYSIS FLAG 80 (0-99); MEAN CELL HEMOGLOBIN CONCENTR. 33.7 g/dL (32.4-36.7); MEAN CELL VOLUME 91.9 fL (81.5-99.8); MEAN PLATELET VOLUME 9.6 fL (8.7-11.7); PLATELET CLUMPS FLAG 0 (0-99); PLATELET COUNT 269 10^3/uL (150-400); RED BLOOD CELL COUNT 3.84 10^6/uL (4.18-5.33); RED CELL DISTRIBUTION WIDTH 12.8 % (11.5-15.2)
[2017-02-07 01:13] LABS: LEFT SHIFT FLG 130 (0-99)
[2017-02-07 01:23] LABS: ANION GAP 11 mEq/L (8-16); CALCIUM 10.3 mg/dL (8.5-10.4); CARBON DIOXIDE 24 mEq/l (22-31); CHLORIDE 97 mEq/L (97-110); CREATININE 1.8 mg/dL (0.6-1.0); GLOMERULAR FILTRATION RATE 28; GLUCOSE 102 mg/dL (70-100); POTASSIUM 4.4 mEq/L (3.5-5.2); SODIUM 132 mEq/L (134-144)
[2017-02-07 01:25] LABS: INR 4.34 (0.83-1.16); PROTIME(PATIENT) 42.4 SEC (12.0-15.0)
[2017-02-07 01:53] LABS: ADD DIFF? YES; SCAN POSITIVE
[2017-02-07 02:18] LABS: PLATELET ESTIMATE ADEQUATE (ADEQ); TOXIC GRANULATION PRESENT; TOXIC VACUOLIZATION PRESENT
[2017-02-07 02:25] LABS: COLOR YELLOW; LEUKOCYTE ESTERASE,URINE NEGATIVE (NEGATIVE); NITRITE,URINE NEGATIVE (NEGATIVE)
[2017-02-07 02:31] LABS: MUCUS TRACE /lpf (NONE-1+)
[2017-02-07] MEDS ORDERED: NS 500 ML IV ONE (04:32)
[2017-02-07] MEDS ORDERED: NS 1,000 ML IV ONE ×2 (06:11→06:19)
[2017-02-07] MEDS ORDERED: ONDANSETRON DISINTEGRATING 4 MG TAB PO PRN (06:19)
[2017-02-07] MEDS ORDERED: ACETAMINOPHEN 325 MG TAB PO PRN (06:19)
[2017-02-07] MEDS ORDERED: ONDANSETRON 4 MG/2 ML VIAL IVP PRN (06:19)
[2017-02-07] MEDS ORDERED: NS 1,000 ML IV SCH (06:30)
[2017-02-07 06:41] LABS: % IMMATURE GRANULYOCYTES 0.6 % (0.0-1.1); ADD DIFF? NO; ADD MORPH? NO; ADD SCAN? NO; ATYPICAL LYMPHOCYTE FLAG 0 (0-99); FRAGMENT RBC FLAG 0 (0-99); HEMATOCRIT 30.1 % (38.0-47.0); HEMOGLOBIN 10.4 g/dL (12.6-16.3); LEFT SHIFT FLG 80 (0-99); LIPEMIA HEMOLYSIS FLAG 90 (0-99); MEAN CELL HEMOGLOBIN 31.6 pg (27.9-34.1); MEAN CELL HEMOGLOBIN CONCENTR. 34.6 g/dL (32.4-36.7); MEAN CELL VOLUME 91.5 fL (81.5-99.8); MEAN PLATELET VOLUME 9.6 fL (8.7-11.7); PLATELET CLUMPS FLAG 10 (0-99); PLATELET COUNT 234 10^3/uL (150-400); RED BLOOD CELL COUNT 3.29 10^6/uL (4.18-5.33); RED CELL DISTRIBUTION WIDTH 12.8 % (11.5-15.2)
[2017-02-07 07:07] LABS: ALANINE AMINOTRANSFERASE 64 IU/L (9-52); ALBUMIN 3.3 g/dL (3.5-5.0); ALKALINE PHOSPHATASE 103 IU/L (38-126); ANION GAP 11 mEq/L (8-16); ASPARTATE AMINOTRANSFERASE 64 IU/L (14-46); BILIRUBIN,TOTAL 0.7 mg/dL (0.1-1.4); CALCIUM 9.7 mg/dL (8.5-10.4); CARBON DIOXIDE 22 mEq/l (22-31); CHLORIDE 98 mEq/L (97-110); GLOMERULAR FILTRATION RATE 25; GLUCOSE 131 mg/dL (70-100); MAGNESIUM 1.6 mg/dL (1.6-2.3); POTASSIUM 3.1 mEq/L (3.5-5.2); SODIUM 131 mEq/L (134-144)
[2017-02-07 07:10] LABS: INR 3.2 (0.83-1.16); PROTIME(PATIENT) 33.2 SEC (12.0-15.0)
[2017-02-07 07:11] LABS: APTT 44.5 SEC (23.0-38.0)
[2017-02-07 07:18] LABS: TROPONIN I 0.016 ng/mL (0-0.034)
--- NOTE | 2017-02-07 07:37 | PDGENHP ---
History and Physical - Chief Complaint altered mental status - History of Present Illness Patient is a 71 year old female with recent intracranial hemorrhage s/p aneurysmal clipping in 11/2016, which was complicated by both new seizure disorder and also hydrocephalus requiring TELEPHONE INFORMATION CLERK shunt placement (on 01/27/2017). This prolonged hospital course was also complicated by a lower extremity DVT for which she was initiated on xarelto. She was discharged from [facility] to acute rehab during which she was doing well. She was then discharged home from acute rehab on 02/05. Patient's states her mental status appeared well on 02/05, she had no complaints of pain, headache or fever and went to sleep without event. She woke the following morning (02/06) appearing lethargic and slightly altered to her . Over the course of the day the lethargy increased and patient began to appear confused. By the evening, she had developed shaking chills/rigors. Her called the neurosurgeon's office who indicated she should be brought to the ED for further evaluation. Of note, patient was diagnosed with a UTI on 02/04 at rehab and was initiated on macrobid po for treatment. On arrival to the ED, patient was initially afebrile and hemodynamically stable. She arrived as a possible stroke alert, however, she had no focal deficits other than acute encephalopathy. CT head was obtained and did not show any new hemorrhage or acute changes. Over the course of her ED stay, patient developed a fever and became relatively hypotensive. Labs revealed new leukocytosis, elevated BUN/Cr, negative UA. CXR also did not reveal evidence of infection. History Information - Allergies/Home Medication List Allergies/Adverse Reactions: bee venom protein (honey bee) Allergy (Verified 02/07/17 00:57) naproxen [From Aleve] Allergy (Verified 02/07/17 00:57) Hives Penicillins Allergy (Verified 02/07/17 00:57) swelling Home Medications: Acetaminophen [Tylenol 325mg (*)] 650 mg PO Q4 PRN 01/12/17 [Last Taken 01/01/17 ] Magnesium Hydroxide [Milk of Magnesia] 30 ml PO DAILY PRN 01/12/17 [Last Taken 01/12/17 08:02] Sennosides/Docusate Sodium [Senna-S Tablet] 1 each PO DAILY 01/12/17 [Last Taken 01/28/17 11:30] I have personally reviewed and updated: family history, medical history, social history, surgical history - Past Medical History Additional medical history: intracranial hemorrhage s/p aneurysmal clipping in , which was complicated by both new seizure disorder and also hydrocephalus requiring TELEPHONE INFORMATION CLERK shunt placement. Hypertension. DVT of R lower extremity on xarelto (01/17/2017) - Surgical History Additional surgical history: shoulder/hip replacements. - Family History Positive for: non-pertinent - Social History Smoking Status: Never smoked Alcohol Use: None Drug Use: None Additional social history: Lives with , using a walker to ambulate Review of Systems ROS: 10pt was reviewed & negative except for what was stated in HPI & below Physical Exam Temp Pulse Resp BP Pulse Ox 36.8 C 76 18 97/56 L 95 02/07/17 05:42 02/07/17 07:13 02/07/17 07:13 02/07/17 07:13 02/07/17 07:13 O2 (L/minute) 2 Constitutional: no apparent distress, appears nourished, not in pain, other ( lethargic,) Eyes: PERRL, anicteric sclera, EOMI Ears, Nose, Mouth, Throat: hearing normal, ears appear normal, no oral mucosal ulcers, dry mucous membranes Cardiovascular: regular rate and rhythym, no murmur, rub, or gallop, pulses symmetric bilaterally, No JVD, No edema Peripheral Pulses: 2+: dorsalis-pedis (R), dorsalis-pedis (L) Respiratory: no respiratory distress, no rales or rhonchi, clear to auscultation Gastrointestinal: normoactive bowel sounds, soft, non-tender abdomen, no palpable masses, No tenderness, No guarding, No rebound, No distension Genitourinary: no bladder fullness, no bladder tenderness Skin: warm, normal color, no rashes or abrasions, no fluctuance, no induration, No mottled Musculoskeletal: full muscle strength, no muscle tenderness, normal joint ROM, no joint effusions Neurologic: other (lethargic, answers simple questions, generalized weakness without focality) Psychiatric: encephalopathic Lab Data & Imaging Review 02/07/17 06:30 02/07/17 06:30 WBC 16.04 10^3/uL (3.80-9.50) H D 02/07/17 06:30 RBC 3.29 10^6/uL (4.18-5.33) L 02/07/17 06:30 Hgb 10.4 g/dL (12.6-16.3) L 02/07/17 06:30 POC Hgb 12.2 gm/dL (12.6-16.3) L 02/07/17 00:41 Hct 30.1 % (38.0-47.0) L 02/07/17 06:30 POC Hct 36 % (38-47) L 02/07/17 00:41 MCV 91.5 fL (81.5-99.8) 02/07/17 06:30 MCH 31.6 pg (27.9-34.1) 02/07/17 06:30 MCHC 34.6 g/dL (32.4-36.7) 02/07/17 06:30 RDW 12.8 % (11.5-15.2) 02/07/17 06:30 Plt Count 234 10^3/uL (150-400) 02/07/17 06:30 MPV 9.6 fL (8.7-11.7) 02/07/17 06:30 Neut % (Auto) 96.0 % (39.3-74.2) H 02/07/17 06:30 Lymph % (Auto) 0.7 % (15.0-45.0) L 02/07/17 06:30 [place] % (Auto) 2.3 % (4.5-13.0) L 02/07/17 06:30 Eos % (Auto) 0.1 % (0.6-7.6) L 02/07/17 06:30 Baso % (Auto) 0.3 % (0.3-1.7) 02/07/17 06:30 Nucleat RBC Rel Count 0.0 % (0.0-0.2) 02/07/17 06:30 Absolute Neuts (auto) 15.39 10^3/uL (1.70-6.50) H 02/07/17 06:30 Absolute Lymphs (auto) 0.11 10^3/uL (1.00-3.00) L 02/07/17 06:30 Absolute Monos (auto) 0.37 10^3/uL (0.30-0.80) 02/07/17 06:30 Absolute Eos (auto) 0.02 10^3/uL (0.03-0.40) L 02/07/17 06:30 Absolute Basos (auto) 0.05 10^3/uL (0.02-0.10) 02/07/17 06:30 Absolute Nucleated RBC 0.00 10^3/uL (0-0.01) 02/07/17 06:30 Immature Gran % 0.6 % (0.0-1.1) 02/07/17 06:30 Seg Neutrophils % 45 % 02/07/17 00:45 Band Neutrophils % 40 % 02/07/17 00:45 Lymphocytes % 13 % 02/07/17 00:45 Monocytes % 1 % 02/07/17 00:45 Eosinophils % 1 % 02/07/17 00:45 Immature Gran # 0.10 10^3/uL (0.00-0.10) 02/07/17 06:30 Absolute Seg Neuts 2.17 10^/uL (1.70-6.50) 02/07/17 00:45 Absolute Band Neuts 1.93 10^3/uL (0.00-0.70) H 02/07/17 00:45 Absolute Lymphocytes 0.63 10^3/uL (1.00-3.00) L 02/07/17 00:45 Absolute Monocytes 0.05 10^3/uL (0.30-0.80) L 02/07/17 00:45 Absolute Eosinophils 0.05 10^3/uL (0.03-0.40) 02/07/17 00:45 Toxic Granulation PRESENT H 02/07/17 00:45 Toxic Vacuolation PRESENT H 02/07/17 00:45 Platelet Estimate ADEQUATE (ADEQ) 02/07/17 00:45 PT 42.4 SEC (12.0-15.0) H 02/07/17 00:45 INR 4.34 (0.83-1.16) H 02/07/17 00:45 VBG Lactic Acid 0.9 mmol/L (0.7-2.1) 02/07/17 05:35 POC Sodium 134 mEq/L (134-144) 02/07/17 00:41 Sodium 131 mEq/L (134-144) L 02/07/17 06:30 POC Potassium 4.1 mEq/L (3.3-5.0) 02/07/17 00:41 Potassium 3.1 mEq/L (3.5-5.2) L 02/07/17 06:30 POC Chloride 95 mEq/L (97-110) L 02/07/17 00:41 Chloride 98 mEq/L (97-110) 02/07/17 06:30 Carbon Dioxide 22 mEq/l (22-31) 02/07/17 06:30 Anion Gap 11 mEq/L (8-16) 02/07/17 06:30 POC BUN 33 mg/dL (7-23) H 02/07/17 00:41 BUN 35 mg/dL (7-23) H 02/07/17 06:30 Creatinine 2.0 mg/dL (0.6-1.0) H 02/07/17 06:30 POC Creatinine 1.8 mg/dL (0.6-1.0) H 02/07/17 00:41 Estimated GFR 25 02/07/17 06:30 Glucose 131 mg/dL (70-100) H 02/07/17 06:30 POC Glucose 107 mg/dL (70-100) H 02/07/17 00:41 Calcium 9.7 mg/dL (8.5-10.4) 02/07/17 06:30 Phosphorus 2.2 mg/dL (2.5-4.5) L 02/07/17 06:30 Magnesium 1.6 mg/dL (1.6-2.3) 02/07/17 06:30 Total Bilirubin 0.7 mg/dL (0.1-1.4) 02/07/17 06:30 AST 64 IU/L (14-46) H 02/07/17 06:30 ALT 64 IU/L (9-52) H 02/07/17 06:30 Alkaline Phosphatase 103 IU/L (38-126) 02/07/17 06:30 Troponin I 0.016 ng/mL (0-0.034) 02/07/17 06:30 Total Protein 6.0 g/dL (6.3-8.2) L 02/07/17 06:30 Albumin 3.3 g/dL (3.5-5.0) L 02/07/17 06:30 Urine Color YELLOW 02/07/17 02:10 Urine Appearance HAZY 02/07/17 02:10 Urine pH 5.0 (5.0-7.5) 02/07/17 02:10 Ur Specific Andreas 1.012 (1.002-1.030) 02/07/17 02:10 Urine Protein NEGATIVE (NEGATIVE) 02/07/17 02:10 Urine Ketones NEGATIVE (NEGATIVE) 02/07/17 02:10 Urine Blood 1+ (NEGATIVE) H 02/07/17 02:10 Urine Nitrate NEGATIVE (NEGATIVE) 02/07/17 02:10 Urine Bilirubin NEGATIVE (NEGATIVE) 02/07/17 02:10 Urine Urobilinogen NEGATIVE EU (0.2-1.0) 02/07/17 02:10 Ur Leukocyte Esterase NEGATIVE (NEGATIVE) 02/07/17 02:10 Urine RBC 1-3 /hpf (0-3) 02/07/17 02:10 Urine WBC 1-3 /hpf (0-3) 02/07/17 02:10 Ur Epithelial Cells TRACE /lpf (NONE-1+) 02/07/17 02:10 Hyaline Casts 1-5 /lpf (0-1) 02/07/17 02:10 Urine Mucus TRACE /lpf (NONE-1+) 02/07/17 02:10 Urine Glucose NEGATIVE (NEGATIVE) 02/07/17 02:10 Visualized and Interpreted Chest x-ray results: Yes Chest X-Ray results: no infiltrate Visualized and Interpreted imaging results: Yes Interpretation: CT head: no acute infarct, no new bleed; shunt in place, recent clipping seen Assessment & Plan Assessment: Patient is a 71 year old female with recent prolonged hospitalization for intracranial hemorrhage with aneurysmal clipping, complicated by seizure disorder and hydrocephalus requiring shunting. She was discharged home from acute rehab on 02/05 and by 02/06 was lethargic, had developed rigors and was acute encephalopathic. ED evaluation is concerning for encephalopathy likely due to sepsis, however, source of infection is not yet identified. Plan: # acute encephalopathy Patient is non focal, but is significantly lethargic, answering only one word answers to questions. Suspect a metabolic cause, specifically severe sepsis given her fever, leukocytosis. However, given her history, differential also includes new CVA, seizure, electrolyte imbalance. Will give gentle IVF hydration , f/u neurosurgery's evaluation (contacted by ED) and treat underlying metabolic abnormalities. Will also resume home keppra seizure prophylaxis. # severe sepsis Over ED course, patient became febrile and developed leukocytosis, meeting SIRS/ sepsis criteria. On 02/04 patient was diagnosed with a UTI and treated with macrobid. Culture from that urine sample reveals likely contaminant and UA on today's presentation is entirely negative. CXR also does not show obvious infiltrate/consolidation. Only localizing sign/symptom of infection is acute encephalopathy. 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 INR is elevated, patient received xarelto on 02/06, so LP could not be performed immediately in ED. - consult IR for LP -consult ID for severe sepsis of unclear source - start empiric antibiotics for presumed encephalitis (patient has beta lactam allergy), will start vancomycin and meropenem. -follow blood cultures # elevated INR Patient on xarelto for popliteal vein DVT discovered about 2 weeks ago. coagulopathy likely related to severe sepsis and also xarelto use. WIll continue to follow coags, if signs of bleeding, can give FFP for reversal. Last xarelto dose taken at about 630 pm on 02/06. # elevated BUN/cr Suspect this is the result of ATN due to severe sepsis. Will give IV fluid hydration, monitor urine output. Consider cruz placement. # dispo: admit to inpatient service for likely > 2 [place] stay # gen: NPO DVT ppx: on xarelto Full code
[2017-02-07] MEDS ORDERED: PROTOCOL POTASSIUM 1 DOSE MISC PRN (07:59)
[2017-02-07] MEDS ORDERED: PROTOCOL MAGNESIUM 1 DOSE IV PRN (07:59)
--- NOTE | 2017-02-07 08:40 | HOSPPROG ---
Hospitalist Progress Note Assessment/Plan: #Acute encephalopathy: suspect due to infection -Neurology consulted as well for seizures. Cont IV Keppra -CTH negative for acute bleed #Sepsis: WBC elevated with fever in ER -Concern for shunt infection. LP cannot be done with elevated INR and Xarelto ( gave 35mg last night). NSGY able to tap shunt -UA, CXR negative. Normal lactate. Blood cultures pending. Check viral panel -cont empiric IV abx. ID on board #Coagulopathy: spoke with Dr. Waters; no reversing agent for Xarelto. So no LP until INR improved #Left MCA aneurysm: complicated by bleed December 01 #YRIS: baseline Cr 1.2. Give IVFs #Right popliteal DVT (December): hold Xarelto #Seizure d/o: IV Keppra while NPO #Hypotension: normal lactate, IVFs. Trop negative, EKG with diffuse ST depressions, no CP. Repeat both Time spent on visit: 15 min bedside with patient, 30 min reviewing data and d/w IR, ID Subjective: confused Objective: Vital Signs Temp Pulse Resp BP Pulse Ox 36.8 C 74 18 96/50 L 95 02/07/17 05:42 02/07/17 08:21 02/07/17 08:21 02/07/17 08:21 02/07/17 08:21 Laboratory Results 02/07/17 06:30 02/07/17 06:30 02/06/17 02/07/17 02/08/17 05:59 05:59 05:59 Intake Total 2500 Balance 2500 PT 33.2 SEC (12.0-15.0) H D 02/07/17 06:30 INR 3.20 (0.83-1.16) H 02/07/17 06:30 - Physical Exam Constitutional: other (pasty skin) Eyes: PERRL Ears, Nose, Mouth, Throat: dry mucous membranes Cardiovascular: regular rate and rhythym Respiratory: no respiratory distress Gastrointestinal: normoactive bowel sounds, soft, non-tender abdomen Genitourinary: no bladder fullness, no bladder tenderness Skin: warm, other (no rash, ulceration) Musculoskeletal: other Neurologic: CN II-XII Intact, other (A&O x 0) Psychiatric: encephalopathic ICD10 Worksheet Patient Problems: Problems Problem Status Onset Altered mental status Acute Pneumonia Acute 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
[2017-02-07] MEDS: levETIRAcetam 500 MG in NS 100 ML IV SCH ×2 (11:53→22:34)
[2017-02-07] MEDS: MEROPENEM 1 GM in NS 100 ML IV SCH ×2 (11:58→20:59)
[2017-02-07] MEDS ORDERED: MAGNESIUM SULF 1 GM/DEXTROSE 100 ML IV ONE (12:21)
[2017-02-07] MEDS: VANCOMYCIN HCL/NORMAL SALINE 250 ML IV SCH (13:36)
[2017-02-07] MEDS ORDERED: MEROPENEM 500 MG in NS 100 ML IV SCH (14:00)
--- NOTE | 2017-02-07 14:00 | GCON ---
[f rep st] CONSULTATION INFECTIOUS DISEASE CONSULTATION. DATE OF CONSULTATION: 02/07/2017 REFERRING PHYSICIAN: Micki Card MD REASON FOR CONSULTATION: Fever and altered mental status. HISTORY OF PRESENT ILLNESS: Patient is a 71-year-old female with a complex recent past medical hist ory related to intracranial hemorrhage, with aneurysmal clipping in November of 2016, which was complic ated by seizures and hydrocephalus, ultimately requiring SOCIAL INSURANCE ADVISER shunt placement on 01/26/2017. The estela ent did have a period of hospitalization at the [facility] related to seizures, so she c ould have continuous seizure monitoring. Family does not note any seizure activity since November. At [facility], up until yesterday, at which point in time she was discharged home, she was being tr eated for urinary tract infection with ciprofloxacin over the last 3 days. Urine culture obtained a [facility] showed low colony counts of 2 gram negative miquel, lactose fermenters. Family did not note any preceding urinary tract symptoms. After discharge yesterday, she was able to ambulate with her walker and eat dinner, but overnight woke up with confusion and subjective fever, as well as rigors . Ultimately, the patient's had difficulty with her mobility, and was concerned about her c linical condition. Ultimately, -- was called, and the patient was brought to the emergency depar tment. Her family notes that this morning she was more alert and did interact with them in a meanin gful fashion. She has not been complaining of headache. She has had intermittent nausea and vomiti ng during the course of her illness, dating back to November. She has had some issues with pocketing f ood when eating and needs reminders regarding swallowing. She does not have an indwelling Silvestre cat heter. Laboratory data revealed a white blood cell count earlier today of 16,000, which is new vers us previous. This was associated with a left shift. She also had evidence of acute renal insuffici ency with her creatinine this a.m. of 2.0, after being 1.1 on 02/04/2017. Blood cultures were obtai delia, and the patient has been started empirically on vancomycin and meropenem. Given the above find ings, I am now asked to assist in her ongoing management. PAST MEDICAL HISTORY: Intracranial hemorrhage, as outlined above, hypertension, hypercholesterolemi a, DVT of the right lower extremity, currently on Xarelto anticoagulation, seizures. 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 PAST SURGICAL HISTORY: No shoulder replacement, hip replacement, SOCIAL INSURANCE ADVISER shunt placement. CURRENT MEDICATIONS: Vancomycin 1 g IV q.24 hours, meropenem 1 g IV q.12 hours, Keppra 500 mg IV b. i.d. ALLERGIES: Penicillin associated with feet and ankle swelling with pruritus; Naprosyn associated wi th hives. SOCIAL HISTORY: Patient does not smoke. Typically, she would drink wine with dinner. Returned hany roberts from rehab as outlined above yesterday. FAMILY HISTORY: Noncontributory to current presentation. PHYSICAL EXAMINATION: VITAL SIGNS: Temperature maximum 38.2, temperature current 37.0, heart rate 71, respiratory rate 18, blood pressure 116/64, oxygen saturation 97% on 2 L. GENERAL: The patient is an obese female, who is sleepy, but arousable. She appears nontoxic. HEENT: There is no scler al icterus, conjunctival injection, or conjunctival petechiae. Oropharynx is clear without lesions. Mucous membranes are dry. There is no tenderness over the frontal, maxillary or mastoid area. In cision over the right temporofrontal region, without erythema or drainage. NECK: Supple without pa lpable lymphadenopathy or thyromegaly. CHEST: Clear to auscultation bilaterally without adventitio us sounds. Respiratory effort is normal. CARDIOVASCULAR: Regular rate and rhythm without murmurs, gallops, rubs. ABDOMEN: Soft, mild diffuse tenderness without peritoneal signs. Incision over ri ght abdominal wall is intact without erythema or drainage. MUSCULOSKELETAL: No cyanosis, clubbing, or edema. SKIN: No rashes over the chest, abdomen, or extremity; no stigmata of endocarditis. Sk in is warm and dry to touch. NEUROLOGIC: The patient is arousable and oriented to [place] and hosp ital. She is unable to relate the date. There is ptosis of the right eye. Extraocular muscles are intact. Slight decrease in ability to raise the right eyebrow. The patient follows simple command s readily. Lower extremity motor function is 5/5 bilaterally. Sensation appears intact. No nystag mus is present. LYMPHATICS: No cervical or supraclavicular nodes. LABORATORY DATA: White blood cell count 16.0, hematocrit 30.1, platelets 234, neutrophils 96%. Ser um creatinine 2.0, AST 64, ALT 64, bilirubin 0.7, alkaline phosphatase 103, albumin 3.3, venous lact ate is 0.9. INR is 3.2. Urinalysis shows 1-3 white blood cells, and 1-3 red blood cells; showed 15 -25 white blood cells on 02/13/2017. Blood cultures x2 sets are pending. Urine culture from 02/04/2017 showed low colony counts of 2 sep arate lactose fermenting gram-negative rods. CT scan of the brain without contrast preliminarily shows no acute bleeding or infarction. IMPRESSION: Fever and altered mental status with recent complex history, including SOCIAL INSURANCE ADVISER shunt. Consi derations for presentation would include SOCIAL INSURANCE ADVISER shunt infection or other processes such as urinary tract infection, although, recent urine culture show low colony counts and urinalysis is currently bland. No chronic indwelling catheters to increased risk for catheter associated bloodstream infection. Viral syndrome also would be of consideration, as we have still seen influenza B circulating in our community. However, patient is without respiratory symptoms. Ultimately, would benefit from tappin g her SOCIAL INSURANCE ADVISER shunt or having a lumbar puncture, but this is currently complicated by increased INR and u se of Xarelto. Ciprofloxacin can be associated with confusion, although, should not be associated s imultaneously with fever. Overall her mental status appears to be improving with IV hydration and a ntibiotic therapy. RECOMMENDATIONS: 1. Agree with empiric vancomycin and meropenem. Dosing will be adjusted in accordance with changes in renal function. 2. Follow up blood cultures as available. 3. Agree with plans for influenza swab. 4. Agree with neurosurgical consultation; await input regarding ability to tap SOCIAL INSURANCE ADVISER shunt in the sett ing of increased INR and anticoagulant use. 5. We will discuss with neurosurgery regarding MRI of the brain, which would have to be without con trast to assess for meningeal thickening or other abnormalities (right-sided ptosis appears to be ne w). 6. Follow clinical response to above measures with adjustment accordingly. Above findings and plan have been reviewed with Dr. Card, the patient's family, and with neurosurg ica service. Thank you for this consultation. We will continue to follow the patient with you. /[id number]/MODL
--- NOTE | 2017-02-07 14:16 | CPEKG ---
Heart Rate: 68 RR Interval: 882 P-R Interval: 184 QRSD Interval: 86 QT Interval: 408 QTC Interval: 434 P Victor: 32 QRS Victor: 18 T Wave Victor: 134 EKG Severity - BORDERLINE ECG - EKG Impression: SINUS RHYTHM EKG Impression: BORDERLINE T WAVE ABNORMALITIES Electronically Signed By: Chente Escalante 07-Feb-2017 18:30:53
--- NOTE | 2017-02-07 15:20 | GCON ---
Seen ad examined agree with dictation. CSF from shunt tap 5WBC, 3RBC no orgs. Samantha suspicion for shunt infection, appears to have cleared mentally with increased keppra. Apparently some report of rigorous shaking yesterday. May have had breakthrough seizures. Will consult neurology. Please call with change in neuro status. [f rep st] CONSULTATION NEUROSURGICAL CONSULTATION DATE OF CONSULTATION: 02/07/2017 CHIEF COMPLAINT: Altered mental status. 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 Postoperatively, the patient developed a seizure disorder as well as hydrocephalus requiring PROFESSOR OF COMMUNICATION shunt placement on January 27, 2017. The patient also developed a lower extremity DVT during her prolonged hospitalization at that time. She is being treated with Xarelto currently for that. She was discharged to [facility], was ultimately doing well and was at home yesterday when her later in the evening noticed her to be acting a little bit more weak in general, and then ultimately at approximately 11:00 p.m. the patient had episodes of shaking with rigors, while at the same time being unresponsive. He subsequently brought her to the emergency department for further evaluation. She was unable to undergo a lumbar puncture secondary to concurrent Xarelto use. Her Keppra dose was increased. The patient was admitted for further observation and workup. Infectious Disease team saw her and started her on vancomycin and meropenem after blood cultures were drawn. Currently, the patient is awake and alert, but not oriented to the year and the month which, according to the family is her baseline. She has new right-sided eye closure. Typically, she has difficulty with her left eye, not her right eye. The patient was diagnosed with a UTI on February 04, 2017 at rehab and was treated with Macrobid. She underwent a CT scan of the head upon admission and this was compared to a prior study on January 27, 2017, and demonstrated no evidence of acute bleed or increased ventricular size and no acute infarct. ALLERGIES: Bee venom protein, naproxen, penicillins which results in swelling, and naproxen results in hives. MEDICATIONS: At home: Tylenol, milk of magnesia, and senna S. PAST MEDICAL HISTORY: 1. Intracranial hemorrhage status post aneurysmal clipping in November [address] Basilio Ge. 2. New seizure disorder status post aneurysm clipping. 3. Hydrocephalus status post aneurysm clipping requiring PROFESSOR OF COMMUNICATION shunt placement. 4. Hypertension. 5. Right lower extremity DVT, currently treated with Xarelto since January 17, 2017. PAST SURGICAL HISTORY: As above, and shoulder and hip replacements, as well as a . FAMILY HISTORY: Not pertinent. SOCIAL HISTORY: Never smoked. No alcohol use. No drug use. The patient lives with her . She uses a walker to ambulate. REVIEW OF SYSTEMS: Ten points were reviewed and negative, except for what is mentioned in the HPI. PHYSICAL EXAMINATION: NEUROLOGIC: The patient is awake, alert, and oriented to herself. She does not know the month or the year (this is baseline). Her speech is clear. Her right eye is closed, but when directed to open it, she does so. Her pupils are equal, round, and reactive to light. Her extraocular movements are intact. She has no pronator drift. Her strength is equal and symmetric in the bilateral upper and lower extremities. VITAL SIGNS: Blood pressure is 116/64, heart rate is 71, oxygen saturation is 97%. GENERAL: A pleasant 71-year-old female in no apparent distress. HEAD, EYES, EARS, NOSE AND THROAT: Within normal limits, with the exception of closure of the right eye, a healing right anterior incision and a palpable right frontal Codman PROFESSOR OF COMMUNICATION shunt. EXTREMITIES: Within normal limits. ABDOMEN: Shows a healing abdominal incision from her PROFESSOR OF COMMUNICATION shunt placement. SKIN: Is pink, warm and dry. LABORATORY DATA: White blood cell count 16.0, hemoglobin 10, hematocrit 30, platelets of 234,000. Her INR is 3.2. Sodium is 131, potassium 3.1 ,chloride 98, carbon dioxide 22, anion gap 11, BUN 35, creatinine 2.0. IMPRESSION: This is a 71-year-old female with a prior ruptured aneurysm clipping with Dr. Ge in November 2016, subsequently complicated by postoperative development of a seizure disorder, currently maintained on Keppra and also complicated by obstructive hydrocephalus requiring PROFESSOR OF COMMUNICATION shunt placement. Late last night, the patient developed altered mental status, generalized weakness and evidence of shaking with minimal responsiveness that is concerning for breakthrough seizure activity versus some type of acute infectious process. She has already been started prophylactically on vancomycin as well as meropenem by Dr. Hernandez. Neurologically, the patient is back at her baseline. PLAN: All of the above issues were discussed with the patient in detail as well as with the and son who were present, and with Dr. Higginbotham who saw and examined the patient today. The patient's PROFESSOR OF COMMUNICATION shunt was tapped and 5 mm of clear CSF fluid was sent for stat Gram stain, culture and cell count. At this time, we would like Neurology to also see the patient for further input regarding possible breakthrough seizure activity. Her Keppra dose has been increased and she will be maintained on this higher level hereafter during this hospitalization. /[id number]/MODL MTDD
[2017-02-07 15:55] LABS: CSF APPEARANCE CLEAR (CLEAR); CSF COLOR COLORLESS (COLORLESS); CSF SUPERNATANT COLORLESS (COLORLESS); WBC, CSF 5 /mm3 (0-5)
[2017-02-07] MEDS ORDERED: POTASSIUM CL 20 MEQ/15 ML UDCUP PO ONE (16:30)
[2017-02-07] MEDS: POTASSIUM Cl (KCl) 100 ML IV SCH ×2 (17:26→17:27)
[2017-02-07 19:59] LABS: POTASSIUM 4.9 mEq/L (3.5-5.2)
[2017-02-08 05:13] LABS: HEMATOCRIT 29.1 % (38.0-47.0); HEMOGLOBIN 9.8 g/dL (12.6-16.3); MEAN CELL HEMOGLOBIN 31.4 pg (27.9-34.1); MEAN CELL HEMOGLOBIN CONCENTR. 33.7 g/dL (32.4-36.7); MEAN CELL VOLUME 93.3 fL (81.5-99.8); RED BLOOD CELL COUNT 3.12 10^6/uL (4.18-5.33); RED CELL DISTRIBUTION WIDTH 13.1 % (11.5-15.2)
[2017-02-08 05:22] LABS: INR 1.83 (0.83-1.16); PROTIME(PATIENT) 21.2 SEC (12.0-15.0)
[2017-02-08 05:59] LABS: ALANINE AMINOTRANSFERASE 49 IU/L (9-52); ALBUMIN 2.7 g/dL (3.5-5.0); ALKALINE PHOSPHATASE 88 IU/L (38-126); ANION GAP 9 mEq/L (8-16); ASPARTATE AMINOTRANSFERASE 21 IU/L (14-46); BILIRUBIN,TOTAL 0.3 mg/dL (0.1-1.4); CALCIUM 9.5 mg/dL (8.5-10.4); CARBON DIOXIDE 21 mEq/l (22-31); CHLORIDE 104 mEq/L (97-110); CREATININE 1.3 mg/dL (0.6-1.0); GLOMERULAR FILTRATION RATE 40; GLUCOSE 100 mg/dL (70-100); MAGNESIUM 2.1 mg/dL (1.6-2.3); POTASSIUM 4.3 mEq/L (3.5-5.2); SODIUM 134 mEq/L (134-144)
[2017-02-08] MEDS: levETIRAcetam 500 MG in NS 100 ML IV SCH (08:25)
[2017-02-08] MEDS: MEROPENEM 1 GM in NS 100 ML IV SCH ×2 (08:53→23:18)
[2017-02-08] MEDS: VANCOMYCIN HCL/NORMAL SALINE 250 ML IV SCH (10:43)
--- NOTE | 2017-02-08 10:43 | NEUSURGPN ---
Assessment/Plan: 71 yo female with hx of coiling of aneurysm and most recently ADULT EDUCATION MANAGER shunt placement for hydrocephalus. Had AMS and possible seizure with fever, rigors on 02/07 and brought to [facility]. -CSF cultures pending but NGTD -Blood Cultures - final result no growth but prelim with growth -ID consulted for abx treatment plan currently on Vanc and Meropenem -Keppra increased if cause was seizures -Shunt infection less likely given CSF cell counts, cultures but will continue to follow iD recs -Neurology also consulted and Dr. Brito to see this morning as well for possible seizure workup -Patient seen by Dr. Ge and myself this morning Subjective: Patient feeling somewhat better this morning. Per RN no acute events overnight.No weakness. Objective: NAD, VSS BUE/BLE 01/01 Alert to month not year per baseline but alert to person, location PERRL, EOMI Following commands - Physician Discussed Patient with Dr.: Ge Patient Seen by Dr.: Ge Neurosurgery Physical Exam - Vitals, I&O, Labs I and O 02/07/17 02/08/17 02/09/17 05:59 05:59 05:59 Intake Total 2850 Output Total 600 Balance 2250 Weight 59.874 kg Intake: Oral (ml) 350 IV Infused (ml) 2500 Output: Urine (ml) 600 Toilet 600 Other: Number of Voids Toilet 1 Number of Stools Toilet 1 Microbiology 02/07/17 15:50 Respiratory Panel (PCR) - Final Nasal, Sinus - [place] Viral Transport No Organism Detected 02/07/17 13:15 Gram Stain - Final Csf From Shunt Vital Signs Temp Pulse Resp BP Pulse Ox 37.1 C 82 20 121/70 H 96 02/08/17 04:07 02/08/17 07:41 02/08/17 07:41 02/08/17 07:41 02/08/17 07:41 Laboratory Results 02/08/17 04:44 02/08/17 04:44 ICD10 Worksheet Patient Problems: Problems Problem Status Onset Altered mental status Acute Pneumonia Acute 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
[2017-02-08] MEDS: RIVAROXABAN 15 MG TAB PO SCH ×2 (13:17→18:34)
--- NOTE | 2017-02-08 13:44 | HOSPPROG ---
Hospitalist Progress Note Assessment/Plan: #Acute encephalopathy (unclear cause) ? seizures vs dehydration -Neurology consult pending -Cont IV Keppra -csf negative for signs of infection -cont ABX per ID -ivf and repeat bmp in am #Sepsis: WBC elevated with fever in ER (no fever/improving leukocytosis) -care as per above #Coagulopathy -resume Xarelto #Left MCA aneurysm: complicated by bleed December 01 #YRIS: baseline Cr 1.2. Give IVFs #Right popliteal DVT (December): #Seizure d/o: IV Keppra while NPO #Hypotension (resolved) dispo: continue inpatient care given persistent confusion. Pt is high risk Subjective: confused. deneis fevers. no complaints Objective: Vital Signs Temp Pulse Resp BP Pulse Ox 36.4 C 79 21 H 120/75 92 02/08/17 11:34 02/08/17 11:34 02/08/17 11:34 02/08/17 11:34 02/08/17 11:34 Microbiology 02/07/17 15:50 Respiratory Panel (PCR) - Final Nasal, Sinus - [place] Viral Transport No Organism Detected 02/07/17 13:15 Gram Stain - Final Csf From Shunt Laboratory Results 02/08/17 04:44 02/08/17 04:44 02/07/17 02/08/17 02/09/17 05:59 05:59 05:59 Intake Total 2850 Output Total 600 Balance 2250 PT 21.2 SEC (12.0-15.0) H D 02/08/17 04:44 INR 1.83 (0.83-1.16) H 02/08/17 04:44 - Physical Exam Constitutional: no apparent distress, appears nourished, not in pain Cardiovascular: regular rate and rhythym, no murmur, rub, or gallop Respiratory: no respiratory distress, no rales or rhonchi, clear to auscultation Gastrointestinal: normoactive bowel sounds, soft, non-tender abdomen, no palpable masses Neurologic: CN II-XII Intact, other (oriented to person), No facial droop ICD10 Worksheet Patient Problems: Problems Problem Status Onset 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
--- NOTE | 2017-02-08 15:18 | GPN ---
[f rep st] PROCEDURE NOTE DATE OF PROCEDURE: 02/07/2017 PROCEDURE: Right RECEIVER/LABORER shunt tap. HISTORY OF PRESENT ILLNESS: This is a female with subarachnoid hemorrhage status post RECEIVER/LABORER shunt, who has fever and altered mental status. We were unable to get a lumbar puncture secondary to patient being on Xarelto and high INR, so shunt tap was ordered. The patient's hair was clipped with the OR clippers and then the site was cleansed with 6 different layers of chlorhexidine, and allowed to dr y in between. A 25-gauge butterfly needle was used to draw 5 ml of spinal fluid and a bandage was p laced over the site. The patient tolerated the procedure well. There were no complications. /[id number]/MODL
--- NOTE | 2017-02-08 16:18 | GCON ---
[f rep st] CONSULTATION NEUROLOGY CONSULTATION DATE OF CONSULTATION: 02/08/2017 BILLING INFORMATION: 70 total minutes floor time reviewing the patient's extensive neurosurgical and neurology records along with the direct history and physical and counseling to the patient and her family. CHIEF COMPLAINT: Shivering. HISTORY OF PRESENT ILLNESS: The patient is a very pleasant 71-year-old lady known to the hospital from previous subarachnoid hemorrhage from intracerebral aneurysm in the left middle cerebral artery. She was treated with clipping and needed TEXTILE KNITTER shunt catheter placed and when evaluated by Neurology in November was found to be in a recurrent hemiclonic seizure activity and was transferred to a higher level of care for continuous EEG monitoring. Apparently, once she was on monitoring she had no further seizures. She went to acute and subacute rehabilitation and was finally discharged home on Wednesday. That night, she became febrile to the touch, confused and had rigors as described by her . She had full body, low-amplitude trembling as if she was shivering from fever. There was no hemiclonic or tonic activity. No incontinence or tongue biting. I did view a videotape of her seizures while in the hospital and these are completely different than what happened prior to admission. While she has been worked up here, she is found to have an infection that has been responding to antibiotics. REVIEW OF SYSTEMS: Ten-point review of systems was done and only pertinent to the HPI. PHYSICAL EXAMINATION: VITAL SIGNS: Blood pressure 120/75, temperature 37.1, heart rate 72. GENERAL: No acute distress. Very pleasant. NEUROLOGIC: Higher mental functions: She is awake and alert. No aphasia. Naming 5/5. Following commands 5/5. Repeating 5/5. Cranial nerve exam showed no facial myoclonus or focal weakness. Motor exam showed no focal weakness. Sensory exam was normal to light touch. [id number] was normal. She had some mild action tremor. Overall, there were no signs of subtle or overt seizure activity. IMPRESSION AND PLAN: 1. Infection. 2. Rigors. 3. History of subarachnoid hemorrhage, status post clipping and shunt. Overall, my impression is that the patient had an episode of rigors from infection. I do not think this was a recurrent seizure. As an outpatient, she was on a combination of Keppra 1000 mg b.i.d. and Vimpat 100 mg b.i.d. I think this would be an excellent opportunity to eliminate one of those medications as she likely only needs anticonvulsant monotherapy. Therefore, I recommend we treat her with Keppra 1000 mg b.i.d. alone. Vimpat can be discontinued. She can be closely monitored here in the hospital as her infection is being worked up. We will see her as an outpatient in 4 to 6 weeks post discharge to address the ongoing seizure disorder and repeat an outpatient EEG at that time. No further inpatient recommendations now. Plan discussed at length with the patient, her family and Infectious Disease. We will sign off and continue to follow as needed. Please do not hesitate to call if there are any questions or changes in neurologic status with this very pleasant patient. /[id number]/MODL MTDD
[2017-02-08 18:42] LABS: POTASSIUM 4.4 mEq/L (3.5-5.2)
--- NOTE | 2017-02-08 19:02 | PCMIDPN ---
Assessment/Plan: Assessment: presentation with fevers and right rigors 2 weeks after ACCOUNT RECEIVABLE CLERK shunt placement for symptomatic hydrocephalus. Unclear etiology although this symptoms syndrome is quite suspicious for this being a bacterial infection. Patient does not have any evidence of respiratory infection by chest x-ray. She does not have any evidence of infection in her urinary system by urinalysis. She does not also have any gastrointestinal symptoms. She does have a positive blood culture with gram-positive miquel in 1/2 sets from admission. It is growing in the anaerobic bottle. It would be odd for P. Acne is to grow this quickly and be bacteremic however if this proves to be the isolate it would further raise suspicion that the ACCOUNT RECEIVABLE CLERK shunt is involved. Patient is spinal fluid drawn through the shunt is not growing anything yet. Not an alarming amount of cellularity either. The spinal fluid from the shunt however can under estimate the presence of infection in other areas associated with the shunt. Patient clearly improved clinically from admission. This is likely due to the empiric use of both vancomycin and meropenem. Plan to continue this as we gather data from cultures. Will have an ongoing conversation with Dr. Ge in Neurosurgery about findings and clinical course. Plan: 1. Continue both vancomycin and meropenem. 2. Follow culture data. 3. follow the patient's clinical improvement. Subjective: Patient is sitting up in a chair. She is alert and conversant. Family is in the room. Per the family this is a big improvement from her admission state. She denies any further fevers or chills. Objective: Vancomycin #2 Meropenem #2 Vital Signs Temp Pulse Resp BP Pulse Ox 37.1 C 93 19 130/80 H 92 02/08/17 16:35 02/08/17 16:35 02/08/17 16:35 02/08/17 16:35 02/08/17 16:35 Microbiology 02/07/17 13:15 Gram Stain - Final Csf From Shunt 02/07/17 15:50 Respiratory Panel (PCR) - Final Nasal, Sinus - [place] Viral Transport No Organism Detected Laboratory Results 02/08/17 04:44 02/08/17 18:10 02/07/17 02/08/17 02/09/17 05:59 05:59 05:59 Intake Total 2850 450 Output Total 600 Balance 2250 450 - Physical Exam General Appearance: WD/WN, alert, no apparent distress, non-toxic Respiratory: lungs clear, normal breath sounds, No respiratory distress Cardiac/Chest: regular rate, rhythm, No tachycardia Skin: normal color, warm/dry, No rash Neuro/Psych: alert, normal mood/affect, oriented x 3 ICD10 Worksheet Patient Problems: Problems Problem Status Onset Altered mental status Acute Pneumonia Acute 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
[2017-02-08] MEDS: levETIRAcetam 1,000 MG in NS 100 ML IV SCH (22:07)
[2017-02-08] MEDS: 1/2 NS 1,000 ML IV SCH (23:00)
[2017-02-09 06:17] LABS: HEMATOCRIT 28.1 % (38.0-47.0); HEMOGLOBIN 9.7 g/dL (12.6-16.3); MEAN CELL HEMOGLOBIN CONCENTR. 34.5 g/dL (32.4-36.7); MEAN CELL VOLUME 92.7 fL (81.5-99.8); RED BLOOD CELL COUNT 3.03 10^6/uL (4.18-5.33)
[2017-02-09 07:01] LABS: MAGNESIUM 1.7 mg/dL (1.6-2.3); POTASSIUM 4.3 mEq/L (3.5-5.2)
[2017-02-09] MEDS: RIVAROXABAN 15 MG TAB PO SCH ×2 (07:58→18:38)
[2017-02-09] MEDS: levETIRAcetam 1,000 MG in NS 100 ML IV SCH ×2 (07:58→21:45)
--- NOTE | 2017-02-09 08:35 | PCMIDPN ---
Assessment/Plan: Assessment/Plan: 71 yo female with recent intracranial hemorrage s/p aneurymal clipping, complicated by seizures, hydrocephalus and need for COMPOSITION WEATHERBOARD INSTALLER shunt placement on . 1. Fever + leukocytosis: - Uncertain etiology. -On empiric atbx with Vanco + Merem. -creatinine improving -reviewed medical records on [facility] -Temp curve and wbc have continued to improve over last couple of days along with her orientation -Shunt cx with no org on GS and so far ngtd. -Updated and discussed at length current plan 2. GPR bacteremia: -ID of organism still pending -f/u blood cx from yesterday pending -will follow Meds vanco 1g daily- 02/07/17 merem 1g q12- 02/07/17 Subjective: Afebrile. Sitting in chair with breakfast in front of ear. small bites but no appetite. denies abd pain. may have mild nausea. denies headaches. denies sob. no diadrrhea. Had small BMs yesterday and today. at bedside. Objective: Vital Signs Temp Pulse Resp BP Pulse Ox 36.9 C 91 20 113/65 93 02/09/17 07:22 02/09/17 07:22 02/09/17 07:22 02/09/17 07:22 02/09/17 07:22 Microbiology 02/07/17 13:15 Gram Stain - Final Csf From Shunt Laboratory Results 02/09/17 05:59 02/09/17 05:59 02/08/17 02/09/17 02/10/17 05:59 05:59 05:59 Intake Total 2850 1007 Output Total 600 400 Balance 2250 607 - Physical Exam General Appearance: alert, no apparent distress Respiratory: coarse breath sounds (mild) Cardiac/Chest: regular rate, rhythm Extremities: No swelling Abdomen: normal bowel sounds, non-tender, soft, No distended Skin: No erythema - Time Spent With Patient Time Spent with Patient: greater than 35 minutes Time Spent with Patient: Greater than 35 minutes spent on this patients care, greater than 50% of time spent counseling, educating, and coordinating care regarding the above mentioned plan. 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
[2017-02-09] MEDS: MEROPENEM 1 GM in NS 100 ML IV SCH ×2 (09:00→21:48)
[2017-02-09] MEDS: VANCOMYCIN HCL/NORMAL SALINE 250 ML IV SCH (09:59)
--- NOTE | 2017-02-09 10:40 | HOSPPROG ---
Hospitalist Progress Note Assessment/Plan: #Acute encephalopathy (unclear cause) ? seizures vs dehydration -Neurology consult pending -keppra 1gm bid per neuro stop vimpat -csf negative for signs of infection -cont ABX per ID #Sepsis: WBC elevated with fever in ER (no fever/improving leukocytosis) -care as per above #Coagulopathy -resume Xarelto #Left MCA aneurysm: complicated by bleed December 01 #YRIS (improving) -cont ivf #Right popliteal DVT (December): #Seizure d/o: IV Keppra while NPO #Hypotension (resolved) dispo: continue inpatient care given persistent confusion. Pt is high risk Subjective: still confused. no fevers or chills. no complaints Objective: Vital Signs Temp Pulse Resp BP Pulse Ox 36.9 C 91 20 113/65 93 02/09/17 07:22 02/09/17 07:22 02/09/17 07:22 02/09/17 07:22 02/09/17 07:22 Microbiology 02/07/17 13:15 Gram Stain - Final Csf From Shunt Laboratory Results 02/09/17 05:59 02/09/17 05:59 02/08/17 02/09/17 02/10/17 05:59 05:59 05:59 Intake Total 2850 1007 Output Total 600 400 Balance 2250 607 PT 21.2 SEC (12.0-15.0) H D 02/08/17 04:44 INR 1.83 (0.83-1.16) H 02/08/17 04:44 - Physical Exam Constitutional: no apparent distress, appears nourished, not in pain Cardiovascular: regular rate and rhythym, no murmur, rub, or gallop Respiratory: no respiratory distress, no rales or rhonchi, clear to auscultation Gastrointestinal: normoactive bowel sounds, soft, non-tender abdomen, no palpable masses, No guarding, No rebound Neurologic: CN II-XII Intact, No AAOx3, No facial droop ICD10 Worksheet Patient Problems: Problems Problem Status Onset 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
--- NOTE | 2017-02-09 12:15 | NEUSURGPN ---
Assessment/Plan: 71 yo female with hx of coiling of aneurysm and most recently TYPE MAPPER shunt placement for hydrocephalus. Had AMS and possible seizure with fever, rigors on 02/07 and brought to [facility]. -CSF cultures pending but NGTD -Blood Cultures - final result no growth but prelim with growth -ID consulted for abx treatment plan currently on Vanc and Meropenem -Waiting for final culture results -Keppra increased if cause was seizures -Shunt infection less likely given CSF cell counts, cultures but will continue to follow iD recs -Neurology following regarding possible seizure -Patient seen by Dr. Ge and myself this morning Subjective: Patient is feeling better this morning sitting in chair. Does not have much of an appetite. No acute events reports by RN. Objective: NAD, VSS BUE/BLE 01/01 AxO x3 PERRL, EOMI Neuro Check Frequency: per routine Urinary Catheter in Place: No - Physician Discussed Patient with Dr.: Ge Patient Seen by Dr.: Ge Neurosurgery Physical Exam - Vitals, I&O, Labs I and O 02/08/17 02/09/17 02/10/17 05:59 05:59 05:59 Intake Total 2850 1007 Output Total 600 400 Balance 2250 607 Weight 59.874 kg Intake: Oral (ml) 350 IV Intake (ml) 357 IV Infused (ml) 2500 650 Meropenem 1 gm In Ns 100 200 ml @ 100 mls/hr IV Q12 [facility] Rx#:[id number] Vancomycin HCl/Normal 250 Saline 250 ml @ 250 mls/ hr IV DAILY@1000 [facility] Rx#: [id number] levETIRAcetam 1,000 mg In 200 Ns 100 ml @ 440 mls/hr IV BID [facility] Rx#:[id number] Output: Urine (ml) 600 400 Toilet 600 400 Other: Number of Voids Toilet 1 1 Number of Stools Toilet 1 1 Microbiology 02/07/17 13:15 Gram Stain - Final Csf From Shunt Vital Signs Temp Pulse Resp BP Pulse Ox 36.6 C 91 20 148/94 H 92 02/09/17 11:27 02/09/17 11:27 02/09/17 11:27 02/09/17 11:27 02/09/17 11:27 Laboratory Results 02/09/17 05:59 02/09/17 05:59 ICD10 Worksheet Patient Problems: Problems Problem Status Onset Altered mental status Acute Pneumonia Acute 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
[2017-02-09] MEDS ORDERED: MAGNESIUM SULF 1 GM/DEXTROSE 100 ML IV ONE (12:35)
[2017-02-09] MEDS: 1/2 NS 1,000 ML IV SCH (18:38)
[2017-02-09 19:16] LABS: POTASSIUM 4.6 mEq/L (3.5-5.2)
[2017-02-10] MEDS ORDERED: hydrALAZINE 20 MG/ML VIAL IVP PRN (01:00)
[2017-02-10] MEDS ORDERED: hydrALAZINE 20 MG/ML VIAL ONE (01:05)
[2017-02-10] MEDS: 1/2 NS 1,000 ML IV SCH (01:14)
[2017-02-10 05:37] LABS: HEMATOCRIT 29.7 % (38.0-47.0); HEMOGLOBIN 10.4 g/dL (12.6-16.3); MEAN CELL HEMOGLOBIN 32.1 pg (27.9-34.1); MEAN CELL VOLUME 91.7 fL (81.5-99.8); RED BLOOD CELL COUNT 3.24 10^6/uL (4.18-5.33); RED CELL DISTRIBUTION WIDTH 12.7 % (11.5-15.2)
[2017-02-10 06:16] LABS: MAGNESIUM 1.5 mg/dL (1.6-2.3); POTASSIUM 3.9 mEq/L (3.5-5.2)
[2017-02-10] MEDS ORDERED: POTASSIUM CL 10 MEQ TAB PO ONE (07:35)
[2017-02-10] MEDS ORDERED: MAGNESIUM SULF 1 GM/DEXTROSE 100 ML IV ONE (07:36)
[2017-02-10] MEDS: RIVAROXABAN 15 MG TAB PO SCH ×2 (08:08→17:54)
--- NOTE | 2017-02-10 09:11 | SOAPPROG ---
SOAP Progress Note Assessment/Plan: Assessment: 71 yo F sp BELL TIER shunt placement admitted with fevers/AMS Plan: neuro: stable, mentation improved on keppra for seizure fevers: clostridium bacteremia, no growth from csf cultures, on meropenen/vanco per ID, ? colonoscopy for clostrdium bacteremia continue PT/OT please call with neuro changes discussed with Dr Ge 02/10/17 09:08 02/10/17 09:09 Subjective: pt denies headaches, no N/V. Objective: Vital Signs Temp Pulse Resp BP Pulse Ox 36.3 C 99 16 154/99 H 99 02/10/17 08:00 02/10/17 08:00 02/10/17 08:00 02/10/17 08:00 02/10/17 08:00 Microbiology 02/07/17 13:15 Gram Stain - Final Csf From Shunt Laboratory Results 02/10/17 05:11 02/10/17 05:11 02/09/17 02/10/17 02/11/17 05:59 05:59 05:59 Intake Total 1007 4840 100 Output Total 400 3000 300 Balance 607 1840 -200 PT 21.2 SEC (12.0-15.0) H D 02/08/17 04:44 INR 1.83 (0.83-1.16) H 02/08/17 04:44 awake, alert oriented to name, place PERRL, no facial droop EDUARDO x 4 + light touch C/D/I x 2 ICD10 Worksheet Patient Problems: Problems Problem Status Onset Altered mental status Acute Pneumonia Acute 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
[2017-02-10] MEDS: levETIRAcetam 1,000 MG in NS 100 ML IV SCH (09:43)
[2017-02-10] MEDS: MEROPENEM 1 GM in NS 100 ML IV SCH ×2 (09:47→21:15)
--- NOTE | 2017-02-10 10:31 | PCMIDPN ---
Assessment/Plan: Assessment: Septic presentation now clear as being due to Clostridium species bacteremia. This brings attention to the gastrointestinal tract. This species is of low likelihood to be causing a MEASUREMENT TECHNICIAN shunt infection. Looking back in her previous cultures patient did have a single set blood culture positive in November for Actinomyces which was regarded as a contaminant at the time. It is possible that both of these are pointing to a gastrointestinal mucosal wall breakdown. Will ask GI to see the patient for likely colonoscopy. Patient has never had a screening colonoscopy. Moreover the patient has had dark stool which had been attributed to iron supplementation however had remained dark after the iron supplementation was discontinued. Will arrange for GI consultation. Discussed cases with Dr. Blue and Dr. Ge. Patient continues on vancomycin and meropenem. Will discontinue the vancomycin and use meropenem monotherapy. Plan: 1. Discontinue vancomycin. 2. Continue meropenem. 3. Follow up on GI consultation. 02/10/17 10:28 02/10/17 10:31 Subjective: Patient is sitting up in her chair in the hospital room. She answers questions but has notable cognitive delay between question an attempted answer. This is different than it was on Wednesday. Her is in the room who corroborates this difference. No fevers or chills. Patient is eating but not eating much. Objective: Vancomycin #4 Meropenem #4 Vital Signs Temp Pulse Resp BP Pulse Ox 36.3 C 99 16 154/99 H 99 02/10/17 08:00 02/10/17 08:00 02/10/17 08:00 02/10/17 08:00 02/10/17 08:00 Microbiology 02/07/17 13:15 Gram Stain - Final Csf From Shunt Laboratory Results 02/10/17 05:11 02/10/17 05:11 02/09/17 02/10/17 02/11/17 05:59 05:59 05:59 Intake Total 1007 4840 100 Output Total 400 3000 300 Balance 607 1840 -200 - Physical Exam General Appearance: WD/WN, alert, no apparent distress, non-toxic Respiratory: lungs clear, normal breath sounds, No respiratory distress Cardiac/Chest: regular rate, rhythm, No tachycardia Skin: normal color, warm/dry, No rash Neuro/Psych: alert, normal mood/affect ICD10 Worksheet Patient Problems: Problems Problem Status Onset Altered mental status Acute Pneumonia Acute 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
--- NOTE | 2017-02-10 11:16 | HOSPPROG ---
Hospitalist Progress Note Assessment/Plan: #Acute encephalopathy likely multifactorial from clostridium bacteremia/ dehydration -Neurology consult appreciated -keppra 1gm bid per neuro stop vimpat -cont ABX per ID #Sepsis with clostridium bacteremia -cont merrem per ID -GI consult (Dr. Epperson) to eval for colonoscopy to eval for malig as a cause for her bacteremia #Coagulopathy -cont Xarelto (hold prior to colon) #Left MCA aneurysm: complicated by bleed December 01 #YRIS (improving) -buff cap ivf #hypomagnesemia -replace per protocol #Right popliteal DVT (December): #Seizure d/o: cont keppra #Hypotension (resolved) dispo: continue inpatient care given persistent confusion. Pt is high risk Subjective: improving mentation today. no fevers or chill. no new neuro numbness or weakness Objective: Vital Signs Temp Pulse Resp BP Pulse Ox 36.3 C 99 16 154/99 H 99 02/10/17 08:00 02/10/17 08:00 02/10/17 08:00 02/10/17 08:00 02/10/17 08:00 Microbiology 02/07/17 13:15 Gram Stain - Final Csf From Shunt Laboratory Results 02/10/17 05:11 02/10/17 05:11 02/09/17 02/10/17 02/11/17 05:59 05:59 05:59 Intake Total 1007 4840 100 Output Total 400 3000 300 Balance 607 1840 -200 PT 21.2 SEC (12.0-15.0) H D 02/08/17 04:44 INR 1.83 (0.83-1.16) H 02/08/17 04:44 Microbiology 02/07/17 03:10 Blood Blood Panel (PCR) - Final No Organism Detected 02/07/17 03:10 Blood Blood Culture - Preliminary 02/07/17 03:10 Blood Clostridium Species - Physical Exam Constitutional: no apparent distress, appears nourished, not in pain Cardiovascular: regular rate and rhythym, no murmur, rub, or gallop Respiratory: no respiratory distress, no rales or rhonchi, clear to auscultation Skin: no rashes or abrasions, no fluctuance, no induration Neurologic: AAOx3, CN II-XII Intact, No facial droop ICD10 Worksheet Patient Problems: Problems Problem Status Onset 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
[2017-02-10] MEDS: VANCOMYCIN HCL/NORMAL SALINE 250 ML IV SCH (12:02)
[2017-02-10] MEDS ORDERED: hydrALAZINE 10 MG TAB ONE (13:10)
[2017-02-10] MEDS ORDERED: hydrALAZINE 10 MG TAB PO PRN (13:15)
--- NOTE | 2017-02-10 14:18 | SOAPPROG ---
SO[facility] Progress Note Assessment/Plan: Assessment:Pt with Clostridium bacteremia, no previous screening for CRC. For colonoscopy tomorrow. Plan: 02/10/17 14:17 Objective: Vital Signs Temp Pulse Resp BP Pulse Ox 36.9 C 95 15 187/104 H 94 02/10/17 12:00 02/10/17 12:00 02/10/17 12:00 02/10/17 12:00 02/10/17 12:00 Microbiology 02/07/17 13:15 Gram Stain - Final Csf From Shunt CSF Culture - Final Laboratory Results 02/10/17 05:11 02/10/17 05:11 02/09/17 02/10/17 02/11/17 05:59 05:59 05:59 Intake Total 1007 4840 100 Output Total 400 3000 300 Balance 607 1840 -200 PT 21.2 SEC (12.0-15.0) H D 02/08/17 04:44 INR 1.83 (0.83-1.16) H 02/08/17 04:44 ICD10 Worksheet Patient Problems: Problems Problem Status Onset Altered mental status Acute Pneumonia Acute 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
[2017-02-10] MEDS: ASCORBIC ACID PO SCH (17:41)
[2017-02-10] MEDS: POTASSIUM CHLORIDE PO SCH (17:41)
[2017-02-10] MEDS: [UNRECOGNIZED DRUG - OTHER] PO SCH (17:41)
[2017-02-10] MEDS: SODIUM SULFATE PO SCH (17:41)
[2017-02-10] MEDS: SODIUM CHLORIDE PO SCH (17:41)
[2017-02-10] MEDS: levETIRAcetam 500 MG TAB PO SCH (19:53)
[2017-02-10 19:54] LABS: POTASSIUM 4.1 mEq/L (3.5-5.2)
[2017-02-11 05:08] LABS: MAGNESIUM 1.6 mg/dL (1.6-2.3); POTASSIUM 3.7 mEq/L (3.5-5.2)
[2017-02-11] MEDS: ASCORBIC ACID PO SCH ×2 (05:58→19:39)
[2017-02-11] MEDS: POTASSIUM CHLORIDE PO SCH ×2 (05:58→19:39)
[2017-02-11] MEDS: [UNRECOGNIZED DRUG - OTHER] PO SCH ×2 (05:58→19:39)
[2017-02-11] MEDS: SODIUM SULFATE PO SCH ×2 (05:58→19:39)
[2017-02-11] MEDS: SODIUM CHLORIDE PO SCH ×2 (05:58→19:39)
[2017-02-11] MEDS: levETIRAcetam 500 MG TAB PO SCH ×2 (08:08→20:17)
[2017-02-11] MEDS: MEROPENEM 1 GM in NS 100 ML IV SCH (08:09)
[2017-02-11] MEDS: RIVAROXABAN 15 MG TAB PO SCH ×2 (08:10→20:18)
--- NOTE | 2017-02-11 09:18 | NEUSURGPN ---
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 Had AMS and possible seizure with fever, rigors on 02/07 and brought to [facility]. -CSF cultures final- No growth -Blood Cultures - Positive Clostridium species suspect for GI source- patient going for colonoscopy later today -ID consulted for abx treatment plan currently on Vanc and Meropenem -Continue Keppra -Shunt infection less likely given CSF cell counts, cultures but will continue to follow iD recs and follow results of colonoscopy -Patient seen by Dr. Ge and myself this morning Subjective: Patient states she is feeling well, denies headaches. Per , mentation is somewhat delayed today, but better than Wednesday. Objective: awake, alert oriented to name, place PERRL, no facial droop EDUARDO x 4 - Physician Discussed Patient with Dr.: Ge Patient Seen by Dr.: Ge Neurosurgery Physical Exam - Vitals, I&O, Labs I and O 02/10/17 02/11/17 02/12/17 05:59 05:59 05:59 Intake Total 4840 500 Output Total 3000 300 Balance 1840 200 Intake: Oral (ml) 2220 IV Infused (ml) 2620 500 1/2 Ns 1,000 ml @ 100 mls 2100 300 /hr IV CONT [facility] Rx#: [id number] Magnesium Sulf 1 gm/ 100 Dextrose 100 ml @ 100 mls /hr IV ONCE ONE Rx#: [id number] Meropenem 1 gm In Ns 100 210 100 ml @ 100 mls/hr IV Q12 [facility] Rx#:[id number] Vancomycin HCl/Normal 100 Saline 250 ml @ 250 mls/ hr IV DAILY@1000 [facility] Rx#: [id number] levETIRAcetam 1,000 mg In 210 Ns 100 ml @ 440 mls/hr IV BID [facility] Rx#:[id number] Output: Urine (ml) 3000 300 Bedside Commode 500 Diapers/Briefs 400 Toilet 2100 300 Other: Intake Quantity Yes Sufficient Number of Voids Bedside Commode 1 Diapers/Briefs 2 Toilet 1 Number of Stools Bedside Commode 1 Diapers/Briefs 1 Microbiology 02/07/17 13:15 Gram Stain - Final Csf From Shunt CSF Culture - Final Vital Signs Temp Pulse Resp BP Pulse Ox 36.7 C 114 H 18 145/97 H 96 02/11/17 08:00 02/11/17 08:00 02/11/17 08:00 02/11/17 08:00 02/11/17 08:00 Laboratory Results 02/10/17 05:11 02/11/17 04:40 ICD10 Worksheet Patient Problems: Problems Problem Status Onset Altered mental status Acute Pneumonia Acute 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
[2017-02-11] MEDS: POTASSIUM Cl (KCl) 100 ML IV SCH ×2 (10:26→14:10)
[2017-02-11 11:45] LABS: ALANINE AMINOTRANSFERASE 38 IU/L (9-52); ALBUMIN 2.7 g/dL (3.5-5.0); ALKALINE PHOSPHATASE 75 IU/L (38-126); ANION GAP 8 mEq/L (8-16); ASPARTATE AMINOTRANSFERASE 17 IU/L (14-46); BILIRUBIN,TOTAL 0.4 mg/dL (0.1-1.4); CALCIUM 9.4 mg/dL (8.5-10.4); CARBON DIOXIDE 23 mEq/l (22-31); CHLORIDE 104 mEq/L (97-110); CREATININE 0.7 mg/dL (0.6-1.0); GLOMERULAR FILTRATION RATE > 60; GLUCOSE 95 mg/dL (70-100); POTASSIUM 3.6 mEq/L (3.5-5.2); SODIUM 135 mEq/L (134-144); TOTAL PROTEIN 4.9 g/dL (6.3-8.2)
[2017-02-11] MEDS: ERTAPENEM 0.5 GM in NS 50 ML IV SCH (13:03)
--- NOTE | 2017-02-11 13:28 | PCMIDPN ---
Assessment/Plan: Assessment/Plan: * Sepsis due to clostridial bacteremia: Plans for colonoscopy today to assess for GI etiology for bacteremia. If negative for source, will then need to proceed with CT scan of the abdomen and pelvis to further assess for GI etiology. Suspect this represents etiology for patient's presentation. Cultures from COAL CAGER shunt remain negative and repeat blood cultures are also negative. Will change meropenem to ertapenem given no isolation of Pseudomonas. Repeat basic metabolic profile today. Will start with 500 mg IV daily given prior history of seizure in total further assessment of renal function performed. 02/11/17 13:25 Subjective: Patient feels much better. More alert. Scheduled for colonoscopy today. 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
--- NOTE | 2017-02-11 13:53 | HOSPPROG ---
Hospitalist Progress Note Assessment/Plan: #Acute encephalopathy likely multifactorial from clostridium bacteremia/ dehydration * improving slowly #Sepsis with clostridium bacteremia * switched to Invanz * id following * colonoscopy today to look for GI source #Left MCA aneurysm: complicated by bleed December 01 #YRIS * resolved #Right popliteal DVT (December): * holding Xarelto for colonoscopy #Seizure d/o: cont keppra #Hypotension (resolved) dispo: continue inpatient care given persistent confusion. Subjective: feeling better per . Currently resting Objective: Vital Signs Temp Pulse Resp BP Pulse Ox 36.9 C 90 18 163/96 H 94 02/11/17 12:00 02/11/17 12:00 02/11/17 12:00 02/11/17 12:00 02/11/17 12:00 Microbiology 02/07/17 13:15 Gram Stain - Final Csf From Shunt CSF Culture - Final Laboratory Results 02/10/17 05:11 02/11/17 04:40 02/10/17 02/11/17 02/12/17 05:59 05:59 05:59 Intake Total 4840 500 Output Total 3000 300 Balance 1840 200 PT 21.2 SEC (12.0-15.0) H D 02/08/17 04:44 INR 1.83 (0.83-1.16) H 02/08/17 04:44 - Physical Exam Constitutional: no apparent distress, appears nourished, not in pain Cardiovascular: regular rate and rhythym Respiratory: no respiratory distress Skin: warm, normal color ICD10 Worksheet Patient Problems: Problems Problem Status Onset Altered mental status Acute Pneumonia Acute 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
--- NOTE | 2017-02-11 15:37 | PCMIDPN ---
Assessment/Plan: Assessment/Plan: * Sepsis due to clostridial bacteremia: Plans for colonoscopy today to assess for GI etiology for bacteremia. If negative for source, will then need to proceed with CT scan of the abdomen and pelvis to further assess for GI etiology. Suspect this represents etiology for patient's presentation. Cultures from GENERAL OPERATOR shunt remain negative and repeat blood cultures are also negative. Will change meropenem to ertapenem given no isolation of Pseudomonas. Repeat basic metabolic profile today. Will start with 500 mg IV daily given prior history of seizure in total further assessment of renal function performed. 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
--- NOTE | 2017-02-11 15:37 | PDANEPAE ---
ANE History of Present Illness 71 yo for coloscopy H/o SAB and SZ s/p VPS HTN ANE Past Medical History - Cardiovascular History Hx Hypertension: Yes Hx Arrhythmias: No Hx Chest Pain: No Hx Coronary Artery / Peripheral Vascular Disease: No Hx CHF / Valvular Disease: No Hx Palpitations: No - Pulmonary History Hx COPD: No Hx Asthma/Reactive Airway Disease: No Hx Recent Upper Respiratory Infection: No Hx Oxygen in Use at Home: No - Endocrine History Hx Diabetes: No - Neurological & Psychiatric Hx Hx Neurological and Psychiatric Disorders: Yes - Chronic Pain History Chronic Pain: No ANE Patient History - Allergies Allergies/Adverse Reactions: bee venom protein (honey bee) Allergy (Verified 02/07/17 00:57) naproxen [From Aleve] Allergy (Verified 02/07/17 00:57) Hives Penicillins Allergy (Verified 02/07/17 00:57) swelling - Home Medications Home Medications: Acetaminophen [Tylenol 325mg (*)] 650 mg PO Q4 PRN 01/12/17 [Last Taken 02/03/17 ] Magnesium Hydroxide [Milk of Magnesia] 30 ml PO DAILY PRN 01/12/17 [Last Taken 02/02/17] Sennosides/Docusate Sodium [Senna-S Tablet] 1 each PO DAILY 01/12/17 [Last Taken 02/06/17] - NPO status NPO Since - Liquids (Date): 02/11/17 NPO Since - Liquids (Time): 07:00 NPO Since - Solids (Date): 02/10/17 NPO Since - Solids (Time): 12:00 - Anes Hx Anes Hx: no prior problems - Smoking Hx Smoking Status: Never smoked - Alcohol Use Alcohol Use: None - Family Anes Hx Family Anes Hx: none ANE Labs/Vital Signs - Labs Result Diagrams: 02/10/17 05:11 02/11/17 04:40 - Vital Signs Blood Pressure: 169/105 Heart Rate: 95 Respiratory Rate: 16 O2 Sat (%): 94 Height: 5 ft Weight: 59.874 kg ANE Physical Exam - Airway Mallampati Score: Class 2 Mouth exam: normal dental/mouth exam - Pulmonary Pulmonary: no respiratory distress - Cardiovascular Cardiovascular: regular rate and rhythym - ASA Status ASA Status: III ANE Anesthesia Plan Anesthesia Plan: MAC
[2017-02-11] MEDS ORDERED: PROPOFOL/EMULSION 500 MG/50 ML BOTTLE IV ONE (15:43)
[2017-02-11] MEDS ORDERED: fentaNYL 100 MCG/2 ML INJ IVP PRN (15:52)
[2017-02-11] MEDS ORDERED: NALOXONE HCL 0.4 MG/ML INJ IVP PRN (15:52)
[2017-02-11] MEDS ORDERED: SIMETHICONE DROPS 30 ML BOTTLE ONE (16:00)
--- NOTE | 2017-02-11 16:08 | POSTANESTH ---
Post Anesthetic Evaluation Respiratory Status: Normal, Stable Level of Consciousness/Mental Status: Alert and Oriented Pain Control: Adequate, Prn Tx Ordered Nausea/Vomiting Control: Adequate, Prn Tx Ordered Complications Possibly Related to Anesthesia: None Noted
--- NOTE | 2017-02-11 16:10 | POSTOPPROG ---
Post Op Note Date of Operation: 02/11/17 Surgeon: Iglesia Epperson Pre-op Diagnosis: Clostridial bacteremia Post-op Diagnosis: diverticulosis Inf/Abcess present in the surg proc area at time of surgery?: No
--- NOTE | 2017-02-11 16:11 | SOAPPROG ---
[facility] Progress Note Assessment/Plan: Assessment:Pt with Clostridium bacteremia, no previous screening for CRC. For colonoscopy tomorrow. Plan: 02/10/17 14:17 02/11/17 16:10 Colonscopy shows mild diverticulosis. Otherwise normal. Good prep. Further w/u for source of bacteremia as per Dr. Hernandez. 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
[2017-02-11] MEDS ORDERED: LABETALOL HCL 5 MG/ML 20 ML MDV ONE (16:19)
[2017-02-11] MEDS: LABETALOL HCL 5 MG/ML 20 ML MDV IVP PRN ×3 (16:23→16:48)
[2017-02-11] MEDS ORDERED: ONDANSETRON 4 MG/2 ML VIAL ONE (16:34)
--- NOTE | 2017-02-11 16:52 | GPN ---
[f rep st] PROCEDURE NOTE PROCEDURE PERFORMED: Colonoscopy INDICATION: The patient is a 71-year-old female who has been admitted with clostridium bacteremia. This is suggestive of a source in the colon. The patient denies any GI problems, but has never had a colon cancer screening. DESCRIPTION OF PROCEDURE: After proper consent was obtained, patient was placed in the left lateral decubitus position, received IV general anesthesia. Video colonoscope was introduced through the anus and rectum, up the left colon, across the transver se colon, down the right colon, in the cecum. FINDINGS: 1. Mild left-sided diverticulosis. 2. No polyps, tumors or other lesions noted. 3. Terminal ilium is entered and appears normal. At this point, instrument was removed. The patient tolerated the procedure well and was returned to the recovery room in stable condition. RECOMMENDATIONS: In discussion with Dr. Hernandez, we do not feel diverticulosis would be the source for her infection. He plans on ordering CT scanning to look for intraabdominal abscess or other proces s. For colon cancer screening, next colonoscopy could be in 10 years' time if age-appropriate. /[id number]/MODL
[2017-02-11] MEDS: MAGNESIUM SULF 1 GM/DEXTROSE 100 ML IV ONE ×2 (20:16→20:22)
[2017-02-11] MEDS ORDERED: MAGNESIUM SULF 1 GM/DEXTROSE 100 ML IV ONE (20:30)
[2017-02-12 07:11] LABS: MAGNESIUM 1.6 mg/dL (1.6-2.3); POTASSIUM 4.1 mEq/L (3.5-5.2)
--- NOTE | 2017-02-12 09:43 | NEUSURGPN ---
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 Had AMS and possible seizure with fever, rigors on 02/07 and brought to [facility]. -On Vanco and Meropenam per ID for Clostridium bacteremia -Keppra increased if cause was seizures -Shunt infection less likely given CSF cell counts, cultures but will continue to follow iD recs Subjective: Patient states she is feeling well, denies headaches. Objective: awake, alert oriented to name, place PERRL, no facial droop EDUARDO x 4 Neuro Check Frequency: per routine - Physician Discussed Patient with : [facility] Physical Exam - Vitals, I&O, Labs I and O 02/11/17 02/12/17 02/13/17 05:59 05:59 05:59 Intake Total 500 800 Output Total 300 350 Balance 200 450 Weight 59.874 kg Intake: Oral (ml) 200 IV Intake (ml) 500 IV Infused (ml) 500 100 1/2 Ns 1,000 ml @ 100 mls 300 /hr IV CONT [facility] Rx#: [id number] Magnesium Sulf 1 gm/ 100 Dextrose 100 ml @ 100 mls /hr IV ONCE ONE Rx#: [id number] Magnesium Sulf 1 gm/ 100 Dextrose 100 ml @ 100 mls /hr IV ONCE ONE Rx#: [id number] Meropenem 1 gm In Ns 100 100 ml @ 100 mls/hr IV Q12 [facility] Rx#:[id number] Output: Urine (ml) 300 350 Toilet 300 350 Other: Intake Quantity Yes No Sufficient Number of Voids Bedside Commode 1 Toilet 1 Number of Stools Bedside Commode 1 Diapers/Briefs 1 Toilet 1 Microbiology 02/07/17 04:25 Blood Panel (PCR) - Final Blood No Organism Detected Vital Signs Temp Pulse Resp BP Pulse Ox 36.4 C 97 16 118/81 H 96 02/12/17 07:33 02/12/17 07:33 02/12/17 07:33 02/12/17 07:33 02/12/17 07:33 Laboratory Results 02/10/17 05:11 02/12/17 06:45 ICD10 Worksheet Patient Problems: Problems Problem Status Onset Altered mental status Acute Pneumonia Acute 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
[2017-02-12] MEDS: RIVAROXABAN 15 MG TAB PO SCH (09:48)
[2017-02-12] MEDS: levETIRAcetam 500 MG TAB PO SCH (09:48)
[2017-02-12] MEDS: ERTAPENEM 0.5 GM in NS 50 ML IV SCH (09:48)
[2017-02-12] MEDS ORDERED: MAGNESIUM SULF 1 GM/DEXTROSE 100 ML IV ONE (10:49)
[2017-02-12] MEDS ORDERED: IOPAMIDOL (ISOVUE-300) 100 ML BTL ONE (12:27)
--- NOTE | 2017-02-12 15:38 | HOSPPROG ---
Hospitalist Progress Note Assessment/Plan: #Acute encephalopathy likely multifactorial from clostridium bacteremia/ dehydration * improving slowly #Sepsis with clostridium bacteremia * switched to Invanz * id following * Colonoscopy negative * CT scan today * May need EGD if negative #Left MCA aneurysm: complicated by bleed December 01 #YRIS * resolved #Right popliteal DVT (December): * Will hold Xarelto tonight for possible EGD in the next day or 2 #Seizure d/o: cont keppra #Hypotension (resolved) dispo: continue inpatient care Subjective: Feeling better overall. Still poor appetite Objective: Vital Signs Temp Pulse Resp BP Pulse Ox 37.0 C 104 H 18 122/77 H 91 L 02/12/17 11:47 02/12/17 11:47 02/12/17 11:47 02/12/17 11:47 02/12/17 11:47 Microbiology 02/07/17 04:25 Blood Panel (PCR) - Final Blood No Organism Detected Laboratory Results 02/10/17 05:11 02/12/17 06:45 02/11/17 02/12/17 02/13/17 05:59 05:59 05:59 Intake Total 500 800 Output Total 300 350 Balance 200 450 PT 21.2 SEC (12.0-15.0) H D 02/08/17 04:44 INR 1.83 (0.83-1.16) H 02/08/17 04:44 Discussed with Infectious Disease - Physical Exam Constitutional: no apparent distress, appears nourished, not in pain Eyes: anicteric sclera, EOMI Ears, Nose, Mouth, Throat: moist mucous membranes, hearing normal, ears appear normal Cardiovascular: regular rate and rhythym, no murmur, rub, or gallop Respiratory: no respiratory distress, no rales or rhonchi, clear to auscultation Gastrointestinal: normoactive bowel sounds, soft, non-tender abdomen, no palpable masses Skin: warm Neurologic: AAOx3 Psychiatric: interacting appropriately, not anxious, not encephalopathic, thought process linear ICD10 Worksheet Patient Problems: Problems Problem Status Onset Altered mental status Acute Pneumonia Acute 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
--- NOTE | 2017-02-12 15:55 | PCMIDPN ---
Assessment/Plan: Assessment: Septic presentation now clear as being due to Clostridium species bacteremia. This brings attention to the gastrointestinal tract. This species is of low likelihood to be causing a SEDIMENTATIONIST shunt infection. Patient had colonoscopy performed yesterday which showed no evidence of colonic lesions. Did show evidence of diverticulosis however. Patient underwent a CT scan of her abdomen and pelvis today which showed diverticulitis in the descending colon with stranding and inflammation. Possibly also some micro abscesses are micro perforation. Plan: 1. Continue ertapenem. Will increase dose to 1 g daily. 2. Plan to treat for 2 weeks total. Would then re-evaluate by scan for resolution of the micro abscesses in diverticulitis in another 1-2 weeks. Would recommend this given the patient had no localizing signs of infection including fever before septic presentation. 3. Follow clinical course. Subjective: Patient is doing fairly well today. No new complaints. Family is in room. No fevers or chills. Objective: Ertapenem #1 (# 6) Vital Signs Temp Pulse Resp BP Pulse Ox 37.0 C 104 H 18 122/77 H 91 L 02/12/17 11:47 02/12/17 11:47 02/12/17 11:47 02/12/17 11:47 02/12/17 11:47 Microbiology 02/07/17 04:25 Blood Panel (PCR) - Final Blood No Organism Detected Laboratory Results 02/10/17 05:11 02/12/17 06:45 02/11/17 02/12/17 02/13/17 05:59 05:59 05:59 Intake Total 500 800 Output Total 300 350 Balance 200 450 - Physical Exam General Appearance: WD/WN, alert, no apparent distress, non-toxic Respiratory: lungs clear, normal breath sounds, No respiratory distress Cardiac/Chest: regular rate, rhythm, No tachycardia Skin: normal color, warm/dry, No rash Neuro/Psych: alert, normal mood/affect, oriented x 3 ICD10 Worksheet Patient Problems: Problems Problem Status Onset Altered mental status Acute Pneumonia Acute 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
--- NOTE | 2017-02-12 16:01 | PDIAF ---
- Diagnosis Diagnosis: diverticulitis/bactermia Code Status: Full Code - Medication Management Discharge Medications: Medications to Continue on Transfer Acetaminophen [Tylenol 325mg (*)] 650 mg PO Q4 PRN 01/12/17 [Last Taken 02/03/17 ] Magnesium Hydroxide [Milk of Magnesia] 30 ml PO DAILY PRN 01/12/17 [Last Taken 02/02/17] Sennosides/Docusate Sodium [Senna-S Tablet] 1 each PO DAILY 01/12/17 [Last Taken 02/06/17] Atorvastatin Calcium [Lipitor 10 mg (*)] 10 mg PO DAILY #30 tab 02/05/17 [Last Taken 02/06/17] Cholecalciferol Vit D3 [Vitamin D3 2000 units tab (OTC)] 2,000 units PO DAILY # 0 each 02/05/17 [Last Taken 02/06/17] Lacosamide [Vimpat] 100 mg PO BID #60 tablet 02/05/17 [Last Taken 02/06/17] Lisinopril [Zestril 40 mg (*)] 40 mg PO DAILY #30 tab 02/05/17 [Last Taken 02/06] Metoprolol Tartrate [Lopressor 50 mg (*)] 50 mg PO BID #60 tab 02/05/17 [Last Taken 02/06/17] Polyethylene Glycol 3350 [Miralax 17 gm (*)] 17 gm PO DAILY #0 pkt 02/05/17 [ Last Taken 02/06/17] Rivaroxaban [Xarelto 15mg (*)] 15 mg PO BIDMEAL #29 tab 02/05/17 [Last Taken 06/15] Rivaroxaban [Xarelto] 20 mg PO DAILY AT 6PM #30 tab 02/05/17 [Last Taken ] levETIRAcetam [Keppra 500 mg (*)] 1,000 mg PO BID #120 tab 02/05/17 [Last Taken 02/06/17] Ertapenem [INVanz] 0.5 gm IV DAILY #1 vial 02/12/17 [Last Taken Unknown] Discharge Medications: Refer to the Discharge Home Medication list for PRN reason. - Orders Services needed: Home Care, Registered Nurse, Certified Ambulette Driver, Physical Therapy, Occupational Therapy Home Care Face to Face: I certify that this patient was under my care and that I had the required [id number] encounter meeting the encounter requirements on the discharge day. My findings support the fact that the patient is homebound as defined in CMS Chapter 7 Medicare Benefits Manual 30.1.1, The condition of the patient is such that there exists a normal inability to leave home and consequently, leaving home would require a considerable and taxing effort. Diet Texture: Regular Texture Diet, Thin Liquids, Meds Whole w/Liquids - Follow Up Care Current Providers and Referrals: Patient,NotPresent [Unknown] - As per Instructions
[2017-02-12] MEDS ORDERED: ACETAMINOPHEN 325 MG TAB PO PRN (16:13)
[2017-02-12] MEDS ORDERED: ONDANSETRON 4 MG/2 ML VIAL IVP PRN (16:13)
[2017-02-12] MEDS ORDERED: ALTEPLASE 2 MG VIAL IVP PRN (16:13)
--- NOTE | 2017-02-12 16:37 | GDS ---
[f rep st] DISCHARGE SUMMARY DISCHARGE DIAGNOSES: 1. Clostridium subterminale bacteremia. 2. Diverticulitis. 3. History of left middle cerebral artery aneurysm, status post coiling, complicated by bleed. 4. History of right popliteal deep venous thrombosis. 5. Seizure disorder. 6. Acute kidney injury, resolved. 7. Sepsis, resolved. 8. Acute encephalopathy secondary to above, improving. 9. Hypotension, resolved. HISTORY: This is a 71-year-old female who has been hospitalized a couple times in the last few [facility]. She was diagnosed with an aneurysm a few months ago that was coiled, that was clipped in November 2016, complicated by seizures and hydrocephalus. 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 She was also d iagnosed with right lower extremity DVT and has been on Xarelto. She was discharged from acute reha b and presented afterward with altered mental status. HOSPITAL COURSE: Blood cultures eventually grew out Clostridium subterminale. She did have her PRE[employer] CONCRETE IRONWORKER shunt tapped, which was negative. She underwent colonoscopy, which did not show any reason for her bacteremia. She then underwent CT scanning, which did show diverticulitis. This could be the cause of her bacteremia. She has been improving since her hospital admission. Mental status is improving slowly. She is eat ing. She will require a course of IV antibiotics, which is being set up to be done at the infusion center here in the hospital. Infectious Disease will be following. She will be discharged home wit h home physical therapy. DISPOSITION: Home with home health. DISCHARGE MEDICATIONS: She is to continue home medicines, and she will be on IV Invanz for time per iod specified by Infectious Disease. Greater than 30 minutes were spent on discharge. /[id number]/MODL
[2017-02-12 17:57] VITALS: BP 110/86; PULSE 110; RESP 16; TEMP 98; O2SAT 90
[2017-02-13] MEDS ORDERED: ERTAPENEM 1 GM in NS 100 ML IV SCH (09:00)
== END 2017-02-12 18:24 | disposition home health service (06) | DRG 871 ==
LOC: EDUNIT# → F3N 08:53
PROVIDERS: ADMIT Internal Medicine; ATTEND Internal Medicine
PROC: 0W9 Anatomical Regions, General, Drainage (ICD-10-PCS; principal; 2017-02-09)
PROC: 02HV33Z Insertion of Infusion Device into Superior Vena Cava, Percutaneous Approach (ICD-10-PCS; 2017-02-10)
PROC: 0DJD8ZZ Inspection of Lower Intestinal Tract, Via Natural or Artificial Opening Endoscopic (ICD-10-PCS; 2017-02-12)
DX: A41.89 Other specified sepsis (principal); R65.20 Severe sepsis without septic shock; K57.92 Diverticulitis of intestine, part unspecified, without perforation or abscess without bleeding; G93.40 Encephalopathy, unspecified; Z86.718 Personal history of other venous thrombosis and embolism; G40.909 Epilepsy, unspecified, not intractable, without status epilepticus; N17.9 Acute kidney failure, unspecified; N39.0 Urinary tract infection, site not specified; I10 Essential (primary) hypertension; E83.42 Hypomagnesemia; Z98.2 Presence of cerebrospinal fluid drainage device; Z79.01 Long term (current) use of anticoagulants
CPT/HCPCS: 82947-QW; 92507-GN; 92523-GN; 92526-GN; 92610-GN; 97116-GP; 97162-GP; 97166-GO; 97530-GO; 97535-GO; C1751; G8978-GP-CI; G8979-GP-CI; G8980-GP-CI; G8987-GO-CK; G8988-GO-CI; G8996-GN-CJ; G8997-GN-CI; G8998-GN-CI; G9165-GN-CK; G9166-GN-CK; G9167-GN-CK; J0360; J1335; J1953; J2185; J2405; J2704; J3370; J3475; J3490; Q9967

== ENCOUNTER 2017-02-16 15:31 | Emergency (ER) | payer OTHER ==
[2017-02-16 15:39] VITALS: RESP 18; O2SAT 94
--- NOTE | 2017-02-16 16:26 | CPEKG ---
Heart Rate: 70 RR Interval: 857 P-R Interval: 156 QRSD Interval: 86 QT Interval: 396 QTC Interval: 428 P [place]: -20 QRS [place]: 0 T Wave [place]: -5 EKG Severity - BORDERLINE ECG - EKG Impression: SINUS RHYTHM EKG Impression: BORDERLINE T ABNORMALITIES, INFERIOR LEADS Electronically Signed By: Maxine Vu 16-Feb-2017 21:21:35
--- NOTE | 2017-02-16 16:38 | EDPHY ---
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 She then developed fever was diagnosed with diverticulitis. She was discharged from the hospital 4 days ago and has been returning to the hospital for IV antibiotics daily. Patient has been tolerating this well, except for mild, persistently worsening confusion and the swelling of her hands and legs. This morning she was too weak to get to the bathroom, states this is worse since discharged. Patient's has been attempted to reach Dr. Ge and was advised by the neurosurgical office to come to the emergency department. However, after arriving in the emergency department, the reports that he did discuss the patient with Dr. Ge who suspect shunt malfunction. Dr. Ge will see the patient on , 2 days from now. Patient has not had fever, chills, chest pain, shortness of breath, palpitations, vomiting, diarrhea, urinary complaints, headache, or lightheadedness. REVIEW OF SYSTEMS: Unable to be obtained from the patient. denies. PAST MEDICAL HISTORY: Hypertension, Hip replacement, Shoulder replacement, DVT, Intracranial bleed with shunt placed. SOCIAL HISTORY: . VITAL SIGNS: Reviewed by me. GENERAL: Well-developed, well-nourished, no respiratory distress. Somewhat slow to answer questions. Pleasant. HEENT: Atraumatic. Eyes: No icterus, no injection. PERRL Mouth: moist mucous membranes. No erythema or lesions. Neck: supple with no adenopathy. LUNGS: Clear to auscultation bilaterally, no wheezes, rhonchi or rales. CARDIAC: Regular rate and rhythm, no rubs, murmurs or gallops. ABDOMEN: Soft, nontender, nondistended, bowel sounds normal. BACK: No CVA tenderness. EXTREMITIES: No trauma. Trace edema at the ankles and dorsum of the feet. Dorsum of the hands are slightly swollen bilaterally. Range of motion is normal throughout. NEURO: Alert, oriented to person and place only. Follows simple commands. Moves all extremities x4. Grossly nonfocal motor exam. Sensation intact throughout. SKIN: Warm and dry, no rash. PSYCHIATRIC: Slow to respond. Portions of this note were transcribed by a medical communication specialist. I personally performed a history, physical exam, medical decision making, and confirmed accuracy of information the transcribed note. ED Course: Patient with history of intracranial hemorrhage, hydrocephalus, diverticulitis, and DVT presents with altered mental status. Patient is oriented to person and place, not date. She had lab work done yesterday that I will review. She had a head CT done last week. Patient had IV placed. She received her Invanz as per schedule. Laboratory data is largely unremarkable. Patient's urinalysis has trace bacteria and trace leukocyte esterase. I discussed the patient's care with . He does not feel that imaging study is warranted today. Patient has an appointment in [address] Ge will adjust the shunt at that time. Patient 's is comfortable with this plan. He wishes to be able to take the patient home and continue her therapies at home. He will follow up with Dr. Ge as scheduled. Patient's understands that if she develops vomiting , fevers, seizure, worsening lethargy, or other concerns he may return to the emergency department immediately. Urinalysis was sent for culture. MDM: After the history was obtained and physical exam performed, the following differential for the patient's altered mental status was considered included but was not limited to hypoglycemia, electrolyte disturbances, intracranial hemorrhage, shunt malfunction, septicemia, stroke, or TIA. - Data Points Laboratory Results: Laboratory Results 02/16/17 16:10 02/16/17 16:10 Medications Given: Discontinued Medications Ertapenem 1 gm/ Sodium (Chloride) 100 mls @ 200 mls/hr IV EDNOW ONE PRN Reason: Protocol Stop: 02/16/17 17:31 Last Admin: 02/16/17 17:31 Dose: 100 mls Microbiology Results: MICROBIOLOGY 02/16/17 17:51 Urine,Clean Catch Urine Culture - Preliminary Enterococcus Faecium General Time Seen by Provider: 02/16/17 16:33 Initial Vital Signs: Initial Vital Signs Temperature (C) 36.4 C 02/16/17 15:36 Heart Rate 73 02/16/17 15:36 Respiratory Rate 18 02/16/17 15:36 Blood Pressure 170/99 H 02/16/17 15:36 O2 Sat (%) 94 02/16/17 15:36 O2 Delivery Mode Room Air Allergies/Adverse Reactions: bee venom protein (honey bee) Allergy (Verified 02/16/17 15:36) naproxen [From Aleve] Allergy (Verified 02/16/17 15:36) Hives Penicillins Allergy (Verified 02/16/17 15:36) swelling Home Medications: Medication Instructions Recorded Acetaminophen [Tylenol 325mg (*)] 650 mg PO Q4 PRN 01/12/17 Magnesium Hydroxide [Milk of 30 ml PO DAILY PRN 01/12/17 Magnesia] Sennosides/Docusate Sodium 1 each PO DAILY 01/12/17 [Senna-S Tablet] Atorvastatin Calcium [Lipitor 10 10 mg PO DAILY #30 tab 02/05/17 mg (*)] Cholecalciferol Vit D3 [Vitamin D3 2,000 units PO DAILY #0 each 02/05/17 2000 units tab (OTC)] Lacosamide [Vimpat] 100 mg PO BID #60 tablet 02/05/17 Lisinopril [Zestril 40 mg (*)] 40 mg PO DAILY #30 tab 02/05/17 Metoprolol Tartrate [Lopressor 50 50 mg PO BID #60 tab 02/05/17 mg (*)] Polyethylene Glycol 3350 [Miralax 17 gm PO DAILY #0 pkt 02/05/17 17 gm (*)] Rivaroxaban [Xarelto 15mg (*)] 15 mg PO BIDMEAL #29 tab 02/05/17 Rivaroxaban [Xarelto] 20 mg PO DAILY AT 6PM #30 tab 02/05/17 levETIRAcetam [Keppra 500 mg (*)] 1,000 mg PO BID #120 tab 02/05/17 Ertapenem [INVanz] 0.5 gm IV DAILY #1 vial 02/12/17 Departure - Departure Disposition: Home, Routine, Self-Care Clinical Impression: Altered mental status, Possible shunt malfunction Condition: Good Instructions: Altered Mental Status (ED) Additional Instructions: Followup with your Dr. Ge on as scheduled. Return to the Emergency Department with new or worsening symptoms. Referrals: Basilio Ge MD [Medical Doctor] - As per Instructions Report Scribed for: Maxine Vu Report Scribed by: Jannie Mccoy Date of Report: 02/16/17 Time of Report: 16:55
[2017-02-16] MEDS ORDERED: ERTAPENEM 1 GM in NS 100 ML IV ONE (17:02)
[2017-02-16 17:09] LABS: % IMMATURE GRANULYOCYTES 0.6 % (0.0-1.1); ABSOLUTE IMMATURE GRANULOCYTES 0.03 10^3/uL (0.00-0.10); ADD DIFF? NO; ADD MORPH? NO; ADD SCAN? NO; ATYPICAL LYMPHOCYTE FLAG 20 (0-99); FRAGMENT RBC FLAG 0 (0-99); HEMATOCRIT 30.1 % (38.0-47.0); HEMOGLOBIN 10.2 g/dL (12.6-16.3); LEFT SHIFT FLG 10 (0-99); LIPEMIA HEMOLYSIS FLAG 90 (0-99); MEAN CELL HEMOGLOBIN CONCENTR. 33.9 g/dL (32.4-36.7); MEAN CELL VOLUME 91.5 fL (81.5-99.8); MEAN PLATELET VOLUME 9.7 fL (8.7-11.7); PLATELET CLUMPS FLAG 0 (0-99); PLATELET COUNT 343 10^3/uL (150-400); RED BLOOD CELL COUNT 3.29 10^6/uL (4.18-5.33); RED CELL DISTRIBUTION WIDTH 12.6 % (11.5-15.2)
[2017-02-16 17:16] LABS: ANION GAP 9 mEq/L (8-16); CALCIUM 9.7 mg/dL (8.5-10.4); CARBON DIOXIDE 23 mEq/l (22-31); CHLORIDE 101 mEq/L (97-110); CREATININE 0.6 mg/dL (0.6-1.0); GLOMERULAR FILTRATION RATE > 60; GLUCOSE 85 mg/dL (70-100); POTASSIUM 3.8 mEq/L (3.5-5.2); SODIUM 133 mEq/L (134-144)
[2017-02-16 17:27] LABS: TROPONIN I < 0.012 ng/mL (0-0.034)
[2017-02-16 18:01] LABS: COLOR YELLOW; LEUKOCYTE ESTERASE,URINE TRACE (NEGATIVE); NITRITE,URINE NEGATIVE (NEGATIVE)
[2017-02-16 18:12] LABS: BACTERIA TRACE /hpf (NONE SEEN)
[2017-02-16 19:02] VITALS: BP 172/82; PULSE 71; TEMP 97.7
== END 2017-02-16 19:04 | disposition home or self-care (01) ==
DX: R41.82 Altered mental status, unspecified (principal); I10 Essential (primary) hypertension
CPT/HCPCS: 93005; 96365; 99284; J1335

== ENCOUNTER 2017-02-18 08:33 | Inpatient (IN) | payer OTHER ==
--- NOTE | 2017-02-18 09:06 | EDPHY ---
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 Family is reporting increase in mental status changes, with difficulty walking since yesterday also increase in leg swelling and facial swelling. Family states that they have gone in touch with Dr. Ge the initially had appointment today at 12:20 p.m. to recheck her BP shunt make some changes, but her AMS had increased overnight unable to walk family is concerned he just can't take care of her home. Patient is also being treated for diverticulitis IV antibiotics of [facility]. REVIEW OF SYSTEMS: Review of systems is unobtainable from this patient because of altered mentation. (Liv Lam) - Physical Exam Exam: General Appearance: Awake, no distress. Smiling Eyes: PERRL ENT, Mouth: Mucous membranes moist. Respiratory: There are no retractions, lungs are clear to auscultation. Cardiovascular: Regular rate and rhythm. Gastrointestinal: Abdomen is soft and nontender, no masses, bowel sounds normal. Neurological: No facial droop, slow to respond Skin: Warm and dry, no rashes. Musculoskeletal: Neck is supple nontender. Extremities: symmetrical, full range of motion. Bilateral lower extremity nonpitting edema, edema noted to the dorsal aspect of right hand. Moving all extremities. Right upper extremity is 3/5 biochemistry specialist strength, left upper extremity 4 /5, bilateral lower extremity 4/5 Psychiatric: Patient is oriented to person and family. (Liv Lam) Constitutional: Initial Vital Signs Temperature (C) 36.4 C 02/18/17 08:36 Heart Rate 85 06/22/17 08:36 Respiratory Rate 18 02/18/17 08:36 Blood Pressure 150/93 H 02/18/17 08:36 O2 Sat (%) 90 L 02/18/17 08:36 O2 Delivery Mode Room Air Allergies/Adverse Reactions: bee venom protein (honey bee) Allergy (Verified 02/18/17 08:35) naproxen [From Aleve] Allergy (Verified 02/18/17 08:35) Hives Penicillins Allergy (Verified 02/18/17 08:35) swelling Home Medications: Medication Instructions Recorded Acetaminophen [Tylenol 325mg (*)] 650 mg PO Q4 PRN 01/12/17 Magnesium Hydroxide [Milk of 30 ml PO DAILY PRN 01/12/17 Magnesia] Sennosides/Docusate Sodium 1 each PO BID 01/12/17 [Senna-S Tablet] Atorvastatin Calcium [Lipitor 10 10 mg PO DAILY #30 tab 02/05/17 mg (*)] Cholecalciferol Vit D3 [Vitamin D3 2,000 units PO DAILY #0 each 02/05/17 2000 units tab (OTC)] Lacosamide [Vimpat] 100 mg PO BID #60 tablet 02/05/17 Lisinopril [Zestril 40 mg (*)] 40 mg PO DAILY #30 tab 02/05/17 Metoprolol Tartrate [Lopressor 50 50 mg PO BID #60 tab 02/05/17 mg (*)] Polyethylene Glycol 3350 [Miralax 17 gm PO DAILY #0 pkt 02/05/17 17 gm (*)] Rivaroxaban [Xarelto 15mg (*)] 15 mg PO BIDMEAL #29 tab 02/05/17 levETIRAcetam [Keppra 500 mg (*)] 1,000 mg PO BID #120 tab 02/05/17 Medical Decision Making - Diagnostics Imaging Results: Imaging Impressions Head CT 02/18/17 09:06 Impression: 1. Stable right ventricular shunt with no increase in ventriculomegaly. 2. Postsurgical changes of prior craniotomy with encephalomalacia in the left frontal and temporal lobes, stable in appearance. 3. Moderate periventricular and deep hemispheric white matter change which is nonspecific. No evidence for acute infarct or intracranial hemorrhage. 4. Evidence of prior left MCA aneurysmal clip placement with stable appearance. Results called and discussed with Liv Lam NP on February 18, 2017 at 10:11 a.m. ED Course/Re-evaluation: Discussed the plan of care with family: CT head without contrast, EKG, , CBC CMP, troponin 1005: Spoke with Dr. Red[place] CT head no changes from her previous CT 1130: Spoke with Dr. Ge, patient be admitted to hospitalist he will see patient in hospital to readjust her shunt 1200: Patient admitted, discussed plan with patient patient family they were in agreement. We also discussed possible rehab facility when patient is discharged case Management will be involved with this patient care. (Liv Lam) I did not see this patient while she was in the emergency department. However her care was discussed with the PA while the patient was in the department. I agree with treatment plan and management (Rob Montano) Differential Diagnosis: Other differential diagnosis considered but not limited to electrolyte imbalance , subarachnoid hemorrhage, CVA (Liv Lam) - Data Points Laboratory Results: Laboratory Results 02/18/17 09:15 02/18/17 09:15 02/18/17 02/18/17 02/18/17 11:30 09:15 09:15 WBC 6.34 10^3/uL 10^3/uL (3.80-9.50) RBC 3.40 10^6/uL L 10^6/uL (4.18-5.33) Hgb 10.6 g/dL L g/dL (12.6-16.3) Hct 31.2 % L % (38.0-47.0) MCV 91.8 fL fL (81.5-99.8) MCH 31.2 pg pg (27.9-34.1) MCHC 34.0 g/dL g/dL (32.4-36.7) RDW 12.7 % % (11.5-15.2) Plt Count 335 10^3/uL 10^3/uL (150-400) MPV 9.4 fL fL (8.7-11.7) Neut % (Auto) 74.3 % H % (39.3-74.2) Lymph % (Auto) 16.1 % % (15.0-45.0) [place] % (Auto) 6.3 % % (4.5-13.0) Eos % (Auto) 2.1 % % (0.6-7.6) Baso % (Auto) 0.6 % % (0.3-1.7) Nucleat RBC Rel Count 0.0 % % (0.0-0.2) Absolute Neuts (auto) 4.71 10^3/uL 10^3/uL (1.70-6.50) Absolute Lymphs (auto) 1.02 10^3/uL 10^3/uL (1.00-3.00) Absolute Monos (auto) 0.40 10^3/uL 10^3/uL (0.30-0.80) Absolute Eos (auto) 0.13 10^3/uL 10^3/uL (0.03-0.40) Absolute Basos (auto) 0.04 10^3/uL 10^3/uL (0.02-0.10) Absolute Nucleated RBC 0.00 10^3/uL 10^3/uL (0-0.01) Immature Gran % 0.6 % % (0.0-1.1) Immature Gran # 0.04 10^3/uL 10^3/uL (0.00-0.10) Sodium 140 mEq/L mEq/L (134-144) Potassium 3.8 mEq/L mEq/L (3.5-5.2) Chloride 104 mEq/L mEq/L (97-110) Carbon Dioxide 23 mEq/l mEq/l (22-31) Anion Gap 13 mEq/L mEq/L (8-16) BUN 10 mg/dL mg/dL (7-23) Creatinine 0.7 mg/dL mg/dL (0.6-1.0) Estimated GFR > 60 Glucose 76 mg/dL mg/dL (70-100) Calcium 9.9 mg/dL mg/dL (8.5-10.4) Total Bilirubin 0.7 mg/dL mg/dL (0.1-1.4) AST 17 IU/L IU/L (14-46) ALT 33 IU/L IU/L (9-52) Alkaline Phosphatase 69 IU/L IU/L (38-126) Troponin I < 0.012 ng/mL ng/mL (0-0.034) Total Protein 6.3 g/dL g/dL (6.3-8.2) Albumin 3.6 g/dL g/dL (3.5-5.0) Urine Color YELLOW Urine Appearance CLEAR Urine pH 5.0 (5.0-7.5) Ur Specific [place] 1.012 (1.002-1.030) Urine Protein NEGATIVE (NEGATIVE) Urine Ketones 1+ H (NEGATIVE) Urine Blood NEGATIVE (NEGATIVE) Urine Nitrate NEGATIVE (NEGATIVE) Urine Bilirubin NEGATIVE (NEGATIVE) Urine Urobilinogen NEGATIVE EU EU (0.2-1.0) Ur Leukocyte Esterase NEGATIVE (NEGATIVE) Urine Glucose NEGATIVE (NEGATIVE) Departure - Departure Disposition: [facility] Inpatient Acute Clinical Impression: Generalized weakness Altered mental state Qualifiers: Altered mental status type: disorientation Qualified Code(s): R41.0 - Disorientation, unspecified Condition: Good
--- NOTE | 2017-02-18 09:20 | CPEKG ---
Heart Rate: 84 RR Interval: 714 P-R Interval: 147 QRSD Interval: 84 QT Interval: 332 QTC Interval: 393 P [place]: -13 QRS [place]: -6 T Wave [place]: 215 EKG Severity - BORDERLINE ECG - EKG Impression: SINUS RHYTHM EKG Impression: BORDERLINE T ABNORMALITIES, DIFFUSE LEADS Electronically Signed By: Gurpreet Hanson 19-Feb-2017 10:49:05
[2017-02-18 09:36] LABS: % IMMATURE GRANULYOCYTES 0.6 % (0.0-1.1); ABSOLUTE IMMATURE GRANULOCYTES 0.04 10^3/uL (0.00-0.10); ADD DIFF? NO; ADD MORPH? NO; ADD SCAN? NO; ATYPICAL LYMPHOCYTE FLAG 10 (0-99); FRAGMENT RBC FLAG 0 (0-99); HEMATOCRIT 31.2 % (38.0-47.0); HEMOGLOBIN 10.6 g/dL (12.6-16.3); LEFT SHIFT FLG 0 (0-99); LIPEMIA HEMOLYSIS FLAG 90 (0-99); MEAN CELL HEMOGLOBIN 31.2 pg (27.9-34.1); MEAN CELL VOLUME 91.8 fL (81.5-99.8); MEAN PLATELET VOLUME 9.4 fL (8.7-11.7); PLATELET CLUMPS FLAG 0 (0-99); PLATELET COUNT 335 10^3/uL (150-400); RED CELL DISTRIBUTION WIDTH 12.7 % (11.5-15.2)
[2017-02-18 09:38] LABS: ALANINE AMINOTRANSFERASE 33 IU/L (9-52); ALBUMIN 3.6 g/dL (3.5-5.0); ALKALINE PHOSPHATASE 69 IU/L (38-126); ANION GAP 13 mEq/L (8-16); ASPARTATE AMINOTRANSFERASE 17 IU/L (14-46); BILIRUBIN,TOTAL 0.7 mg/dL (0.1-1.4); CALCIUM 9.9 mg/dL (8.5-10.4); CARBON DIOXIDE 23 mEq/l (22-31); CHLORIDE 104 mEq/L (97-110); CREATININE 0.7 mg/dL (0.6-1.0); GLOMERULAR FILTRATION RATE > 60; GLUCOSE 76 mg/dL (70-100); POTASSIUM 3.8 mEq/L (3.5-5.2); SODIUM 140 mEq/L (134-144); TOTAL PROTEIN 6.3 g/dL (6.3-8.2)
[2017-02-18 09:50] LABS: TROPONIN I < 0.012 ng/mL (0-0.034)
[2017-02-18 11:41] LABS: COLOR YELLOW; LEUKOCYTE ESTERASE,URINE NEGATIVE (NEGATIVE); NITRITE,URINE NEGATIVE (NEGATIVE)
[2017-02-18] MEDS ORDERED: oxyCODONE IR 5 MG TAB PO PRN (14:26)
[2017-02-18] MEDS ORDERED: ONDANSETRON 4 MG/2 ML VIAL IVP PRN (14:26)
[2017-02-18] MEDS ORDERED: PROMETHAZINE HCL 25 MG/ML INJ IVP PRN (14:26)
[2017-02-18] MEDS ORDERED: ONDANSETRON DISINTEGRATING 4 MG TAB PO PRN (14:26)
[2017-02-18] MEDS ORDERED: MAGNESIUM HYDROXIDE 30 ML UDCUP PO PRN (14:29)
[2017-02-18] MEDS ORDERED: ACETAMINOPHEN 325 MG TAB PO PRN (14:29)
[2017-02-18] MEDS ORDERED: hydrALAZINE 20 MG/ML VIAL IVP PRN (14:30)
--- NOTE | 2017-02-18 15:52 | PDGENHP ---
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 At the time of my evaluation , family is not available, so this history is obtained both by patient and chart review. Patient herself denies any abnormalities this morning. She states that she woke early for an appointment, she cannot remember what the appointment was but thinks it may have been to see a doctor who's name begins with a "b." As far as she can recall per her report it has been a normal morning. When asked why she is here in the hospital, she states it is because her worries over every single thing. She is coherent and logical for the most part in her conversation, but when asked more specific questions it is clear that her memory is very limited. She denies any numbness or weakness, any pain, any fever or chills, any sob. According to chart review patient was scheduled to see Dr. Ge today for an adjustment of her ANESTHESIOLOGIST ASSISTANT CERTIFIED shunt. History Information - Allergies/Home Medication List Allergies/Adverse Reactions: bee venom protein (honey bee) Allergy (Verified 02/18/17 08:35) naproxen [From Aleve] Allergy (Verified 02/18/17 08:35) Hives Penicillins Allergy (Verified 02/18/17 08:35) swelling Home Medications: Acetaminophen [Tylenol 325mg (*)] 650 mg PO Q4 PRN 01/12/17 [Last Taken 02/03/17 ] Magnesium Hydroxide [Milk of Magnesia] 30 ml PO DAILY PRN 01/12/17 [Last Taken 02/02/17] Sennosides/Docusate Sodium [Senna-S Tablet] 1 each PO BID 01/12/17 [Last Taken 02/17/17 19:00] Ertapenem [Invanz] 0.5 gm IV DAILY 02/18/17 [Last Taken Unknown] I have personally reviewed and updated: family history, medical history, social history, surgical history - Past Medical History 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 Hypertension. DVT of R lower extremity on xarelto (01/17/2017). diverticulitis and clostridium bacteremia - Surgical History Additional surgical history: shoulder/hip replacements. . craniotomy. vp purchasing shunt placement - Family History Positive for: non-pertinent - Social History Smoking Status: Never smoked Alcohol Use: Rarely Drug Use: None Additional social history: Lives with , using a walker to ambulate Review of Systems ROS: 10pt was reviewed & negative except for what was stated in HPI & below ( limited by patients confusion/memory issues) Physical Exam Temp Pulse Resp BP Pulse Ox 36.6 C 80 18 171/91 H 95 02/18/17 13:07 02/18/17 13:48 02/18/17 13:07 02/18/17 13:48 02/18/17 13:07 Constitutional: no apparent distress, appears nourished, chronically ill appearing Eyes: PERRL, other (right sided ptosis/bilateral eyelid swelling) Ears, Nose, Mouth, Throat: moist mucous membranes, hearing normal Cardiovascular: regular rate and rhythym, no murmur, rub, or gallop, edema Respiratory: no respiratory distress, no rales or rhonchi Gastrointestinal: normoactive bowel sounds, soft, non-tender abdomen Skin: warm, normal color Musculoskeletal: abnormal gait (reported by ER, not evaluated), generalized weakness Neurologic: sensation intact bilaterally, CN II-XII Intact (other than left ptosis) Psychiatric: interacting appropriately, not anxious, not encephalopathic Lab Data & Imaging Review 02/18/17 09:15 02/18/17 09:15 WBC 6.34 10^3/uL (3.80-9.50) 02/18/17 09:15 RBC 3.40 10^6/uL (4.18-5.33) L 02/18/17 09:15 Hgb 10.6 g/dL (12.6-16.3) L 02/18/17 09:15 Hct 31.2 % (38.0-47.0) L 02/18/17 09:15 MCV 91.8 fL (81.5-99.8) 02/18/17 09:15 MCH 31.2 pg (27.9-34.1) 02/18/17 09:15 MCHC 34.0 g/dL (32.4-36.7) 02/18/17 09:15 RDW 12.7 % (11.5-15.2) 02/18/17 09:15 Plt Count 335 10^3/uL (150-400) 02/18/17 09:15 MPV 9.4 fL (8.7-11.7) 02/18/17 09:15 Neut % (Auto) 74.3 % (39.3-74.2) H 02/18/17 09:15 Lymph % (Auto) 16.1 % (15.0-45.0) 02/18/17 09:15 [place] % (Auto) 6.3 % (4.5-13.0) 02/18/17 09:15 Eos % (Auto) 2.1 % (0.6-7.6) 02/18/17 09:15 Baso % (Auto) 0.6 % (0.3-1.7) 02/18/17 09:15 Nucleat RBC Rel Count 0.0 % (0.0-0.2) 02/18/17 09:15 Absolute Neuts (auto) 4.71 10^3/uL (1.70-6.50) 02/18/17 09:15 Absolute Lymphs (auto) 1.02 10^3/uL (1.00-3.00) 02/18/17 09:15 Absolute Monos (auto) 0.40 10^3/uL (0.30-0.80) 02/18/17 09:15 Absolute Eos (auto) 0.13 10^3/uL (0.03-0.40) 02/18/17 09:15 Absolute Basos (auto) 0.04 10^3/uL (0.02-0.10) 02/18/17 09:15 Absolute Nucleated RBC 0.00 10^3/uL (0-0.01) 02/18/17 09:15 Immature Gran % 0.6 % (0.0-1.1) 02/18/17 09:15 Immature Gran # 0.04 10^3/uL (0.00-0.10) 02/18/17 09:15 Sodium 140 mEq/L (134-144) 02/18/17 09:15 Potassium 3.8 mEq/L (3.5-5.2) 02/18/17 09:15 Chloride 104 mEq/L (97-110) 02/18/17 09:15 Carbon Dioxide 23 mEq/l (22-31) 02/18/17 09:15 Anion Gap 13 mEq/L (8-16) 02/18/17 09:15 BUN 10 mg/dL (7-23) 02/18/17 09:15 Creatinine 0.7 mg/dL (0.6-1.0) 02/18/17 09:15 Estimated GFR > 60 02/18/17 09:15 Glucose 76 mg/dL (70-100) 02/18/17 09:15 Calcium 9.9 mg/dL (8.5-10.4) 02/18/17 09:15 Total Bilirubin 0.7 mg/dL (0.1-1.4) 02/18/17 09:15 AST 17 IU/L (14-46) 02/18/17 09:15 ALT 33 IU/L (9-52) 02/18/17 09:15 Alkaline Phosphatase 69 IU/L (38-126) 02/18/17 09:15 Troponin I < 0.012 ng/mL (0-0.034) 02/18/17 09:15 Total Protein 6.3 g/dL (6.3-8.2) 02/18/17 09:15 Albumin 3.6 g/dL (3.5-5.0) 02/18/17 09:15 Urine Color YELLOW 02/18/17 11:30 Urine Appearance CLEAR 02/18/17 11:30 Urine pH 5.0 (5.0-7.5) 02/18/17 11:30 Ur Specific [place] 1.012 (1.002-1.030) 02/18/17 11:30 Urine Protein NEGATIVE (NEGATIVE) 02/18/17 11:30 Urine Ketones 1+ (NEGATIVE) H 02/18/17 11:30 Urine Blood NEGATIVE (NEGATIVE) 02/18/17 11:30 Urine Nitrate NEGATIVE (NEGATIVE) 02/18/17 11:30 Urine Bilirubin NEGATIVE (NEGATIVE) 02/18/17 11:30 Urine Urobilinogen NEGATIVE EU (0.2-1.0) 02/18/17 11:30 Ur Leukocyte Esterase NEGATIVE (NEGATIVE) 02/18/17 11:30 Urine Glucose NEGATIVE (NEGATIVE) 02/18/17 11:30 Visualized and Interpreted imaging results: Yes Interpretation: head CT: stable changes post vp purchasing shunt/aneurysm and encephalomalacia Visualized and Interpreted EKG results: Yes EKG Interpretation: Positive for: normal sinsus rhythm, T waves inversion Assessment & Plan Assessment: Altered mental state (Acute) Generalized weakness (Acute) 71 yo F with PMH of cerebral aneurysm and SAH as well as hydrocephalus s/p ANESTHESIOLOGIST ASSISTANT CERTIFIED shunting and resultant sz d/o presenting with ams/gait instability # acute encephalopathy: at this point she has a non focal neurological exam other than left eyelid ptosis that seems to be more related to swelling. Head CT unchanged. Nsg consulted and will see that patient at some point today, unclear if this is related to her need to have her shunt adjusted. Will monitor serial neuro checks and also ask for neurology to consult # gait instability: did not re evaluate as patient did not feel safe ambulating , will have pt/ot eval, cm involved # cerebral aneurysm/sah/vp purchasing shunt and hydrocephalus: as above, CT appears unchanged # clostridium bacteremia: followed by ID, still on invanz, length of treatment unclear from last dc, will ask ID to consult and help with length of therapy # sz d/o: continue keppra/vimpat, nothing by hx concerning for seizure occurring today leading to her presenting sxs, but will monitor and check keppra level # htn/hld: continue metoprolol/lisinopril/atorvastatin # dispo: IP status, given medical complexity and multiple active issues suspect she will require > 48 hour stay patient new to my care. Old records reviewed and summarized as above. Care plan reviewed with ER doctor.
[2017-02-18] MEDS ORDERED: ERTAPENEM 1 GM VIAL IV SCH (16:30)
[2017-02-18] MEDS ORDERED: ERTAPENEM 0.5 GM in NS 50 ML IV SCH (17:00)
[2017-02-18] MEDS: RIVAROXABAN 15 MG TAB PO SCH (17:11)
[2017-02-18] MEDS: ERTAPENEM 1 GM in NS 100 ML IV SCH (17:16)
[2017-02-18 20:22] LABS: CSF APPEARANCE CLEAR (CLEAR); CSF COLOR COLORLESS (COLORLESS)
[2017-02-18 20:25] LABS: PROTEIN, CSF 41 mg/dL (12-60)
[2017-02-18 20:30] LABS: CSF SUPERNATANT COLORLESS (COLORLESS); WBC, CSF 3 /mm3 (0-5)
[2017-02-18] MEDS ORDERED: NON-FORMULARY NEW DRUG (Lacosamide [Vimpat] 100 MG) PO SCH (21:00)
[2017-02-18] MEDS: levETIRAcetam 500 MG TAB PO SCH (21:43)
[2017-02-18] MEDS: SENNOSIDES/DOCUSATE SODIUM TAB PO SCH (21:44)
[2017-02-18] MEDS: METOPROLOL TARTRATE 50 MG TAB PO SCH (21:44)
[2017-02-18] MEDS: LACOSAMIDE 50 MG TAB PO SCH (21:45)
[2017-02-19 05:51] LABS: % IMMATURE GRANULYOCYTES 0.7 % (0.0-1.1); ABSOLUTE IMMATURE GRANULOCYTES 0.04 10^3/uL (0.00-0.10); ADD DIFF? NO; ADD MORPH? NO; ADD SCAN? NO; ATYPICAL LYMPHOCYTE FLAG 10 (0-99); FRAGMENT RBC FLAG 0 (0-99); HEMATOCRIT 28.5 % (38.0-47.0); HEMOGLOBIN 9.6 g/dL (12.6-16.3); LEFT SHIFT FLG 10 (0-99); LIPEMIA HEMOLYSIS FLAG 80 (0-99); MEAN CELL HEMOGLOBIN 30.9 pg (27.9-34.1); MEAN CELL HEMOGLOBIN CONCENTR. 33.7 g/dL (32.4-36.7); MEAN CELL VOLUME 91.6 fL (81.5-99.8); MEAN PLATELET VOLUME 9.6 fL (8.7-11.7); PLATELET CLUMPS FLAG 0 (0-99); PLATELET COUNT 311 10^3/uL (150-400); RED BLOOD CELL COUNT 3.11 10^6/uL (4.18-5.33); RED CELL DISTRIBUTION WIDTH 12.9 % (11.5-15.2)
[2017-02-19 06:06] LABS: ANION GAP 10 mEq/L (8-16); CALCIUM 9.6 mg/dL (8.5-10.4); CARBON DIOXIDE 24 mEq/l (22-31); CHLORIDE 103 mEq/L (97-110); CREATININE 0.7 mg/dL (0.6-1.0); GLOMERULAR FILTRATION RATE > 60; GLUCOSE 73 mg/dL (70-100); MAGNESIUM 1.4 mg/dL (1.6-2.3); POTASSIUM 3.9 mEq/L (3.5-5.2); SODIUM 137 mEq/L (134-144)
[2017-02-19] MEDS ORDERED: PROTOCOL MAGNESIUM 1 DOSE IV PRN (08:37)
[2017-02-19] MEDS ORDERED: PROTOCOL CALCIUM 1 DOSE IV PRN (08:37)
[2017-02-19] MEDS ORDERED: MAGNESIUM SULF 2 GM/WATER 50 ML IV ONE (08:37)
[2017-02-19] MEDS ORDERED: PROTOCOL K PHOSPHATE 1 DOSE IV PRN (08:37)
[2017-02-19] MEDS ORDERED: PROTOCOL POTASSIUM 1 DOSE MISC PRN (08:37)
--- NOTE | 2017-02-19 08:42 | NEUSURGPN ---
Assessment/Plan: Audrey is a 71y/o female with hx of left MCA aneurysm who later developed hydrocephalus and is s/p GLASS BULB SILVERER shunt placement. She presented to [facility] with increaesed weakness, confusion and AMS. He GLASS BULB SILVERER shunt was tapped on 02/18/17. -CSF cultures pending, no organisms seen on gram stain - Per patient had some minor improvement last night with moving with her walker, but did sleep most of the night -Will await PT evaluation of this morning. If improvement after tap, will reduce [employer] certas shunt from 4 to 2 today -Discussed with Dr. Ge -If she develops any new or worsening neuro/motor exam please give NS a call. Subjective: Denies any headache, nausea. Objective: NAD A&Ox3 LUE and LLE 5/5, Right eyelid droop. Shunt bulb easily depressible without erythema or edema - Physician Discussed Patient with Dr.: Ge Neurosurgery Physical Exam - Vitals, I&O, Labs I and O 02/18/17 02/19/17 02/20/17 05:59 05:59 05:59 Intake Total 500 Balance 500 Weight 59.874 kg Intake: Oral (ml) 400 IV Infused (ml) 100 Ertapenem 1 gm In Ns 100 100 ml @ 200 mls/hr IV DAILY@ 1430 [facility] Rx#:[id number] Other: Number of Voids Bedside Commode 1 Microbiology 02/18/17 Unknown Gram Stain - Final Csf From Shunt Vital Signs Temp Pulse Resp BP Pulse Ox 36.9 C 72 16 128/80 H 100 02/19/17 04:00 02/19/17 08:00 02/19/17 08:00 02/19/17 08:00 02/19/17 08:00 Laboratory Results 02/19/17 05:30 02/19/17 05:30 ICD10 Worksheet Patient Problems: Problems Problem Status Onset Altered mental state Acute Generalized weakness Acute Altered mental status Acute Altered mental status Acute Pneumonia Acute 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
[2017-02-19] MEDS ORDERED: ENOXAPARIN 40 MG/0.4 ML SYR SC SCH (09:00)
--- NOTE | 2017-02-19 09:01 | GCON ---
[f rep st] CONSULTATION NEUROSURGERY CONSULTATION DATE OF CONSULTATION: 02/18/2017 The patient was seen and evaluated at approximately 6:30 p.m. at [facility] on [facility] care floor. HISTORY OF PRESENT ILLNESS: The patient is a 71-year-old woman who is very well known to me, who valdez d a ruptured left MCA aneurysm with subarachnoid hemorrhage a few months ago. She recently, as she was getting out of rehab, presented with hydrocephalus and I placed a right frontal AIRBORNE ELECTRONICS ANALYST shunt with a Codman Certas valve set at 4 with a SiphonGuard device. She did have some improvement after that ti me but she has fluctuated somewhat since that time. She was admitted recently with some confusion a nd generalized weakness and was found to have bacteremia and diverticulitis and has been treated wit h antibiotics for this. According to her , she has been slowly declining further and is not really able to walk at home and is clearly quite confused. They brought her back to the ER today be cause they were unable to get her out of bed. She denies any headaches or head pain but she is jacquelyn rly quite confused about her situation and somewhat delirious in the room. She otherwise is awake a nd pleasant. She had a CT in the ER which was relatively unremarkable. Her ventricles were slightl y large for her age perhaps but smaller than they were when she presented with florid hydrocephalus. REVIEW OF SYSTEMS: A 10-point review of systems is negative other than that described above in the HPI. ALLERGIES: 1. Bee venom. 2. Naproxen. 3. Penicillin. MEDICATIONS: 1. Tylenol. 2. Magnesium hydroxide. 3. Docusate Senna. 4. Ertapenem. PAST MEDICAL HISTORY: 1. Subarachnoid hemorrhage secondary to left MCA aneurysm status post surgical clipping. 2. Hypertension. 3. Hyperlipidemia. 4. Possible seizures. 5. Hydrocephalus status post AIRBORNE ELECTRONICS ANALYST shunt. 6. DVT of the right lower extremity, on Xarelto. 7. Diverticulitis. PAST SURGICAL HISTORY: 1. Left frontal craniotomy for aneurysm clipping. 2. AIRBORNE ELECTRONICS ANALYST shunt placement. 3. Shoulder and hip replacements. FAMILY HISTORY: Negative for subarachnoid hemorrhage. SOCIAL HISTORY: The patient is a lifelong nonsmoker. She presents today with her and son. She denies any alcohol or other drug use. PHYSICAL EXAMINATION: VITAL SIGNS: Currently, she is afebrile with normal stable vital signs. She is slightly hypertensive with 171/91. NEUROLOGIC: She is awake, alert, and oriented x2. She is s omewhat confused but quite pleasant. Her speech is clear and fluent. Her cranial nerves 2-12 appea r grossly normal other than possibly a slight droop of her right eyelid which was not present the la st time I saw her. Otherwise, she has full 5/5 strength in all muscle groups in the upper and lower extremities. Her gait was not tested. Her sensation is intact. All of her surgical wounds appear to be well healed, without signs of infection. LABORATORY DATA: Her white count is 6.3, hemoglobin 10.6, hematocrit 31.2, platelets 335,000. Sodi um is 140, potassium 3.8, BUN 10, creatinine 0.7. Glucose is 76. IMAGING REVIEW: See HPI. ASSESSMENT AND PLAN: The patient is a 71-year-old woman with a posthemorrhagic hydrocephalus and st atus post left middle cerebral artery aneurysm clipping. Overall, she has done fairly well but her mental status has waxed and waned somewhat. She is currently being treated for an infection with ba cteremia from diverticulosis. Her shunt was tapped the last time she was here and was negative for any obvious infection. I did tap her shunt again under sterile conditions in the room using a 23-ga uge butterfly needle and was able to draw off easily some clear CSF. I hannah off 30 cc in total from the shunt and sent this down for Gram stain, culture, cell count, and protein and glucose. The whi te count was 3, red cell count 0, glucose was 42, and the protein was 41. Gram stain was negative. The cultures are pending. We will watch closely and see if she has some improvement after the high -volume tap, and if she does I will certainly adjust her shunt down to possibly a setting of 2. It is not entirely clear if this is related to hydrocephalus or not but we will follow along closely. Her pressures have always been normal in the brain and therefore this is more similar to normal-pres sure hydrocephalus and may respond more slowly to shunting. I have explained all this at length to her and son and they are in agreement with this assessment and plan. /[id number]/MODL
[2017-02-19] MEDS: POLYETHYLENE GLYCOL 3350 17 GM PKT PO SCH (09:37)
[2017-02-19] MEDS: levETIRAcetam 500 MG TAB PO SCH ×2 (09:38→20:27)
[2017-02-19] MEDS: RIVAROXABAN 15 MG TAB PO SCH ×2 (09:38→17:39)
[2017-02-19] MEDS: LACOSAMIDE 50 MG TAB PO SCH ×2 (09:38→20:28)
[2017-02-19] MEDS: SENNOSIDES/DOCUSATE SODIUM TAB PO SCH ×2 (09:39→20:27)
[2017-02-19] MEDS: METOPROLOL TARTRATE 50 MG TAB PO SCH ×2 (09:39→20:27)
[2017-02-19] MEDS: ATORVASTATIN CALCIUM 10 MG TAB PO SCH (09:39)
[2017-02-19] MEDS: LISINOPRIL 40 MG TAB PO SCH (09:40)
[2017-02-19] MEDS: CHOLECALCIFEROL VIT D3 2,000 UNITS TAB/CAP PO SCH (09:40)
[2017-02-19] MEDS ORDERED: POTASSIUM CL 10 MEQ TAB PO ONE (12:45)
[2017-02-19] MEDS: ERTAPENEM 1 GM in NS 100 ML IV SCH (13:54)
[2017-02-19 14:22] LABS: IONIZED CALCIUM 1.29 MMOL/L (1.12-1.30)
--- NOTE | 2017-02-19 15:40 | HOSPPROG ---
Hospitalist Progress Note Assessment/Plan: 71 yo F with PMH of cerebral aneurysm and SAH as well as hydrocephalus s/p SUSTAINABILITY MANAGER shunting and resultant sz d/o presenting with ams/gait instability # acute encephalopathy: continues to wax and wane but per family and nsg who are more familiar with her, this is a change from her baseline. Her shunt was tapped yesterday by nsg and perhaps some improvement although remains somnolent today so somewhat difficult to assess. # gait instability: did not re evaluate as patient did not feel safe ambulating , pt/ot involved and as above, unclear if any real change overnight. # cerebral aneurysm/sah/fruit room hand shunt and hydrocephalus: as above, CT appears unchanged but possibly had some improvement s/p tap so settings may need to be adjusted. # clostridium bacteremia: followed by ID, still on invanz, length of treatment unclear from last dc, will ask ID to consult and help with length of therapy # sz d/o--unclear if truly sz: continue keppra/vimpat, keppra level wnl # htn/hld: continue metoprolol/lisinopril/atorvastatin # dispo: IP status, given medical complexity and multiple active issues suspect she will require > 48 hour stay Subjective: no significant overnight events, patient somnolent today but no other real changes, no fever or chills Objective: Vital Signs Temp Pulse Resp BP Pulse Ox 37.1 C 71 16 130/93 H 94 02/19/17 12:00 02/19/17 12:00 02/19/17 12:00 02/19/17 12:00 02/19/17 12:00 Microbiology 02/18/17 Unknown Gram Stain - Final Csf From Shunt Laboratory Results 02/19/17 05:30 02/19/17 05:30 02/18/17 02/19/17 02/20/17 05:59 05:59 05:59 Intake Total 500 Balance 500 Constitutional: no apparent distress, appears nourished, chronically ill appearing Eyes: PERRL, other (right sided ptosis/bilateral eyelid swelling) Ears, Nose, Mouth, Throat: moist mucous membranes, hearing normal Cardiovascular: regular rate and rhythym, no murmur, rub, or gallop, edema Respiratory: no respiratory distress, no rales or rhonchi Gastrointestinal: normoactive bowel sounds, soft, non-tender abdomen Skin: warm, normal color Musculoskeletal: abnormal gait (reported by ER, not evaluated), generalized weakness Neurologic: sensation intact bilaterally, CN II-XII Intact (other than left ptosis) Psychiatric: interacting appropriately, not anxious, not encephalopathic ICD10 Worksheet Patient Problems: Problems Problem Status Onset Altered mental state Acute Generalized weakness Acute Altered mental status Acute Altered mental status Acute Pneumonia Acute 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 VRE (vancomycin-resistant Enterococci) Acute ~02/16/17
--- NOTE | 2017-02-19 16:40 | NEUROPROG ---
Assessment: [id number] CC: Dr. Rico consulted neurology for confusion. Results of this evaluation were placed in the EMR for her review. HPI: This 71F patient was initially seen 02/19/17. She recently had a left MCA aneurysm bleed causing hydrocephalus in Dec 14. This was treated with LANDSCAPE CONTRACTOR shunt as well as aneurysmal clipping. She was also found to have clostridium bacteremia and was placed on abx. She was seen as an inpatient consult by Dr. Wilmer Iglesias in February 13. He felt she had rigors from infection at that time, not seizures so he recommended she stop vimpat and continue Keppra 1,000mg bid with f/u in 4-6 weeks. She had been scheduled on 02/18/[address] Ge ( neurosurgery) to check on her LANDSCAPE CONTRACTOR shunt but her family was not able to get her out of bed as she was confused so the brought her to [facility] ER. Dr. Ge ( neurosurgery) saw her and performed a tap of her LANDSCAPE CONTRACTOR shunt CSF (labs and culture normal). He felt she may have a component of normal pressure hydrocephalus so he performed a high volume tap and plans to see if this improves her symptoms. PMHx: Dec 14 SAH 2/2 L MCA aneurysm status post clipping, HTN, HLD, possible seizures, hydrocephalus from SAH w/LANDSCAPE CONTRACTOR shunt, DVT RLE on Xarelto, diverticulitis SHx: no tobacco FHx: NC ROS: Pt denied acute fever, total vision loss, active severe chest pain, respiratory failure, total body severe rash, total bowel/bladder incontinence, psychosis, active seizures, or active bleeding O: VS cp 128/80 P72 RR16 Satting 100% on 2L NC Temp 36.9C General: Alert Eyes: Fundoscopic exam not able to visualize optic disks CV: Heart RRR, no murmur, no carotid bruit Lungs: Clear to auscultation bilaterally, no rhonchi or rales Neuro: - Mental: psychomotor slowing in exam . Oriented x person but not place/date . concentration appears decreased . speech fluency/comprehension normal . memory appears impaired . fund of knowledge appear decreased - Cranial Nerves: . II: PERRL, VFFTC . III/IV/: EOMI, no nystagmus, normal smooth pursuits . V: facial sensation intact to LT . VII: face symmetric to eye closure and smile . VIII: hearing intact to conversation . IX/X: uvula raises symmetrically . XI: SCM 5/5 B/L strength . XII: tongue protrudes midline w/nl strength - Motor: . Tone: paratonia in all 4 extremity . Strength: no pronator drift, strength 5/5 throughout (B/L delt, bic, tri, hand siderographer, hf/he, df/pf) - Reflexes: B/L bic/BR 2/4 - Sensory: all 4 extremity intact to light touch - Coord: pt has slow movements in arms but no clear ataxia was seen - Gait: deferred Labs: 02/18/17- CBC Hct 31.2, CMP wnl, Trop neg x 3, UA 1+ ketones 02/18/17- CSF clear/colorless, WBC 3, RBC 0, Gluc 42L, Prot 41 Rads: 02/18/17- Head CT w/o con: 1. Stable right ventricular shunt with no increase in ventriculomegaly. 2. Postsurgical changes of prior craniotomy with encephalomalacia in the left frontal and temporal lobes, stable in appearance. 3. Moderate periventricular and deep hemispheric white matter change which is nonspecific. No evidence for acute infarct or intracranial hemorrhage. 4. Evidence of prior left MCA aneurysm clip placement with stable appearance. Assessment: 1.Acute Confusional State with gait unsteadiness: Neurologic exam on 02/19/17 shows psychomotor slowing, impaired attention, but no focal deficits. This could be consistent with a variant of normal pressure hydrocephalus and I agree with attempting shunt adjustment. No signs of any significant infection but her previous infection may be worsening these symptoms. Certainly her prior SAH may also be worsening things. No signs of any seizure. 2. Possible Seizure Disorder: Only need Keppra per Dr. Buchanan note from early February 13 Plan: -Cont Keppra 1,000mg bid for seizure prevention -Stop Vimpat 100mg bid - Agree with PT/OT/Speech consult - Agree with neurosurgery adjusting shunt - F/U in [address] Wilmer Iglesias (previous plan) I will check in on her tomorrow to see if she improves with shunt adjustment. Objective: Vital Signs Temp Pulse Resp BP Pulse Ox 36.7 C 78 16 159/86 H 90 L 02/19/17 16:00 02/19/17 16:00 02/19/17 16:00 02/19/17 16:00 02/19/17 16:00 Microbiology 02/18/17 Unknown Gram Stain - Final Csf From Shunt Laboratory Results 02/19/17 05:30 02/19/17 05:30 02/18/17 02/19/17 02/20/17 05:59 05:59 05:59 Intake Total 500 500 Balance 500 500 Allergies/Adverse Reactions: bee venom protein (honey bee) Allergy (Verified 02/18/17 08:35) naproxen [From Aleve] Allergy (Verified 02/18/17 08:35) Hives Penicillins Allergy (Verified 02/18/17 08:35) swelling
--- NOTE | 2017-02-19 19:07 | PCMIDPN ---
Assessment/Plan: Assessment: Diverticulitis-in setting recent hydrocephalus and AUTOMOTIVE QUALITY MANAGER shunt placement. Current admission is secondary to CARBIDE POWDER PROCESSOR symptoms thought to be due to hydrocephalus that is re-accumulated. Patient had moderate amount of spinal fluid removed with improvement of symptoms. If symptoms return then the shunt will be adjusted. Only 3 white blood cells present on the spinal fluid from the shunt does not support the diagnosis of AUTOMOTIVE QUALITY MANAGER shunt infection. She is currently being treated with ertapenem for her diverticulitis. Plan: 1. Continue IV ertapenem daily. 2. Follow clinical course. 3. Follow multiple cultures of spinal fluid. Subjective: Patient is resting in her hospital bed. She is fairly somnolent although awakens occasionally in the discussion in the room with her family. She has no particular complaint. No fevers or chills. Objective: Ertapenem # Vital Signs Temp Pulse Resp BP Pulse Ox 36.7 C 78 16 159/86 H 90 L 02/19/17 16:00 02/19/17 16:00 02/19/17 16:00 02/19/17 16:00 02/19/17 16:00 Microbiology 02/18/17 Unknown Gram Stain - Final Csf From Shunt Laboratory Results 02/19/17 05:30 02/19/17 17:50 02/18/17 02/19/17 02/20/17 05:59 05:59 05:59 Intake Total 500 1117 Balance 500 1117 - Physical Exam General Appearance: WD/WN, no apparent distress, non-toxic Respiratory: lungs clear, normal breath sounds, No respiratory distress Cardiac/Chest: regular rate, rhythm, No tachycardia Extremities: non-tender, normal inspection Skin: normal color, warm/dry, No rash ICD10 Worksheet Patient Problems: Problems Problem Status Onset Altered mental state Acute Generalized weakness Acute Altered mental status Acute Altered mental status Acute Pneumonia Acute 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 VRE (vancomycin-resistant Enterococci) Acute ~02/16/17
[2017-02-19] MEDS: ACETAMINOPHEN 325 MG TAB PO PRN (20:28)
[2017-02-20] MEDS: NS 1,000 ML IV SCH ×2 (00:20→16:31)
[2017-02-20 05:03] LABS: % IMMATURE GRANULYOCYTES 0.5 % (0.0-1.1); ABSOLUTE IMMATURE GRANULOCYTES 0.03 10^3/uL (0.00-0.10); ABSOLUTE NRBC COUNT 0.02 10^3/uL (0-0.01); ADD DIFF? NO; ADD MORPH? NO; ADD SCAN? NO; ATYPICAL LYMPHOCYTE FLAG 30 (0-99); FRAGMENT RBC FLAG 0 (0-99); HEMOGLOBIN 9.2 g/dL (12.6-16.3); LEFT SHIFT FLG 10 (0-99); LIPEMIA HEMOLYSIS FLAG 80 (0-99); MEAN CELL HEMOGLOBIN 30.7 pg (27.9-34.1); MEAN CELL HEMOGLOBIN CONCENTR. 32.9 g/dL (32.4-36.7); MEAN CELL VOLUME 93.3 fL (81.5-99.8); MEAN PLATELET VOLUME 9.3 fL (8.7-11.7); NRBC-AUTO% 0.4 % (0.0-0.2); PLATELET CLUMPS FLAG 10 (0-99); PLATELET COUNT 273 10^3/uL (150-400); RED CELL DISTRIBUTION WIDTH 12.9 % (11.5-15.2)
[2017-02-20 05:46] LABS: ANION GAP 7 mEq/L (8-16); CALCIUM 9.2 mg/dL (8.5-10.4); CARBON DIOXIDE 25 mEq/l (22-31); CHLORIDE 106 mEq/L (97-110); CREATININE 0.7 mg/dL (0.6-1.0); GLOMERULAR FILTRATION RATE > 60; GLUCOSE 84 mg/dL (70-100); MAGNESIUM 1.7 mg/dL (1.6-2.3); POTASSIUM 4.2 mEq/L (3.5-5.2); SODIUM 138 mEq/L (134-144)
[2017-02-20] MEDS ORDERED: MAGNESIUM SULF 1 GM/DEXTROSE 100 ML IV ONE (07:45)
[2017-02-20] MEDS: levETIRAcetam 500 MG TAB PO SCH ×2 (08:31→21:43)
[2017-02-20] MEDS: LACOSAMIDE 50 MG TAB PO SCH ×2 (08:31→21:43)
[2017-02-20] MEDS: CHOLECALCIFEROL VIT D3 2,000 UNITS TAB/CAP PO SCH (08:31)
[2017-02-20] MEDS: SENNOSIDES/DOCUSATE SODIUM TAB PO SCH ×2 (08:31→21:43)
[2017-02-20] MEDS: RIVAROXABAN 15 MG TAB PO SCH ×2 (08:32→17:29)
[2017-02-20] MEDS: ATORVASTATIN CALCIUM 10 MG TAB PO SCH (08:33)
[2017-02-20] MEDS: LISINOPRIL 40 MG TAB PO SCH (08:33)
[2017-02-20] MEDS: METOPROLOL TARTRATE 50 MG TAB PO SCH ×2 (08:33→21:43)
[2017-02-20] MEDS: POLYETHYLENE GLYCOL 3350 17 GM PKT PO SCH (08:33)
--- NOTE | 2017-02-20 13:08 | HOSPPROG ---
Hospitalist Progress Note Assessment/Plan: 71 yo F with PMH of cerebral aneurysm and SAH as well as hydrocephalus s/p ENGINEERING OPERATIONS LEADER shunting and resultant sz d/o presenting with ams/gait instability. This is my first encounter, chart reviewed. D/W Dr Garcia. # acute encephalopathy: appears better but not resolved per Her shunt was tapped and adjusted #VRE in urine precautions colonization, no abx # gait instability: pt/ot involved possible DC to inpt rehab # cerebral aneurysm/sah/vp public relations shunt and hydrocephalus: settings adjusted. wait two weeks and monitor # clostridium bacteremia: followed by ID, still on invanz length of treatment to be determined by ID # sz d/o-- unclear if truly sz continue keppra/vimpat, keppra level wnl # htn/hld: continue metoprolol/lisinopril/atorvastatin # dispo: IP status, given medical complexity and multiple active issues suspect she will require > 48 hour stay Inpt rehab consult for Wednesday Subjective: Up in the chair. Feels ok. Tired. No pain. Objective: Vital Signs Temp Pulse Resp BP Pulse Ox 36.9 C 66 16 152/95 H 100 02/20/17 08:00 02/20/17 08:33 02/20/17 08:00 02/20/17 08:33 02/20/17 08:00 Microbiology 02/18/17 Unknown Gram Stain - Final Csf From Shunt Laboratory Results 02/20/17 04:55 02/20/17 04:55 02/19/17 02/20/17 02/21/17 05:59 05:59 05:59 Intake Total 500 2017 Balance 500 2017 - Physical Exam Constitutional: appears nourished, chronically ill appearing, obese Eyes: PERRL, anicteric sclera, EOMI Ears, Nose, Mouth, Throat: moist mucous membranes, hearing normal, ears appear normal Cardiovascular: No JVD, No tachycardia, No bradycardia Respiratory: no respiratory distress, no rales or rhonchi, reduced air movement Gastrointestinal: No tenderness, No ascites, No guarding Skin: warm, normal color, No erythema Musculoskeletal: no joint effusions, abnormal gait, generalized weakness Psychiatric: interacting appropriately, not anxious, poor insight, poor judgement ICD10 Worksheet Patient Problems: Problems Problem Status Onset VRE (vancomycin-resistant Enterococci) Acute ~02/16/17 Altered mental status Acute Altered mental state Acute Generalized weakness Acute 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
[2017-02-20] MEDS: ERTAPENEM 1 GM in NS 100 ML IV SCH (13:51)
--- NOTE | 2017-02-20 14:00 | NEUSURGPN ---
Assessment/Plan: Audrey is a 71y/o female with hx of left MCA aneurysm who later developed hydrocephalus and is s/p MONUMENT SETTER shunt placement. She presented to [facility] with increaesed weakness, confusion and AMS. He MONUMENT SETTER shunt was tapped on 02/18/17, medtronic certas adjusted from 4 to 2 on 02/19 -CSF cultures pending, no organisms seen on gram stain - MS improving per . Still weak overall from numerous medical events and not back to baseline. -PT/OT -Plan for rehab consultation and placement on Wednesday. -Discussed with Dr. Ge -If she develops any new or worsening neuro/motor exam please give NS a call. Subjective: doing better, no headaches, feels like she is improving cognitively. Sarcastic and humorous this AM. at bedside Objective: AAOx3 NAD speech clear, but slow to respond no facial droop, no arm drift cnii-xii grossly intact, some difficulty with Extra ocular movements, but appear intact MAEx4, generalized weakness 4+/5, but overall equal +LT - Physician Discussed Patient with : [facility] Physical Exam - Vitals, I&O, Labs I and O 02/19/17 02/20/17 02/21/17 05:59 05:59 05:59 Intake Total 500 2017 Balance 500 2017 Weight 59.874 kg Intake: Oral (ml) 400 500 IV Intake (ml) 617 IV Infused (ml) 100 900 Ertapenem 1 gm In Ns 100 100 ml @ 200 mls/hr IV DAILY@ 1430 [facility] Rx#:[id number] Ns 1,000 ml @ 75 mls/hr 900 IV CONT [facility] Rx#: [id number] Other: Intake Quantity Yes Sufficient Number of Voids Bedside Commode 1 1 Toilet 1 Number of Stools Toilet 1 Microbiology 02/18/17 Unknown Gram Stain - Final Csf From Shunt Vital Signs Temp Pulse Resp BP Pulse Ox 36.9 C 66 16 152/95 H 100 02/20/17 08:00 02/20/17 08:33 02/20/17 08:00 02/20/17 08:33 02/20/17 08:00 Laboratory Results 02/20/17 04:55 02/20/17 04:55 ICD10 Worksheet Patient Problems: Problems Problem Status Onset Altered mental state Acute Generalized weakness Acute Altered mental status Acute Altered mental status Acute Pneumonia Acute 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 VRE (vancomycin-resistant Enterococci) Acute ~02/16/17
--- NOTE | 2017-02-20 14:54 | NEUROPROG ---
Assessment: [id number] CC: F/U for confusion, possible normal pressure hydrocephalus from AUDIOVISUAL TECH shunt Narrative Summary: This female patient was initially seen 02/19/17. She recently had a left MCA aneurysm bleed causing hydrocephalus in Dec 14. This was treated with AUDIOVISUAL TECH shunt as well as aneurysmal clipping. She was also found to have clostridium bacteremia and was placed on abx. She was seen as an inpatient consult by Dr. Wilmer Iglesias in February 13. He felt she had rigors from infection at that time, not seizures so he recommended she stop vimpat and continue Keppra 1,000mg bid with f/u in 4-6 weeks. She had been scheduled on 02/18/[address] Ge ( neurosurgery) to check on her AUDIOVISUAL TECH shunt but her family was not able to get her out of bed as she was confused so the brought her to [facility] ER. Dr. Ge ( neurosurgery) saw her and performed a tap of her AUDIOVISUAL TECH shunt CSF (labs and culture normal). He felt she may have a component of normal pressure hydrocephalus so he performed a high volume tap and plans to see if this improves her symptoms. HPI: F/U on 02/20/17. Pt with less psychomotor slowing, more attentive, and reported walking getting better. It certainly seems shunt adjustment has improved things. No new complaints. 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 Stable right ventricular shunt with no increase in ventriculomegaly. 2. Postsurgical changes of prior craniotomy with encephalomalacia in the left frontal and temporal lobes, stable in appearance. 3. Moderate periventricular and deep hemispheric white matter change which is nonspecific. No evidence for acute infarct or intracranial hemorrhage. 4. Evidence of prior left MCA aneurysm clip placement with stable appearance. Assessment: 1.Altered Cerebral Pressure from AUDIOVISUAL TECH shunt likely causing Acute Confusional State with gait unsteadiness: Neurologic exam on 02/19/17 shows psychomotor slowing, impaired attention, but no focal deficits. This could be consistent with a variant of normal pressure hydrocephalus and I agree with attempting shunt adjustment. No signs of any significant infection but her previous infection may be worsening these symptoms. Certainly her prior SAH may also be worsening things from underlying brain injury on Dec 14. No signs of any seizure. 2. Possible Seizure Disorder: Only need Keppra per Dr. Buchanan note from early February 13 Plan: -Cont Keppra 1,000mg bid for seizure prevention -Stop Vimpat 100mg bid - Agree with inpt rehab - Agree with neurosurgery adjusting shunt - F/U in [address] Wilmer Iglesias (previous plan) - Neurology will sign off as she seems to be improving, please call us if anything is needed 35 min spent with patient, majority of time spent counseling on symptoms, likely causes, and treatment recs. Objective: Vital Signs Temp Pulse Resp BP Pulse Ox 36.9 C 66 16 152/95 H 100 02/20/17 08:00 02/20/17 08:33 02/20/17 08:00 02/20/17 08:33 02/20/17 08:00 Microbiology 02/18/17 Unknown Gram Stain - Final Csf From Shunt Laboratory Results 02/20/17 04:55 02/20/17 04:55 02/19/17 02/20/17 02/21/17 05:59 05:59 05:59 Intake Total 500 2017 Balance 500 2017 Allergies/Adverse Reactions: bee venom protein (honey bee) Allergy (Verified 02/18/17 08:35) naproxen [From Aleve] Allergy (Verified 02/18/17 08:35) Hives Penicillins Allergy (Verified 02/18/17 08:35) swelling
--- NOTE | 2017-02-20 17:19 | PCMIDPN ---
Assessment/Plan: Assessment: Diverticulitis-in setting recent hydrocephalus and HYDROELECTRIC PRODUCTION MANAGER shunt placement. Current admission is secondary to MANAGER RADIO symptoms thought to be due to hydrocephalus that is re-accumulated. Patient had moderate amount of spinal fluid removed with improvement of symptoms. If symptoms return then the shunt will be adjusted. Only 3 white blood cells present on the spinal fluid from the shunt does not support the diagnosis of HYDROELECTRIC PRODUCTION MANAGER shunt infection. She is currently being treated with ertapenem for her diverticulitis. 2 more days of ertapenem to go in her 14 day course. Plan: 1. Continue IV ertapenem daily. 2. Follow clinical course. 3. Follow multiple cultures of spinal fluid. 02/20/17 17:18 Subjective: Patient is doing much better clinically. The adjustment by Neurosurgery to the spinal fluid pressure has apparently made a significant difference. She is interactive with staff and her family. No new complaint. Objective: Ertapenem # 12 Vital Signs Temp Pulse Resp BP Pulse Ox 36.4 C 62 17 156/95 H 94 02/20/17 15:33 02/20/17 15:33 02/20/17 15:33 02/20/17 15:33 02/20/17 15:33 Microbiology 02/18/17 Unknown Gram Stain - Final Csf From Shunt Laboratory Results 02/20/17 04:55 02/20/17 04:55 02/19/17 02/20/17 02/21/17 05:59 05:59 05:59 Intake Total 500 2017 Balance 500 2017 - Physical Exam General Appearance: WD/WN, alert, no apparent distress, non-toxic Respiratory: lungs clear, normal breath sounds, No respiratory distress Cardiac/Chest: regular rate, rhythm, No tachycardia Skin: normal color, warm/dry, No rash Neuro/Psych: alert, normal mood/affect, oriented x 3 ICD10 Worksheet Patient Problems: Problems Problem Status Onset Altered mental state Acute Generalized weakness Acute Altered mental status Acute Altered mental status Acute Pneumonia Acute 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 VRE (vancomycin-resistant Enterococci) Acute ~02/16/17
[2017-02-20 20:13] LABS: POTASSIUM 4.1 mEq/L (3.5-5.2)
[2017-02-20] MEDS: ACETAMINOPHEN 325 MG TAB PO PRN (21:43)
[2017-02-21 05:16] LABS: IONIZED CALCIUM 1.29 MMOL/L (1.12-1.30)
[2017-02-21 05:37] LABS: MAGNESIUM 1.6 mg/dL (1.6-2.3); POTASSIUM 3.9 mEq/L (3.5-5.2)
--- NOTE | 2017-02-21 06:29 | NEUSURGPN ---
Assessment/Plan: Audrey is a 71y/o female with hx of left MCA aneurysm who later developed hydrocephalus and is s/p CLAIMS PROCESSOR shunt placement. She presented to [facility] with increaesed weakness, confusion and AMS. He CLAIMS PROCESSOR shunt was tapped on 02/18/17, medtronic certas adjusted from 4 to 2 on 02/19 -CSF cultures pending, no organisms seen on gram stain, NGTD 48hours - MS improving per , AM confusion is worse he states. Still weak overall from numerous medical events and not back to baseline. -PT/OT -Plan for rehab consultation and placement on Wednesday. -Discussed with Dr. Ge -If she develops any new or worsening neuro/motor exam please give NS a call. Subjective: doing well, still some confusion, no h/a, at bedside Objective: AAOx1, partial place, partial time NAD speech clear, but slow to respond no facial droop, no arm drift cnii-xii grossly intact, EOMI, PEARLA MAEx4, generalized weakness +LT - Physician Discussed Patient with : [facility] Physical Exam - Vitals, I&O, Labs I and O 02/20/17 02/21/17 02/22/17 05:59 05:59 05:59 Intake Total 2017 1700 Output Total 600 Balance 2016 1100 Intake: Oral (ml) 500 IV Intake (ml) 617 IV Infused (ml) 900 1700 Ertapenem 1 gm In Ns 100 100 ml @ 200 mls/hr IV DAILY@ 1430 [facility] Rx#:[id number] Magnesium Sulf 1 gm/ 100 Dextrose 100 ml @ 100 mls /hr IV ONCE ONE Rx#: [id number] Ns 1,000 ml @ 75 mls/hr 900 1500 IV CONT [facility] Rx#: [id number] Output: Urine (ml) 600 Bedside Commode 600 Other: Intake Quantity Yes Yes Sufficient Number of Voids Bedside Commode 1 Toilet 1 2 Number of Stools Toilet 1 1 Microbiology 02/18/17 Unknown Gram Stain - Final Csf From Shunt Vital Signs Temp Pulse Resp BP Pulse Ox 36.1 C 50 L 16 145/72 H 100 02/21/17 00:00 02/21/17 00:00 02/21/17 00:00 02/21/17 00:00 02/21/17 00:00 Laboratory Results 02/20/17 04:55 02/21/17 05:10 ICD10 Worksheet Patient Problems: Problems Problem Status Onset Altered mental state Acute Generalized weakness Acute Altered mental status Acute Altered mental status Acute Pneumonia Acute 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 VRE (vancomycin-resistant Enterococci) Acute ~02/16/17
[2017-02-21] MEDS ORDERED: POTASSIUM CL 10 MEQ TAB PO ONE ×3 (07:21→19:20)
[2017-02-21] MEDS ORDERED: MAGNESIUM SULF 1 GM/DEXTROSE 100 ML IV ONE (09:52)
[2017-02-21] MEDS: levETIRAcetam 500 MG TAB PO SCH ×2 (10:05→20:53)
[2017-02-21] MEDS: METOPROLOL TARTRATE 50 MG TAB PO SCH ×2 (10:06→20:54)
[2017-02-21] MEDS: RIVAROXABAN 20 MG TAB PO SCH (10:06)
[2017-02-21] MEDS: SENNOSIDES/DOCUSATE SODIUM TAB PO SCH ×2 (10:06→20:54)
[2017-02-21] MEDS: LACOSAMIDE 50 MG TAB PO SCH ×2 (10:06→20:54)
[2017-02-21] MEDS: LISINOPRIL 40 MG TAB PO SCH (10:07)
[2017-02-21] MEDS: CHOLECALCIFEROL VIT D3 2,000 UNITS TAB/CAP PO SCH (10:07)
[2017-02-21] MEDS: ATORVASTATIN CALCIUM 10 MG TAB PO SCH (10:07)
[2017-02-21] MEDS: POLYETHYLENE GLYCOL 3350 17 GM PKT PO SCH (10:08)
--- NOTE | 2017-02-21 12:36 | HOSPPROG ---
Hospitalist Progress Note Assessment/Plan: 71 yo F with PMH of cerebral aneurysm and SAH as well as hydrocephalus s/p SLEEP SCIENTIST shunting and resultant sz d/o presenting with ams/gait instability. # acute encephalopathy: appears better but not resolved per Her shunt was tapped and adjusted CSF NGTD #VRE in urine precautions colonization, no abx # gait instability: pt/ot involved possible DC to inpt rehab # cerebral aneurysm/sah/news analyst shunt and hydrocephalus: settings adjusted. wait two weeks and monitor # clostridium bacteremia: followed by ID, still on invanz length of treatment to be determined by ID # sz d/o-- unclear if truly sz continue keppra/vimpat, keppra level wnl # htn/hld: continue metoprolol/lisinopril/atorvastatin # dispo: Inpt rehab consult for Wednesday Hopefully DC wednesday Subjective: Up walking wiht therapy. Slept well last night. Feels a bit better. Objective: Vital Signs Temp Pulse Resp BP Pulse Ox 36.4 C 67 16 153/74 H 92 02/21/17 08:00 02/21/17 10:06 02/21/17 08:00 02/21/17 10:07 02/21/17 08:00 Microbiology 02/18/17 Unknown Gram Stain - Final Csf From Shunt Laboratory Results 02/20/17 04:55 02/21/17 05:10 02/20/17 02/21/17 02/22/17 05:59 05:59 05:59 Intake Total 2016 1700 Output Total 600 500 Balance 2017 1100 -500 - Physical Exam Constitutional: not in pain, chronically ill appearing, obese Eyes: PERRL, anicteric sclera Ears, Nose, Mouth, Throat: moist mucous membranes, hearing normal Cardiovascular: No JVD, No tachycardia Respiratory: no respiratory distress, reduced air movement Gastrointestinal: No tenderness, No ascites Skin: warm, normal color Musculoskeletal: abnormal gait, generalized weakness Psychiatric: not anxious, not encephalopathic, poor memory ICD10 Worksheet Patient Problems: Problems Problem Status Onset VRE (vancomycin-resistant Enterococci) Acute ~02/16/17 Altered mental status Acute Altered mental state Acute Generalized weakness Acute 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
[2017-02-21] MEDS: ERTAPENEM 1 GM in NS 100 ML IV SCH (14:50)
--- NOTE | 2017-02-21 15:56 | PCMIDPN ---
Assessment/Plan: Assessment: Diverticulitis-in setting recent hydrocephalus and GOVERNMENT AFFAIRS MANAGER shunt placement. Current admission is secondary to ASSISTANT DIRECTOR OF FINANCIAL AID symptoms thought to be due to hydrocephalus that is re-accumulated. Patient had moderate amount of spinal fluid removed with improvement of symptoms. If symptoms return then the shunt will be adjusted. Only 3 white blood cells present on the spinal fluid from the shunt does not support the diagnosis of GOVERNMENT AFFAIRS MANAGER shunt infection. She is currently being treated with ertapenem for her diverticulitis. 1 more day of ertapenem to go in her 14 day course. Plan: 1. Continue IV ertapenem daily. 2. Follow clinical course. 3. Plan repeat CT abdomen pelvis tomorrow. 02/20/17 17:18 02/21/17 15:52 Subjective: Patient is resting in her hospital room. Family is present. Patient denies any complaint. No fevers or chills. Objective: Ertapenem # 13 Vital Signs Temp Pulse Resp BP Pulse Ox 36.4 C 67 16 153/74 H 92 02/21/17 08:00 02/21/17 10:06 02/21/17 08:00 02/21/17 10:07 02/21/17 08:00 Microbiology 02/18/17 Unknown Gram Stain - Final Csf From Shunt Laboratory Results 02/20/17 04:55 02/21/17 05:10 02/20/17 02/21/17 02/22/17 05:59 05:59 05:59 Intake Total 2016 1700 Output Total 600 500 Balance 2016 1100 -500 - Physical Exam General Appearance: WD/WN, alert, no apparent distress, non-toxic Respiratory: lungs clear, normal breath sounds, No respiratory distress Cardiac/Chest: regular rate, rhythm, No tachycardia Abdomen: non-tender, soft Skin: normal color, warm/dry, No rash Neuro/Psych: alert, normal mood/affect, oriented x 3 ICD10 Worksheet Patient Problems: Problems Problem Status Onset Altered mental state Acute Generalized weakness Acute Altered mental status Acute Altered mental status Acute Pneumonia Acute 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 VRE (vancomycin-resistant Enterococci) Acute ~02/16/17
[2017-02-21 18:00] LABS: POTASSIUM 3.9 mEq/L (3.5-5.2)
[2017-02-21] MEDS: ACETAMINOPHEN 325 MG TAB PO PRN (20:54)
[2017-02-21 23:04] VITALS: O2SAT 95
[2017-02-22 05:22] LABS: MAGNESIUM 1.5 mg/dL (1.6-2.3); POTASSIUM 3.9 mEq/L (3.5-5.2)
[2017-02-22 05:27] LABS: IONIZED CALCIUM 1.29 MMOL/L (1.12-1.30)
[2017-02-22 08:58] VITALS: BP 118/74; RESP 17; TEMP 97.8
[2017-02-22] MEDS: LACOSAMIDE 50 MG TAB PO SCH (09:00)
[2017-02-22] MEDS: POLYETHYLENE GLYCOL 3350 17 GM PKT PO SCH (09:16)
[2017-02-22] MEDS: SENNOSIDES/DOCUSATE SODIUM TAB PO SCH (09:17)
[2017-02-22] MEDS: CHOLECALCIFEROL VIT D3 2,000 UNITS TAB/CAP PO SCH (09:17)
[2017-02-22] MEDS: levETIRAcetam 500 MG TAB PO SCH (09:17)
[2017-02-22] MEDS: METOPROLOL TARTRATE 50 MG TAB PO SCH (09:19)
[2017-02-22] MEDS: LISINOPRIL 40 MG TAB PO SCH (09:19)
[2017-02-22 09:20] VITALS: PULSE 73
[2017-02-22] MEDS: RIVAROXABAN 20 MG TAB PO SCH (09:20)
[2017-02-22] MEDS: ATORVASTATIN CALCIUM 10 MG TAB PO SCH (09:20)
[2017-02-22] MEDS ORDERED: IOPAMIDOL (ISOVUE-300) 100 ML BTL ONE (10:34)
--- NOTE | 2017-02-22 11:07 | NEUSURGPN ---
Assessment/Plan: Audrey is a 71y/o female with hx of left MCA aneurysm who later developed hydrocephalus and is s/p BEHAVIOR THERAPIST shunt placement. She presented to [facility] with increaesed weakness, confusion and AMS. He BEHAVIOR THERAPIST shunt was tapped on 02/18/17, medtronic certas adjusted from 4 to 2 on 02/19 -CSF cultures negative for growth-final - MS improving per . feels she is improving. Still weak overall from numerous medical events and not back to baseline. -PT/OT -Plan for rehab today -Follow up with neurosurgery/Dr Ge in 1-2 weeks -If she develops any new or worsening neuro/motor exam please give NS a call. Subjective: Patient states she is feeling better Objective: AAOx1, partial place, partial time NAD speech clear, but slow to respond no facial droop, no arm drift cnii-xii grossly intact, EOMI, PEARLA MAEx4, generalized weakness +LT Neuro Check Frequency: per routine Urinary Catheter in Place: No - Physician Discussed Patient with : [facility] Physical Exam - Vitals, I&O, Labs I and O 02/21/17 02/22/17 02/23/17 05:59 05:59 05:59 Intake Total 1700 1100 Output Total 600 1100 Balance 1100 0 Intake: IV Infused (ml) 1700 1100 Ertapenem 1 gm In Ns 100 100 100 ml @ 200 mls/hr IV DAILY@ 1430 [facility] Rx#:[id number] Magnesium Sulf 1 gm/ 100 Dextrose 100 ml @ 100 mls /hr IV ONCE [facility] Rx#: [id number] Magnesium Sulf 1 gm/ 100 Dextrose 100 ml @ 100 mls /hr IV ONCE ONE Rx#: [id number] Ns 1,000 ml @ 75 mls/hr 1500 900 IV CONT [facility] Rx#: [id number] Output: Urine (ml) 600 1100 Bedside Commode 600 Toilet 1100 Other: Intake Quantity Yes Sufficient Number of Voids Toilet 2 1 1 Number of Stools Toilet 1 Microbiology 02/18/17 Unknown Gram Stain - Final Csf From Shunt Vital Signs Temp Pulse Resp BP Pulse Ox 36.6 C 73 17 118/74 95 02/22/17 08:00 02/22/17 09:19 02/22/17 08:00 02/22/17 09:19 02/22/17 08:00 Laboratory Results 02/20/17 04:55 02/22/17 05:00 ICD10 Worksheet Patient Problems: Problems Problem Status Onset Altered mental state Acute Generalized weakness Acute Altered mental status Acute Altered mental status Acute Pneumonia Acute 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 VRE (vancomycin-resistant Enterococci) Acute ~02/16/17
[2017-02-22] MEDS ORDERED: POTASSIUM CL 10 MEQ TAB PO ONE (11:19)
--- NOTE | 2017-02-22 11:20 | HOSPPROG ---
Hospitalist Progress Note Assessment/Plan: Audrey Cornell is a 71 y/o female w hx of L MCA aneurysm complicated by a bleed and hydrocephalus requirig a FURNACE UNLOADER shunt. Also, has a hx of recent clostridium bacteremia. She presented to the ER with some memory loss, difficulty remembering, gait instability. Today is my first encounter with the patient, chart reviewed. # acute encephalopathy: appears better but not resolved per Her shunt was tapped and adjusted CSF NGTD *diverticulitis treated w Invanz CT of abdomen/pelvis is pending *clostridium bacteremia ID seeing *VRE likely due to colonization * gait instability: pt/ot involved possible DC to inpt rehab *cerebral aneurysm/sah/vp home health shunt and hydrocephalus: settings adjusted. wait two weeks and monitor * sz d/o-- unclear if truly sz continue keppra/vimpat, keppra level wnl *htn/hld: continue metoprolol/lisinopril/atorvastatin # dispo: Inpt rehab Objective: Vital Signs Temp Pulse Resp BP Pulse Ox 36.6 C 73 17 118/74 95 02/22/17 08:00 02/22/17 09:19 02/22/17 08:00 02/22/17 09:19 02/22/17 08:00 Microbiology 02/18/17 Unknown Gram Stain - Final Csf From Shunt Laboratory Results 02/20/17 04:55 02/22/17 05:00 02/21/17 02/22/17 02/23/17 05:59 05:59 05:59 Intake Total 1700 1100 Output Total 600 1100 Balance 1100 0 ICD10 Worksheet Patient Problems: Problems Problem Status Onset Altered mental state Acute Generalized weakness Acute Altered mental status Acute Altered mental status Acute Pneumonia Acute 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 VRE (vancomycin-resistant Enterococci) Acute ~02/16/17
[2017-02-22] MEDS ORDERED: MAGNESIUM SULF 1 GM/DEXTROSE 100 ML IV ONE (11:21)
--- NOTE | 2017-02-22 11:48 | HOSPPROG ---
Hospitalist Progress Note Assessment/Plan: Audrey Cornell is a 71 y/o female w hx of L MCA aneurysm complicated by a bleed and hydrocephalus requiring a SKIN THERAPIST shunt. Also, has a hx of recent clostridium bacteremia. She presented to the ER with some memory loss, difficulty remembering, gait instability. Today is my first encounter with the patient, chart reviewed. Reviewed care with Dr. Garcia, awaiting CT of abd/pelvis report. *acute encephalopathy: Her shunt was tapped and adjusted CSF NGTD per , she has improved *diverticulitis treated w Invanz CT of abdomen/pelvis is pending *clostridium bacteremia ID seeing *anemia will have repeat labs *VRE likely due to colonization * gait instability: rehab today *cerebral aneurysm/sah/vp of customer experience strategy shunt and hydrocephalus: f/u with neurosurgery * sz d/o-- continue keppra/vimpat, keppra level wnl *htn/hld: continue metoprolol/lisinopril/atorvastatin # dispo: Inpt rehab Subjective: Audrey has no complaints/ feels fine/appetite is improving. Objective: Vital Signs Temp Pulse Resp BP Pulse Ox 36.6 C 73 17 118/74 95 02/22/17 08:00 02/22/17 09:19 02/22/17 08:00 02/22/17 09:19 02/22/17 08:00 Microbiology 02/18/17 Unknown Gram Stain - Final Csf From Shunt Laboratory Results 02/20/17 04:55 02/22/17 05:00 02/21/17 02/22/17 02/23/17 05:59 05:59 05:59 Intake Total 1700 1100 Output Total 600 1100 Balance 1100 0 - Physical Exam Constitutional: appears nourished, not in pain Eyes: PERRL Ears, Nose, Mouth, Throat: hearing normal Cardiovascular: regular rate and rhythym Respiratory: no respiratory distress, reduced air movement (bibasilar) Gastrointestinal: normoactive bowel sounds Skin: warm Musculoskeletal: generalized weakness Neurologic: other (oriented to her family, herself,) Psychiatric: interacting appropriately, not anxious ICD10 Worksheet Patient Problems: Problems Problem Status Onset Altered mental state Acute Generalized weakness Acute Altered mental status Acute Altered mental status Acute Pneumonia Acute 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 VRE (vancomycin-resistant Enterococci) Acute ~02/16/17
--- NOTE | 2017-02-22 12:05 | PDIAF ---
- Diagnosis Diagnosis: hydrocephalus, diverticulitis, dvt Code Status: Full Code - Medication Management Discharge Medications: Medications to Continue on Transfer Acetaminophen [Tylenol 325mg (*)] 650 mg PO Q4 PRN 01/12/17 [Last Taken 02/03/17 ] Magnesium Hydroxide [Milk of Magnesia] 30 ml PO DAILY PRN 01/12/17 [Last Taken 02/02/17] Sennosides/Docusate Sodium [Senna-S Tablet] 1 each PO BID 01/12/17 [Last Taken 02/17/17 19:00] Atorvastatin Calcium [Lipitor 10 mg (*)] 10 mg PO DAILY #30 tab 02/05/17 [Last Taken 02/17/17] Cholecalciferol Vit D3 [Vitamin D3 2000 units tab (OTC)] 2,000 units PO DAILY # 0 each 02/05/17 [Last Taken 02/06/17] Lacosamide [Vimpat] 100 mg PO BID #60 tablet 02/05/17 [Last Taken 02/17/17 19:00 ] Lisinopril [Zestril 40 mg (*)] 40 mg PO DAILY #30 tab 02/05/17 [Last Taken 02/17] Metoprolol Tartrate [Lopressor 50 mg (*)] 50 mg PO BID #60 tab 02/05/17 [Last Taken 02/17/17 19:00] Polyethylene Glycol 3350 [Miralax 17 gm (*)] 17 gm PO DAILY #0 pkt 02/05/17 [ Last Taken 02/06/17] levETIRAcetam [Keppra 500 mg (*)] 1,000 mg PO BID #120 tab 02/05/17 [Last Taken 02/17/17 19:00] Rivaroxaban [Xarelto] 20 mg PO DAILY@0800 tab 02/22/17 [Last Taken Unknown] Discharge Medications: Refer to the Discharge Home Medication list for PRN reason. PICC Care - Routine: N/A - Orders Services needed: Physical Therapy, Occupational Therapy, Speech Language Pathologist Diet Recommendation: no restrictions on diet Diet Texture: Regular Texture Diet - Labs/Radiology BMP Date: 02/26/17 CBC Date: 02/26/17 - Follow Up Care Current Providers and Referrals: JENNIFER BECERRA [Primary Care Provider] - As per Instructions Basilio Ge MD [Medical Doctor] -
[2017-02-22] MEDS: ERTAPENEM 1 GM in NS 100 ML IV SCH (13:59)
--- NOTE | 2017-02-22 15:23 | GDS ---
[f rep st] DISCHARGE SUMMARY DISCHARGE DIAGNOSES: 1. Acute encephalopathy. 2. Diverticulitis. 3. Clostridium bacteremia. 4. Anemia. 5. Vancomycin-resistant Enterococcus in the urine. 6. Gait instability. 7. 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 8. Seizure disorder. 9. Hypertension. 10. Hyperlipidemia. CONSULTATIONS DURING STAY: 1. Basilio Ge MD. 2. Zaid Garcia MD. HISTORY OF PRESENT ILLNESS: The patient is a 71-year-old woman who is well known by the neurosurgical team. She has a history of a ruptured left MCA aneurysm with a subarachnoid hemorrhage several months ago. She also was getting out of rehabilitation and she presented with hydrocephalus. At that time, a right frontal OPERATOR LIGHTS shunt was placed. She did have some improvement, but then came to the ER because she had some confusion and generalized weakness and was found to have bacteremia and diverticulitis, which was treated with ertapenem. On this admission, she had been slowly declining and was getting more confused. She had a CT in the ER of her head, which was relatively unremarkable. She was seen by Neurosurgery and they tapped her shunt and fluid was sent. Throughout her stay she has improved steadily. The plan for her today is to go to inpatient rehabilitation. HOSPITAL COURSE BY PROBLEM: 1. Acute encephalopathy. It was likely multifactorial. She recently had Clostridium bacteremia.. She also has a shunt with associated hydrocephalus. Per her , she is much improved. 2. Diverticulitis. Treated with Invanz. 3. Clostridium bacteremia. This was treated with Invanz. 4. 4 mm pulmonary nodule. Updated her in regard to this. She does not have any history of smoking. Further followup with her primary care provider. 5. Anemia. Will have her labs followed at rehab. 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 7. Gait instability. Will work with Physical Therapy and Occupational Therapy. 8. Cerebral aneurysm/subarachnoid hemorrhage, as well as a OPERATOR LIGHTS shunt with associated hydrocephalus. She will follow up with Neurosurgery. 9. Seizure disorder. Keppra and Vimpat have been continued. 10. Hypertension, on metoprolol. 11. Hyperlipidemia, on statin therapy. DISCHARGE CONDITION: Stable. Blood pressure is 118/74, O2 sats on room air 95% , respiratory rate is 17, pulse is 73, temperature 36.6 Celsius. MEDICATIONS AT DISCHARGE: Please see the EMR. DISCHARGE INSTRUCTIONS: 1. To follow up with Dr. Ge. 2. If she develops fever, chills, chest pain, or worsening cognition, to return to the ER. TIME SPENT: Greater than 30 minutes discharging and coordinating care. /[id number]/MODL MTDD
== END 2017-02-22 15:06 | DRG 871 ==
LOC: F3N 13:02
PROVIDERS: ADMIT Internal Medicine; ATTEND Internal Medicine
DX: R78.81 Bacteremia (principal); B96.89 Other specified bacterial agents as the cause of diseases classified elsewhere; K57.32 Diverticulitis of large intestine without perforation or abscess without bleeding; G91.0 Communicating hydrocephalus; G93.40 Encephalopathy, unspecified; G40.909 Epilepsy, unspecified, not intractable, without status epilepticus; R26.89 Other abnormalities of gait and mobility; I10 Essential (primary) hypertension; D64.9 Anemia, unspecified; R91.1 Solitary pulmonary nodule; E78.5 Hyperlipidemia, unspecified; Z98.2 Presence of cerebrospinal fluid drainage device; Z86.718 Personal history of other venous thrombosis and embolism; Z86.73 Personal history of transient ischemic attack (TIA), and cerebral infarction without residual deficits
CPT/HCPCS: 80177-90; 97110-GO; 97110-GP; 97112-GP; 97116-GP; 97162-GP; 97166-GO; 97530-GP; 97535-GO; G8978-GP-CL; G8979-GP-CJ; G8987-GO-CL; G8988-GO-CJ; J1335; J3475; Q9967

== ENCOUNTER 2017-02-22 11:46 | Inpatient (IN) | payer OTHER ==
[2017-02-22] MEDS ORDERED: MAGNESIUM HYDROXIDE 30 ML UDCUP PO PRN (16:20)
[2017-02-22] MEDS ORDERED: ACETAMINOPHEN 325 MG TAB PO PRN (16:20)
--- NOTE | 2017-02-22 17:17 | PDOREHIP ---
Admission [facility] - Admission - 3 Day Assessment Period Admission Date/Day 1: 02/22/17 Day 2: 02/23/17 Day 3: 02/24/17 - Active Diagnoses Comorbidities and Co-existing Conditions at Admission: 06878. None of the Above - Skin Conditions Unhealed Pressure Ulcer (1 or more/Stage 1 or >)-Admission: 0. No
--- NOTE | 2017-02-22 17:48 | GHP ---
[f rep st] HISTORY AND PHYSICAL POST ADMISSION PHYSICIAN EVALUATION AND REHABILITATION TREATMENT PLAN DATE OF ADMISSION: 02/22/2017 DATE OF EVALUATION: 02/22/2017. TIME OF EVALUATION: 1555. REFERRING FACILITY: [facility]. REFERRING PHYSICIAN: Aparna Rico MD IMPAIRMENT GROUP: 2.1. DATE OF ONSET: 02/18/2017. CONSULTING PHYSICIANS: She was seen in consultation by Neurosurgery, Dr. Purvis ; Neurology, Dr. Monroe and Infectious Disease, Dr. Garcia. REHABILITATION DIAGNOSIS: Debility following hospitalization with diverticulitis and history of aneurysmal bleed, craniotomy and clipping, seizures, hydrocephalus and shunt placement. ETIOLOGIC DIAGNOSIS: Nontraumatic brain dysfunction. HISTORY OF PRESENT ILLNESS: This patient is well known to the Rehabilitation Service having discharged on 02/06/2017. She has had a prolonged course of illness beginning with a cerebral aneurysmal bleed on 11/30/2016. She had craniotomy and clipping. She subsequently developed seizures and was sent to [facility] for continuous EEG monitoring, where seizures were controlled with Lacosamide and levetiracetam. She subsequently was a [facility] resident for several weeks and then came to inpatient rehabilitation. Her first course in inpatient rehabilitation was complicated by the development of hydrocephalus for which she eventually received ventriculoperitoneal shunt placement and returned to inpatient rehabilitation on 01/28/2017. She then stayed for 10 days. She had considerable improvement during her stay and was able to transfer with contact guard assist to minimal assist cues. She had walked 150 feet with a front-wheeled walker. She would veer to the right. She was dressing with standby assist after assistance to initiate the task. She had continued diplopia. She was noted to have cognitive impairment and she was treated by Speech and Language Pathology. She had hypertension. She was on chlorthalidone which caused hyponatremia and ultimately she had adequate blood pressure control with lisinopril 40 mg a day and metoprolol 50 mg twice a day. She was treated with rivaroxaban for history of DVT. She returned to the hospital on 02/07/2017 with mental status and functional changes. A shunt infection was ruled out. She was diagnosed with diverticulitis and bacteremia with Clostridium subterminale. She had a colonoscopy. The diverticulitis was diagnosed by CT scan. She was treated with ertapenem and was discharged to home. She returned to the hospital on 02/18/2017 with continued functional decline and confusion. A head CT was obtained which was without significant abnormality. She had her shunt tapped again and shunt infection was ruled out. Treatment with ertapenem was completed for diverticulitis. She had improvement to the point which she was appropriate to return to inpatient rehabilitation with a goal of optimizing her function towards return home with her . Urinalysis was obtained in the emergency room and it grew vancomycin resistant Enterococcus which was considered to be a colonization. She had no signs or symptoms consistent with a urinary tract infection. She had anemia which had progressively worsened during her stay. PRECAUTIONS: She is a fall risk. She has seizure precautions. ACTIVE COMORBIDITIES: She has no active tier 1, tier 2, or tier 3 comorbidities. PAST MEDICAL HISTORY: 1. Subarachnoid hemorrhage secondary to the left MCA aneurysm, status post surgical clipping. 2. Hypertension. 3. Dyslipidemia. 4. Seizures. 5. Hydrocephalus status post LOOM DOFFER shunt placement. 6. DVT of the right lower extremity. 7. Diverticulitis. PAST SURGICAL HISTORY: 1. Left frontal craniotomy for aneurysm clipping. 2. LOOM DOFFER shunt placement. 3. Shoulder and hip replacements. ALLERGIES: There are allergies listed to bee venom, naproxen and penicillins. PRE-HOSPITAL MEDICATIONS: When she was discharged from inpatient rehabilitation , her medications were as follows. 1. Cholecalciferol 2000 units p.o. daily. 2. Metoprolol 50 mg p.o. twice daily. 3. Polyethylene glycol 17 g p.o. daily. 4. Rivaroxaban 15 mg twice daily, changing to 20 mg p.o. daily after 2016. 5. Senna/docusate 1 p.o. daily. 6. Acetaminophen 650 mg p.o. q.4 hours p.r.n. 7. Atorvastatin 10 mg p.o. daily. 8. Lacosamide 1000 mg p.o. daily. 9. Lisinopril 40 mg p.o. daily. 10. Nitrofurantoin 100 mg p.o. twice daily. ADMISSION MEDICATIONS: 1. Acetaminophen 650 mg p.o. q.4 hours p.r.n. 2. Atorvastatin 10 mg p.o. daily. 3. Cholecalciferol 2000 units p.o. daily. 4. Lacosamide 100 mg p.o. twice daily. 5. Levetiracetam 1000 mg p.o. twice daily. 6. Lisinopril 40 mg p.o. daily. 7. Magnesium hydroxide 30 mL p.o. daily p.r.n. 8. Metoprolol 50 mg p.o. twice daily. 9. Polyethylene glycol 17 g p.o. daily. 10. Rivaroxaban 20 mg p.o. daily. 11. Senna/docusate 1 p.o. twice daily. FAMILY HISTORY: Noncontributory. PSYCHOSOCIAL HISTORY: She is . She lives with her . She is a nonsmoker. REVIEW OF SYSTEMS: She is not in pain. She has no cough or dyspnea. She denies chest pain or palpitations. She denies nausea or vomiting. She has an improved appetite. She has diarrhea occasionally depending on laxative use. She denies dysuria or urinary frequency. She denies joint pain or joint swelling. She has some swelling of the lower extremities. She denies skin rash or skin breakdown, and otherwise a 10-point review of systems is negative. PHYSICAL EXAM: VITAL SIGNS: Blood pressure is 158/88, heart rate is 68, respiratory rate is 16, oxygen saturation is 91% on room air. Temperature is 36.7 degrees Centigrade. Her weight is 65.8 kg for a body mass index of 28.3. GENERAL: This is an obese woman who appears her chronologic age, cooperative and in no acute distress. HEENT: Extraocular movements are intact. Pupils are equal, round, and reactive to light. Mucous membranes are moist. Dentition is in good condition. NECK: Supple. HEART: There is a regular rate and rhythm with no murmurs, rubs, or gallops. Heart sounds are somewhat distant. LUNGS: Clear to auscultation bilaterally with some reduced air movement. ABDOMEN: Soft, nontender, nondistended with normoactive bowel sounds and no hepatosplenomegaly. EXTREMITIES: There is no cyanosis or clubbing. There is 1+ edema bilaterally to the lower extremities, pretibial and over the feet. NEUROLOGICAL: She is alert and oriented to her general situation. She is not oriented to the date or the month and she does not retain information after reorientation. Cranial nerves 2-12 are grossly intact. There is no focal weakness. Sensation is intact to light touch. Deep tendon reflexes are 2+ at the biceps, patellar, and Achilles tendons. CURRENT LEVEL OF FUNCTION: Per pre-admission screen: Regarding diet, feeding, and swallowing, she was on regular texture. Regarding dressing lower body, she required standby assist for socks and voice cuing. For toileting, she needed maximal assistance. She was continent of bowel and bladder. For bed mobility, she required minimal assistance. For transfers, she required contact guard to minimal assistance using a front-wheeled walker. Her balance required contact to minimal assistance. Her endurance was fair. She was able to ambulate 120 feet with voice cues. She was noted to have episodes of confusion. IMPRESSION: This patient is a 71-year-old woman who has had a prolonged hospital course following an aneurysmal bleed, a left craniotomy for clipping of the middle cerebral artery, development of seizures, development of hydrocephalus, V/Q shunt placement and then diverticulitis, for which she received IV antibiotics. She is appropriate for inpatient rehabilitation with needs for physical therapy and occupational therapy to optimize her mobility and activities of daily living and for speech and language pathology regarding her cognition. She will need nursing care due to fall risk, for management of bowel and bladder, for medication management, and for skin integrity. She will require the care of a physician regarding blood pressure, seizure, risk for recurrent infection and other comorbidities. Her goal is to complete rehabilitation and go home with her family. For a safe discharge, it is anticipated that she will require no more than setup and supervision for grooming and eating, contact guard assist for bed mobility, transfers and ambulation. She will likely require wheelchair for community distances. She will likely require assistance for bathing and dressing. She will have therapy with physical therapy, occupational therapy, and speech language pathology for 60 minutes per day for each discipline, on 5 of the 7 days a week. Her expected duration of stay is 5 to 7 days. It is anticipated that upon discharge, she will continue to benefit from home health services including a certified health education specialist, occupational therapy, and physical therapy. ASSESSMENT AND PLAN: 1. Debility following repeated hospitalizations and a prolonged hospital course. It is hoped that she is now clear of medical complications, can complete a rehabilitation course and then return home with her . Physical and occupational therapy to optimize mobility and activities of activities of daily living. 2. Cognitive impairment. Assessment per Speech and Language Pathology. 3. Diverticulitis has been treated with antibiotics and she will be monitored for normalization of her bowel habits. 4. Vancomycin-resistant enterococcus colonized in her urine. She will have isolation with contact precautions. 5. Anemia, unclear etiology. We will recheck a CBC in the morning as well as an iron panel and reticulocyte count. She has recently had a colonoscopy so it is unlikely that there is a lower GI bleed. She is taking rivaroxaban with no GI protection, however, will also order stool Hemoccult. 6. Seizure disorder. Continue seizure precautions and levetiracetam and lacosamide. 7. Dyslipidemia, continue atorvastatin. 8. Hypertension. Continue lisinopril and metoprolol. Blood pressure is elevated on admission to inpatient rehabilitation. It will be monitored and medications adjusted or added as needed. 9. History of deep venous thrombosis. Continue rivaroxaban. /[id number]/MODL MTDD
[2017-02-22] MEDS: METOPROLOL TARTRATE 50 MG TAB PO SCH (20:54)
[2017-02-22] MEDS: LACOSAMIDE 50 MG TAB PO SCH (20:54)
[2017-02-22] MEDS: levETIRAcetam 500 MG TAB PO SCH (20:54)
[2017-02-22] MEDS: SENNOSIDES/DOCUSATE SODIUM TAB PO SCH (20:55)
[2017-02-22] MEDS ORDERED: NON-FORMULARY NEW DRUG (Lacosamide [Vimpat] 100 MG) PO SCH (21:00)
[2017-02-23 07:49] LABS: % IMMATURE GRANULYOCYTES 0.3 % (0.0-1.1); ABSOLUTE IMMATURE GRANULOCYTES 0.01 10^3/uL (0.00-0.10); ADD DIFF? NO; ADD MORPH? NO; ADD SCAN? NO; ATYPICAL LYMPHOCYTE FLAG 10 (0-99); FRAGMENT RBC FLAG 20 (0-99); HEMATOCRIT 28.9 % (38.0-47.0); HEMOGLOBIN 9.7 g/dL (12.6-16.3); LEFT SHIFT FLG 0 (0-99); LIPEMIA HEMOLYSIS FLAG 80 (0-99); MEAN CELL HEMOGLOBIN 30.9 pg (27.9-34.1); MEAN CELL HEMOGLOBIN CONCENTR. 33.6 g/dL (32.4-36.7); MEAN PLATELET VOLUME 10.2 fL (8.7-11.7); PLATELET CLUMPS FLAG 0 (0-99); PLATELET COUNT 310 10^3/uL (150-400); RED BLOOD CELL COUNT 3.14 10^6/uL (4.18-5.33); RED CELL DISTRIBUTION WIDTH 13.2 % (11.5-15.2)
[2017-02-23 08:02] LABS: ALANINE AMINOTRANSFERASE 28 IU/L (9-52); ALBUMIN 3.2 g/dL (3.5-5.0); ALKALINE PHOSPHATASE 55 IU/L (38-126); ANION GAP 9 mEq/L (8-16); ASPARTATE AMINOTRANSFERASE 16 IU/L (14-46); BILIRUBIN,TOTAL 0.7 mg/dL (0.1-1.4); CARBON DIOXIDE 27 mEq/l (22-31); CHLORIDE 105 mEq/L (97-110); CREATININE 0.7 mg/dL (0.6-1.0); GLOMERULAR FILTRATION RATE > 60; GLUCOSE 80 mg/dL (70-100); POTASSIUM 3.9 mEq/L (3.5-5.2); SODIUM 141 mEq/L (134-144); TOTAL PROTEIN 5.6 g/dL (6.3-8.2)
[2017-02-23 08:11] LABS: % SATURATION 17 % (20-55); TOTAL IRON BINDING CAPACITY 190 ug/dL (260-490)
[2017-02-23] MEDS: POLYETHYLENE GLYCOL 3350 17 GM PKT PO SCH (08:16)
[2017-02-23] MEDS: RIVAROXABAN 20 MG TAB PO SCH (08:17)
[2017-02-23] MEDS: CHOLECALCIFEROL VIT D3 2,000 UNITS TAB/CAP PO SCH (08:18)
[2017-02-23] MEDS: ATORVASTATIN CALCIUM 10 MG TAB PO SCH (08:18)
[2017-02-23] MEDS: LACOSAMIDE 50 MG TAB PO SCH ×2 (08:19→20:14)
[2017-02-23] MEDS: levETIRAcetam 500 MG TAB PO SCH ×2 (08:20→20:14)
[2017-02-23] MEDS: METOPROLOL TARTRATE 50 MG TAB PO SCH ×2 (08:21→20:14)
[2017-02-23] MEDS: LISINOPRIL 40 MG TAB PO SCH (08:22)
[2017-02-23] MEDS: SENNOSIDES/DOCUSATE SODIUM TAB PO SCH ×2 (12:38→20:14)
--- NOTE | 2017-02-23 14:21 | SOAPPROG ---
SOAP Progress Note Assessment/Plan: Assessment: * Debility following repeated hospitalizations and a prolonged hospital course. It is hoped that she is now clear of medical complications, can complete a rehabilitation course and then return home with her . Physical and occupational therapy to optimize mobility and activities of activities of daily living. * Cognitive impairment. Assessment per Speech and Language Pathology. * Anemia,, iron deficient. Improved 02/23/17 but low reticulocyte count. Start FeSO4 325 mg QD X 1 mo. Had colonoscopy in the hospital with mild diverticulosis. She is taking rivaroxaban with no GI protection, however, will also order stool Hemoccult. Chronic/stable conditions: * Diverticulitis has been treated with antibiotics. Monitor for normalization of her bowel habits. 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 She will have isolation with contact precautions. * Seizure disorder. Continue seizure precautions and levetiracetam and lacosamide. * Dyslipidemia, continue atorvastatin. * Hypertension. Continue lisinopril and metoprolol. Blood pressure is elevated on admission to inpatient rehabilitation. It will be monitored and medications adjusted or added as needed. * History of deep venous thrombosis. Continue rivaroxaban. 02/23/17 14:25 Subjective: Says she was awake several times overnight. Denies pain, urinary frequency, dysuria, f/c, cough, dyspnea, n/v/c/d. Objective: Vital Signs Temp Pulse Resp BP Pulse Ox 36.4 C 76 16 136/87 H 95 02/23/17 07:42 02/23/17 08:21 02/23/17 07:42 02/23/17 08:22 02/23/17 07:42 Laboratory Results 02/23/17 06:05 02/23/17 06:05 02/22/17 02/23/17 02/24/17 05:59 05:59 05:59 Intake Total 400 Output Total 1300 100 Balance -1300 300 Physical Exam - Physical Exam General Appearance: WD/WN, alert, no apparent distress Respiratory: normal breath sounds, No crackles, No rhonchi, No wheezing Cardiac/Chest: regular rate, rhythm, edema (B LE) Skin: normal color, warm/dry Neuro/Psych: no motor/sensory deficits, alert, normal mood/affect, abnormal gait (with FWW, slow, narrow-base, step-through pattern.) ICD10 Worksheet Patient Problems: Problems Problem Status Onset Altered mental state Acute Altered mental status Acute Altered mental status Acute Generalized weakness Acute Pneumonia Acute 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 VRE (vancomycin-resistant Enterococci) Acute ~02/16/17
[2017-02-24] MEDS: SENNOSIDES/DOCUSATE SODIUM TAB PO SCH ×2 (08:49→19:47)
[2017-02-24] MEDS: levETIRAcetam 500 MG TAB PO SCH ×2 (08:50→19:47)
[2017-02-24] MEDS: RIVAROXABAN 20 MG TAB PO SCH (08:50)
[2017-02-24] MEDS: FERROUS SULFATE 325 MG TAB PO SCH (08:50)
[2017-02-24] MEDS: POLYETHYLENE GLYCOL 3350 17 GM PKT PO SCH (08:50)
[2017-02-24] MEDS: CHOLECALCIFEROL VIT D3 2,000 UNITS TAB/CAP PO SCH (08:50)
[2017-02-24] MEDS: LACOSAMIDE 50 MG TAB PO SCH ×2 (08:50→19:47)
[2017-02-24] MEDS: ATORVASTATIN CALCIUM 10 MG TAB PO SCH (08:50)
[2017-02-24] MEDS: METOPROLOL TARTRATE 50 MG TAB PO SCH ×2 (09:19→19:47)
[2017-02-24] MEDS: LISINOPRIL 40 MG TAB PO SCH (09:19)
--- NOTE | 2017-02-24 10:16 | SOAPPROG ---
SOAP Progress Note Assessment/Plan: Assessment: * Debility following repeated hospitalizations and a prolonged hospital course. It is hoped that she is now clear of medical complications, can complete a rehabilitation course and then return home with her . Initial FIM 53 ( was 66 when she discharged home. Walked 120' FWW SBA, t'larissa FWW SBA. UB nib=n A, LB max A. Bathing with cues to initiate and sequence. Continue physical and occupational therapy to optimize mobility and activities of activities of daily living. * Visual deficit? Diplopia? Will need neuro-ophthalmology follow-up after discharge. * Cognitive impairment. SLUMS 02/26. Global deficits. Continue Speech and Language Pathology. * Anemia,, iron deficient. Improved 02/23/17 but low reticulocyte count. Start FeSO4 325 mg QD X 1 mo. Had colonoscopy in the hospital with mild diverticulosis. She is taking rivaroxaban with no GI protection, however, will also order stool Hemoccult. Chronic/stable conditions: * Diverticulitis has been treated with antibiotics. Monitor for normalization of her bowel habits. 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 She will have isolation with contact precautions. * Seizure disorder. Continue seizure precautions and levetiracetam and lacosamide. * Dyslipidemia, continue atorvastatin. * Hypertension. Continue lisinopril and metoprolol. Blood pressure is elevated on admission to inpatient rehabilitation. It will be monitored and medications adjusted or added as needed. * History of deep venous thrombosis. Continue rivaroxaban. Attended staffing, 15 min. D/W case mgmt, nursing, document specialist, PT, OT, KNIFE EDGER. plan 7 day LOS with discharge home with family 03/01/17. 02/24/17 11:29 Subjective: No complaints. Slept well. Would like to go home. Not in pain, no f/c, cough/ dyspnea. Objective: Vital Signs Temp Pulse Resp BP Pulse Ox 36.6 C 75 15 135/89 H 92 02/23/17 19:46 02/24/17 09:19 02/23/17 19:46 02/24/17 09:19 02/23/17 19:46 Laboratory Results 02/23/17 06:05 02/23/17 06:05 02/23/17 02/24/17 02/25/17 05:59 05:59 05:59 Intake Total 1000 100 Output Total 1300 1300 Balance -1300 -300 100 - Time Spent With Patient Time Spent With Patient: Greater than 35 minutes floor time today, including more than 50% of time in coordination of care during staffing meeting and counseling patient and . Physical Exam - Physical Exam General Appearance: WD/WN, alert, no apparent distress, obese Respiratory: normal breath sounds, No crackles, No rhonchi, No wheezing Cardiac/Chest: regular rate, rhythm Skin: normal color, warm/dry Neuro/Psych: no motor/sensory deficits, alert, normal mood/affect, abnormal gait (Slow, flexed posture, narrow-based, step-through pattern.), other (Unable to effectively self-propel wheelchair.) ICD10 Worksheet Patient Problems: Problems Problem Status Onset Altered mental state Acute Altered mental status Acute Altered mental status Acute Generalized weakness Acute Pneumonia Acute 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 VRE (vancomycin-resistant Enterococci) Acute ~02/16/17
[2017-02-25] MEDS: ATORVASTATIN CALCIUM 10 MG TAB PO SCH (08:19)
[2017-02-25] MEDS: FERROUS SULFATE 325 MG TAB PO SCH (08:19)
[2017-02-25] MEDS: CHOLECALCIFEROL VIT D3 2,000 UNITS TAB/CAP PO SCH (08:19)
[2017-02-25] MEDS: LISINOPRIL 40 MG TAB PO SCH (08:19)
[2017-02-25] MEDS: SENNOSIDES/DOCUSATE SODIUM TAB PO SCH ×2 (08:19→20:03)
[2017-02-25] MEDS: RIVAROXABAN 20 MG TAB PO SCH (08:19)
[2017-02-25] MEDS: POLYETHYLENE GLYCOL 3350 17 GM PKT PO SCH (08:19)
[2017-02-25] MEDS: levETIRAcetam 500 MG TAB PO SCH ×2 (08:19→20:02)
[2017-02-25] MEDS: METOPROLOL TARTRATE 50 MG TAB PO SCH ×2 (08:19→20:02)
[2017-02-25] MEDS: LACOSAMIDE 50 MG TAB PO SCH ×2 (08:20→20:03)
[2017-02-26] MEDS: LACOSAMIDE 50 MG TAB PO SCH ×2 (02:40→08:28)
[2017-02-26] MEDS: RIVAROXABAN 20 MG TAB PO SCH (08:26)
[2017-02-26] MEDS: levETIRAcetam 500 MG TAB PO SCH ×2 (08:27→20:40)
[2017-02-26] MEDS: SENNOSIDES/DOCUSATE SODIUM TAB PO SCH ×2 (08:28→20:40)
[2017-02-26] MEDS: ATORVASTATIN CALCIUM 10 MG TAB PO SCH (08:28)
[2017-02-26] MEDS: FERROUS SULFATE 325 MG TAB PO SCH (08:28)
[2017-02-26] MEDS: CHOLECALCIFEROL VIT D3 2,000 UNITS TAB/CAP PO SCH (08:28)
[2017-02-26] MEDS: POLYETHYLENE GLYCOL 3350 17 GM PKT PO SCH (08:28)
[2017-02-26] MEDS: LISINOPRIL 40 MG TAB PO SCH (08:29)
[2017-02-26] MEDS: METOPROLOL TARTRATE 50 MG TAB PO SCH ×2 (08:29→20:41)
--- NOTE | 2017-02-26 12:31 | SOAPPROG ---
SOAP Progress Note Assessment/Plan: Assessment: * Debility following repeated hospitalizations and a prolonged hospital course. It is hoped that she is now clear of medical complications, can complete a rehabilitation course and then return home with her . Initial FIM 53 ( was 66 when she discharged home. Walked 120' FWW SBA, t'larissa FWW SBA. UB min A , LB max A. Bathing with cues to initiate and sequence. Continue physical and occupational therapy to optimize mobility and activities of activities of daily living. * Visual deficit? Diplopia? Will need neuro-ophthalmology follow-up after discharge. * Cognitive impairment. SLUMS 02/26. Global deficits. Continue Speech and Language Pathology. * Anemia,, iron deficient. Improved 02/23/17 but low reticulocyte count. Start FeSO4 325 mg QD X 1 mo. Had colonoscopy in the hospital with mild diverticulosis. She is taking rivaroxaban with no GI protection, however, will also order stool Hemoccult. Chronic/stable conditions: * Diverticulitis has been treated with antibiotics. Monitor for normalization of her bowel habits. 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 She will have isolation with contact precautions. * Seizure disorder. Continue seizure precautions and levetiracetam and lacosamide. * Dyslipidemia, continue atorvastatin. * Hypertension. Continue lisinopril and metoprolol. Blood pressure is elevated on admission to inpatient rehabilitation. It will be monitored and medications adjusted or added as needed. * History of deep venous thrombosis. Continue rivaroxaban. Plan 7 day LOS with discharge home with family 03/01/17. 02/26/17 12:30 Subjective: No complaints. Slept well, not in pain, no f/c, cough/dyspnea. Objective: Vital Signs Temp Pulse Resp BP Pulse Ox 36.8 C 67 16 132/87 H 94 02/26/17 06:45 02/26/17 08:29 02/26/17 06:45 02/26/17 08:29 02/26/17 06:45 Laboratory Results 02/23/17 06:05 02/23/17 06:05 02/25/17 02/26/17 02/27/17 05:59 05:59 05:59 Intake Total 990 1350 400 Output Total 1000 950 Balance -10 400 400 Physical Exam - Physical Exam General Appearance: WD/WN, alert, no apparent distress Respiratory: No respiratory distress, No accessory muscle use Skin: normal color, warm/dry Neuro/Psych: no motor/sensory deficits, alert, normal mood/affect, abnormal gait (Ambulating independently accompanied by , FWW, step-through pattern , slow.) ICD10 Worksheet Patient Problems: Problems Problem Status Onset VRE (vancomycin-resistant Enterococci) Acute ~02/16/17 Altered mental status Acute Altered mental state Acute Generalized weakness Acute 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
[2017-02-27] MEDS: CHOLECALCIFEROL VIT D3 2,000 UNITS TAB/CAP PO SCH (08:38)
[2017-02-27] MEDS: levETIRAcetam 500 MG TAB PO SCH ×2 (08:38→20:38)
[2017-02-27] MEDS: SENNOSIDES/DOCUSATE SODIUM TAB PO SCH ×2 (08:38→20:38)
[2017-02-27] MEDS: ATORVASTATIN CALCIUM 10 MG TAB PO SCH (08:38)
[2017-02-27] MEDS: FERROUS SULFATE 325 MG TAB PO SCH (08:39)
[2017-02-27] MEDS: POLYETHYLENE GLYCOL 3350 17 GM PKT PO SCH (08:39)
[2017-02-27] MEDS: LACOSAMIDE 50 MG TAB PO SCH ×2 (08:39→20:38)
[2017-02-27] MEDS: RIVAROXABAN 20 MG TAB PO SCH (08:39)
[2017-02-27] MEDS: LISINOPRIL 40 MG TAB PO SCH (08:51)
[2017-02-27] MEDS: METOPROLOL TARTRATE 50 MG TAB PO SCH ×2 (08:52→20:39)
--- NOTE | 2017-02-27 09:55 | SOAPPROG ---
SOAP Progress Note Assessment/Plan: Assessment: * FUNCTIONAL STRENGTH UE AND LEs. Continue physical and occupational therapy to optimize mobility and activities of activities of daily living. * Visual deficit? SHE DOES NOT REPORT DIPLOPIA ON TODAY'S EXAM. Diplopia? Will need neuro-ophthalmology follow-up after discharge. * Cognitive impairment. SLUMS 02/26. Global deficits. Continue Speech and Language Pathology. * Anemia,, iron deficient. Improved 02/23/17 but low reticulocyte count. Start FeSO4 325 mg QD X 1 mo. Had colonoscopy in the hospital with mild diverticulosis. She is taking rivaroxaban with no GI protection, however, will also order stool Hemoccult. Chronic/stable conditions: * Diverticulitis has been treated with antibiotics. Monitor for normalization of her bowel habits. 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 She will have isolation with contact precautions. * Seizure disorder. Continue seizure precautions and levetiracetam and lacosamide. * Dyslipidemia, continue atorvastatin. * Hypertension. Continue lisinopril and metoprolol. Blood pressure is elevated on admission to inpatient rehabilitation. It will be monitored and medications adjusted or added as needed. * History of deep venous thrombosis. Continue rivaroxaban. 02/27/17 09:54 02/27/17 09:56 Subjective: No c/o per patient. Pt's reports cognition improving but still not back to baseline. Objective: Vital Signs Temp Pulse Resp BP Pulse Ox 36.8 C 64 16 156/87 H 92 02/27/17 08:00 02/27/17 08:52 02/27/17 08:00 02/27/17 08:52 02/27/17 08:00 Laboratory Results 02/23/17 06:05 02/23/17 06:05 02/26/17 02/27/17 02/28/17 05:59 05:59 05:59 Intake Total 1350 840 200 Output Total 950 Balance 400 840 200 Physical Exam - Physical Exam General Appearance: WD/WN (Grossly nl UE, LE MOTOR EXAM), alert, no apparent distress Neck: non-tender, supple Respiratory: chest non-tender, lungs clear Cardiac/Chest: regular rate, rhythm, No edema Abdomen: normal bowel sounds, non-tender, other (No Soprapubic tenderness. 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
[2017-02-28] MEDS: ATORVASTATIN CALCIUM 10 MG TAB PO SCH (08:12)
[2017-02-28] MEDS: METOPROLOL TARTRATE 50 MG TAB PO SCH (08:12)
[2017-02-28] MEDS: LISINOPRIL 40 MG TAB PO SCH (08:12)
[2017-02-28] MEDS: RIVAROXABAN 20 MG TAB PO SCH (08:12)
[2017-02-28] MEDS: FERROUS SULFATE 325 MG TAB PO SCH (08:12)
[2017-02-28] MEDS: POLYETHYLENE GLYCOL 3350 17 GM PKT PO SCH (08:12)
[2017-02-28] MEDS: CHOLECALCIFEROL VIT D3 2,000 UNITS TAB/CAP PO SCH (08:12)
[2017-02-28] MEDS: levETIRAcetam 500 MG TAB PO SCH (08:12)
[2017-02-28] MEDS: LACOSAMIDE 50 MG TAB PO SCH (08:12)
[2017-02-28] MEDS: SENNOSIDES/DOCUSATE SODIUM TAB PO SCH (08:12)
--- NOTE | 2017-02-28 09:42 | SOAPPROG ---
SOAP Progress Note Assessment/Plan: Assessment: * FUNCTIONAL STRENGTH UE AND LEs. Continue physical and occupational therapy to optimize mobility and activities of activities of daily living. * Right foot edema- per who states the right foot was swollen yesterday , but this has resolved. She has nl and painfree right ankle ROM. No calf tenderness * Visual deficit? SHE DOES NOT REPORT DIPLOPIA ON TODAY'S EXAM. Will need neuro-ophthalmology follow-up after discharge. * Cognitive impairment. SLUMS 02/26. Global deficits. Continue Speech and Language Pathology. * Anemia,, iron deficient. Improved 02/23/17 but low reticulocyte count. Start FeSO4 325 mg QD X 1 mo. Had colonoscopy in the hospital with mild diverticulosis. She is taking rivaroxaban with no GI protection, however, will also order stool Hemoccult. Chronic/stable conditions: * Diverticulitis has been treated with antibiotics. Monitor for normalization of her bowel habits. 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 She will have isolation with contact precautions. * Seizure disorder. Continue seizure precautions and levetiracetam and lacosamide. * Dyslipidemia, continue atorvastatin. * Hypertension. Continue lisinopril and metoprolol. Blood pressure is elevated on admission to inpatient rehabilitation. It will be monitored and medications adjusted or added as needed. * History of deep venous thrombosis. Continue rivaroxaban. 02/27/17 09:54 02/27/17 09:56 02/28/17 09:49 Subjective: No problems per nursing. Her report the right foot is swollen Objective: Vital Signs Temp Pulse Resp BP Pulse Ox 36.7 C 68 16 133/85 H 90 L 02/28/17 07:50 02/28/17 08:12 02/28/17 07:50 02/28/17 08:12 02/28/17 07:50 Laboratory Results 02/23/17 06:05 02/23/17 06:05 02/27/17 02/28/17 03/01/17 05:59 05:59 05:59 Intake Total 840 980 420 Balance 840 980 420 Physical Exam - Physical Exam General Appearance: WD/WN, alert, no apparent distress, thin Neck: full range of motion, normal inspection Respiratory: lungs clear, normal breath sounds Cardiac/Chest: No edema, No JVD Abdomen: normal bowel sounds, non-tender, soft Skin: normal color, warm/dry Extremities: swelling, Maurice's sign (No significant right foot,ankle or leg swelling. 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
[2017-02-28] MEDS ORDERED: METOPROLOL TARTRATE 50 MG TAB PO ONE (19:15)
[2017-02-28 20:01] VITALS: TEMP 98.2
[2017-03-01] MEDS: SENNOSIDES/DOCUSATE SODIUM TAB PO SCH ×2 (00:02→08:29)
[2017-03-01] MEDS: levETIRAcetam 500 MG TAB PO SCH ×2 (00:02→08:28)
[2017-03-01] MEDS: LACOSAMIDE 50 MG TAB PO SCH ×2 (00:02→08:26)
[2017-03-01] MEDS: METOPROLOL TARTRATE 50 MG TAB PO SCH ×2 (00:07→08:30)
[2017-03-01 06:37] VITALS: RESP 16; O2SAT 94
[2017-03-01] MEDS: POLYETHYLENE GLYCOL 3350 17 GM PKT PO SCH (08:24)
[2017-03-01] MEDS: RIVAROXABAN 20 MG TAB PO SCH (08:25)
[2017-03-01] MEDS: CHOLECALCIFEROL VIT D3 2,000 UNITS TAB/CAP PO SCH (08:26)
[2017-03-01] MEDS: ATORVASTATIN CALCIUM 10 MG TAB PO SCH (08:26)
[2017-03-01] MEDS: FERROUS SULFATE 325 MG TAB PO SCH (08:28)
[2017-03-01] MEDS: LISINOPRIL 40 MG TAB PO SCH (08:29)
[2017-03-01 08:30] VITALS: BP 121/78
[2017-03-01 08:31] VITALS: PULSE 61
--- NOTE | 2017-03-01 18:20 | GDS ---
[f rep st] DISCHARGE SUMMARY ADMITTING DIAGNOSIS: Debility following prolonged medical course including subarachnoid hemorrhage, craniotomy for clipping of aneurysm, seizures, hydrocephalus and placement of a ventriculoperitoneal shunt. DISCHARGE DIAGNOSIS: Debility following prolonged medical course including subarachnoid hemorrhage, craniotomy for clipping of aneurysm, seizures, hydrocephalus and placement of a ventriculoperitoneal shunt. CONSULTANTS: None. PROCEDURES: None. COMPLICATIONS: None. HISTORY/HOSPITAL COURSE: For full history of her prolonged medical course, please see other history and physical documents and discharge summaries dating back to November 2016. For the purpose of this discharge summary, she was readmitted after hospitalization with bacteremia likely due to diverticulitis. She came back to inpatient rehabilitation on 02/22/2017. She made good progress during her stay. Her initial functional independence measure was 53, which is consistent with a retirement level of function and needing assistance with all aspects of mobility and self-care. At that time, she was able to walk 120 feet with a front-wheeled walker and standby assistance. She could transfer with a front-wheeled walker and standby assistance also. She needed minimal assistance for upper body dressing and maximal assistance for lower body dressing. She needed cues to initiate and sequence bathing. She had cognitive impairment. The [facility] mental status exam was administered and she scored 6/30, with global deficits. She continued to progress over the next several days. She walked 150 feet with a front-wheeled walker and standby assistance. She was also able to ambulate with bilateral trekking poles standby assist and contact guard assist 150 feet. She was able to dress upper and lower body with minimal assist for the upper body and standby assist for the lower body. She showed improvement in her memory. She showed improvement in her cognitive function. She demonstrated memory from the previous day of specific information as well as incidental elements. She was able to describe complex pictures and provide specific details in a well-organized manner. She was noted to have anemia and iron deficiency. Her reticulocyte count was low and iron sulfate supplement was restarted. There had been a colonoscopy in the hospital which showed only mild diverticulosis, so it is unlikely that the bleeding source was the colon. She was taking rivaroxaban with no GI protection. Stool Hemoccult studies were ordered. Stool Hemoccult was negative x3, so it is unclear whether or not the source of blood loss was gastrointestinal. LABORATORIES AND STUDIES: During her stay, CBC was done on 02/23/2017. Her hemoglobin was 9.7, hematocrit was 28.9. Serum chemistry on the same day showed normal renal function and electrolytes. She was iron deficient, with a total iron level of 32, total iron-binding capacity of 119 and percent saturation of 17. Liver function tests were overall within normal limits but for a slightly low albumin of 3.2. BNP was elevated at 1160. DISCHARGE PLAN: CONDITION UPON DISCHARGE: Good. ACTIVITY: Ad [place], but she needs supervision for safety. DIET: Regular. DATE OF NEXT APPOINTMENT: She will follow up with neurosurgeon, Dr. Basilio Ge, on 03/11/2017; with primary care provider, Dr. Luis Eduardo Jones, in approximately a week; and with fish stringer assembler, Dr. Ulices Arnold for neuro- ophthalmologic testing on 03/04/2017. MEDICATIONS AT DISCHARGE: 1. Ferrous sulfate 325 mg p.o. daily through March 23. 2. Senna/docusate 1 p.o. twice daily. 3. Acetaminophen 650 mg q.4 hours p.r.n. 4. Cholecalciferol 2000 units p.o. daily. 5. Polyethylene glycol 17 g p.o. daily. 6. Atorvastatin 10 mg p.o. daily. 7. Lacosamide 100 mg p.o. twice daily. 8. Levetiracetam 1000 mg twice daily. 9. Lisinopril 40 mg daily. 10. Metoprolol 50 mg twice daily. 11. Rivaroxaban 20 mg daily. ISSUES TO BE ADDRESSED AT FOLLOWUP: 1. Functional status regarding mobility, ADLs and cognition. She will continue physical, occupational and speech therapies at home and she can follow up on these issues with her primary care provider. 2. History of DVT which occurred I believe in December of 2016. She is taking rivaroxaban for this. She can follow up with her primary care provider. It is expected she will need 3 to 6 months of therapy. 3. Anemia, iron deficient. Advise completing 1 month of iron supplement and then rechecking CBC in late February, and this can be done with her primary care provider. 4. Diplopia, greatly improved over the course of several months, especially after HEAVY TRUCK TECHNICIAN shunt placement for hydrocephalus. She will follow up with Dr. Arnold regarding vision issues. 5. Hydrocephalus, status post HEAVY TRUCK TECHNICIAN shunt. She will follow up with Dr. Ge. 6. Seizure after subarachnoid hemorrhage and craniotomy. Continue lacosamide and levetiracetam likely 3 to 6 months total. She can follow up with Dr. Ge or potentially return to the [facility] where the lacosamide was added to the levetiracetam under continuous EEG monitoring. 7. Hypertension was overall well controlled with lisinopril and metoprolol. She had occasional elevated blood pressures with one reading as high as 178 systolic for which she was given an extra 50 mg of metoprolol. This improved her blood pressure but she became bradycardic with a heart rate of 57. If she has persistently elevated blood pressures, I would advise adding a third agent. She has had hyponatremia with thiazide diuretics, so the next choice might be a calcium channel elissa. She can follow up regarding blood pressure with her primary care provider. /[id number]/MODL MTDD
--- NOTE | 2017-03-03 10:16 | PDOREHIP ---
Admission [facility] - Admission - 3 Day Assessment Period Admission Date/Day 1: 02/22/17 Day 2: 02/23/17 Day 3: 02/24/17 Discharge [facility] - Discharge - 3 Day Assessment Period 2 Days Prior to Anticipated Discharge Date: 02/27/17 1 Day Prior to Anticipated Discharge Date: 02/28/17 Anticipated Discharge Date: 03/01/17 - Discharge Skin Conditions Unhealed Pressure Ulcer (1 or more/Stage 1 or >)-Discharge: 0. No
== END 2017-03-01 14:15 | disposition home health service (06) | DRG 57 ==
LOC: BREH 15:40
PROVIDERS: ADMIT Internal Medicine; ATTEND Internal Medicine
DX: G91.9 Hydrocephalus, unspecified (principal); I69.015 Cognitive social or emotional deficit following nontraumatic subarachnoid hemorrhage; B95.2 Enterococcus as the cause of diseases classified elsewhere; G40.909 Epilepsy, unspecified, not intractable, without status epilepticus; E78.5 Hyperlipidemia, unspecified; I10 Essential (primary) hypertension; Z98.2 Presence of cerebrospinal fluid drainage device; Z87.19 Personal history of other diseases of the digestive system; Z96.619 Presence of unspecified artificial shoulder joint; Z96.649 Presence of unspecified artificial hip joint; Z86.718 Personal history of other venous thrombosis and embolism; D50.9 Iron deficiency anemia, unspecified
CPT/HCPCS: 92507-GN; 92522-GN; 97110-GO; 97110-GP; 97112-GP; 97116-GP; 97161-GP; 97166-GO; 97530-GO; 97530-GP; 97532-GO; 97535-GO

== ENCOUNTER → 2017-05-21 | Outpatient (CLI) | payer OTHER ==
--- NOTE | 2017-05-24 21:16 | CPEEG ---
[f rep st] ELECTROENCEPHALOGRAM A 4-HOUR VIDEO EEG DATE OF STUDY: 05/21/2017 DATE OF INTERPRETATION: 05/21/2017 INTERPRETATION: This 4-hour video EEG recording is abnormal due to the following reasons: 1. There were potentially epileptogenic abnormalities present over the left temporal head region. These findings would be consistent with a focal seizure disorder. 2. There was a severe degree of focal slowing over the left temporal head region and a moderate degree of asymmetry consistent with the patient's previous neurosurgical procedure. 3. There were no electrographic seizures discharges present during the awake and sleep recordings. REPORT: This 4-hour video EEG contains 9 Hz alpha to the posterior head regions. The primary feature of this recording was the presence of left mid- temporal (maximal at electrode T3) spikes, sharp waves, and temporal intermittent rhythmic delta activity (TIRDA). In addition, there was a severe degree of polymorphic delta slowing present over the left temporal head region, along with increased asymmetric increased amplitudes (breach rhythm). In addition, there was some mild, intermittent focal slowing over the right temporal head region. There was continued activation during photic stimulation or hyperventilation. The patient became drowsy and fell asleep during the study. During drowsiness, sleep, continued activation of left temporal spikes, sharp waves, and left TIRDA. There were no clinical events or electrographic seizures recorded during the video EEG monitoring session. /[id number]/MODL MTDD
== END ==
LOC: FCPNEURO 08:50
PROVIDERS: ATTEND Psychiatry & Neurology Neurology
DX: G40.909 Epilepsy, unspecified, not intractable, without status epilepticus (principal)

== ENCOUNTER → 2017-12-01 | Outpatient (CLI) | payer OTHER ==
[~2017-12-01] MED LIST: IOPAMIDOL (ISOVUE 370) 100 ML BTL IV ONE
== END ==
LOC: CIMAGING 09:26
PROVIDERS: ATTEND Physician Assistant
DX: Z95.828 Presence of other vascular implants and grafts (principal); Z98.2 Presence of cerebrospinal fluid drainage device
CPT/HCPCS: 70496; Q9967

== ENCOUNTER 2018-01-07 14:29 | Observation (INO) | payer OTHER ==
--- NOTE | 2018-01-07 14:31 | EDPHY ---
HPI/HX/ROS/PE/MDM Narrative: CHIEF COMPLAINT: Stroke alert, aphasia HPI: The patient is a 71 y/o female arriving emergently via EMS with acute onset aphasia within the last 3 hours sometime after 11:30 this morning. She has a history of a subarachnoid hemorrhage secondary to left MCA aneurysm November 2016 requiring craniotomy and clipping. This was complicated by a new seizure disorder and hydrocephalus requiring BASE CLOTH INSPECTOR shunt. She has since had right-sided weakness. Today her reported to EMS she was acting normally before he went out to wash his car around 11:30. Upon seeing her again she was aphasic. She has been following commands for EMS, but is only answering "yes" to questions. Prehospital BGL 138. Anticoagulation status unknown at this time; she was on Xarelto as of February 2017. REVIEW OF SYSTEMS: Aside from elements discussed in the HPI, a comprehensive 10-point review of systems was reviewed and is negative. PMH: 1. Hypertension 2. Dyslipidemia 3. Subarachnoid hemorrhage due to left MCA aneurysm 12/01/16 post craniotomy and aneurysm clipping 01/27/17. Complicated by new seizure disorder and hydrocephalus requiring BASE CLOTH INSPECTOR shunt placement. 4. Seizure disorder - Keppra 5. DVT of R lower extremity 6. Diverticulitis Prior medical records reviewed including admission 02/18/17 for encephalopathy, admission to neuro rehab, 02/22/17 discharge summary. SOCIAL HISTORY: , lives with . Neurosurgeon: Dr. Ge. PHYSICAL EXAM: General:Patient is alert, in no acute distress. ENT:Eyes are normal to inspection. ENT inspection normal. Neck: Normal inspection. Full range of motion. Respiratory:No respiratory distress. Breath sounds normal bilaterally. Cardiovascular: Regular rate and rhythm. Strong peripheral pulses. Normal cap refill. Abdomen:The abdomen is nontender to palpation. There are no peritoneal signs. Back: Normal to inspection. No tenderness to palpation. Skin: Normal color. No rash. Warm and dry. Extremities: Normal appearance. Full range of motion. Neuro: Aphasic. Follows commands. ED Course: 1430: Met EMS upon arrival and took report. This is a 72 y/o female with a history of a subarachnoid hemorrhage secondary to a left MCA aneurysm treated with craniotomy and clipping and complicated by new seizure disorder and hydrocephalus requiring BASE CLOTH INSPECTOR shunt. She presents as a Stroke Alert with acute onset aphasia sometime in the last 3 hours, exact time of onset is unclear. Plan for standard stroke work up including IV, labs, UA, head CT, EKG. 1431: Patient sent directly to CT. The 12 lead EKG was interpreted by myself. Sinus mechanism. See hard copy and/ or "tracemaster" electronic copy for interpretation. 1445: Consulted with Dr. Padilla, [place] Neurologist. He will assess via telemedicine bot. 1448: Spoke with radiologist. Initial non-contrast head CT is negative for acute findings. Patient is currently being assessed via telemedicine bot. believes patient has been off Xarelto for about 3 months. She is likely not a TPA candidate due to this and prior aneurysm leading to her hemorrhagic stroke. also notes they just returned from a trip to [place] and she did have some diarrhea yesterday. 1502: Reassessed patient and discussed exam with Dr. Padilla. He confirms she is not a TPA candidate. He recommends head and neck CTAs, brain MRI, and admission. ED CRITICAL CARE TIME: I spent approximately 35 minutes of critical care time on this patient, coordinating care with consultants and obtaining history from family. Organ system at risk is CORRESPONDENCE CLERK. - Data Points Imaging Results: Imaging Impressions Head CT 01/07/18 14:32 Impression: 1. No acute intracranial findings. If symptoms persist and clinical suspicion warrants, consider MRI. 2. Stable multifocal encephalomalacia with diffuse cerebral atrophy with periventricular and subcortical low attenuation consistent with chronic microvascular ischemic gliosis. Findings discussed with Dr. José Bell on January 07, 2018 at 1449 hours. Imaging: Discussed imaging studies w/ call center representative Radiologist, I viewed and interpreted images myself Laboratory Results: Laboratory Results 01/07/18 14:30 01/07/18 01/07/18 01/07/18 14:36 14:30 14:30 WBC RBC Hgb POC Hgb 13.9 gm/dL gm/dL (12.6-16.3) Hct POC Hct 41 % % (38-47) MCV MCH MCHC RDW Plt Count MPV Neut % (Auto) Lymph % (Auto) [place] % (Auto) Eos % (Auto) Baso % (Auto) Nucleat RBC Rel Count Absolute Neuts (auto) Absolute Lymphs (auto) Absolute Monos (auto) Absolute Eos (auto) Absolute Basos (auto) Absolute Nucleated RBC Immature Gran % Immature Gran # PT Pending INR Pending APTT Pending POC Sodium 139 mEq/L mEq/L (135-145) Sodium Pending POC Potassium 4.4 mEq/L mEq/L (3.3-5.0) Potassium Pending POC Chloride 102 mEq/L mEq/L (97-110) Chloride Pending Carbon Dioxide Pending Anion Gap Pending POC BUN 41 mg/dL H mg/dL (7-23) BUN Pending Creatinine Pending POC Creatinine 1.1 mg/dL H mg/dL (0.6-1.0) Estimated GFR Pending Glucose Pending POC Glucose 147 mg/dL H mg/dL (70-100) Calcium Pending Troponin I Pending 01/07/18 14:30 WBC 7.30 10^3/uL 10^3/uL (3.80-9.50) RBC 4.09 10^6/uL L 10^6/uL (4.18-5.33) Hgb 13.4 g/dL g/dL (12.6-16.3) POC Hgb Hct 38.4 % % (38.0-47.0) POC Hct MCV 93.9 fL fL (81.5-99.8) MCH 32.8 pg pg (27.9-34.1) MCHC 34.9 g/dL g/dL (32.4-36.7) RDW 12.1 % % (11.5-15.2) Plt Count 244 10^3/uL 10^3/uL (150-400) MPV 10.3 fL fL (8.7-11.7) Neut % (Auto) 68.5 % % (39.3-74.2) Lymph % (Auto) 18.9 % % (15.0-45.0) [place] % (Auto) 8.5 % % (4.5-13.0) Eos % (Auto) 3.0 % % (0.6-7.6) Baso % (Auto) 0.7 % % (0.3-1.7) Nucleat RBC Rel Count 0.0 % % (0.0-0.2) Absolute Neuts (auto) 5.00 10^3/uL 10^3/uL (1.70-6.50) Absolute Lymphs (auto) 1.38 10^3/uL 10^3/uL (1.00-3.00) Absolute Monos (auto) 0.62 10^3/uL 10^3/uL (0.30-0.80) Absolute Eos (auto) 0.22 10^3/uL 10^3/uL (0.03-0.40) Absolute Basos (auto) 0.05 10^3/uL 10^3/uL (0.02-0.10) Absolute Nucleated RBC 0.00 10^3/uL 10^3/uL (0-0.01) Immature Gran % 0.4 % % (0.0-1.1) Immature Gran # 0.03 10^3/uL 10^3/uL (0.00-0.10) PT INR APTT POC Sodium Sodium POC Potassium Potassium POC Chloride Chloride Carbon Dioxide Anion Gap POC BUN BUN Creatinine POC Creatinine Estimated GFR Glucose POC Glucose Calcium Troponin I Point of Care Test Results: 01/07/18 14:36 POC Sodium 139 POC Potassium 4.4 POC Chloride 102 POC BUN 41 H POC Creatinine 1.1 H POC Glucose 147 H General Initial Vital Signs: Initial Vital Signs Temperature (C) 36.8 C 01/07/18 14:35 Heart Rate 62 01/07/18 14:35 Respiratory Rate 18 01/07/18 14:35 Blood Pressure 158/86 H 01/07/18 14:35 O2 Sat (%) 90 L 01/07/18 14:35 O2 Delivery Mode Nasal Cannula O2 (L/minute) 4 Allergies/Adverse Reactions: bee venom protein (honey bee) Allergy (Verified 02/18/17 08:35) naproxen [From Aleve] Allergy (Verified 02/18/17 08:35) Hives Penicillins Allergy (Verified 02/18/17 08:35) swelling Home Medications: Medication Instructions Recorded Cholecalciferol Vit D3 [Vitamin D3 2,000 units PO DAILY #0 each 02/05/17 2000 units tab (OTC)] Atorvastatin Calcium [Lipitor 10 10 mg PO DAILY #30 tab 02/26/17 mg (*)] levETIRAcetam [Keppra 500 mg (*)] 1,000 mg PO BID #120 tab 02/26/17 Ferrous Sulfate [Ferrous Sulf 325 162.5 mg PO DAILY 01/07/18 MG (*)] Herbals/Supplements -Info Only 1 ea PO DAILY 01/07/18 Lisinopril [Zestril 40 mg (*)] 20 mg PO DAILY 01/07/18 Metoprolol Tartrate [Lopressor 100 100 mg PO BID 01/07/18 mg (*)] Departure - Departure Disposition: [facility] ([place], [place]) Inpatient Acute Clinical Impression: Aphasia Condition: Fair Report Scribed for: José Bell Report Scribed by: Ivelisse Alegria Date of Report: 01/07/18 Time of Report: 14:32 Physician Review and Approval Statement: Portions of this note were transcribed by an ED scribe. I personally performed the history, physical exam, and medical decision making; and confirm the accuracy of the information in the transcribed note.
--- NOTE | 2018-01-07 14:46 | CPEKG ---
Heart Rate: 62 RR Interval: 968 P-R Interval: 148 QRSD Interval: 88 QT Interval: 428 QTC Interval: 435 P [place]: 17 QRS [place]: 14 T Wave [place]: 54 EKG Severity - NORMAL ECG - EKG Impression: SINUS RHYTHM Electronically Signed By: Gurpreet Hanson 10-Jan-2018 08:58:07
[2018-01-07] MEDS ORDERED: IOPAMIDOL (ISOVUE 370) 100 ML BTL IV ONE (15:09)
[2018-01-07 15:13] LABS: PLATELET COUNT 244 10^3/uL (150-400)
[2018-01-07 15:24] LABS: INR 0.92 (0.83-1.16); PROTIME(PATIENT) 12.6 SEC (12.0-15.0)
[2018-01-07] MEDS ORDERED: NS 1,000 ML IV ONE (15:44)
[2018-01-07] MEDS ORDERED: ONDANSETRON DISINTEGRATING 4 MG TAB PO PRN (15:44)
[2018-01-07] MEDS ORDERED: ACETAMINOPHEN 325 MG TAB PO PRN (15:44)
[2018-01-07] MEDS ORDERED: ONDANSETRON 4 MG/2 ML VIAL IVP PRN (15:44)
[2018-01-07] MEDS ORDERED: SUCCINYLCHOLINE CHLORIDE 200 MG/10 ML SYR IVP ONE (16:59)
[2018-01-07] MEDS ORDERED: MIDAZOLAM 2 MG/2 ML VIAL ONE (16:59)
[2018-01-07] MEDS ORDERED: ETOMIDATE 40 MG/20 ML INJ ONE (16:59)
--- NOTE | 2018-01-07 17:22 | GHP ---
[f rep st] HISTORY AND PHYSICAL DATE OF ADMISSION: 01/07/2018 CHIEF COMPLAINT: Acute confusion. HISTORY OF PRESENT ILLNESS: This is a 72-year-old female with a complicated past medical history who presents with sudden onset of confusion the afternoon of presentation. Patient reportedly was in [facility] for the last week in normal state of health, if anything a strengthening state of health, when s he returned back to the [place] the evening prior to presentation. Patient's reports t hat her oral intake had been quite normal. Her medications have been unchanged. The patient awoke t he morning of presentation, completed her normal ADLs without any changes, was without complaint of f ever, pain, shortness of breath, chills. The patient's then left the home to complete some e rrands, and when he returned, she was sleeping. When she awoke from a nap, which is not atypical for her, she was unable to appropriately answer questions for him and meaningfully engage in conversatio n. With that change, the patient's called EMS for transfer to the emergency department. Per his description, the patient has been recovering well from her recent acute illnesses. Reports t hat she was even beginning to take stairs 1 foot after another without complication. Had not been valdez ving headache, vision changes, nausea, vomiting. Had noted 1 episode of diarrhea which occurred the day of presentation. Otherwise, no changes in urination, bowel habits. No shortness of breath. No chest pain. No abdominal upset. Reports that they ate maybe richer food than their normal paleo t in [place] while they with friends and she did use CBD oil which she has not in the past. Otherwise , her medications and social history have been unchanged. In the emergency department, the patient i s unable to effectively answer my questions around pain, shortness of breath. PAST MEDICAL HISTORY: 1. 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 2. Hypertension. 3. Dyslipidemia. 4. Seizure disorder. 5. Hydrocephalus status post [employer]DLEWARE CONSULTANT shunt placement. 6. History of a DVT of the right lower extremity. 7. Diverticulitis. 8. Status post left frontal craniotomy for aneurysm clipping. 9. Shoulder and hip replacements. SOCIAL HISTORY: Negative for tobacco. Occasional alcohol. No illicit drugs or marijuana. Patient did recently use CBD oil which is unusual. FAMILY HISTORY: Negative for stroke. REVIEW OF SYSTEM: A 10-point obtained from the is negative with the exception of that report ed in the HPI. PHYSICAL EXAMINATION: VITAL SIGNS: Blood pressure 157/85, heart rate 63, respiratory rate 16 satura ting 90% on room air, 36.8. GENERAL: This is an elderly female lying flat in bed. HEENT: Notable f or moist mucous membranes. Eye exam is negative for any icterus. CARDIAC: Patient is regular rate and rhythm. A quiet systolic murmur is appreciated. PULMONARY: Clear to auscultation bilaterally. GASTROINTESTINAL: Patient is obese, has positive bowel sounds, is soft and nontender in all 4 quadr ants. MUSCULOSKELETAL: Negative for any lower extremity edema. SKIN: Negative for any rashes. NE UROLOGIC: Patient is following simple commands of squeezing, unable to verbally answer questions. Dora miller's cranial nerve exam is grossly intact. Strength appears intact, bilateral upper and lower ex tremities. Gait was not examined. DATA: White count 7.3, hematocrit 13.4, platelet count of 244. Creatinine 1.1, BUN 41, sodium 139, potassium 4.4. Troponin less than 0.012. Noncontrast CT of the head, which I personally reviewed and interpreted, shows no acute intracranial findings. Radiology comments on multifocal encephalomalacia with diffuse cerebral atrophy. ASSESSMENT AND PLAN: This is a 72-year-old female presenting with acute confusion. 1. Acute encephalopathy. Based on the timing, certainly cannot rule out neurologic causes or metabo lic causes at this time. I am reassured by her neurologic exam. She was seen by [facility] in the emergency department and we will obtain a CTA of the head and neck, as well as an MRI, to rule out an evolving neurologic event. Will additionally check a urinalysis, stool studies, as well as a urine drug screen, to better understand if there is a metabolic cause for her acute confusion. Will admit the patient to the stepdown unit for close clinical monitoring. Will additionally consult Neur ology for review of data collected overnight, as well as ask Neurosurgery to review images and commen t on whether the ventriculoperitoneal shunt could be involved in any way. 2. Hypertension within reasonable control. Will continue her beta elissa at half dose so as not to drop her pressures too low. Will hold her LINDSAY inhibitor at this time. 3. Acute kidney injury. She has a slight bump in her creatinine, may be related to diarrhea describ ed by the . Will give a fluid bolus and recheck her renal function in the morning. 4. Prophylaxis with sequential compression devices. 5. Diet. Once cleared by speech, regular. 6. Disposition. I expect greater than 2 midnights as the patient remains very encephalopathic. Eleno l need additional diagnostics. I discussed the case with the emergency room physician. Patient will be triaged to the stepdown unit for care. /[id number]/MODL
[2018-01-07] MEDS: METOPROLOL TARTRATE 100 MG TAB PO SCH (21:30)
[2018-01-07] MEDS: levETIRAcetam 500 MG TAB PO SCH (21:31)
--- NOTE | 2018-01-07 22:03 | GCON ---
[f rep st] CONSULTATION DATE OF CONSULTATION: 01/07/2018 REFERRING PHYSICIAN: Angeles Powell MD CONSULTING SERVICE: Hospitalist Medicine, Dr. Powell. REASON FOR CONSULT: Altered mental status in a patient with a history of aneurysmal rupture and a CIGARETTE TESTER shunt. HISTORY OF PRESENT ILLNESS: The patient is a pleasant 72-year-old female brought in today to the ED by her for sudden onset of confusion this afternoon. Apparently, they were vacationing in [facility] very recently and she was doing fine in her normal state of health and, in fact, probably overal l better than she had been after aneurysmal rupture and clipping with Dr. Ge in the past and place ment of a CIGARETTE TESTER shunt. She did do some CBD oil while she was down in [place]. She is awake and alert. Tries to provide her own history, but she does appear a little bit disorient ed. She is very defensive about her appropriate mental status, but her continually endorses that she is not her usual self. She has been admitted by Medicine. We have been consulted to rule o ut the shunt as the issue at hand. She has had multiple scans of her brain that to my read do not sh ow any acute cause for her confusion. Do not support the diagnosis of a shunt malfunction either. S he does have a Codman Certas valve that is MRI compatible and is currently set at 2. PAST MEDICAL/SURGICAL HISTORY: Per HPI. History of a ruptured left MCA aneurysm, status post clippi ng with Dr. Ge in the past, hypertension, dyslipidemia, seizure disorder, post subarachnoid hemorr lars, hydrocephalus with a right frontal ventriculoperitoneal shunt, history of DVT in the right lowe r extremity, diverticulitis, shoulder and hip replacements. CODE STATUS: Full. MEDICATIONS: Tylenol, Lipitor, vitamin D, iron, Keppra, Lopressor, Zofran, Lovenox. FAMILY HISTORY: No strokes or aneurysmal hemorrhage to her knowledge. SOCIAL HISTORY: No tobacco. Occasional alcohol. Does not abuse illicit drugs. . She did u se CBD oil recently which is not typical for her, but she was on vacation. REVIEW OF SYSTEMS: Ten points reviewed and negative other than stated in HPI. PHYSICAL EXAMINATION: VITALS: Blood pressure 153/98, heart rate 79, afebrile at 36.9 degrees centig rade, respiratory rate is 20, saturating 98% on room air. NEUROLOGIC: The patient is awake, alert, and oriented to hospital, date, and name. It does take her quite a while to arrive to these answers, however, in terms of where she is and when it is. She has fluent speech. She has normal cranial ne rves. She is nonfocal and 5/5 in all extremities. She has normal sensory exam and reflex exam. She does not have any cerebellar findings. Gait is deferred. Her old incisions are well healed. LABORATORY DATA: White count 7.3, hemoglobin 13.4, platelets 244; there is no left shift present. I NR 0.92, PTT 27.5. Sodium 142, potassium 4.8, chloride 100, carbon dioxide 28, BUN 41, creatinine 1. 1, glucose 140. Troponin is less than 0.012. LFTs are normal. Review of imaging. I reviewed the patient's CTs of her head in the past and her current MRI of the b rain and I do not feel that she has change in her ventricular size at this point in time. IMPRESSION AND PLAN: The patient is a 72-year-old female with past medical history of a ruptured lef t middle cerebral artery aneurysm that was clipped by Dr. Ge in the past. She developed post aneu rysmal ventriculomegaly and had a right ventriculoperitoneal shunt placed. She has had the settings on the shunt changed over time. They were changed from 4 to 2 approximately a year ago. She was rec ently seen in clinic and her setting was verified to still be at 2. She presents with acute onset al tered mental status today without any radiographic signs of shunt failure. She looks relatively well clinically with just some mild disorientation. We will follow along, but we do not believe she is having a shunt malfunction at this time. We do no t plan to make any changes to her valve at this time. I would continue to look for all other metabol ic causes of her encephalopathy. Please call us with questions but, as stated before, we are following. /[id number]/MODL
[2018-01-08 05:35] LABS: PLATELET COUNT 194 10^3/uL (150-400)
--- NOTE | 2018-01-08 06:57 | NEUSURGPN ---
Assessment/Plan: A: 72 yo F with PMH of left MCA IA rupture/SAH, s/p crani for aneurysm clipping and right VPS placement. Admitted for AMS Plan: -Pt appears neurologically intact this am -Imaging reviewed - no ventriculomegaly or hydrocephalus, no acute hemorrhage or vascular abnormalities -No evidence of shunt failure -Neurology to see as well -Medicine working up possible metabolic causes of confusion -NS will continue to follow -D/w Dr Pascal -D/w pt and her this am Subjective: Pt resting in bed, states she is feeling well Objective: AAOx3 - knows we are in [place] in a hospital but could not come up with name. otherwise oriented CN II-XII grossly intact No droop pupils equal follows all commands Motor 5/5 BUE/BLE +LT Urinary Catheter in Place: No - Physician Discussed Patient with : [facility] Physical Exam - Vitals, I&O, Labs I and O 01/07/18 01/08/18 01/09/18 05:59 05:59 05:59 Intake Total 1400 Balance 1400 Weight 67.8 kg Intake: Oral (ml) 700 IV Infused (ml) 700 Other: Number of Voids Incontinence 3 Number of Stools Incontinence 1 Vital Signs Temp Pulse Resp BP Pulse Ox 36.7 C 46 L 15 115/70 99 01/08/18 04:00 01/08/18 04:00 01/08/18 04:00 01/08/18 04:00 01/08/18 04:00 Laboratory Results 01/08/18 05:10 01/08/18 05:10 ICD10 Worksheet Patient Problems: Problems Problem Status Onset Aphasia Acute Altered mental state Acute Altered mental status Acute Altered mental status Acute Generalized weakness Acute Pneumonia Acute 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 VRE (vancomycin-resistant Enterococci) Acute ~02/16/17
[2018-01-08] MEDS: METOPROLOL TARTRATE 100 MG TAB PO SCH (08:02)
[2018-01-08] MEDS: levETIRAcetam 500 MG TAB PO SCH (08:03)
[2018-01-08 08:09] VITALS: BP 167/78
[2018-01-08] MEDS ORDERED: ENOXAPARIN 40 MG/0.4 ML SYR SC SCH (09:00)
[2018-01-08] MEDS ORDERED: Herbals/Supplements -Info Only PO SCH (09:00)
[2018-01-08] MEDS ORDERED: ATORVASTATIN CALCIUM 10 MG TAB PO SCH (09:00)
[2018-01-08] MEDS ORDERED: CHOLECALCIFEROL VIT D3 2,000 UNITS TAB/CAP PO SCH (09:00)
[2018-01-08] MEDS ORDERED: FERROUS SULFATE 325 MG TAB PO SCH (09:00)
--- NOTE | 2018-01-08 09:09 | GCON ---
[f rep st] CONSULTATION DATE OF CONSULTATION: 01/07/2018 REFERRING PHYSICIAN: Angeles Powell MD HISTORY: The patient is a 72-year-old woman who I am asked to see in neurologic consultation carmine cesia an episode lasting many hours yesterday of confusion and expressive aphasia. I had a conversation with the patient and her this morning. The patient has a different perception of what occur red and denies that she was ever really confused, but clearly does not remember anything accurately. What actually occurred was he had seen her in the morning and she was stable, doing busy activities after having recently returned from a trip to [place] where she was basically continuing to move forwa rd in her nice progress of recovery from, originally, a left middle cerebral artery aneurysm in November followed by clipping of the aneurysm. She subsequently later developed hydrocephalus with a [employer]UP ARTIST shun t and multiple fluctuations. She was doing better, but yesterday he came and saw her at home after b eing out for an hours or so and she was unable to appropriately answer questions and was speaking gar bled words, illogical words, or none at all, which over the course of 5 to 6 hours gradually essentia lly resolved close to her baseline by 6 or 7 p.m. yesterday. Since being in the hospital, she has re mained stable and claiming that nothing really happened and that she wished he had not called the hos pital, but she just does not recognize the challenges she had. No one has witnessed any clinical tahir perkins activity. PAST MEDICAL HISTORY: As outlined above as well as a history of hypertension, hyperlipidemia, seizur es in the past, hydrocephalus with shunt placement, diverticulitis, urinary tract infection, and shou lder and hip replacements. SOCIAL HISTORY: Occasional alcohol. No smoking. Some CBD oil exposure in [place]. FAMILY HISTORY: Noncontributory. CURRENT MEDICATION: Tylenol, Lipitor, and Keppra 1000 mg twice daily. ALLERGIES: Penicillin allergy and naproxen sensitivity. PHYSICAL EXAMINATION: VITAL SIGNS: Blood pressure is 167/78, pulse 66, respirations 20, and tempera ture is 37.1. GENERAL: She is well developed and in no acute distress. EYES: Clear. NECK: Suppl e with no bruits or masses. CARDIAC: Regular rate and rhythm. NEUROLOGIC: She is awake and alert. She is oriented to the month, year, and location, but perseverates on the issue of her lucía cessarily calling for help and that she remembers everything and keeps talking about her ride from [facility] in the ambulance to the emergency department and generally refuses to acknowledge that there was a significant problem. She is not currently aphasic. Pupils are 4 mm on the right and 3 mm on t he left. Mild ptosis on the right. Extraocular movements are intact. Normal facial sensation and s trength. Motor exam reveals some mild generalized weakness. DIAGNOSTIC IMPRESSION: MRI did not show any evidence of acute hemorrhage. CT angiogram of the head and neck do not show any new anomalies. Head CT did not show any hemorrhage or evidence of acute stroke. LABORATORY STUDIES: Normal white count. Electrolytes are unremarkable, generally, with BUN of 41 wh en she came in. Urinalysis, so far, shows just 5 to 10 white cells. No other specific changes. The tox screen was negative. IMPRESSION: Total unit time of 50 minutes. The patient has a history of subarachnoid hemorrhage, hy drocephalus with shunting, prior history of possible seizure activity, and then an episode yesterday of multiple hours of encephalopathy manifesting mainly as expressive aphasia problems. Nonconvulsive seizure activity would be a differential consideration as well as acute cerebral ischemia or just en cephalopathy, though the relative prominence of language impairment would localize to the left hemisp here. As I told her , we cannot rule out that there might have been intermittent partial seiz ure phenomena, but I do not think this was a TIA or stroke. It does not appear that hydrocephalus is the reason for this and would not be particularly likely. A workup is going to be completed for any infectious etiology as well. She is quite close to being back to her baseline. Once she is cleared from the Medical teams as well as Occupational and Physical Therapy, it can be determined whether maksim roberts is safe for discharge today or will need further time in the hospital. /[id number]/MODL
[2018-01-08] MEDS ORDERED: PNEUMOC 13-VAL CONJ-DIP CRM/PF 0.5 ML SYR IM ONE (10:11)
--- NOTE | 2018-01-08 10:13 | ECHO ---
[email or web address] [address] Main: [phone] Fax: Transthoracic Echocardiogram Name: SEAN FELDMAN MR#: [id number] Study Date: 01/07/2018 Study Time: 04:17 PM Date of : 1945 Age: 72 year(s) Height: ( ) Weight: 79.38 kg (175 lb.) BSA: Gender: Female Examination: Echo Indication: Aphasia Image Quality: Adequate Contrast: Requested by: Angeles Powell BP: 157 mmHg/85 mmHg Heart Rate: Rhythm: Indication: Aphasia Procedure Staff [place] [facility] Operator: Micki Davis RDCS Reading Physician: Lucho Wolf MD Requesting Provider: Conclusions: 1)Normal LV size and systolic function with a LVEF of 57% and normal wall motions. 2)Mild concentric LVH with mild diastolic dysfunction noted. 3)Trivial MR without MV prolapse. 4)Trivial TR noted. Measurements: Chambers Valvular Assessment AV/MV Valvular Assessment TV/PV Normal Normal Normal Name Value Range Name Value Range Name Value Range Ao Nery (2D): 3.0 cm (1.4 cm-2.6 AV Vmax: 1.41 m/s (1 m/s-1.7 PV Vmax: 0.81 m/s (0.6 m/s-0.9 cm) m/s) m/s) IVSd (2D): 1.1 cm (0.6 cm-1.1 AV maxP mmHg ( - ) PV PGmax: 3 mmHg ( - ) cm) AV meanP mmHg ( - ) LVDd (2D): 4.1 cm (3.9 cm-5.3 LVOT Vmax: 0.81 m/s (0.7 m/s-1.1 cm) m/s) LVDs (2D): 2.8 cm (2.1 cm-4 SOHEILA (Vmax): 1.8 cm2 ( - ) cm) SOHEILA (VTI): 2.2 cm ( - ) LVPWd (2D): 1.1 cm ( - ) MV E Vmax: 0.67 m/s ( - ) LVOTd 2.0 cm 2.0 cm mm MV A Vmax: 0.77 m/s ( - ) LVEF (BP): 57 % (>=55 %) MV E/A: 0.87 ( - ) RVDd(2D): 3.0 cm (1.9 cm-3.8 MV PHT: 0.075 s ( - ) cmmm) MVA (PHT): 2.9 s ( - ) Continued Measurements: Chambers Valvular Assessment AV/MV Valvular Assessment TV/PV Name Value Name Value Name Value LADs: 2.9 cm MV DecTime: 264 m/s CVP (est.): 5 mmHg LADs Lon.4 cm MV E/E' Septal: 12.30 Patient: SEAN FELDMAN Study Date: 01/07/2018 Page 1 of 2 04:17 PM LA Area: 16.7 cm2 MV E/E' Lateral: 7.90 LA Volume: 42 ml RA Area: 12.7 cm2 Additional Vessels Name Value Ao Ascendin.5 cm Inferior Vena Cava: 1.4 cm Findings: Left Ventricle: Normal size left ventricle. Mild concentric LV hypertrophy. Normal global systolic LV function. EF is 57 %. No regional wall motion abnormality. Grade 1 diastolic dysfunction (abnormal relaxation). Right Ventricle: Normal size right ventricle. Normal RV function. Left Atrium: The left atrium is normal in size. Patient does not know height for LA volume index. Right Atrium: The right atrium is normal in size. Mitral Valve: The mitral valve is normal in appearance and function. Trivial mitral valve regurgitation. No mitral stenosis is present. Aortic Valve: The aortic valve is normal in appearance and function. There is no significant aortic valve regurgitation. No aortic valve stenosis is present. Tricuspid Valve: The tricuspid valve is normal in appearance and function. Trivial tricuspid valve regurgitation. Pulmonic Valve: The pulmonic valve is normal in appearance and function. There is no pulmonic regurgitation seen. Aorta: The aorta is normal. Normal size aortic root measuring 3.0 cm. Normal size ascending aorta measuring 2.5 cm. IVC: The IVC is normal sized. Pericardium: No pericardial effusion. No pleural effusion. (No Signature Object) Patient: SEAN FELDMAN Study Date: 01/07/2018 Page 2 of 2 04:17 PM [id number]
--- NOTE | 2018-01-08 11:55 | HOSPPROG ---
Hospitalist Progress Note Assessment/Plan: 72 yo f w complex recent medical history w transient confusion large workup neg back at baseline home today see dc summary Subjective: back at baseline Objective: Vital Signs Temp Pulse Resp BP Pulse Ox 37.1 C 66 20 167/78 H 98 01/08/18 08:00 01/08/18 08:00 01/08/18 08:00 01/08/18 08:00 01/08/18 08:00 Laboratory Results 01/08/18 05:10 01/08/18 05:10 01/07/18 01/08/18 01/09/18 05:59 05:59 05:59 Intake Total 1400 Balance 1400 PT 12.6 SEC (12.0-15.0) 01/07/18 14:30 INR 0.92 (0.83-1.16) 01/07/18 14:30 - Physical Exam Constitutional: no apparent distress, appears nourished Eyes: PERRL, anicteric sclera Ears, Nose, Mouth, Throat: moist mucous membranes, hearing normal Cardiovascular: regular rate and rhythym, no murmur, rub, or gallop Respiratory: no respiratory distress, no rales or rhonchi Gastrointestinal: normoactive bowel sounds, soft, non-tender abdomen Genitourinary: no bladder fullness, No cruz in urethra Skin: warm, normal color Musculoskeletal: full muscle strength ICD10 Worksheet Patient Problems: Problems Problem Status Onset Aphasia Acute Altered mental state Acute Altered mental status Acute Altered mental status Acute Generalized weakness Acute Pneumonia Acute 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 VRE (vancomycin-resistant Enterococci) Acute ~02/16/17
--- NOTE | 2018-01-08 22:06 | GDS ---
[f rep st] DISCHARGE SUMMARY DISCHARGE DIAGNOSES: Transient encephalopathy of uncertain etiology, felt secondary to possibly dehy dration versus cannabidiol oil. HOSPITAL COURSE: Please see admission history and physical by Dr. Darlin Powell. The patient presen roel with encephalopathy. She has a history of ruptured left MCA aneurysm with clipping and subarachn oid hemorrhage as well as hydrocephalus. Patient presented with an episode where she was alert but n ot necessarily responsive. CTA of the head and neck showed [id number] atherosclerotic disease . A brain MRI showed no acute intracranial findings. She had an echocardiogram that was pretty unre markable and certainly not contributory to the current situation. She was seen by Neurosurgery and Neurology who felt no further workup was indicated. The patient was discharged home on unchanged medication regimen. Additionally, infectious workup was unremarkable. /[id number]/MODL
== END 2018-01-08 12:12 | disposition home or self-care (01) ==
LOC: EDUNIT# → F2N 17:24
PROVIDERS: ADMIT Hospitalist; ATTEND Hospitalist
DX: G93.40 Encephalopathy, unspecified (principal); I10 Essential (primary) hypertension; E78.5 Hyperlipidemia, unspecified; R56.9 Unspecified convulsions; Z98.2 Presence of cerebrospinal fluid drainage device
CPT/HCPCS: 70450; 70496; 70498; 70551; 90670; 92610; 93005; 93306; 97166; G0009; G0378; G8987; G8988; G8989; G8996; G8997; G8998; J0330; J2250; Q9967; 80307; 82947-QW; G0480

== ENCOUNTER 2018-02-19 22:22 | Emergency (ER) | payer OTHER ==
--- NOTE | 2018-02-19 22:59 | EDPHY ---
General Time Seen by Provider: 02/19/18 22:44 Narrative: CHIEF COMPLAINT: Leg weakness HISTORY OF PRESENT ILLNESS: Patient presents with spouse at bedside by EMS. She complains of weakness of the legs. This started acutely tonight. She attempted to ambulate of bed with her , when she was unable to bear any weight on the legs. She has a history of cerebral aneurysms clipped in November 2016. She then had subsequent hydrocephalus, with strep placement on December 2016. She was doing well until the 11 of February. They were on a cruise in [place] when he noticed some twitching of the face and seizure activity that he describes as "she has just not there, stares off into space." This was increasing, thus the doctor was notified on the ship. She was treated there and then deemed to be unstable for the ship, thus she was flown to [place], [place]. She was stable as there and then transferred to [facility] in [place]. She was discharged to home on Wednesday. She was doing well until tonight when she attempted out of bed with the above complaint. No numbness or tingling. No fall. No head injury. No headache. No back pain. No other associated complaints or modifying factors REVIEW OF SYSTEMS: Ten systems reviewed and are negative unless otherwise noted in the HPI PCP: Dr. Luis Eduardo Jones SPECIALISTS: Neurologist Dr. Wilmer Iglesias Neurosurgeon Dr. eG PAST MEDICAL HISTORY: Normal pressure hydrocephalus, cerebral aneurysm status post clipping, dyslipidemia, seizures, hypertension PAST SURGICAL HISTORY: Cerebral aneurysm clipping November 2016, shunt placement December 2016 SOCIAL HISTORY: Nonsmoker. Lives independently with her spouse. FAMILY HISTORY: Noncontributory EXAMINATION General Appearance: Alert, no distress Head: normocephalic, atraumatic Eyes: Pupils equal and round, no conjunctival pallor or injection. EOM symmetric. ENT, Mouth: Mucous membranes moist. Uvula midline. Neck: Normal inspection, supple, non-tender Respiratory: Lungs are clear to auscultation Cardiovascular: Regular rate and rhythm Gastrointestinal: Obese Abdomen is soft and nondistended. Back: non-tender, no bony abnormalities Neurological: GCS 15. A&O, nonfocal, strength is symmetric in all 4 extremities as 4/5. Sensory intact distally in symmetrically. Normal finger-to -nose. No pronator drift. Skin: Warm and dry, no rash. No petechiae or purpura Extremities: Nontender, no pedal edema Psychiatric: Mood and affect normal DIFFERENTIAL DIAGNOSES: Including but not limited to hydrocephalus, aneurysm, dehydration, musculoskeletal weakness, electrolyte disturbance, strain MDM: 10:50 p.m. Weakness of the lower extremities without any saddle anesthesia, incontinence of bowel or bladder back pain. Patient strength is symmetric in the bed, but she is unable to ambulate. She does have complex history. I have ordered laboratory studies and I will discuss with Dr. Tobar. 11:30 p.m. Laboratory studies unremarkable. Notified by radiologist CT scan is unremarkable for any acute changes. There are chronic changes as noted. This has been compared to recent CT scan at [facility] in [place] as well. I discussed case with Dr. Tobar he recommends urinalysis, troponin, EKG and chest x-ray and admission to the hospital. 12:15 a.m. Case discussed with hospitalist Dr. Villarreal, she has agreed to admit the patient to the hospital, the patient is now declining. I re-evaluated the patient and asked her to ambulate with assistance. 12:40 a.m. Patient has ambulated in the emergency depart without difficulty. She is stating that she would like to go home. I did offer recommended admission the hospital, but I do feel this is reasonable. And we have discussed risks, benefits and alternatives, and she has declined admission. She would like to go home collar physicians tomorrow. She has an appointment on Wednesday with primary. She has an appointment with her neurologist on Wednesday. We discussed returning here for return of weakness. I have answered all their questions both the patient's spouse would like to go home. SUPERVISION: Patient was evaluated and examined in conjunction with my secondary supervising physician as documented. We have both examined the patient. - Diagnostics Imaging Results: Imaging Impressions Head CT 02/19/18 23:08 Impression: No acute intracranial findings. Findings discussed with Raz Sandra 02/19/2018 at 23:52. - History Smoking Status: Never smoked - Objective Vital Signs: Initial Vital Signs Temperature (C) 98.2 F 02/19/18 22:24 Heart Rate 77 02/19/18 22:24 Respiratory Rate 16 02/19/18 22:24 Blood Pressure 170/88 H 02/19/18 22:24 O2 Sat (%) 91 L 02/19/18 22:24 O2 Delivery Mode Room Air Allergies/Adverse Reactions: bee venom protein (honey bee) Allergy (Verified 02/18/17 08:35) naproxen [From Aleve] Allergy (Verified 02/18/17 08:35) Hives Penicillins Allergy (Verified 02/18/17 08:35) swelling Home Medications: Medication Instructions Recorded Cholecalciferol Vit D3 [Vitamin D3 2,000 units PO DAILY #0 each 02/05/17 2000 units tab (OTC)] Atorvastatin Calcium [Lipitor 10 10 mg PO DAILY #30 tab 02/26/17 mg (*)] levETIRAcetam [Keppra 500 mg (*)] 1,000 mg PO BID #120 tab 02/26/17 Ferrous Sulfate [Ferrous Sulf 325 162.5 mg PO DAILY 01/07/18 MG (*)] Herbals/Supplements -Info Only 1 ea PO DAILY 01/07/18 Lisinopril [Zestril 40 mg (*)] 20 mg PO DAILY 01/07/18 Metoprolol Tartrate [Lopressor 100 100 mg PO BID 01/07/18 mg (*)] Laboratory Results: Laboratory Results 02/19/18 22:40 02/19/18 22:40 02/20/18 02/20/18 02/19/18 00:21 00:15 22:40 WBC RBC Hgb Hct MCV MCH MCHC RDW Plt Count MPV Neut % (Auto) Lymph % (Auto) [place] % (Auto) Eos % (Auto) Baso % (Auto) Nucleat RBC Rel Count Absolute Neuts (auto) Absolute Lymphs (auto) Absolute Monos (auto) Absolute Eos (auto) Absolute Basos (auto) Absolute Nucleated RBC Immature Gran % Immature Gran # PT INR APTT Sodium 140 mEq/L mEq/L (135-145) Potassium 4.6 mEq/L mEq/L (3.3-5.0) Chloride 105 mEq/L mEq/L (97-110) Carbon Dioxide 23 mEq/l mEq/l (22-31) Anion Gap 12 mEq/L mEq/L (8-16) BUN 33 mg/dL H mg/dL (7-23) Creatinine 0.9 mg/dL mg/dL (0.6-1.0) Estimated GFR > 60 Glucose 110 mg/dL H mg/dL (70-100) Calcium 9.8 mg/dL mg/dL (8.5-10.4) POC Troponin I 0.01 ng/mL ng/mL (0.00-0.08) Urine Color YELLOW Urine Appearance CLEAR Urine pH 5.0 (5.0-7.5) Ur Specific Franklin 1.020 (1.002-1.030) Urine Protein 2+ H (NEGATIVE) Urine Ketones NEGATIVE (NEGATIVE) Urine Blood NEGATIVE (NEGATIVE) Urine Nitrate NEGATIVE (NEGATIVE) Urine Bilirubin NEGATIVE (NEGATIVE) Urine Urobilinogen NEGATIVE EU EU (0.2-1.0) Ur Leukocyte Esterase NEGATIVE (NEGATIVE) Urine RBC 3-5 /hpf H /hpf (0-3) Urine WBC 3-5 /hpf H /hpf (0-3) Ur Epithelial Cells TRACE /lpf /lpf (NONE-1+) Hyaline Casts 1-5 /lpf /lpf (0-1) Urine Mucus TRACE /lpf /lpf (NONE-1+) Urine Glucose NEGATIVE (NEGATIVE) 02/19/18 02/19/18 22:40 22:40 WBC 5.44 10^3/uL 10^3/uL (3.80-9.50) RBC 4.15 10^6/uL L 10^6/uL (4.18-5.33) Hgb 13.3 g/dL g/dL (12.6-16.3) Hct 39.3 % % (38.0-47.0) MCV 94.7 fL fL (81.5-99.8) MCH 32.0 pg pg (27.9-34.1) MCHC 33.8 g/dL g/dL (32.4-36.7) RDW 12.5 % % (11.5-15.2) Plt Count 193 10^3/uL 10^3/uL (150-400) MPV 10.2 fL fL (8.7-11.7) Neut % (Auto) 71.8 % % (39.3-74.2) Lymph % (Auto) 11.4 % L % (15.0-45.0) [place] % (Auto) 12.3 % % (4.5-13.0) Eos % (Auto) 3.9 % % (0.6-7.6) Baso % (Auto) 0.0 % L % (0.3-1.7) Nucleat RBC Rel Count 0.0 % % (0.0-0.2) Absolute Neuts (auto) 3.91 10^3/uL 10^3/uL (1.70-6.50) Absolute Lymphs (auto) 0.62 10^3/uL L 10^3/uL (1.00-3.00) Absolute Monos (auto) 0.67 10^3/uL 10^3/uL (0.30-0.80) Absolute Eos (auto) 0.21 10^3/uL 10^3/uL (0.03-0.40) Absolute Basos (auto) 0.00 10^3/uL L 10^3/uL (0.02-0.10) Absolute Nucleated RBC 0.00 10^3/uL 10^3/uL (0-0.01) Immature Gran % 0.6 % % (0.0-1.1) Immature Gran # 0.03 10^3/uL 10^3/uL (0.00-0.10) PT 13.4 SEC SEC (12.0-15.0) INR 1.00 (0.83-1.16) APTT 28.0 SEC SEC (23.0-38.0) Sodium Potassium Chloride Carbon Dioxide Anion Gap BUN Creatinine Estimated GFR Glucose Calcium POC Troponin I Urine Color Urine Appearance Urine pH Ur Specific Franklin Urine Protein Urine Ketones Urine Blood Urine Nitrate Urine Bilirubin Urine Urobilinogen Ur Leukocyte Esterase Urine RBC Urine WBC Ur Epithelial Cells Hyaline Casts Urine Mucus Urine Glucose Point of Care Test Results: Chemistry 02/20/18 00:21 POC Troponin I 0.01 ng/mL ng/mL (0.00-0.08) Departure - Departure Disposition: Home, Routine, Self-Care Clinical Impression: Weakness, Normal pressure hydrocephalus Condition: Good Instructions: Weakness (ED) Additional Instructions: 1. Contact your established physicians for outpatient follow-up on Wednesday or Wednesday 2. Return here for return of weakness, difficulty ambulating, saddle anesthesia , incontinence of bowel or bladder, weakness, numbness or tingling of the lower extremities Referrals: Maximo Yee MD [Medical Doctor] - As per Instructions Wilmer Iglesias MD [Medical Doctor] - As per Instructions Basilio Ge MD [Medical Doctor] - As per Instructions
[2018-02-19 23:13] LABS: PLATELET COUNT 193 10^3/uL (150-400)
[2018-02-19 23:52] LABS: PROTIME(PATIENT) 13.4 SEC (12.0-15.0)
[2018-02-20 00:14] VITALS: BP 140/71
--- NOTE | 2018-02-20 00:14 | CPEKG ---
Heart Rate: 77 RR Interval: 779 P-R Interval: 168 QRSD Interval: 88 QT Interval: 392 QTC Interval: 444 P Marion: 43 QRS Marion: 10 T Wave Marion: 79 EKG Severity - BORDERLINE ECG - EKG Impression: SINUS RHYTHM EKG Impression: BORDERLINE T ABNORMALITIES, ANT-LAT LEADS Electronically Signed By: Pratik Tobar 20-Feb-2018 07:00:23
== END 2018-02-20 01:10 | disposition home or self-care (01) ==
LOC: EDUNIT#
DX: R53.1 Weakness (principal); G91.2 (Idiopathic) normal pressure hydrocephalus; I10 Essential (primary) hypertension
CPT/HCPCS: 84484-PO

== ENCOUNTER 2018-02-20 14:58 | Emergency (ER) | payer OTHER ==
[2018-02-20 15:03] VITALS: BP 129/81
--- NOTE | 2018-02-20 15:24 | EDPHY ---
H & P Time Seen by Provider: 02/20/18 15:14 HPI/ROS: CHIEF COMPLAINT: Skin rash HISTORY OF PRESENT ILLNESS: Patient had a complex recent history with worsening of seizures resulting in evacuation from a cruise ship in [place] and eventually being transferred to [facility] in [place] and then back here. She was seen last night in the emergency department for weakness. She was started on 2 additional seizure medications including phenytoin and lacosamide in [place]. She presents today with an itchy rash. She felt like she needed to scratch and was noted that she had a rash on her trunk and upper arms which is red and a little bit raised. Not associated with abdominal cramping or wheezing or throat or tongue swelling or trouble breathing. REVIEW OF SYSTEMS: No oral rash or diarrhea. PAST MEDICAL HISTORY: Includes seizure disorder, hydrocephalus, hypertension, DVT Social history: Nonsmoker General Appearance: Alert and conversant, cooperative. No angioedema and no intraoral rash or ulcers. Respiratory: Normal respiratory effort, breath sounds equal, lungs are clear to auscultation. No wheezing. Skin: Urticaria greatest on the back but also on the front of the trunk and her upper arms. Not tender to palpation. No lymphangitis. Emergency Department course/MDM: Discussed with Fer at 1529; symptomatic treatment with benadryl. Discussed with pharmacy. Recommendation is to continue anti seizure medications, unlikely to be Xiao- Greg. Oral Benadryl as needed for itching. Follow-up this week with primary care and neurologist tomorrow and Wednesday as already scheduled. Emphasized to the patient and family that do not have a source or a cause for the urticaria. Does not appear to have airway involvement at this time. Smoking Status: Never smoked Constitutional: Initial Vital Signs Temperature (C) 37.3 C 02/20/18 15:01 Heart Rate 84 02/20/18 15:01 Respiratory Rate 18 02/20/18 15:01 Blood Pressure 129/81 H 02/20/18 15:01 O2 Sat (%) 93 02/20/18 15:01 O2 Delivery Mode Room Air Allergies/Adverse Reactions: bee venom protein (honey bee) Allergy (Verified 02/18/17 08:35) naproxen [From Aleve] Allergy (Verified 02/18/17 08:35) Hives Penicillins Allergy (Verified 02/18/17 08:35) swelling Home Medications: Medication Instructions Recorded Cholecalciferol Vit D3 [Vitamin D3 2,000 units PO DAILY #0 each 02/05/17 2000 units tab (OTC)] Atorvastatin Calcium [Lipitor 10 10 mg PO DAILY #30 tab 02/26/17 mg (*)] levETIRAcetam [Keppra 500 mg (*)] 1,000 mg PO BID #120 tab 02/26/17 Ferrous Sulfate [Ferrous Sulf 325 162.5 mg PO DAILY 01/07/18 MG (*)] Herbals/Supplements -Info Only 1 ea PO DAILY 01/07/18 Lisinopril [Zestril 40 mg (*)] 20 mg PO DAILY 01/07/18 Metoprolol Tartrate [Lopressor 100 100 mg PO BID 01/07/18 mg (*)] MDM/Departure - Depart Disposition: Home, Routine, Self-Care Clinical Impression: Urticaria Condition: Good Instructions: Urticaria (ED) Additional Instructions: OK to take benadryl 25mg orally every 6-8 hours if needed for itching over the next 2 days. Follow-up with her doctors as already arranged. Continue current medications. Return for facial or tongue or throat swelling, trouble breathing or swallowing , wheezing. Referrals: JENNIFER BECERRA [Primary Care Provider] - As per Instructions Wilmer Iglesias MD [Medical Doctor] - As per Instructions
[2018-02-20] MEDS ORDERED: diphenhydrAMINE 25 MG CAP PO ONE (15:29)
== END 2018-02-20 15:38 | disposition home or self-care (01) ==
DX: L50.9 Urticaria, unspecified (principal); I10 Essential (primary) hypertension

== ENCOUNTER → 2018-05-24 | Outpatient (CLI) | payer OTHER | LOC: SBRMNEURO 20:00 | PROVIDERS: ATTEND Student in an Organized Health Care Education/Training Program | DX: G47.33 Obstructive sleep apnea (adult) (pediatric) (principal) ==

== ENCOUNTER → 2018-12-20 | Outpatient (CLI) | payer OTHER | LOC: FIMAGING 09:36 | PROVIDERS: ATTEND Physician Assistant | DX: G91.3 Post-traumatic hydrocephalus, unspecified (principal) ==